=== PATIENT | female | born 1980 | race Caucasian/White ===

== ENCOUNTER 2016-09-07 10:40 | Emergency (ER) | payer MEDICARE, MEDICAID ==
[2016-09-07 11:52] VITALS: BP 138/84
[2016-09-07 12:57] LABS: Hematocrit 48 % (35-47); Hemoglobin 15.9 g/dl (12.0-16.0); Mean Corpuscular HGB Conc 33 g/dl (31-36); Mean Corpuscular Hemoglobin 31 pg (27-31); Mean Corpuscular Volume 94 fL (80-97); Mean Platelet Volume 8 um3 (7.4-10.4); Red Cell Distribution Width 13 % (10.5-15); White Blood Count 7.7 10^3/ul (3.5-10.8)
[2016-09-07 12:58] LABS: Urine Bilirubin Negative (Negative); Urine Glucose Negative (Negative); Urine Nitrite Negative (Negative)
[2016-09-07 13:08] LABS: ALT 12 U/L (7-52); AST 16 U/L (13-39); Albumin 4.7 g/dL (3.2-5.2); Alkaline Phosphatase 57 U/L (34-104); Anion Gap -1 mmol/L (2-11); Blood Urea Nitrogen 8 mg/dL (6-24); CO2 Carbon Dioxide 26 mmol/L (22-32); Calcium 10.3 mg/dL (8.6-10.3); Chloride 107 mmol/L (101-111); EGFR African American 80.2 (>60); EGFR Non-African American 62.4 (>60); Globulin 2.4 g/dL (2-4); Glucose 96 mg/dL (70-100); Potassium 3.7 mmol/L (3.5-5.0); Sodium 132 mmol/L (133-145); Total Protein 7.1 g/dL (6.4-8.9)
[2016-09-07 13:18] LABS: Benzodiazepine Urine Screen None Detected (None Detect)
[2016-09-07 13:21] LABS: Acetaminophen < 15 mcg/mL; Alcohol < 10 mg/dL (<10); Salicylate < 2.50 mg/dL (<30)
[2016-09-07 13:28] LABS: TSH (Thyroid Stimulating Horm) 3.74 mcIU/mL (0.34-5.60)
--- NOTE | 2016-09-07 13:40 | RAD ---
HISTORY: Foreign bodies. No other history is provided COMPARISONS: June 21, 2016 VIEWS: 2: Frontal dual-energy and lateral views of the chest. FINDINGS: CARDIOMEDIASTINAL SILHOUETTE: The cardiomediastinal silhouette is normal. MYRIAM: The myriam are normal. PLEURA: The costophrenic angles are sharp. No pleural abnormalities are noted. LUNG PARENCHYMA: The lungs are clear. ABDOMEN: The upper abdomen is clear. There is no subphrenic gas. BONES AND SOFT TISSUES: No bone or soft tissue abnormalities are noted. OTHER: There is no radiopaque foreign body. IMPRESSION: NO ACTIVE CARDIOPULMONARY DISEASE.
--- NOTE | 2016-09-07 13:42 | RAD ---
HISTORY: Foreign bodies. No other history is provided. COMPARISONS: June 21, 2016 VIEWS: Frontal supine and upright views of the abdomen. FINDINGS: BOWEL: There is a nonobstructive bowel gas pattern. CALCULI: There are no abnormal calculi. BONES AND SOFT TISSUES: There are no osseous abnormalities. OTHER FINDINGS: The lung bases are clear. There is no subphrenic gas. There is no radio-opaque foreign body. IMPRESSION: NONOBSTRUCTIVE BOWEL GAS PATTERN. NO RADIOPAQUE FOREIGN BODY.
[2016-09-07] MEDS ORDERED: Acetaminophen TAB* 325 MG PO ONE (17:14)
[2016-09-07] MEDS ORDERED: QUEtiapine TAB* 100 MG PO ONE (19:57)
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
[2016-09-08] MEDS ORDERED: Acetaminophen TAB* 325 MG PO ONE (05:02)
--- NOTE | 2016-10-04 04:02 | ED ---
Progress - Progress Note Progress Note: pt seen and cleared by crisis condition stable - Consult/PCP Time Called: 13:00 Course/Dx - Diagnoses Provider Diagnoses: Depression, Pica in adults
== END 2016-09-08 12:01 ==
LOC: ED 10:40
DX: F32.9 Major depressive disorder, single episode, unspecified (principal); F50.89 Other specified eating disorder
CPT/HCPCS: 36415; 71020; 74020; 80053; 80307; 80320; 80329; 81003; 84443; 85025; 99284; A9270-GY; G0480

== ENCOUNTER 2016-12-05 20:58 | Inpatient (IN) | payer MEDICARE, MEDICAID ==
[2016-12-05 21:39] LABS: Urine Bilirubin Negative (Negative); Urine Glucose Negative (Negative); Urine Nitrite Negative (Negative)
[2016-12-05 21:42] LABS: Benzodiazepine Urine Screen None Detected (None Detect)
[2016-12-05 21:55] LABS: Hematocrit 42 % (35-47); Hemoglobin 14.1 g/dl (12.0-16.0); Mean Corpuscular HGB Conc 34 g/dl (31-36); Mean Corpuscular Hemoglobin 31 pg (27-31); Mean Corpuscular Volume 92 fL (80-97); Mean Platelet Volume 8 um3 (7.4-10.4); Red Blood Count 4.51 10^6/ul (4.0-5.4); Red Cell Distribution Width 13 % (10.5-15); White Blood Count 7.4 10^3/ul (3.5-10.8)
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
[2016-12-05] MEDS ORDERED: diPHENhydraMINE IV* 50 MG/ML 1 ml VIAL (BENADRYL) IM ONE (22:05)
[2016-12-05] MEDS ORDERED: LORazepam INJ* 2 MG/ML 1 ML VIAL IM ONE (22:05)
[2016-12-05] MEDS ORDERED: Haloperidol INJ IV/IM* 5 MG/ML AMP IM ONE (22:05)
[2016-12-05 22:09] LABS: ALT 10 U/L (7-52); AST 15 U/L (13-39); Albumin 4.4 g/dL (3.2-5.2); Alkaline Phosphatase 51 U/L (34-104); Anion Gap 7 mmol/L (2-11); BUN/Creatinine Ratio 9.7 (8-20); Blood Urea Nitrogen 9 mg/dL (6-24); CO2 Carbon Dioxide 22 mmol/L (22-32); Calcium 9.5 mg/dL (8.6-10.3); Chloride 106 mmol/L (101-111); EGFR African American 87.2 (>60); EGFR Non-African American 67.8 (>60); Globulin 2.4 g/dL (2-4); Glucose 98 mg/dL (70-100); Potassium 3.7 mmol/L (3.5-5.0); Sodium 135 mmol/L (133-145); Total Protein 6.8 g/dL (6.4-8.9)
[2016-12-05 22:39] LABS: Acetaminophen < 15 mcg/mL; Alcohol < 10 mg/dL (<10); Salicylate < 2.50 mg/dL (<30)
[2016-12-05 22:48] LABS: TSH (Thyroid Stimulating Horm) 3.79 mcIU/mL (0.34-5.60)
[2016-12-06] MEDS ORDERED: Sertraline* 100 MG TAB PO ONE (09:17)
[2016-12-06] MEDS ORDERED: Gabapentin CAP(*) 400 MG PO ONE (09:22)
[2016-12-06] MEDS ORDERED: LORazepam INJ* 2 MG/ML 1 ML VIAL ONE (09:57)
[2016-12-06] MEDS ORDERED: diPHENhydraMINE IV* 50 MG/ML 1 ml VIAL (BENADRYL) ONE (09:57)
[2016-12-06] MEDS ORDERED: Haloperidol INJ IV/IM* 5 MG/ML AMP ONE (09:58)
[2016-12-06] MEDS ORDERED: diPHENhydraMINE IV* 50 MG/ML 1 ml VIAL (BENADRYL) IM ONE (10:03)
[2016-12-06] MEDS ORDERED: LORazepam INJ* 2 MG/ML 1 ML VIAL IM ONE (10:03)
[2016-12-06] MEDS ORDERED: Haloperidol INJ IV/IM* 5 MG/ML AMP IM ONE (10:03)
[2016-12-06] MEDS ORDERED: Al Hydrox/Mg Hydrox/Simet LIQ* 30 ML UDC PO PRN (15:07)
[2016-12-06] MEDS: Gabapentin CAP(*) 400 MG PO SCH ×2 (18:09→21:01)
[2016-12-06] MEDS ORDERED: Gabapentin CAP(*) 400 MG PO SCH (21:00)
[2016-12-06] MEDS: Lithium Carbonate TAB* 300 MG PO SCH (21:02)
[2016-12-07] MEDS ORDERED: LURASIDONE 120 MG PO SCH (09:00)
[2016-12-07] MEDS: Sertraline* 100 MG TAB PO SCH (09:05)
[2016-12-07] MEDS: Cholecalciferol TAB* 1000 UNITS PO SCH (09:05)
[2016-12-07] MEDS: Vitamin THERAPEUTIC TAB PO SCH (09:05)
[2016-12-07] MEDS: Gabapentin CAP(*) 400 MG PO SCH ×3 (09:06→20:36)
[2016-12-07] MEDS: Fluticasone NASAL SPRAY 50MCG* 16 gm SPRAY BTL BOTH NARES SCH (10:17)
--- NOTE | 2016-12-07 11:42 | PN ---
MHU: Group Therapy Note - Service Type Service Type: [id number] Group Psychotherapy - Cognitive Behavioral Group Therapy ( CBT):Patient was attentive and participatory in CBT programming this morning, and remained in good behavioral control. Patient expressed positive insights regarding relevant treatment interventions and goals.
--- NOTE | 2016-12-07 11:43 | HP ---
DATE OF ADMISSION: 12/06/2016. IDENTIFYING DATA: Fernando Leiva is a 36-year-old, mentally-disabled female with a history of severe borderline personality disorder, dissociative disorder, depressive disorder, chronic self-injury behaviors and multiple prior psychiatric hospitalizations. She is admitted to the Psychiatric Unit after coming to the hospital emergency room and demonstrating behavioral dysregulation and reporting some suicidal ideation and urges to eat inappropriate objects. HISTORY OF PRESENT ILLNESS: Fernando was last admitted to our psychiatric unit in June 2016 and reports doing very well since then. She reports no suicide attempts. No instances of self-injury and no major emotional distress in the last six months. She said she does recognize that she has a lot of stress in her life and most of it relates to her daily routine of having to get to day treatment and organize her life. She said things built up over the last week and she felt overwhelmed. She said that she immediately began to think about hurting herself by eating inappropriate objects, but refrained from doing so prior to coming to the hospital. In the emergency room, she had behavioral escalation and aggression, and required emergency medication. She told the ED Provider she had some suicidal thoughts. On arrival to the Psychiatric Unit, she went straight to the nurse' s station to try and eat thumb tacks. Today, she reports "doing okay." She denies current self-harm activities or urges. She notes her distress levels are much lower. She feels okay and denies emotional pain. She denies being at al close to a suicide attempt at any point recently. She recognized the appropriateness of brief psychiatric hospitalization and indicated she felt she needs a couple of days of stability prior to going home. She said she is already distancing herself somewhat from her stressors and agreed with feedback that she has interrupted a crisis already. She has denied perceptual disturbances, violent ideation, or current suicidal thoughts. She denied symptoms consistent with a major mood episode. She denies the use of alcohol or drugs or new health problems. PREVIOUS PSYCHIATRIC HISTORY: Numerous psychiatric hospitalizations, over 20 at our facility. She has also had longer term treatment at the state hospital level. Principal concern is borderline personality disorder with associative features too. She has a pattern of periodic decompensations which in most recent times has involved self-harm behaviors without suicidal intent. She often can decompensate further on the Psychiatric Unit and is vulnerable to negative therapeutic reactions in that setting. Ideally, admissions should be kept brief and focusing on interrupting an immediate crisis of behavior disturbance. In the past, she has done severe self-cutting requiring sutures for lacerations. She has had numerous medication trials, none of which have been able to eradicate her symptoms. She has had long-term outpatient care at [facility]. PRIOR MEDICAL HISTORY: Asthma, allergies, obesity. CURRENT OUTPATIENT MEDICINE REGIMEN: 1. Lurasidone 120 mg each bedtime. 2. Azelastine two sprays at bedtime. 3. Vitamin D 2000 units each a.m. 4. Gabapentin 800 mg t.i.d. 5. Xyzal 5 mg at bedtime. 6. Marlow Carbonate 1200 mg at bedtime (recently decreased). 7. Nasonex two sprays to nares daily. 8. Probiotic product one probiotic product daily. 9. Sertraline 200 mg each a.m. SUBSTANCE USE HISTORY: She has a prior history of alcohol use with negative consequences and over the years has accessed for support. She has no known problems with other substances. SOCIAL HISTORY: Fernando was born in [place]. She is quite distant from her biological family. She said her father was difficulty, angry and frightening. She is educated through high school and attended [employer]. She has a degree in Linguistics. 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 She receives disability based on her mental diagnosis. She lives in a home with her partner. She identifies as lesbian and has been living with her current female partner on a stable basis over the years. She accesses healthcare through Medicare and Medicaid. MENTAL STATUS EXAMINATION: Obese, middle-aged, female who is well- kempt in casual clothes. She has normal psychomotor activity. She impresses as a little anxious, but is viviana and cooperative. She maintains fair eye contact. Speech is spontaneous and unpressured. Mood is described as "just concerned." Affect is a little tense and anxious, it is considerably bright and euthymic. Thought process is coherent. Content negative for suicidal, homicidal, or paranoid ideation. Sensorium is clear. She is alert and oriented times three. Insight and judgment is somewhat poor and impulse control is poor. REVIEW OF SYSTEMS: Negative for visual changes, neurological symptoms, respiratory difficulties, chest pain, syncope, gastrointestinal distress, elimination symptoms apart from her report of periodic diarrhea. Negative for musculoskeletal problems or skin problems. PHYSICAL EXAMINATION Physical examination is deferred. Fernando preferred not to have a physical examination. This is a reasonable refusal in a vulnerable person who has been medically cleared for psychiatric hospitalization and who is capable of a refusal. It does not require follow-up. She is medically stable for psychiatric hospitalization. VITAL SIGNS: Temperature 98.0, blood pressure 110/73, pulse 75, respiratory rate 16. ADMISSION LABORATORY STUDIES: CBC was normal. Comprehensive panel was normal. TSH was normal. Urinalysis had specific gravity of 1.005. Toxicology screen was negative for Tylenol, alcohol or salicylates. Urine drug screen was negative. CLINICAL SUMMARY: [id number]-old female with borderline personality disorder, dissociative disorder, a chronic pattern of eating inappropriate objects when in distress and periodic breakdowns requiring psychiatric hospitalization. She presents typically with behavioral dysregulation, some apparent transient suicidal thougths, and eating inappropriate objects; under routine life stressors that broke down her coping. She merits psychiatric hospitalization. As indicated previously, hospitalization should be kept brief as the patient is at high risk for negative therapeutic reactions in this setting. Her stabilization is already underway and I do anticipate a hospitalization of a few days will be appropriate. Fernando has eaten some inappropriate objects, reported eating plastic tines. There is no acute intervention needed. These are plastic and not radiopaque. If it turns out she is eating metallic objects that are assessed at higher risk for medical consequences, we can consider imaging. ADMISSION DIAGNOSES: Borderline personality disorder, dissociative disorder, anxiety disorder, mood disorder. TREATMENT PLAN: Admit the psychiatric unit, code status is full, safety checks are at 15 minute intervals, initiate comprehensive group milieu and individual psychotherapeutic supports and individualized behavior modification plan oriented against self-harm behaviors. Estimated length of stay is three days. Target symptoms are eating inappropriate objects, agitation, upset, impaired coping, distress (stabilization is already underway). Medication management continues the outpatient medication regimen. Discharge planning will involve coordination with appropriate aftercare. [id number]/[facility] #: [id number] CHRISTOPHER
[2016-12-07] MEDS: Acetaminophen TAB* 325 MG PO PRN (20:07)
[2016-12-07] MEDS: Lithium Carbonate TAB* 300 MG PO SCH (20:36)
[2016-12-07] MEDS: LURASIDONE 120 MG PO SCH (20:40)
[2016-12-08] MEDS: Gabapentin CAP(*) 400 MG PO SCH ×3 (08:46→20:20)
[2016-12-08] MEDS: Cholecalciferol TAB* 1000 UNITS PO SCH (08:46)
[2016-12-08] MEDS: Vitamin THERAPEUTIC TAB PO SCH (08:46)
[2016-12-08] MEDS: Fluticasone NASAL SPRAY 50MCG* 16 gm SPRAY BTL BOTH NARES SCH (08:46)
[2016-12-08] MEDS: Sertraline* 100 MG TAB PO SCH (08:47)
--- NOTE | 2016-12-08 12:51 | PN ---
Subjective - Subjective Service Type: 04415 Hosp care 15 min low complexity Subjective: Fernando reports feeling "hyper" - high energy but not dysphoric or overly anxious. She notes ongoing ideas of doing minor self harm, and frames them as intrusive on one hand, but also notes feeling "frustrated" she is not acting on them. We reviewed her coping strategies and distress tolerance practices; and she expressed current access to and familiarity with distraction, self soothing. I also introduced exposure practice for the obsessive aspect. 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 She reported getting along well with staff, peers, benefitting from program. Objective - Appearance Appearance: Obese Hygiene: Normal Grooming: Well Kept - Behavior Psychomotor Activities: Normal - Attitude and Relatedness Attitude and Relatedness: Needy Eye Contact: Good - Speech Quality: Unpressured Latencies: Normal Quantity: Appropriate - Mood Patient's Decription of Mood: "Anxious" - Affect Observed Affect: Tense Affect Consistent with: Euthymia - Thought Process Patient's Thought Process: Coherent Thought Content: No Passive Wish, No Suicidal Planning, No Homicidal Ideation, No Paranoid Ideation - Sensorium Experiencing Hallucinations: No, Sensorium is Clear - Level of Consciousness Level of Consciousness: Alert - Impulse Control Impulse Control: Poor - Insight and Judgement Insight and Judgement: Poor Assessment - Assessment Merits Inpatient Hospitalization: To Initiate Treatment, For Ongoing Evaluation , Consolidate Improvements, For Discharge Planning Inpatient DSM-IV Dx: Borderline personality disorder, dissociative disorder, anxiety disorder, mood disorder. Clinical Impression: Asalez-saejt-nhea-old female with borderline personality disorder, dissociative disorder, a chronic pattern of eating inappropriate objects when in distress and periodic breakdowns requiring psychiatric hospitalization. She presented typically, with behavioral dysregulation, some apparent transient suicidal thoughts, and eating inappropriate objects; under routine life stressors that broke down her coping. Stabilized here. Behavior is under control. Reports ongoing self-harm ideas (some obsessional aspects) without dangerous behavior. As indicated previously, hospitalization should be kept brief as the patient is at high risk for negative therapeutic reactions in this setting. Given her progress and preference, expect discharge tomorrow. Medication management continues the outpatient medication regimen - Zoloft, Latuda, gabapentin, [place] (level 0.53 12/08 - appropriate - off label application). Plan - Plan Treatment Plan: Name: FERNANDO HOFFMAN Birthdate: 1980 [id number] Continued Medication Management: Continue Outpt Medication Medications: Current Medications Acetaminophen (Tylenol Tab*) 650 mg PO Q4H PRN PRN Reason: for pain; or Temp >101 F Last Admin: 12/07/16 20:07 Dose: 650 mg Al Hydrox/Mg Hydrox/Simethicone (Maalox Plus*) 30 ml PO Q4H PRN PRN Reason: INDIGESTION Cholecalciferol (Vitamin D Tab*) 2,000 units PO DAILY [facility] Last Admin: 12/08/16 08:46 Dose: 2,000 units Fluticasone Propionate (Flonase Nasal [place] 50mcg*) 2 spray BOTH NARES DAILY [facility] Last Admin: 12/08/16 08:46 Dose: 2 spray Gabapentin (Neurontin Cap(*)) 800 mg PO TID [facility] Last Admin: 12/08/16 08:46 Dose: 800 mg [place] Carbonate ([place] Carbonate Tab*) 1,200 mg PO BEDTIME [facility] Last Admin: 12/07/16 20:36 Dose: 1,200 mg Lurasidone HCl (Latuda (Nf)) 120 mg PO BEDTIME [facility] Last Admin: 12/07/16 20:40 Dose: 120 mg Multivitamins (Theragran Tab*) 1 tab PO DAILY [facility] Last Admin: 12/08/16 08:46 Dose: 1 tab Sertraline HCl (Zoloft*) 200 mg PO DAILY [facility] Last Admin: 12/08/16 08:47 Dose: 200 mg - Discharge Plan Discharge Plan: Outpatient Follow Up Outpatient Program: [facility]
--- NOTE | 2016-12-08 14:07 | PN ---
[facility]: Group Therapy Note - Service Type Service Type: 61044 Group Psychotherapy - Cognitive Behavioral Group Therapy ( CBT):Patient was attentive and participatory in CBT programming this morning, and remained in good behavioral control. Patient expressed positive insights regarding relevant treatment interventions and goals.
[2016-12-08] MEDS: Lithium Carbonate TAB* 300 MG PO SCH (20:19)
[2016-12-08] MEDS: Acetaminophen TAB* 325 MG PO PRN (20:20)
[2016-12-08] MEDS: LURASIDONE 120 MG PO SCH (20:23)
[2016-12-09 08:01] VITALS: BP 116/72
[2016-12-09] MEDS: Fluticasone NASAL SPRAY 50MCG* 16 gm SPRAY BTL BOTH NARES SCH (08:56)
[2016-12-09] MEDS: Vitamin THERAPEUTIC TAB PO SCH (08:57)
[2016-12-09] MEDS: Cholecalciferol TAB* 1000 UNITS PO SCH (08:57)
[2016-12-09] MEDS: Gabapentin CAP(*) 400 MG PO SCH ×2 (08:58→13:12)
[2016-12-09] MEDS: Sertraline* 100 MG TAB PO SCH (08:58)
[2016-12-09] MEDS: Acetaminophen TAB* 325 MG PO PRN (09:41)
--- NOTE | 2016-12-09 11:49 | DS ---
Subjective - Subjective Service Types: 81485 Hosp PR Day Mgmt simple under 30 min Discharge Date: 12/09/16 Subjective: Fernando reported readiness for discharge and said it's her preference. She said she recognized is is equally possible her condition / behavior would deteriorate vs. improve if she stays longer. She denied any plans to harm herself in any way, but reports ongoing thoughts and urges around eating inappropriate objects. The feelings driving it seem to be anxiety ahead of the behavior, and anger when the behavior is resisted. She did not ancitipate programming helping, and today, found group too stimulating after a peer sneezed loudly. We reviewed her medication, and aftercare plan, and handling setbacks or emergencies. She said she sees no barriers to routine care or emergency help if needed again. Objective - Appearance Appearance: Obese Hygiene: Normal Grooming: Fairly Well Kept - Behavior Psychomotor Activities: Normal - Attitude and Relatedness Attitude and Relatedness: Cooperative Eye Contact: Good - Speech Quality: Unpressured Latencies: Normal Quantity: Terse - Mood Patient's Decription of Mood: "Okay" - Affect Observed Affect: Non-labile Affect Consistent with: Euthymia - Thought Process Patient's Thought Process: Coherent, Goal Directed, Impoverished Thought Content: No Passive Wish, No Suicidal Planning, No Homicidal Ideation, No Paranoid Ideation - Sensorium Experiencing Hallucinations: No, Sensorium is Clear - Level of Consciousness Level of Consciousness: Alert - Impulse Control Impulse Control: Poor - Insight and Judgement Insight and Judgement: Poor Treatment Course & Assessment Clinical Course & Impression: Zycqwv-[id number]-umae-old female with borderline personality disorder, dissociative disorder, a chronic pattern of eating inappropriate objects when in distress and periodic breakdowns requiring psychiatric hospitalization. She presented typically, with behavioral dysregulation, some apparent transient suicidal thoughts, and eating inappropriate objects; under routine life stressors that broke down her coping. 12/09/16: Clear for release. Fernando stabilized here. Her behavior, which was severely dysregulated in the ED , has been is under control. She has reported ongoing self-harm ideas (with some obsessional aspects) without dangerous behavior. She at a small plastic part of a pen cap 12/08, harmlessly. As indicated previously, hospitalization should be kept brief as the patient is at high risk for negative therapeutic reactions in this setting. She agreed. Medication management continues the outpatient medication regimen - Zoloft, Latuda, gabapentin, [place] (level 0.53 12/08 - appropriate - off label application). Fernando is appropriate for discharge now. She is at chronic risk for similar episodes. She has chronic elevated risk of intentional and inadvertent self harm based on her profile and history. Suicide risk is assessed as low acutely based on absence of viviana suicidal behavior, reduced current symptom burden, and correction of acute impairment. Clear for Discharge: Adequate Clinical Respons, Acceptable Safety Profile, Low Utility of Inpt Care Inpatient DSM-IV Dx: Borderline personality disorder, dissociative disorder, anxiety disorder, mood disorder. Discharge Planning - Discharge Planning Discharge Plan: Outpatient Follow Up Outpatient Program: [facility] Recommendations for Continuing Care: Medication Management, Substance Abuse Counseling, Routine Metabolic Monitoring, Therapeutic Drug Levels Medications: Current Medications Cholecalciferol (Vitamin D Tab*) 2,000 units PO DAILY [facility] Last Admin: 12/09/16 08:57 Dose: 2,000 units Fluticasone Propionate (Flonase Nasal [place] 50mcg*) 2 spray BOTH NARES DAILY [facility] Last Admin: 12/09/16 08:56 Dose: 2 spray Gabapentin (Neurontin Cap(*)) 800 mg PO TID [facility] Last Admin: 12/09/16 08:58 Dose: 800 mg [place] Carbonate (Cylinder Carbonate Tab*) 1,200 mg PO BEDTIME [facility] Last Admin: 12/08/16 20:19 Dose: 1,200 mg Lurasidone HCl (Latuda (Nf)) 120 mg PO BEDTIME [facility] Last Admin: 12/08/16 20:23 Dose: 120 mg Sertraline HCl (Zoloft*) 200 mg PO DAILY [facility] Last Admin: 12/09/16 08:58 Dose: 200 mg Discharge Planning: Prescriptions provided for discharge [] Yes [x] No Follow up care details as per social work arrangements. Patient response to discharge plan: [x] eager for discharge [] agreeable with discharge plan [] ambivalent about discharge [] disagrees with discharge today
== END 2016-12-09 13:25 | disposition home or self-care (01) | DRG 883 ==
LOC: ED 20:58 → BSU 12-06 14:47
PROVIDERS: ADMIT Psychiatry & Neurology Psychiatry; ATTEND Psychiatry & Neurology Psychiatry
PROC: GZHZZZZ Group Psychotherapy (ICD-10-PCS; principal; 2016-12-06)
DX: F60.3 Borderline personality disorder (principal); Z78.1 Physical restraint status; F32.9 Major depressive disorder, single episode, unspecified; E66.9 Obesity, unspecified; F44.9 Dissociative and conversion disorder, unspecified; F41.9 Anxiety disorder, unspecified; F39 Unspecified mood [affective] disorder; J45.909 Unspecified asthma, uncomplicated; Z91.011 Allergy to milk products; K21.9 Gastro-esophageal reflux disease without esophagitis; Z82.49 Family history of ischemic heart disease and other diseases of the circulatory system; Z81.8 Family history of other mental and behavioral disorders; Z68.34 Body mass index [BMI] 34.0-34.9, adult
CPT/HCPCS: 36415; 80053; 80178; 80307; 80320; 80329; 81003; 83036; 84443; 85025; 90853; 99222; 99231; 99238; A9270-GY; G0480; J1200; J1630; J2060

== ENCOUNTER 2016-12-12 20:16 | Inpatient (IN) | payer MEDICARE, MEDICAID ==
[2016-12-12 20:45] LABS: Urine Bilirubin Negative (Negative); Urine Glucose Negative (Negative); Urine Nitrite Negative (Negative)
[2016-12-12 20:58] LABS: Benzodiazepine Urine Screen None Detected (None Detect)
--- NOTE | 2016-12-12 20:58 | RAD ---
INDICATION: Swallowed foreign bodies, thumb tack and kidneys. COMPARISON: Comparison is made with a prior abdominal series from September 07, 2016. TECHNIQUE: Frontal supine films of the abdomen were obtained. FINDINGS: The small bowel and colon appear nondistended. There are multiple foreign bodies which project in the left upper quadrant and appear to be most likely within the antrum of the stomach. These include at least 5 thumb nails, 3 keys and a pin which measures 1.9 cm in length. IMPRESSION: MULTIPLE FOREIGN BODIES WITHIN THE STOMACH.
[2016-12-12 21:50] LABS: Hematocrit 44 % (35-47); Hemoglobin 14.7 g/dl (12.0-16.0); Mean Corpuscular HGB Conc 34 g/dl (31-36); Mean Corpuscular Hemoglobin 31 pg (27-31); Mean Corpuscular Volume 93 fL (80-97); Mean Platelet Volume 8 um3 (7.4-10.4); Red Blood Count 4.71 10^6/ul (4.0-5.4); Red Cell Distribution Width 13 % (10.5-15); White Blood Count 8.2 10^3/ul (3.5-10.8)
[2016-12-12] MEDS ORDERED: LORazepam TAB(*) 1 MG PO ONE (22:00)
--- NOTE | 2016-12-12 22:03 | ED ---
Elena, DoctorEleanor, scribed for Belen Bass MD on 12/12/16 at 2037 . Psychiatric Complaint - HPI Summary HPI Summary: 36 year old female arrived to [facility] after swallowing 7 tacks and 3 keys around 19:15 today. She denies any nausea at this time. Additionally, she denies any suicidal ideation or intentional desire to hurt herself. She was recently released from a psych osorio last week, however, she has still felt overwhelming urge to swallow since her release. She reports that watching TV and eating good food at home helps. She has a PMHx and FHx of depression. - History Of Current Complaint Chief Complaint: EDMentalHealth Time Seen by Provider: 12/12/16 20:25 Hx Obtained From: Patient Onset/Duration: Gradual Onset Timing: Constant Severity Initially: Moderate Severity Currently: Moderate Related History: Positive For: Prior Psychiatric Issues Has Suicidal: Denies: Thoughts - Allergies/Home Medications Allergies/Adverse Reactions: Allergies Allergy/AdvReac Type Severity Reaction Status Date / Time Casein Allergy See Comment Verified 12/04/15 09:26 DAIRY Allergy Nausea And Uncoded 09/08/16 00:11 Vomiting PMH/Surg Hx/FS Hx/Imm Hx Respiratory History: Reports: Hx Asthma - states only SOB when running Denies: Hx Chronic Bronchitis GI History: Reports: Hx Gastroesophageal Reflux Disease, Hx Irritable Bowel History: Denies: Other Problems/Disorders Musculoskeletal History: Reports: Other Musculoskeletal History - STATES FREQ JOINT PAIN DUE TO SPORTS INJURIES IN PAST Denies: Hx Arthritis Sensory History: Reports: Hx Contacts or Glasses Denies: Hx Cataracts, Hx Eye Injury, Hx Hearing Aid, Hx Hearing Problem, Other Sensory Impairments Opthamlomology History: Reports: Hx Contacts or Glasses Denies: Hx Cataracts, Hx Eye Injury, Other Sensory Impairments Psychiatric History: Reports: Hx Anxiety, Hx Depression, Hx Inpatient Treatment , Hx Community Mental Health Tx, Hx Bipolar Disorder, Hx Suicide Attempt, Hx of Violent Episodes Against Others, Hx Substance Abuse - hx of alcoholism/ no etoh intake for the past 10 years, Other Psychiatric Issues/Disorders - Borderline personality disorder Denies: Hx Eating Disorder Infectious Disease History: No Infectious Disease History: Denies: Traveled Outside the [place] in Last 30 Days - Family History Known Family History: Positive: Hypertension, Other - mood disorder, anxiety, depression, alcohol abuse - Social History Occupation: Employed Full-time Lives: With Family - with partner Alcohol Use: None Hx Substance Use: No Substance Use Type: Reports: None Hx Tobacco Use: No Smoking Status (MU): Never Smoked Tobacco Have You Smoked in the Last Year: No Review of Systems Negative: Fever Negative: Nausea All Other Systems Reviewed And Are Negative: Yes Physical Exam Triage Information Reviewed: Yes Vital Signs On Initial Exam: Initial Vitals Temp Pulse Resp BP Pulse Ox 97.9 F 77 16 122/77 100 12/12/16 20:17 12/12/16 20:17 12/12/16 20:17 12/12/16 20:17 12/12/16 20:17 Vital Signs Reviewed: Yes Appearance: Positive: Well-Appearing, No Pain Distress Skin: Positive: Warm, Skin Color Reflects Adequate Perfusion, Dry Eyes: Positive: EOMI, SHELLY ENT: Positive: Pharynx normal, TMs normal Neck: Positive: Supple, Nontender Respiratory/Lung Sounds: Positive: Clear to Auscultation, Breath Sounds Present. Negative: Rales, Rhonchi, Wheezes Cardiovascular: Positive: RRR. Negative: Murmur, Rub Abdomen Description: Positive: Nontender, Soft. Negative: Distended, Guarding Bowel Sounds: Positive: Present Musculoskeletal: Positive: Strength/ROM Intact. Negative: Edema Left, Edema Right Neurological: Positive: Sensory/Motor Intact, Alert, Oriented to Person Place, Time, CN Intact II-III Psychiatric: Positive: Affect/Mood Appropriate Diagnostics - Vital Signs Vital Signs Temp Pulse Resp BP Pulse Ox 12/12/16 20:19 97.9 F 72 18 122/77 100 12/12/16 20:17 97.9 F 77 16 122/77 100 - Laboratory Lab Results: Lab Results 12/12/16 12/12/16 Range/Units 20:30 20:30 Urine Color Colorless Urine Appearance Clear Urine pH 6.0 (5-9) Ur Specific [place] 1.001 L (1.010-1.030) Urine Protein Negative (Negative) Urine Ketones Negative (Negative) Urine Blood Negative (Negative) Urine Nitrate Negative (Negative) Urine Bilirubin Negative (Negative) Urine Urobilinogen Negative (Negative) Ur Leukocyte Esterase Negative (Negative) Urine Glucose Negative (Negative) Urine Opiates Screen None detected (None Detect) Ur Barbiturates Screen None detected (None Detect) Ur Phencyclidine Scrn None detected (None Detect) Ur Amphetamines Screen None detected (None Detect) U Benzodiazepines Scrn None detected (None Detect) Urine Cocaine Screen None detected (None Detect) U Cannabinoids Screen None detected (None Detect) Lab Statement: Any lab studies that have been ordered have been reviewed, and results considered in the medical decision making process. - Radiology Abdomen X-Ray Radiology Interpretation Completed By: Radiologist - IMPRESSION: MULTIPLE FOREIGN BODIES WITHIN THE STOMACH. Re-Evaluation - Re-Evaluation First Eval Re-Evaluation Time: 21:58 Change: Worse Comment: Pt status escalated, began banging her head on the wall. Dr. Bass spoke with pt and discussed her care. Course/Dx - Differential Dx/Clinical Impression Provider Diagnosis: Foreign body ingestion, Depressive disorder - Physician Notifications Discussed Care Of Patient With: 21:20 - Discussed pt care with Dr. Zhong ( Gastroenterology) about appropriate course of treatment Discharge - Discharge Plan Condition: Stable Disposition: OTHER Discharge Disposition Comment: to be determined by Dr. Seo The documentation as recorded by the Doctor patel Tahera accurately reflects the service I personally performed and the decisions made by me, Belen Bass MD.
[2016-12-12 22:04] LABS: ALT 13 U/L (7-52); AST 19 U/L (13-39); Albumin 4.5 g/dL (3.2-5.2); Alkaline Phosphatase 54 U/L (34-104); Anion Gap 5 mmol/L (2-11); BUN/Creatinine Ratio 11.5 (8-20); Blood Urea Nitrogen 12 mg/dL (6-24); CO2 Carbon Dioxide 25 mmol/L (22-32); Calcium 9.6 mg/dL (8.6-10.3); Chloride 105 mmol/L (101-111); EGFR African American 76.7 (>60); EGFR Non-African American 59.6 (>60); Globulin 2.5 g/dL (2-4); Glucose 97 mg/dL (70-100); Potassium 4.5 mmol/L (3.5-5.0); Sodium 135 mmol/L (133-145)
[2016-12-12] MEDS ORDERED: LORazepam INJ* 2 MG/ML 1 ML VIAL ONE (22:20)
[2016-12-12] MEDS ORDERED: LORazepam INJ* 2 MG/ML 1 ML VIAL IM ONE (22:20)
[2016-12-12 22:27] LABS: Acetaminophen < 15 mcg/mL; Alcohol < 10 mg/dL (<10); Salicylate < 2.50 mg/dL (<30)
[2016-12-12 22:37] LABS: TSH (Thyroid Stimulating Horm) 3.61 mcIU/mL (0.34-5.60)
[2016-12-12] MEDS ORDERED: Nicotine Inhaler* 10 MG AMP INH PRN (23:39)
[2016-12-13] MEDS: LURASIDONE 120 MG PO SCH ×2 (01:30→08:14)
[2016-12-13] MEDS: Lithium Carbonate ER (NF) 300 MG TAB.ER PO SCH ×2 (01:30→22:35)
[2016-12-13] MEDS: Cholecalciferol TAB* 1000 UNITS PO SCH (08:13)
[2016-12-13] MEDS: Gabapentin CAP(*) 400 MG PO SCH ×3 (08:14→22:34)
[2016-12-13] MEDS: Sertraline* 100 MG TAB PO SCH (08:15)
[2016-12-13] MEDS ORDERED: LURASIDONE 40 MG PO SCH (09:00)
--- NOTE | 2016-12-13 15:22 | HP ---
DATE OF ADMISSION: 12/13/2016. IDENTIFYING DATA: Fernando Leiva is a 36-year-old, mentally-disabled female with a history of severe borderline personality disorder, dissociative disorder, depressive disorder, chronic self-injury behavior, and multiple prior psychiatric hospitalizations. She is re-admitted to the Psychiatric Unit about three days after her last psychiatric discharge, having come to the emergency room by car reporting eating "a handful of tacks, three keys, and a pin." HISTORY OF PRESENT ILLNESS: This is an update of the history and physical associated with Fernando's December 06 admission to the unit. Please see the full history and physical I prepared for the admission for details of her prior history. Fernando reports "doing okay" over the weekend and said that she had some thoughts of self-harm, but did not act on them. She said she was "too busy" Monday and was in a lot of meetings, mostly therapeutic ones, and suddenly started, fairly impulsively, eating thumb tacks. She said she felt "great" while she was doing it and "stupid" afterwards. She came to the emergency room. She expressed some suicidal thoughts in the course of her evaluation and both she and her partner felt it was important that she be hospitalized. She denied use of alcohol or drugs over the weekend. She reported inconsistent use of her psychiatric medication regimen. She denied other new health problems. She reported fair sleep quality and up and down levels of emotional pain and anxiety. She could not really explain why she is engaged in the behavior of eating inappropriate objects and laughed about it. She was hopeful to get help in the psychiatric hospital. It made her anxious to think about planning for a brief hospitalization. MENTAL STATUS EXAMINATION: Heavy-set, early middle-aged, female who is fairly well-kempt in casual clothing. She has normal psychomotor activity, makes good eye contact, is superficially cooperative. Speech is spontaneous and unpressured. Mood is described as "anxious." Affect is slightly tense and mildly dysphoric. Thought process is coherent. Thought content negative for current suicidal, homicidal or paranoid ideation. Sensorium is clear. She is alert and oriented times three. Insight and judgment is poor and impulse control is poor. REVIEW OF SYSTEMS UPDATE: Negative for neurological symptoms, chest pain, respiratory difficulties, gastrointestinal distress, elimination symptoms, musculoskeletal problems, or skin problems. PHYSICAL EXAMINATION UPDATED VITAL SIGNS: Temperature 97.6, blood pressure 113/79, pulse 78, respiratory rate is 18. ADMISSION LABORATORY STUDIES: CBC was normal except for monocytes of 9.4 percent. Comprehensive panel had creatinine of 1.04. test was negative. TSH was normal. Urinalysis had specific gravity of 1.001. Toxicology screen was negative for Tylenol, alcohol or salicylates. Urine drug screen was negative. IMAGING STUDIES: Abdominal x-ray showed multiple foreign bodies within the stomach. IMPRESSION: Fernando was medically cleared for psychiatric hospitalization in the emergency room with input from Gastroenterology. CLINICAL SUMMARY: Kgqjnl-mkzkw-lthz-old female with borderline personality disorder, dissociative disorder, pattern of eating inappropriate objects when in distress, periodic breakdowns requiring psychiatric hospitalization and a prior history of re-admissions. She presents typically having ingested inappropriate objects with some self-harm intent reported and some transient suicidal thoughts. She merits psychiatric hospitalization for immediate safety, stabilization, and treatment planning. As indicated previously, hospitalization should be kept brief as the patient has demonstrated a high risk for negative therapeutic reactions. ADMISSION DIAGNOSES: Borderline personality disorder, dissociative disorder, anxiety disorder, mood disorder. TREATMENT PLAN: Admit to the Psychiatric Unit, code status is full, safety checks are at 15 minute intervals, initiate comprehensive group milieu and individual psychotherapeutic supports, initiate behavior modification plan oriented against self-harm behaviors. Estimated length of stay is two to three days. Target symptoms are eating inappropriate objects, suicidal ideation, impaired coping, elevated distress. Medication management continues the outpatient medication regimen. Discharge planning involves coordinations with appropriate aftercare. [id number]/[facility] #: [id number] CHRISTOPHER
[2016-12-13] MEDS: LURASIDONE 40 MG PO SCH (22:35)
[2016-12-14] MEDS: Gabapentin CAP(*) 400 MG PO SCH ×3 (08:54→20:42)
[2016-12-14] MEDS: Sertraline* 100 MG TAB PO SCH (08:54)
[2016-12-14] MEDS: LURASIDONE 120 MG PO SCH (08:55)
[2016-12-14] MEDS: Cholecalciferol TAB* 1000 UNITS PO SCH (08:55)
--- NOTE | 2016-12-14 11:58 | PN ---
Subjective - Subjective Service Type: 21883 Hosp care 15 min low complexity Subjective: Fernando reports "doing okay" and was ready to plan her discharge. She was between today and tomorrow. Notes urges to eat inappropriate objects continue, she is able to resist. Reports much lower stress and symptom levels, and no suicidal ideation. We did a behavior chain analysis, identifying opportunities. Objective - Appearance Appearance: Obese Hygiene: Normal Grooming: Fairly Well Kept - Behavior Psychomotor Activities: Normal - Attitude and Relatedness Attitude and Relatedness: Cooperative Eye Contact: Good - Speech Quality: Unpressured Latencies: Normal Quantity: Appropriate - Mood Patient's Decription of Mood: "Anxious" - Affect Observed Affect: Non-labile Affect Consistent with: Euthymia - Thought Process Patient's Thought Process: Coherent Thought Content: No Passive Wish, No Suicidal Planning, No Homicidal Ideation, No Paranoid Ideation - Sensorium Experiencing Hallucinations: No, Sensorium is Clear - Level of Consciousness Level of Consciousness: Alert - Impulse Control Impulse Control: Tenuous - Insight and Judgement Insight and Judgement: Fair Assessment - Assessment Merits Inpatient Hospitalization: To Initiate Treatment, For Ongoing Evaluation , Consolidate Improvements, For Discharge Planning Inpatient DSM-IV Dx: Dissociative d.o., Anxiety disorder. Borderline PD Clinical Impression: Wxxnpt-iffpk-fmks-old female with borderline personality disorder, dissociative disorder, pattern of eating inappropriate objects when in distress, periodic breakdowns requiring psychiatric hospitalization and a prior history of re- admissions. She presented typically having ingested inappropriate objects with some self-harm intent and reported and some transient suicidal thoughts. Stabilized now. At low distress levels, in behavioral control. Clinically is appropriate to schedule discharge. Making it tomorrow allows an opportunity for consolidation, or self sabotage - we addressed this and will allow for some setbacks and plan to keep tomorrow as planned discharge. Hospitalization should be kept brief as the patient has demonstrated a high risk for negative therapeutic reactions. Medication management continues the outpatient medication regimen. Plan - Plan Treatment Plan: Name: FERNANDO HOFFMAN Birthdate: 1980 [id number] Continued Medication Management: Continue Outpt Medication Medications: Current Medications Cholecalciferol (Vitamin D Tab*) 2,000 units PO QAM [facility] Last Admin: 12/14/16 08:55 Dose: 2,000 units Gabapentin (Neurontin Cap(*)) 800 mg PO TID [facility] Last Admin: 12/14/16 08:54 Dose: 800 mg [place] Carbonate ([place] Carbonate Er (Nf)) 1,200 mg PO BEDTIME [facility] PRN Reason: Protocol Last Admin: 12/13/16 22:35 Dose: 1,200 mg Lurasidone HCl (Latuda (Nf)) 120 mg PO DAILY [facility] Last Admin: 12/14/16 08:55 Dose: 120 mg Lurasidone HCl (Latuda (Nf)) 40 mg PO BEDTIME [facility] Last Admin: 12/13/16 22:35 Dose: 40 mg Nicotine (Nicotine Inhaler*) 10 mg INH Q2H PRN PRN Reason: CRAVING Sertraline HCl (Zoloft*) 200 mg PO QAM [facility] Last Admin: 12/14/16 08:54 Dose: 200 mg - Discharge Plan Discharge Plan: Outpatient Follow Up Outpatient Program: [facility]
[2016-12-14] MEDS: Lithium Carbonate ER (NF) 300 MG TAB.ER PO SCH (20:42)
[2016-12-14] MEDS: LURASIDONE 40 MG PO SCH (20:43)
[2016-12-14] MEDS ORDERED: Acetaminophen TAB* 325 MG PO PRN (21:22)
[2016-12-15] MEDS: Gabapentin CAP(*) 400 MG PO SCH (08:44)
[2016-12-15] MEDS: Sertraline* 100 MG TAB PO SCH (08:45)
[2016-12-15] MEDS: LURASIDONE 120 MG PO SCH (08:45)
[2016-12-15] MEDS: Cholecalciferol TAB* 1000 UNITS PO SCH (08:45)
[2016-12-15 08:55] VITALS: BP 106/76
--- NOTE | 2016-12-15 10:33 | DS ---
Subjective - Subjective Service Types: 59223 Hosp PA Day Mgmt simple under 30 min Discharge Date: 12/15/16 Subjective: Fernando reported "feeling great today" - ready for discharge and in agreement with it, but (appropriately) anxious. She expressed understanding of symptoms to watch for that would suggest complication from eating foreign objects and require emergency evaluation (pain , fever, symptoms of hypotension, BRBPR, black stools). She denied any current urges or plans to harm herself in any way. We reviewed her medication and aftercare plan. She affirmed she feels supported and that she has adequate care plan and emergency procedures in place. Objective - Appearance Appearance: Obese Hygiene: Normal Grooming: Well Kept - Behavior Psychomotor Activities: Normal - Attitude and Relatedness Attitude and Relatedness: Cooperative Eye Contact: Good - Speech Quality: Unpressured Latencies: Normal Quantity: Appropriate - Mood Patient's Decription of Mood: "Anxious" - Affect Observed Affect: Non-labile Affect Consistent with: Euthymia - Thought Process Patient's Thought Process: Coherent Thought Content: No Passive Wish, No Suicidal Planning, No Homicidal Ideation, No Paranoid Ideation - Sensorium Experiencing Hallucinations: No, Sensorium is Clear - Level of Consciousness Level of Consciousness: Alert - Impulse Control Impulse Control: Poor - Insight and Judgement Insight and Judgement: Fair Treatment Course & Assessment Clinical Course & Impression: Ofpndw-mwtlm-wvfi-old female with borderline personality disorder, dissociative disorder, pattern of eating inappropriate objects when in distress, periodic breakdowns requiring psychiatric hospitalization and a prior history of re- admissions. She presented typically having ingested inappropriate objects with some self-harm intent and reported and some transient suicidal thoughts. 12/15/16 Clear for release. Fernando again stabilized here. She attained low distress levels, and was in basic behavioral control. She had minor setback overnight of eating a plastic bracelet, this was not surprising and should be viewed as self defeating behavior or reactive behavior around release planning. She also had an upbeat meeting with her . As indicated previously, hospitalization should be kept brief as the patient is at high risk for negative therapeutic reactions in this setting. Medication management continues the outpatient medication regimen - Zoloft, Latuda, gabapentin, Hi-Nella. Medical evaluation included abdomen XRay 12/15: continues to show retained foreign object (mayes, pin). This does not require intervention but needs to be followed in the outpatient setting. Fernando is appropriate for discharge now. She is at chronic risk for similar episodes. She has chronic elevated risk of intentional and inadvertent self harm based on her profile and history. Suicide risk is assessed as low acutely based on absence of viviana suicidal behavior, reduced current symptom burden, absence of acute impairment. Clear for Discharge: Adequate Clinical Respons, Acceptable Safety Profile, Low Utility of Inpt Care Inpatient DSM-IV Dx: Dissociative d.o., Anxiety disorder. Borderline PD Discharge Planning - Discharge Planning Discharge Plan: Outpatient Follow Up Outpatient Program: [facility] Recommendations for Continuing Care: Medication Management, Psychotherapy, Routine Metabolic Monitoring, Therapeutic Drug Levels, Primary Care Followup - within one week - followup of foreign body ingestion Medications: Current Medications Cholecalciferol (Vitamin D Tab*) 2,000 units PO QAM [facility] Last Admin: 12/15/16 08:45 Dose: 2,000 units Gabapentin (Neurontin Cap(*)) 800 mg PO TID [facility] Last Admin: 12/15/16 08:44 Dose: 800 mg Hi-Nella Carbonate (Hi-Nella Carbonate Er (Nf)) 1,200 mg PO BEDTIME RENÉE PRN Reason: Protocol Last Admin: 12/14/16 20:42 Dose: 1,200 mg Lurasidone HCl (Latuda (Nf)) 120 mg PO DAILY [facility] Last Admin: 12/15/16 08:45 Dose: 120 mg Lurasidone HCl (Latuda (Nf)) 40 mg PO BEDTIME [facility] Last Admin: 12/14/16 20:43 Dose: 40 mg Nicotine (Nicotine Inhaler*) 10 mg INH Q2H PRN PRN Reason: CRAVING Sertraline HCl (Zoloft*) 200 mg PO QAM [facility] Last Admin: 12/15/16 08:45 Dose: 200 mg Discharge Planning: Prescriptions provided for discharge [] Yes [x] No Follow up care details as per social work arrangements. Patient response to discharge plan: [] eager for discharge [x] agreeable with discharge plan [] ambivalent about discharge [] disagrees with discharge today
--- NOTE | 2016-12-15 12:18 | RAD ---
HISTORY: Foreign body ingestion COMPARISONS: None VIEWS: Frontal and lateral views of the abdomen FINDINGS: BOWEL: There is a nonobstructive bowel gas pattern. There is large amount of stool within the colon. Again noted are multiple radiopaque foreign objects. There is a linear foreign object suggestive of a nail or pin located overlying the expected location of the rectum. The remaining radiopaque foreign objects are noted overlying the expected location of the cecum. CALCULI: There are no abnormal calculi. BONES AND SOFT TISSUES: There are no osseous abnormalities. OTHER FINDINGS: The lung bases are clear. There is no subphrenic gas. IMPRESSION: 1. MULTIPLE RADIOGRAPHIC FOREIGN BODIES DESCRIBED ABOVE. 2. NO OBSTRUCTION. NO FREE INTRAPERITONEAL GAS.
== END 2016-12-15 12:35 | disposition home or self-care (01) | DRG 880 ==
LOC: ED 20:16 → BSU 12-13 00:57
PROVIDERS: ADMIT Psychiatry & Neurology Psychiatry; ATTEND Psychiatry & Neurology Psychiatry
DX: F44.9 Dissociative and conversion disorder, unspecified (principal); T18.9XXA Foreign body of alimentary tract, part unspecified, initial encounter; F41.9 Anxiety disorder, unspecified; F60.3 Borderline personality disorder; X58.XXXA Exposure to other specified factors, initial encounter; Y92.9 Unspecified place or not applicable
CPT/HCPCS: 36415; 74000; 74020; 80053; 80307; 80320; 80329; 81003; 84443; 84702; 85025; 99222; 99231; 99238; A9270-GY; G0480; J2060

== ENCOUNTER 2017-03-17 20:02 | Inpatient (IN) | payer MEDICARE, MEDICAID ==
[2017-03-17] MEDS ORDERED: diPHENhydraMINE IV* 50 MG/ML 1 ml VIAL (BENADRYL) ONE (20:25)
[2017-03-17] MEDS ORDERED: LORazepam INJ* 2 MG/ML 1 ML VIAL ONE (20:25)
[2017-03-17] MEDS ORDERED: Haloperidol INJ IV/IM* 5 MG/ML AMP ONE (20:25)
[2017-03-17] MEDS ORDERED: diPHENhydraMINE IV* 50 MG/ML 1 ml VIAL (BENADRYL) IM ONE (20:27)
[2017-03-17] MEDS ORDERED: LORazepam INJ* 2 MG/ML 1 ML VIAL IM ONE (20:27)
[2017-03-17] MEDS ORDERED: Haloperidol INJ IV/IM* 5 MG/ML AMP IM ONE (20:27)
[2017-03-17 21:36] LABS: Hematocrit 43 % (35-47); Hemoglobin 14.4 g/dl (12.0-16.0); Mean Corpuscular HGB Conc 34 g/dl (31-36); Mean Corpuscular Hemoglobin 32 pg (27-31); Mean Corpuscular Volume 94 fL (80-97); Mean Platelet Volume 8 um3 (7.4-10.4); Red Blood Count 4.57 10^6/ul (4.0-5.4); Red Cell Distribution Width 13 % (10.5-15); White Blood Count 6.7 10^3/ul (3.5-10.8)
[2017-03-17 21:54] LABS: ALT 10 U/L (7-52); AST 13 U/L (13-39); Albumin 4.2 g/dL (3.2-5.2); Alkaline Phosphatase 49 U/L (34-104); Anion Gap 5 mmol/L (2-11); BUN/Creatinine Ratio 13.6 (8-20); Blood Urea Nitrogen 12 mg/dL (6-24); CO2 Carbon Dioxide 23 mmol/L (22-32); Calcium 9.5 mg/dL (8.6-10.3); Chloride 107 mmol/L (101-111); EGFR African American 92.5 (>60); EGFR Non-African American 71.9 (>60); Globulin 2.5 g/dL (2-4); Glucose 109 mg/dL (70-100); Potassium 3.8 mmol/L (3.5-5.0); Sodium 135 mmol/L (133-145); Total Protein 6.7 g/dL (6.4-8.9)
[2017-03-17 22:09] LABS: Acetaminophen < 15 mcg/mL; Alcohol < 10 mg/dL (<10); Lithium 0.39 mmol/L (0.6-1.2); Salicylate < 2.50 mg/dL (<30)
[2017-03-17 22:19] LABS: TSH (Thyroid Stimulating Horm) 3.79 mcIU/mL (0.34-5.60)
[2017-03-17 22:31] LABS: Urine Bilirubin Negative (Negative); Urine Glucose Negative (Negative); Urine Nitrite Negative (Negative)
[2017-03-17 22:44] LABS: Benzodiazepine Urine Screen None Detected (None Detect)
--- NOTE | 2017-03-17 23:08 | ED ---
Beverley Parker [place], scribed for Jl Feliz MD on 03/17/17 at 2057 . Psychiatric Complaint - HPI Summary HPI Summary: Patient is a 37 y/o F who presents to the ED with a psychiatric complaint. She presented voluntarily this evening, but attempted to run upon arrival. Pt has been grabbing at needles and states she wants to cut herself. Reported SI. She has a history of self-induced lacerations. - History Of Current Complaint Chief Complaint: EDMentalHealth Time Seen by Provider: 03/17/17 20:04 Hx Obtained From: Patient, EMS Onset/Duration: Gradual Onset, Lasting Weeks, Still Present Timing: Constant Severity Initially: Moderate Severity Currently: Moderate Character: Depressed Aggravating Factor(s): Nothing Alleviating Factor(s): Nothing Associated Signs And Symptoms: Positive: Negative Related History: Positive For: Prior Psychiatric Issues Has Suicidal: Reports: Thoughts - Allergies/Home Medications Allergies/Adverse Reactions: Allergies Allergy/AdvReac Type Severity Reaction Status Date / Time Casein Allergy See Comment Verified 03/17/17 20:20 DAIRY Allergy Nausea And Uncoded 03/17/17 20:20 Vomiting PMH/Surg Hx/FS Hx/Imm Hx Respiratory History: Reports: Hx Asthma - states only SOB when running Denies: Hx Chronic Bronchitis GI History: Reports: Hx Gastroesophageal Reflux Disease, Hx Irritable Bowel History: Denies: Other Problems/Disorders Musculoskeletal History: Reports: Other Musculoskeletal History - STATES FREQ JOINT PAIN DUE TO SPORTS INJURIES IN PAST Denies: Hx Arthritis Sensory History: Reports: Hx Contacts or Glasses Denies: Hx Cataracts, Hx Eye Injury, Hx Hearing Aid, Hx Hearing Problem, Other Sensory Impairments Opthamlomology History: Reports: Hx Contacts or Glasses Denies: Hx Cataracts, Hx Eye Injury, Other Sensory Impairments Psychiatric History: Reports: Hx Anxiety, Hx Depression, Hx Inpatient Treatment , Hx Community Mental Health Tx, Hx Bipolar Disorder, Hx Suicide Attempt, Hx of Violent Episodes Against Others, Hx Substance Abuse - hx of alcoholism/ no etoh intake for the past 10 years, Other Psychiatric Issues/Disorders - Borderline personality disorder Denies: Hx Eating Disorder Infectious Disease History: Denies: Traveled Outside the [place] in Last 30 Days - Family History Known Family History: Positive: Hypertension, Other - mood disorder, anxiety, depression, alcohol abuse - Social History Alcohol Use: None Hx Substance Use: No Substance Use Type: Reports: None Hx Tobacco Use: No Smoking Status (MU): Never Smoked Tobacco Have You Smoked in the Last Year: No Review of Systems Negative: Fever Positive: Depressed, Other - See HPI. All Other Systems Reviewed And Are Negative: Yes Physical Exam Triage Information Reviewed: Yes Vital Signs On Initial Exam: Initial Vitals Temp Pulse Resp BP Pulse Ox 98.2 F 79 16 108/75 96 03/17/17 20:15 03/17/17 20:15 03/17/17 20:15 03/17/17 20:15 03/17/17 20:15 Vital Signs Reviewed: Yes Appearance: Positive: No Pain Distress Skin: Positive: Warm Head/Face: Positive: Normal Head/Face Inspection Eyes: Positive: SHELLY ENT: Positive: Hearing grossly normal Neck: Positive: Supple Respiratory/Lung Sounds: Positive: Breath Sounds Present Cardiovascular: Positive: RRR Abdomen Description: Positive: Nontender, Soft Musculoskeletal: Positive: Strength/ROM Intact Neurological: Positive: Normal Gait Diagnostics - Vital Signs Vital Signs Temp Pulse Resp BP Pulse Ox 03/17/17 20:15 98.2 F 79 16 108/75 96 - Laboratory Lab Results: Lab Results 03/17/17 03/17/17 03/17/17 Range/Units 21:29 21:29 22:22 WBC 6.7 (3.5-10.8) 10^3/ul RBC 4.57 (4.0-5.4) 10^6/ul Hgb 14.4 (12.0-16.0) g/dl Hct 43 (35-47) % MCV 94 (80-97) fL MCH 32 H (27-31) pg MCHC 34 (31-36) g/dl RDW 13 (10.5-15) % Plt Count 246 (150-450) 10^3/ul MPV 8 (7.4-10.4) um3 Neut % (Auto) 54.8 (38-83) % Lymph % (Auto) 32.7 (25-47) % [place] % (Auto) 8.4 (1-9) % Eos % (Auto) 3.0 (0-6) % Baso % (Auto) 1.1 (0-2) % Absolute Neuts (auto) 3.7 (1.5-7.7) 10^3/ul Absolute Lymphs (auto) 2.2 (1.0-4.8) 10^3/ul Absolute Monos (auto) 0.6 (0-0.8) 10^3/ul Absolute Eos (auto) 0.2 (0-0.6) 10^3/ul Absolute Basos (auto) 0.1 (0-0.2) 10^3/ul Absolute Nucleated RBC 0 10^3/ul Nucleated RBC % 0 Sodium 135 (133-145) mmol/L Potassium 3.8 (3.5-5.0) mmol/L Chloride 107 (101-111) mmol/L Carbon Dioxide 23 (22-32) mmol/L Anion Gap 5 (2-11) mmol/L BUN 12 (6-24) mg/dL Creatinine 0.88 (0.51-0.95) mg/dL Est GFR ( Amer) 92.5 (>60) Est GFR (Non-Af Amer) 71.9 (>60) BUN/Creatinine Ratio 13.6 (8-20) Glucose 109 H (70-100) mg/dL Calcium 9.5 (8.6-10.3) mg/dL Total Bilirubin 0.40 (0.2-1.0) mg/dL AST 13 (13-39) U/L ALT 10 (7-52) U/L Alkaline Phosphatase 49 (34-104) U/L Total Protein 6.7 (6.4-8.9) g/dL Albumin 4.2 (3.2-5.2) g/dL Globulin 2.5 (2-4) g/dL Albumin/Globulin Ratio 1.7 (1-3) TSH 3.79 (0.34-5.60) mcIU/mL Beta HCG, Quant < 0.60 mIU/mL Urine Color Yellow Urine Appearance Cloudy Urine pH 5.0 (5-9) Ur Specific [place] 1.003 L (1.010-1.030) Urine Protein Negative (Negative) Urine Ketones Negative (Negative) Urine Blood Negative (Negative) Urine Nitrate Negative (Negative) Urine Bilirubin Negative (Negative) Urine Urobilinogen Negative (Negative) Ur Leukocyte Esterase Negative (Negative) Urine Glucose Negative (Negative) Salicylates < 2.50 (<30) mg/dL Urine Opiates Screen (None Detect) Acetaminophen < 15 mcg/mL Ur Barbiturates Screen (None Detect) Ur Phencyclidine Scrn (None Detect) Ur Amphetamines Screen (None Detect) U Benzodiazepines Scrn (None Detect) Trout 0.39 L (0.6-1.2) mmol/L Urine Cocaine Screen (None Detect) U Cannabinoids Screen (None Detect) Serum Alcohol < 10 (<10) mg/dL 03/17/17 Range/Units 22:22 WBC (3.5-10.8) 10^3/ul RBC (4.0-5.4) 10^6/ul Hgb (12.0-16.0) g/dl Hct (35-47) % MCV (80-97) fL MCH (27-31) pg MCHC (31-36) g/dl RDW (10.5-15) % Plt Count (150-450) 10^3/ul MPV (7.4-10.4) um3 Neut % (Auto) (38-83) % Lymph % (Auto) (25-47) % [place] % (Auto) (1-9) % Eos % (Auto) (0-6) % Baso % (Auto) (0-2) % Absolute Neuts (auto) (1.5-7.7) 10^3/ul Absolute Lymphs (auto) (1.0-4.8) 10^3/ul Absolute Monos (auto) (0-0.8) 10^3/ul Absolute Eos (auto) (0-0.6) 10^3/ul Absolute Basos (auto) (0-0.2) 10^3/ul Absolute Nucleated RBC 10^3/ul Nucleated RBC % Sodium (133-145) mmol/L Potassium (3.5-5.0) mmol/L Chloride (101-111) mmol/L Carbon Dioxide (22-32) mmol/L Anion Gap (2-11) mmol/L BUN (6-24) mg/dL Creatinine (0.51-0.95) mg/dL Est GFR ( Amer) (>60) Est GFR (Non-Af Amer) (>60) BUN/Creatinine Ratio (8-20) Glucose (70-100) mg/dL Calcium (8.6-10.3) mg/dL Total Bilirubin (0.2-1.0) mg/dL AST (13-39) U/L ALT (7-52) U/L Alkaline Phosphatase (34-104) U/L Total Protein (6.4-8.9) g/dL Albumin (3.2-5.2) g/dL Globulin (2-4) g/dL Albumin/Globulin Ratio (1-3) TSH (0.34-5.60) mcIU/mL Beta HCG, Quant mIU/mL Urine Color Urine Appearance Urine pH (5-9) Ur Specific [place] (1.010-1.030) Urine Protein (Negative) Urine Ketones (Negative) Urine Blood (Negative) Urine Nitrate (Negative) Urine Bilirubin (Negative) Urine Urobilinogen (Negative) Ur Leukocyte Esterase (Negative) Urine Glucose (Negative) Salicylates (<30) mg/dL Urine Opiates Screen None detected (None Detect) Acetaminophen mcg/mL Ur Barbiturates Screen None detected (None Detect) Ur Phencyclidine Scrn None detected (None Detect) Ur Amphetamines Screen None detected (None Detect) U Benzodiazepines Scrn None detected (None Detect) Trout (0.6-1.2) mmol/L Urine Cocaine Screen None detected (None Detect) U Cannabinoids Screen None detected (None Detect) Serum Alcohol (<10) mg/dL Result Diagrams: 03/17/17 21:29 03/17/17 21:29 Lab Statement: Any lab studies that have been ordered have been reviewed, and results considered in the medical decision making process. Course/Dx - Course Course Of Treatment: 37 y/o F presents with a psychiatric complaint. She presented voluntarily this evening, but attempted to run upon arrival. Pt has been grabbing at needles and states she wants to cut herself. Reported SI and history of self-induced lacerations. She received Haldol, Ativan, and Benadryl in ED course. - Differential Dx/Clinical Impression Provider Diagnosis: Suicidal ideation - Physician Notifications Instructed by Provider To: Admit As Inpatient Discharge - Discharge Plan Condition: Fair [place] [place] documentation as recorded by the Beverley patel [place] accurately reflects the service I personally performed and the decisions made by me, Jl Feliz MD.
[2017-03-17] MEDS ORDERED: Al Hydrox/Mg Hydrox/Simet LIQ* 30 ML UDC PO PRN (23:59)
[2017-03-18] MEDS: Cholecalciferol TAB* 1000 UNITS PO SCH (09:28)
[2017-03-18] MEDS: Gabapentin CAP(*) 400 MG PO SCH ×3 (09:28→21:17)
[2017-03-18] MEDS: Lactobacillus Acidophilu (GG)* 1 CAP CAP PO SCH ×2 (09:28→21:19)
[2017-03-18] MEDS: LURASIDONE 120 MG PO SCH (09:29)
[2017-03-18] MEDS: LURASIDONE 40 MG PO SCH (09:29)
[2017-03-18] MEDS: Fluticasone NASAL SPRAY 50MCG* 16 gm SPRAY BTL BOTH NARES SCH (09:29)
[2017-03-18] MEDS: Sertraline* 100 MG TAB PO SCH (09:29)
--- NOTE | 2017-03-18 19:56 | HP ---
ADMISSION PSYCHIATRIC ASSESSMENT: DATE OF ADMISSION: 03/18/17 JUSTIFICATION FOR ADMISSION: The patient is in need of 24-hour supervision and treatment secondary to strong inclinations to harm herself. CHIEF COMPLAINT: "I have had a lot of things going on recently to distract myself, but lately I hav e just been bored and that is when I started thinking about hurting myself." HISTORY OF PRESENT ILLNESS: The patient is a 37-year-old, , homosexual white female with a h istory of extreme self-injurious behaviors and multiple admissions to this hospital for self-harm, yared hopper arrived on a voluntary basis indicating that she was having strong urges to cut herself and to sw allow foreign bodies. She endorses an increase in stress and anxiety and requested admission maria fernanda calzada she did not feel safe at home. During the evaluation process in the emergency room, she attempted to grab several needles off the phlebotomy tray in an effort to scratch her arm and swallow foreign objects; however, she was restrained from doing so and received stat intramuscular medications incl uding Benadryl, Haldol, and Ativan. At this time, she is calm and cooperative. 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 Because of this break in her schedule, her thoughts have turned to their old tendenc ies towards self-harm. She has providers at [facility], but indicates chio t rather than seeing them, she came to the hospital feeling that she was acutely at risk for self-pina rm. The patient does have a long history of dissociative spells in which she will swallow foreign o bjects such as tacks and nhung. She also has a history of cutting herself. I did ask her about s ymptoms such as depressive symptoms, which she denies; however, she is endorsing extreme anxiety. PAST PSYCHIATRIC HISTORY: Past psychiatric history is quite extensive. There have been several old discharge summaries from the behavioral science unit at least 20 that can be counted with the most recent being 2 rapid admissions in December of this year under the service of Dr. Sharif Vera. She pina s also been hospitalized at [facility] in [place]. Her past diagnoses include depression, anxiety, borderline personality disorder, and dissociative disorder. Her outpatient providers at [facility] are Susie Root LCSW, and psychiatric nurse practitioner, Bridgett Isaac. S he does have multiple previous suicide attempts in the past, having swallowed radio antennas, keys, thumbtacks, as well as placing plastic bags over her head. She tells me that she first started cutt ing herself at the age of 11. PAST MEDICAL HISTORY: Significant for bronchial asthma, seasonal allergies, osteoarthritis, irritab le bowel syndrome, and mild obesity. CURRENT MEDICATIONS: 1. Lurasidone 160 mg p.o. daily. 2. Flonase 2 sprays to both nares daily. 3. Neurontin 800 mg p.o. t.i.d. 4. [place] carbonate extended release 1200 mg p.o. q.h.s. 5. Sertraline 200 mg p.o. daily. 6. Zyrtec 10 mg p.o. daily. 7. Lactobacillus 1 cap p.o. b.i.d. 8. Vitamin D 2000 units p.o. daily. ALLERGIES: She is allergic to CASEIN. FAMILY HISTORY: Unremarkable, although she tells me that her father may have had an undiagnosed per sonality disorder. SUBSTANCE USE HISTORY: She notes that in the past she abused alcohol, but she has been sober for 10 years. She denies any use of tobacco, illicit drugs, or misuse of medications. SOCIAL HISTORY: The patient was born and raised in [place] and is the only child of parents who are still living and still . She describes a close relationship with her mother and somewhat dis tant one from her father. She is educated with a bachelor's degree in arts. She dropped out of [employer] school at [employer] where she had studied architecture and likewise dropped out of [employer] where she had been majoring in music theory. She is currently in a 9-year relationship with her female partner and they have been for the past year and a half. They live [facility] in an apartment in [place]. She describes her partner as very supportive. 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 REVIEW OF SYSTEMS: The patient denies headache or double vision. She denies chest pain, sore throa t, cough, abdominal pain, nausea or vomiting, diarrhea or constipation. She denies any rashes, enla rged lymph nodes, changes in weight or fevers. PHYSICAL EXAMINATION VITAL SIGNS: Blood pressure 110/83, heart rate 90, respiratory rate 16, temperature 98.8 degrees Fa hrenheit, oxygen saturations are 100% on room air. HEENT: Head is normocephalic, atraumatic. NECK: Supple. CHEST: Clear to auscultation bilaterally. CARDIAC: Exam reveals normal heart sounds. ABDOMEN: Soft and nontender. MUSCULOSKELETAL: Exam reveals full range of motion with no sign of edema in any of her 4 extremitie s. NEUROLOGIC: She is grossly intact. SKIN: Reveals some evidence of old well-healed superficial cutting scars. MENTAL STATUS EXAM: The patient is a middle-aged white female with short hair, she is wearing spec tacles, she is casually dressed, well-groomed. She is friendly and easy to establish a rapport with . Speech has a normal rate, tone, and volume. Mood is somewhat anxious with a corresponding anxious affect. Thought process is linear and goal directed. Thought content is significant for her karen e to come into the hospital for her own safety. She is having urges to cut herself or swallow forei gn bodies. She denies homicidality. The patient denies auditory or visual hallucinations. Insight and judgment appeared to be fair given the fact that she is agreeable to voluntarily seeking treatm ent. Cognitively, she is awake and alert with what would appear to be a high average intellect by v irtue of her educational attainment and vocabulary. LABORATORY DATA: Complete blood count is within normal limits. Complete metabolic panel similarly within normal limits. Urinalysis is within normal limits. Urine drug screen is negative for all cheung bstances tested. Her lithium level is subtherapeutic at 0.39. DIAGNOSES: Anabel I: Dissociative disorder, not otherwise specified; unspecified mood disorder. Anabel II: Borderline personality disorder. Anabel III: Irritable bowel syndrome, bronchial asthma, season al allergies, obesity. Anabel IV: Moderate primary support stressors. Anabel V: At this time is 39. ASSESSMENT: This is a 37-year-old homosexual female with a history of very significant bord jennifer personality disorder and dissociative symptoms, who arrives on a voluntary basis claiming chio t she is having strong urges to cut herself or to swallow foreign bodies. Given the fact that she h as had an extensive history of acting on these impulses, I do not feel it would be safe to discharge her to the community. We will admit her to the behavioral health unit and try to reach her an d outpatient care providers for further collateral information. PLAN: The patient is admitted to the behavioral health unit and placed on q.15- minute checks for h er own safety. We will continue all of her outpatient medications as currently prescribed. I will discuss her low lithium level with her and see if she would be willing to increase the dose back to 1500 mg, which she used to be. While she is here, she is certainly encouraged to avail herself of a ll milieu activities including individual and group psychotherapies. When she is safe and no longer risk of harming herself, we will likely discharge her back to the outpatient environment where she can get care in a less restrictive setting. [id number]/[facility] #: [id number]
[2017-03-18] MEDS: Azelastine 0.15% NASAL(NF) 30 ML BTL BOTH NARES SCH (21:18)
[2017-03-18] MEDS: CMCS:Lithium Carbonate ER (NF) 300 MG TAB.ER PO SCH (21:19)
[2017-03-18] MEDS: Cetirizine* 10 MG TAB PO SCH (21:19)
[2017-03-19] MEDS: Gabapentin CAP(*) 400 MG PO SCH ×3 (08:13→21:03)
[2017-03-19] MEDS: Fluticasone NASAL SPRAY 50MCG* 16 gm SPRAY BTL BOTH NARES SCH (08:13)
[2017-03-19] MEDS: Cholecalciferol TAB* 1000 UNITS PO SCH (08:13)
[2017-03-19] MEDS: LURASIDONE 120 MG PO SCH (08:13)
[2017-03-19] MEDS: Sertraline* 100 MG TAB PO SCH (08:13)
[2017-03-19] MEDS: LURASIDONE 40 MG PO SCH (08:13)
[2017-03-19] MEDS: Lactobacillus Acidophilu (GG)* 1 CAP CAP PO SCH ×2 (08:13→21:04)
[2017-03-19] MEDS: Acetaminophen TAB* 325 MG PO PRN ×2 (15:41→21:02)
[2017-03-19] MEDS: Azelastine 0.15% NASAL(NF) 30 ML BTL BOTH NARES SCH (21:03)
[2017-03-19] MEDS: CMCS:Lithium Carbonate ER (NF) 300 MG TAB.ER PO SCH (21:04)
[2017-03-19] MEDS: Cetirizine* 10 MG TAB PO SCH (21:04)
[2017-03-20 07:49] VITALS: BP 104/66
[2017-03-20] MEDS: Gabapentin CAP(*) 400 MG PO SCH ×2 (09:14→13:08)
[2017-03-20] MEDS: Fluticasone NASAL SPRAY 50MCG* 16 gm SPRAY BTL BOTH NARES SCH (09:15)
[2017-03-20] MEDS: Cholecalciferol TAB* 1000 UNITS PO SCH (09:15)
[2017-03-20] MEDS: LURASIDONE 40 MG PO SCH (09:16)
[2017-03-20] MEDS: Lactobacillus Acidophilu (GG)* 1 CAP CAP PO SCH (09:16)
[2017-03-20] MEDS: LURASIDONE 120 MG PO SCH (09:16)
[2017-03-20] MEDS: Sertraline* 100 MG TAB PO SCH (09:17)
[2017-03-20] MEDS: Acetaminophen TAB* 325 MG PO PRN (13:08)
--- NOTE | 2017-03-20 23:16 | DS ---
DISCHARGE SUMMARY: DATE OF ADMISSION: 03/17/17 DATE OF DISCHARGE: 03/20/17 DISCHARGE DIAGNOSES: Are as follows: Leonore I: Dissociative disorder, not otherwise specified; unspecified mood disorder. Leonore II: Border line personality disorder. Leonore III: Irritable bowel syndrome, bronchial asthma, seasonal allergies , obesity. Leonore IV: Moderate primary support stressors. Leonore V: At the time of admission was 39 an d at the time of discharge is 59. CONDITION AT THE TIME OF DISCHARGE: Stable. The patient is calm, cooperative. She is denying thoug hts of self-harm. 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 The patient denies any thoughts of hurting herself or hurting other people and she is requesting to be treated in a less restricted setting, which we feel is justified given her safe ty profile. I would say that she is at a chronic risk for self-harm given her extensive history of borderline personality and self-injurious behaviors; however, she is denying these inclinations at t his time and has an intact support system including her and outpatient psychotherapist. The pa melissa is agreeable to following up with her psychiatric nurse practitioner, Bridgett Isaac, as well as her therapist, Susie Root LCSW, and we see no barriers to having her followup in the outpati ent setting. MENTAL STATUS EXAMINATION: The patient is a middle-aged white female with short hair, wearing a [facility] T-shirt. She is wearing spectacles. She is casually dressed, well groomed, fr iendly, and easy to establish a rapport with. Speech has a normal rate, tone, and volume. Mood is s omewhat anxious with a full affect. Thought process is linear and goal directed. Thought content i s significant for her desire to be discharged from the hospital. She denies suicidal or homicidal i deations. She denies auditory or visual hallucinations. Insight and judgment appears to be fair gi ki the fact that she is agreeable with outpatient followup in the community. Cognitively, she is a wake and alert with what would appear to be a high average intellect by virtue of her educational at [employer]. DISCHARGE INSTRUCTIONS: To the patient are as follows: A. Medications: She takes lurasidone 160 mg p.o. daily, Flonase 2 sprays to both nares daily, Neur ontin 800 mg p.o. t.i.d., lithium carbonate extended release 1200 mg p.o. q.h.s., sertraline 200 mg p.o. daily, Zyrtec 10 mg p.o. daily, she takes lactobacillus 1 capsule p.o. b.i.d., vitamin D 2000 u nits p.o. daily. B. Diet: Regular. C. Activities: As tolerated. The patient is a nonsmoker. There are no laboratory or diagnostic s tudies pending at the time of discharge. D. Followup care: The patient will follow up on March 27, with her therapist, Janki tapia, and she has a followup within 2 weeks with psychiatric nurse practitioner, Bridgett Isaac. HOSPITAL COURSE: As follows: A. Reason for Admission: The patient is a 37-year-old, , homosexual, white female with a hi story of extreme self-injurious behaviors and multiple admissions to this hospital for self-harm, treasure todd arrived on a voluntary status indicating that she was having strong urges to cut herself and to sw allow foreign bodies. She endorsed an increase in stress and anxiety and requested admission becaus e she did not feel safe at home. During the evaluation process in the emergency room, she attempted to grab several needles off the phlebotomy tray in an effort to scratch herself or swallow foreign objects; however, she was restrained from doing so and received stat intramuscular medications inclu ding Benadryl, Haldol, and Ativan. 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 Because of this break in her schedule, her thoughts have turn ed to their old tendencies towards self- harm. She has providers at [facility] Wes sandoval, but indicates that rather than seeing them, she came to the hospital feeling that she was acu tely at risk for self-harm. The patient does have a long history of dissociative spells in which sh e will swallow foreign objects such as tacks and nhung. She also has a history of cutting herself . I did ask her about symptoms such as depressive symptoms, which she denied at the time of admissi on; however, she did endorse extreme anxiety. B. Psychiatric Treatment Rendered: The patient was admitted to the adult behavioral health unit ere she was placed on q.15-minute checks for her own safety. We continued her medications as ordere d on the outpatient basis and allowed her to participate in milieu activities, which she did volunta venkatesh. She was quite active in the milieu setting, being social, and active with both peers and staf f members and receiving visits from her . It is notable that she does have a performance with [employer] at a local [employer] festival later this week and she has 2 rehearsals scheduled fo r Monday and Monday that she does not want to miss. She has been safe on all checks and is now denying any thoughts of self-harm and she is requesting discharge to the outpatient setting. Given this patient's ability in the past to seek voluntary inpatient treatment when she becomes a threat t o herself, I feel comfortable discharging her despite her ongoing risks. She is absolutely agreeabl e to returning to the emergency room should she have any further thoughts of self-harm and she knows that she has followup appointments in place at [facility]. For these herb sons, I feel good discharging her to a less restrictive setting and wish her the best with her [employer] music performances and also wish her the best in terms of a safe and healthy future. [id number]/[facility] #: [id number]
== END 2017-03-20 15:45 | disposition home or self-care (01) | DRG 880 ==
LOC: ED 20:02 → BSU 23:46
PROVIDERS: ADMIT Psychiatry & Neurology Psychiatry; ATTEND Psychiatry & Neurology Psychiatry
DX: F44.9 Dissociative and conversion disorder, unspecified (principal); R45.851 Suicidal ideations; F39 Unspecified mood [affective] disorder; F60.3 Borderline personality disorder; K58.9 Irritable bowel syndrome, unspecified; J45.909 Unspecified asthma, uncomplicated; J30.2 Other seasonal allergic rhinitis; E66.9 Obesity, unspecified; Z68.25 Body mass index [BMI] 25.0-25.9, adult; Z79.899 Other long term (current) drug therapy; Z88.8 Allergy status to other drugs, medicaments and biological substances; Z81.8 Family history of other mental and behavioral disorders
CPT/HCPCS: 36415; 80053; 80178; 80307; 80320; 80329; 81003; 84443; 84702; 85025; 99222; 99238; A9270-GY; G0480; J1200; J1630; J2060

== ENCOUNTER 2017-03-27 10:53 | Inpatient (IN) | payer MEDICARE, MEDICAID ==
[2017-03-27] MEDS ORDERED: Haloperidol INJ IV/IM* 5 MG/ML AMP IM ONE (10:59)
[2017-03-27] MEDS ORDERED: diPHENhydraMINE IV* 50 MG/ML 1 ml VIAL (BENADRYL) IM ONE (10:59)
[2017-03-27] MEDS ORDERED: LORazepam INJ* 2 MG/ML 1 ML VIAL IV ONE (10:59)
[2017-03-27 11:26] LABS: Urine Bilirubin Negative (Negative); Urine Glucose Negative (Negative); Urine Nitrite Negative (Negative)
[2017-03-27 12:08] LABS: Hematocrit 44 % (35-47); Hemoglobin 14.7 g/dl (12.0-16.0); Mean Corpuscular HGB Conc 33 g/dl (31-36); Mean Corpuscular Hemoglobin 31 pg (27-31); Mean Corpuscular Volume 93 fL (80-97); Mean Platelet Volume 9 um3 (7.4-10.4); Red Blood Count 4.74 10^6/ul (4.0-5.4); Red Cell Distribution Width 13 % (10.5-15); White Blood Count 5.9 10^3/ul (3.5-10.8)
[2017-03-27 12:11] LABS: Benzodiazepine Urine Screen None Detected (None Detect)
[2017-03-27 12:18] LABS: ALT 12 U/L (7-52); AST 15 U/L (13-39); Albumin 4.1 g/dL (3.2-5.2); Alkaline Phosphatase 56 U/L (34-104); Anion Gap 5 mmol/L (2-11); BUN/Creatinine Ratio 7.1 (8-20); Blood Urea Nitrogen 6 mg/dL (6-24); CO2 Carbon Dioxide 22 mmol/L (22-32); Calcium 9.4 mg/dL (8.6-10.3); Chloride 108 mmol/L (101-111); EGFR African American 96.3 (>60); EGFR Non-African American 74.9 (>60); Globulin 2.3 g/dL (2-4); Glucose 87 mg/dL (70-100); Sodium 135 mmol/L (133-145); Total Protein 6.4 g/dL (6.4-8.9)
[2017-03-27 12:50] LABS: Acetaminophen < 15 mcg/mL; Alcohol < 10 mg/dL (<10); Lithium 0.81 mmol/L (0.6-1.2); Salicylate < 2.50 mg/dL (<30)
[2017-03-27 12:59] LABS: TSH (Thyroid Stimulating Horm) 2.69 mcIU/mL (0.34-5.60)
[2017-03-27] MEDS ORDERED: Al Hydrox/Mg Hydrox/Simet LIQ* 30 ML UDC PO PRN (15:14)
[2017-03-27] MEDS: CMCS:Lithium Carbonate ER (NF) 300 MG TAB.ER PO SCH (20:49)
[2017-03-27] MEDS: Gabapentin CAP(*) 400 MG PO SCH (20:49)
[2017-03-27] MEDS: LURASIDONE 120 MG PO SCH (21:17)
[2017-03-27] MEDS: LURASIDONE 40 MG PO SCH (21:17)
[2017-03-28] MEDS: Fluticasone NASAL SPRAY 50MCG* 16 gm SPRAY BTL BOTH NARES SCH (08:49)
[2017-03-28] MEDS: Gabapentin CAP(*) 400 MG PO SCH ×3 (08:50→20:40)
[2017-03-28] MEDS: Cetirizine* 10 MG TAB PO SCH (08:50)
[2017-03-28] MEDS: Lactobacillus Acidophilu (GG)* 1 CAP CAP PO SCH (08:51)
[2017-03-28] MEDS: Cholecalciferol TAB* 1000 UNITS PO SCH (08:51)
[2017-03-28] MEDS ORDERED: CMCS:Lurasidone (NF) 40 MG TAB PO SCH (09:00)
--- NOTE | 2017-03-28 10:26 | ED ---
Dae Parker Auryana, scribed for Baltazar Seo MD on 03/27/17 at 1408 . Psychiatric Complaint - HPI Summary HPI Summary: 37 year old female presents with self injury to left wrist 1 week ago. Patient BIBA with police as 9.45 after she reported to have told mental health clinic that she was trying to hurt herself. She does report a missed dose of Zoloft. She denies any illness or any fevers. PMHx is significant for bipolar disorder, borderline personality disorder, anxiety, depression, and (+) inpatient admission for . She denies any drug or alcohol use. - History Of Current Complaint Chief Complaint: EDMentalHealth Time Seen by Provider: 03/27/17 10:59 Accompanied By: POLICE Hx Obtained From: Patient Onset/Duration: Still Present Timing: Constant Severity Initially: Moderate Severity Currently: Moderate Character: Angry Aggravating Factor(s): Medication Non-compliance - missed dose of zoloft Associated Signs And Symptoms: Positive: Hostile - self harm Related History: Positive For: Prior Psychiatric Issues Has Suicidal: Reports: Thoughts, With A Plan, Demonstrates Gesture - Allergies/Home Medications Allergies/Adverse Reactions: Allergies Allergy/AdvReac Type Severity Reaction Status Date / Time Casein Allergy See Comment Verified 03/18/17 12:04 DAIRY Allergy Nausea And Uncoded 03/18/17 12:04 Vomiting Home Medications: Home Medications Cetirizine* [ZyrTEC 10 MG TAB*] 10 mg PO DAILY 03/27/17 [History Confirmed 03/27] Cholecalciferol TAB* [Vitamin D TAB*] 2,000 units PO DAILY 03/27/17 [History Confirmed 03/27/17] Gabapentin CAP(*) [Neurontin 400 mg CAP(*)] 800 mg PO TID 03/27/17 [History Confirmed 03/27/17] Lactobacillus [Lactobacillus Extra Stren] 1 cap PO DAILY 03/27/17 [History Confirmed 03/27/17] PMH/Surg Hx/FS Hx/Imm Hx Respiratory History: Reports: Hx Asthma - states only SOB when running Denies: Hx Chronic Bronchitis GI History: Reports: Hx Gastroesophageal Reflux Disease, Hx Irritable Bowel History: Denies: Other Problems/Disorders Musculoskeletal History: Reports: Other Musculoskeletal History - STATES FREQ JOINT PAIN DUE TO SPORTS INJURIES IN PAST Denies: Hx Arthritis Sensory History: Reports: Hx Contacts or Glasses Denies: Hx Cataracts, Hx Eye Injury, Hx Hearing Aid, Hx Hearing Problem, Other Sensory Impairments Opthamlomology History: Reports: Hx Contacts or Glasses Denies: Hx Cataracts, Hx Eye Injury, Other Sensory Impairments Psychiatric History: Reports: Hx Anxiety, Hx Depression, Hx Inpatient Treatment , Hx Community Mental Health Tx, Hx Bipolar Disorder, Hx Suicide Attempt, Hx of Violent Episodes Against Others, Hx Substance Abuse - hx of alcoholism/ no etoh intake for the past 10 years, Other Psychiatric Issues/Disorders - Borderline personality disorder Denies: Hx Eating Disorder Infectious Disease History: Denies: Traveled Outside the [place] in Last 30 Days - Family History Known Family History: Positive: Hypertension, Other - mood disorder, anxiety, depression, alcohol abuse - Social History Alcohol Use: None Hx Substance Use: No Substance Use Type: Reports: None Hx Tobacco Use: No Smoking Status (MU): Never Smoked Tobacco Have You Smoked in the Last Year: No Review of Systems Constitutional: Negative Negative: Fever, Chills Eyes: Negative Negative: Erythema ENT: Negative Negative: Sore Throat Cardiovascular: Negative Negative: Chest Pain Respiratory: Negative Negative: Shortness Of Breath, Cough Gastrointestinal: Negative Negative: Abdominal Pain, Vomiting, Nausea Genitourinary: Negative Negative: dysuria, hematuria Musculoskeletal: Negative Negative: Myalgia, Edema Positive: Other - self injury to left wrist. Negative: Rash Neurological: Negative, Other - no dizziness Psychological: Normal All Other Systems Reviewed And Are Negative: Yes Physical Exam - Summary Physical Exam Summary: Constitutional: Well-developed, Well-nourished, Alert. (-) Distressed Skin: Warm, Dry. multiple healing abrasion over the left wrist HENT: Normocephalic; Atraumatic Eyes: Conjunctiva normal Neck: Musculoskeletal ROM normal neck. (-) JVD, (-) Stridor, (-) Tracheal deviation Cardio: Rhythm regular, rate normal, Heart sounds normal; Intact distal pulses; The pedal pulses are 2+ and symmetric. Radial pulses are 2+ and symmetric. (-) Murmur Pulmonary/Chest wall: Effort normal. (-) Respiratory distress, (-) Wheezes, (-) Rales Abd: Soft, (-) Tenderness, (-) Distension, (-) Guarding, (-) Rebound Musculoskeletal: (-) Edema Lymph: (-) Cervical adenopathy Neuro: Alert, Oriented x3 Psych: Mood and affect Normal Triage Information Reviewed: Yes Vital Signs Reviewed: Yes Diagnostics - Laboratory Lab Results: Lab Results 03/27/17 Range/Units 11:13 Urine Color Straw Urine Appearance Clear Urine pH 7.0 (5-9) Ur Specific [place] 1.002 L (1.010-1.030) Urine Protein Negative (Negative) Urine Ketones Negative (Negative) Urine Blood Negative (Negative) Urine Nitrate Negative (Negative) Urine Bilirubin Negative (Negative) Urine Urobilinogen Negative (Negative) Ur Leukocyte Esterase Negative (Negative) Urine Glucose Negative (Negative) Result Diagrams: 03/27/17 11:34 03/27/17 11:34 Lab Statement: Any lab studies that have been ordered have been reviewed, and results considered in the medical decision making process. Course/Dx - Course Assessment/Plan: 37 year old female presents with self injury to left wrist 1 week ago. Patient BIBA with police as 9.45 after she reported to have told mental health clinic that she was trying to hurt herself. She does report a missed dose of Zoloft. She denies any illness or any fevers. PMHx is significant for bipolar disorder, borderline personality disorder, anxiety, depression, and (+) inpatient admission for . She denies any drug or alcohol use.Test results WNL except BUN/creatinine of 7.1. LFTs WNL. TSH 2.69. UA negative for U.T.I. UA toxicology screen negative. Negative drug screen. Channing level 0.81. After mental health evaluation, Dr. Armstrong recommended the patient be admitted with diagnosis of SI. - Differential Dx/Clinical Impression Differential Diagnosis/HQI/PQRI: Positive: Bipolar Disorder, Depression, Suicide Attempt, Suicidal Ideation Provider Diagnosis: Suicidal ideation - Physician Notifications Patient Is Medically Stable For: Psych Evaluation - 11:32 Discharge - Discharge Plan Condition: Stable Disposition: ADMITTED TO [facility] documentation as recorded by the Dae patel Auryana accurately reflects the service I personally performed and the decisions made by me, Baltazar Seo MD.
[2017-03-28] MEDS: Sertraline* 100 MG TAB PO SCH (11:53)
--- NOTE | 2017-03-28 13:56 | PN ---
MHU: Group Therapy Note - Service Type Service Type: [id number] Group Psychotherapy - Cognitive Behavioral Group Therapy ( CBT):Patient was attentive and participatory in CBT programming this morning, and remained in good behavioral control. Patient expressed positive insights regarding relevant treatment interventions and goals. 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 She presented with good affect and was spontaneous in speech.
--- NOTE | 2017-03-28 15:36 | HP ---
PSYCHIATRIC ASSESSMENT/HISTORY AND PHYSICAL: DATE OF ADMISSION: 03/27/17 JUSTIFICATION FOR ADMISSION: The patient is in need of 24-hour supervision and care secondary to cheung icidal ideations. CHIEF COMPLAINT: "I haven't been sleeping at all. My therapist told me that I needed to come here right away." HISTORY OF PRESENT ILLNESS: The patient is a 37-year-old homosexual white female with a his tory of extreme self-injurious behaviors and multiple admissions to this hospital for self-harm who was just discharged from the behavioral science unit on 03/20/17, who now returns to our emergency d epartment having been brought in on a 9.41 legal status as referred from the [facility] after expressing thoughts of hurting herself and buying a razor to inflict self- injur y. The patient states that she is afraid that she will go too far and inadvertently kill herself. 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 She indicates that that performance went well; however, in preparation for it she had be en depriving herself of sleep in order to rehearse and practice late into the night and at this time she feels exhausted. Apparently, upon seeing her therapist, a woman named Susie Root, she endor sed thoughts to harm herself and admitted that she had recently bought a razor and was sent to our e mergency room. While in the ED, it is documented that she attempted to take needles off of the IV t ray in an effort to harm herself. She struggled with multiple staff before receiving intramuscular stat injections and was thereafter placed in seclusion. At this time, she is no longer forcibly att empting to harm herself but states that she is exhausted and needs time to recharge herself in a saf e place. She states that she does have a razor at home and cannot stop thinking about cutting herse lf and is afraid of accidently bleeding to after doing this. She endorsed symptoms such as de pression and extreme anxiety. PAST PSYCHIATRIC HISTORY: Quite extensive, there had been several old discharge summaries from the behavioral science unit, at least 20 that I can count with the most recent being from 1 week ago. S he also has been hospitalized at [facility] in [place]. Her past diagnoses include depression, an xiety, borderline personality disorder and dissociative disorder. Her outpatient providers at [facility] are Susie Root LCSW and psychiatric practitioner, Bridgett Isaac. She does have multiple previous suicide attempts in the past, having swallowed radio antennas, keys, th umbtacks as well as placing plastic bags over her head. She tells me that she first started cutting herself at the age of 11. PAST MEDICAL HISTORY: Significant for bronchial asthma, seasonal allergies, osteoarthritis, irritab le bowel syndrome and mild obesity. CURRENT MEDICATIONS: 1. Lurasidone 160 mg daily. 2. Flonase 2 sprays to both nares daily. 3. Neurontin 800 mg p.o. t.i.d. 4. [place] carbonate extended release 1200 mg p.o. q.h.s. 5. Sertraline 200 mg p.o. daily. 6. Zyrtec 10 mg p.o. daily. 7. Lactobacillus 1 cap p.o. b.i.d. 8. Vitamin D 2000 units p.o. daily. ALLERGIES: She is allergic to CASEIN and other dairy products. FAMILY HISTORY: Unremarkable, although she tells me that her father may have had an undiagnosed per sonality disorder. SUBSTANCE ABUSE HISTORY: She notes that in the past, she abused alcohol but she has been sober for over 10 years. She denies any use of tobacco, illicit drugs or misuse of medications. SOCIAL HISTORY: The patient was born and raised in [place] and is the only child of parents who are still living and still . She describes a close relationship with her mother and a somewhat d istant one from her father. She is educated with a bachelor's degree in Juristat arts. 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 She is currently in an 9-year rela tionship with her female partner and they have been for at least the past year and half. Th ey live together in an apartment in [place]. She describes her partner as very supportive. 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 REVIEW OF SYSTEMS: The patient denies headache or double vision. She denies chest pain, sore throa t, cough, abdominal pain, nausea or vomiting, diarrhea or constipation. She denies rashes, enlarged lymph nodes, changes in weight, fevers or difficulty ambulating. PHYSICAL EXAMINATION VITAL SIGNS: Blood pressure 87/52, heart rate 73, respiratory rate 16, temperature 98.9 degrees Fah renheit, oxygen saturations are 98% on room air. HEENT: Head is normocephalic, atraumatic. NECK: Supple. CHEST: Clear to auscultation bilaterally. CARDIAC: Reveals normal heart sounds. ABDOMEN: Soft and nontender. MUSCULOSKELETAL: Reveals full range of motion with no sign of edema in any of her 4 extremities. NEUROLOGICAL: She is grossly intact. SKIN: Reveals evidence of old well healed superficial cutting scars as well as more fresh wounds th at are healing well on her left shoulder. MENTAL STATUS EXAM: The patient is a middle-aged white female with short hair. She is wearing spec tacles. She is casually dressed and well-groomed. She is friendly and easy to establish a rapport with. Speech has a normal, rate, tone and volume. Mood is somewhat anxious with corresponding anx ious affect. Thought process is linear, goal directed. Thought content is significant for her johnny re to come into the hospital for her own safety. She is having urges to cut herself or swallow fore ign bodies. She denies homicidality. The patient denies auditory or visual hallucinations. Insigh t and judgement appeared to be fair given the fact that she is agreeable with voluntary inpatient tr eatment. Cognitively, she is awake and alert with what would appear to be high-average intellect by virtue of her educational attainment and vocabulary. LABORATORY DATA: CBC is within normal limits as is her complete metabolic panel. TSH normal at 2.69 . Urinalysis is within normal limits. Urine drug screen is negative for all substances tested. He r lithium level is therapeutic at 0.81. DIAGNOSES: Beach I: Dissociative disorder, not otherwise sp ecified. Unspecified mood disorder. [place] II: Borderline personality disorder. [place] III: Irritable bowel syndrome, bronchial asthma, seasonal allergies and obesity. [place] IV: Moderate primary suppor t stressors. Beach V: At this time is 39. ASSESSMENT: This is a 37-year-old homosexual female with a history of very significant bord jennifer personality features as well as dissociative symptoms who arrives on a 9.41 legal status, jaylan ellis sent from the outpatient mental health clinic after reporting suicidal ideations to her outpatien t therapist. She continues to express a strong desire to either cut herself or swallow foreign bodi es and had to be physically prevented from doing so in our emergency room. Given the fact that she has had an extensive history of acting on her impulses, I do not feel that she would be safe to be d ischarged to the community at this time. We are hoping that we can reach her and other outpati ent care providers for further collateral information. PLAN: As follows: The patient is admitted to the adult behavioral health unit, placed on q.15 paul te checks for her own safety. We will continue all her outpatient medications as currently prescrib ed. While she is here, she is certainly encouraged to avail herself of all milieu activities includ ing individual and group psychotherapies. As previously mentioned, we will try to reach her an d her outpatient providers for further collateral information. When she is safe and no longer at ri sk of harming herself, we will likely discharge her back to the outpatient environment where she can get care in a less restrictive setting. [id number]/[facility] #: [id number]
[2017-03-28] MEDS: Acetaminophen TAB* 325 MG PO PRN (17:49)
[2017-03-28] MEDS: CMCS:Lithium Carbonate ER (NF) 300 MG TAB.ER PO SCH (20:40)
[2017-03-28] MEDS: LURASIDONE 40 MG PO SCH (20:40)
[2017-03-28] MEDS: LURASIDONE 120 MG PO SCH (20:40)
[2017-03-29] MEDS: Cholecalciferol TAB* 1000 UNITS PO SCH (09:14)
[2017-03-29] MEDS: Lactobacillus Acidophilu (GG)* 1 CAP CAP PO SCH (09:14)
[2017-03-29] MEDS: Cetirizine* 10 MG TAB PO SCH (09:14)
[2017-03-29] MEDS: Gabapentin CAP(*) 400 MG PO SCH ×3 (09:14→20:31)
[2017-03-29] MEDS: Sertraline* 100 MG TAB PO SCH (09:15)
[2017-03-29] MEDS: Fluticasone NASAL SPRAY 50MCG* 16 gm SPRAY BTL BOTH NARES SCH (09:46)
--- NOTE | 2017-03-29 13:36 | PN ---
MHU: Group Therapy Note - Service Type Service Type: [id number] Group Psychotherapy - Cognitive Behavioral Group Therapy ( CBT):Patient was attentive and participatory in CBT programming this morning, and remained in good behavioral control. Patient expressed positive insights regarding relevant treatment interventions and goals.
--- NOTE | 2017-03-29 14:51 | PN ---
Subjective - Subjective Service Type: 72424 Hosp care 15 min low complexity Subjective: Patient admits to ongoing thoughts/urges to cut herself. Feels like once the impulse is on her mind, she cannot get it out of her head unless she acts on the urge or distracts herself. "It's hard to distract myself because I'm so tired." She denies depressed mood or suicidal ideation. Objective - Appearance Appearance: Obese Dysmorphic Features: No Hygiene: Normal Grooming: Well Kept - Behavior Psychomotor Activities: Normal Exhibits Abnormal Movement: No - Attitude and Relatedness Attitude and Relatedness: Cooperative Eye Contact: Good - Speech Quality: Unpressured Latencies: Normal Quantity: Appropriate - Mood Patient's Decription of Mood: "Okay" - Affect Observed Affect: Fair Affect Consistent with: Euthymia - Thought Process Patient's Thought Process: Coherent Thought Content: No Passive Wish, No Suicidal Planning, No Homicidal Ideation, No Paranoid Ideation - Sensorium Experiencing Hallucinations: No, Sensorium is Clear Type of Hallucinations: Visual: No, Auditory: No, Command: No - Level of Consciousness Level of Consciousness: Alert Orientation: Yes Intact, Yes Orientated to Time, Yes Orientated to Place, Yes Orientated to Person - Impulse Control Impulse Control: Tenuous - Insight and Judgement Insight and Judgement: Fair - Group Participation Particating in Group Activities: Yes - Medication Management Medication Management Adherence: Yes Assessment - Assessment Merits Inpatient Hospitalization: For Immediate Safety, For Stabilization Inpatient DSM-IV Dx: Dissociative DO, NOS Clinical Impression: 37 y.o. , homosexual female with a history of multiple past admissions for self mutilation and swallowing foreign objects in the setting of dissociative disorder and borderline PD who returns to the hospital on a 9.45 from [facility] one week after her most recent d/c from the [facility] due to continued thoughts/urges to cut herself. She fears going to far in fulfilling the urge and therefore killing herself or doing permanent damage. Plan - Plan Treatment Plan: Name: FLAVIO HOFFMAN Birthdate: 1980 [id number] We have resumed the patient's outpatient medication management regimen, including sertraline, lithium, lurasidone, and gabapentin. She continues to have strong urges to self-harm and requires continued inpatient stabilization. Continued Medication Management: Continue Outpt Medication Medications: Current Medications Acetaminophen (Tylenol Tab*) 650 mg PO Q4H PRN PRN Reason: for pain; or Temp >101 F Last Admin: 03/28/17 17:49 Dose: 650 mg Al Hydrox/Mg Hydrox/Simethicone (Maalox Plus*) 30 ml PO Q4H PRN PRN Reason: INDIGESTION Cetirizine HCl (Zyrtec*) 10 mg PO DAILY RENÉE PRN Reason: Protocol Last Admin: 03/29/17 09:14 Dose: 10 mg Cholecalciferol (Vitamin D Tab*) 2,000 units PO DAILY [facility] Last Admin: 03/29/17 09:14 Dose: 2,000 units Fluticasone Propionate (Flonase Nasal Seff[place] 50mcg*) 2 spray BOTH NARES DAILY [facility] Last Admin: 03/29/17 09:46 Dose: 2 spray Gabapentin (Neurontin Cap(*)) 800 mg PO TID [facility] Last Admin: 03/29/17 13:58 Dose: 800 mg Lactobacillus Rhamnosus (Culturelle*) 1 cap PO DAILY [facility] Last Admin: 03/29/17 09:14 Dose: 1 cap [place] Carbonate ([place] Carbonate Er (Nf)) 1,200 mg PO BEDTIME [facility] Last Admin: 03/28/17 20:40 Dose: 1,200 mg Lurasidone HCl (Latuda (Nf)) 120 mg PO 2200 [facility] Last Admin: 03/28/17 20:40 Dose: 120 mg Lurasidone HCl (Latuda (Nf)) 40 mg PO 2200 [facility] Last Admin: 03/28/17 20:40 Dose: 40 mg Sertraline HCl (Zoloft*) 200 mg PO DAILY [facility] Last Admin: 03/29/17 09:15 Dose: 200 mg - Discharge Plan Discharge Plan: Inpatient Hospitalization
[2017-03-29] MEDS: CMCS:Lithium Carbonate ER (NF) 300 MG TAB.ER PO SCH (20:31)
[2017-03-29] MEDS: LURASIDONE 120 MG PO SCH (20:32)
[2017-03-29] MEDS: LURASIDONE 40 MG PO SCH (20:32)
[2017-03-29] MEDS: Acetaminophen TAB* 325 MG PO PRN (20:34)
[2017-03-29] MEDS ORDERED: diPHENhydraMINE PO* 50 MG PO PRN (21:32)
[2017-03-30] MEDS: Cholecalciferol TAB* 1000 UNITS PO SCH (08:17)
[2017-03-30] MEDS: Lactobacillus Acidophilu (GG)* 1 CAP CAP PO SCH (08:17)
[2017-03-30] MEDS: Fluticasone NASAL SPRAY 50MCG* 16 gm SPRAY BTL BOTH NARES SCH (08:17)
[2017-03-30] MEDS: Acetaminophen TAB* 325 MG PO PRN ×3 (08:17→20:52)
[2017-03-30] MEDS: Cetirizine* 10 MG TAB PO SCH (08:18)
[2017-03-30] MEDS: Gabapentin CAP(*) 400 MG PO SCH ×3 (08:20→20:52)
[2017-03-30] MEDS: Sertraline* 100 MG TAB PO SCH (08:21)
[2017-03-30 08:59] LABS: HDL Cholesterol 49.2 mg/dL
--- NOTE | 2017-03-30 11:27 | PN ---
[facility]: Group Therapy Note - Service Type Service Type: 84601 Group Psychotherapy - Cognitive Behavioral Group Therapy ( CBT):Patient was attentive and participatory in CBT programming this morning, and remained in good behavioral control. Patient expressed positive insights regarding relevant treatment interventions and goals. Aara presents with good affect in group context, and engages in discussion productively.
[2017-03-30] MEDS ORDERED: Sertraline* 50 MG TAB PO ONE (13:10)
[2017-03-30] MEDS ORDERED: Ibuprofen TAB* 600 MG PO PRN (13:10)
--- NOTE | 2017-03-30 14:04 | PN ---
Subjective - Subjective Service Type: 61006 Hosp care 15 min low complexity Subjective: Fernando continues to endorse obsessional thoughts of cutting herself and intrusive fantasies of grabbing a pen or needle from the milieu and stabbing herself in an exhibitionistic manner in front of others. She describes this as almost a mental tic or a compulsion. She denies depressed mood or genuine wish to end her life. Objective - Appearance Appearance: Well Developed/Nourished, Obese Dysmorphic Features: No Hygiene: Normal Grooming: Well Kept - Behavior Psychomotor Activities: Normal Exhibits Abnormal Movement: No - Attitude and Relatedness Attitude and Relatedness: Cooperative Eye Contact: Fair - Speech Quality: Unpressured Latencies: Normal Quantity: Appropriate - Mood Patient's Decription of Mood: "Fine" - Affect Observed Affect: Fair Affect Consistent with: Euthymia - Thought Process Patient's Thought Process: Coherent Thought Content: No Passive Wish, No Suicidal Planning, No Homicidal Ideation, No Paranoid Ideation - Sensorium Experiencing Hallucinations: No, Sensorium is Clear Type of Hallucinations: Visual: No, Auditory: No, Command: No - Level of Consciousness Level of Consciousness: Alert Orientation: Yes Intact, Yes Orientated to Time, Yes Orientated to Place, Yes Orientated to Person - Impulse Control Impulse Control: Tenuous - Insight and Judgement Insight and Judgement: Fair - Group Participation Particating in Group Activities: Yes - Medication Management Medication Management Adherence: Yes Assessment - Assessment Merits Inpatient Hospitalization: For Immediate Safety, For Stabilization Inpatient DSM-IV Dx: Dissociative DO, NOS Clinical Impression: 37 y.o. , homosexual female with a history of multiple past admissions for self mutilation and swallowing foreign objects in the setting of dissociative disorder and borderline PD who returns to the hospital on a 9.45 from [facility] one week after her most recent d/c from the [facility] due to continued thoughts/urges to cut herself. She fears going to far in fulfilling the urge and therefore killing herself or doing permanent damage. Plan - Plan Treatment Plan: Name: FERNANDO HOFFMAN Birthdate: 1980 [id number] The patient's presentation has an OCD element to it, meaning that it may be amenable to higher doses of SRI medication. So far we have resumed the patient' s outpatient medication management regimen, including sertraline, lithium, lurasidone, and gabapentin. We will increase sertraline to 250mg, more in line with an OCD dose, and see if she tolerates this. She continues to have strong urges to self-harm and requires continued inpatient stabilization. Continued Medication Management: Continue Outpt Medication Medications: Current Medications Acetaminophen (Tylenol Tab*) 650 mg PO Q4H PRN PRN Reason: for pain; or Temp >101 F Last Admin: 03/30/17 08:17 Dose: 650 mg Al Hydrox/Mg Hydrox/Simethicone (Maalox Plus*) 30 ml PO Q4H PRN PRN Reason: INDIGESTION Cetirizine HCl (Zyrtec*) 10 mg PO DAILY RENÉE PRN Reason: Protocol Last Admin: 03/30/17 08:18 Dose: 10 mg Cholecalciferol (Vitamin D Tab*) 2,000 units PO DAILY RENÉE Last Admin: 03/30/17 08:17 Dose: 2,000 units Diphenhydramine HCl (Benadryl Po*) 50 mg PO BEDTIME PRN PRN Reason: INSOMNIA Last Admin: 03/29/17 21:40 Dose: 50 mg Fluticasone Propionate (Flonase Nasal [place] 50mcg*) 2 spray BOTH NARES DAILY RENÉE Last Admin: 03/30/17 08:17 Dose: 2 spray Gabapentin (Neurontin Cap(*)) 800 mg PO TID RENÉE Last Admin: 03/30/17 08:20 Dose: 800 mg Ibuprofen (Motrin Tab*) 600 mg PO Q6H PRN PRN Reason: PAIN Lactobacillus Rhamnosus (Culturelle*) 1 cap PO DAILY RENÉE Last Admin: 03/30/17 08:17 Dose: 1 cap [place] Carbonate ([place] Carbonate Er (Nf)) 1,200 mg PO BEDTIME RENÉE Last Admin: 03/29/17 20:31 Dose: 1,200 mg Lurasidone HCl (Latuda (Nf)) 120 mg PO 2200 RENÉE Last Admin: 03/29/17 20:32 Dose: 120 mg Lurasidone HCl (Latuda (Nf)) 40 mg PO 2200 RENÉE Last Admin: 03/29/17 20:32 Dose: 40 mg Sertraline HCl (Zoloft*) 250 mg PO DAILY [facility] - Discharge Plan Discharge Plan: Inpatient Hospitalization Lab Results - Lab Results Lab Results: 03/30/17 03/30/17 08:29 08:29 Hemoglobin A1c 4.3 Triglycerides 162 Cholesterol 156 LDL Cholesterol 74 HDL Cholesterol 49.2
[2017-03-30] MEDS: CMCS:Lithium Carbonate ER (NF) 300 MG TAB.ER PO SCH (20:53)
[2017-03-30] MEDS: LURASIDONE 40 MG PO SCH (20:55)
[2017-03-30] MEDS: LURASIDONE 120 MG PO SCH (20:55)
[2017-03-31 07:52] VITALS: BP 95/54
[2017-03-31] MEDS: Gabapentin CAP(*) 400 MG PO SCH ×2 (08:26→14:42)
[2017-03-31] MEDS: Cetirizine* 10 MG TAB PO SCH (08:26)
[2017-03-31] MEDS: Cholecalciferol TAB* 1000 UNITS PO SCH (08:26)
[2017-03-31] MEDS: Lactobacillus Acidophilu (GG)* 1 CAP CAP PO SCH (08:29)
[2017-03-31] MEDS: Fluticasone NASAL SPRAY 50MCG* 16 gm SPRAY BTL BOTH NARES SCH (08:29)
[2017-03-31] MEDS ORDERED: Sertraline* 100 MG TAB PO SCH (09:00)
--- NOTE | 2017-04-01 12:25 | DS ---
DISCHARGE SUMMARY: DATE OF ADMISSION: 03/27/17 DATE OF DISCHARGE: 03/31/17 DISCHARGE DIAGNOSES: As follows: Quincy I: Unspecified dissociative disorder, unspecified mood disorder. Quincy II: Borderline personality disorder. Quincy III: Irritable bowel syndrome, bronchial asthma, seasonal allergies and obesity. Quincy IV: Moderate primary support stressors. Quincy V: At the time of admission was 39 and at the time of discharge is 59. CONDITION AT THE TIME OF DISCHARGE: Stable. The patient is calm and cooperative. She is denying thoughts of self harm. 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 The patient denies any thoughts of hurting herself or hurting other people. She is requesting to be treated in a less restricted setting, which we feel is justified given her safety profile. I would say that she is at chronic risk for self harm given her extensive history of borderline personality disorder and self injurious behaviors. However, she is currently denying these inclinations and has been safe on all checks. She does have an intact support system including her and outpatient psychotherapist. The patient is agreeable to following up with her psychiatric nurse practitioner, Bridgett Isaac as well as her therapist, Janki Root [facility] and we see no barriers to having her followup in the outpatient setting. MENTAL STATUS EXAMINATION: The patient is a middle-aged white female, with short hair wearing a blue [facility] T shirt. She is wearing spectacles. She is casually dressed, well groomed, friendly and easy to establish a report with. Speech has a normal rate, tone and volume. Mood is anxious with a full affect. Thought process is linear and goal directed. Thought content is significant for her desire to be discharged from the hospital. She denies suicidal or homicidal ideation. She denies auditory or visual hallucinations. Insight and judgment appears to be fair given the fact that she is agreeable with outpatient followup in the community. Cognitively, she is awake and alert with what would appear to be a high average intellect, but virtue of her educational attainment and vocabulary. DISCHARGE INSTRUCTIONS: To the patient are as follows: A. Medications: She takes 1. [id number] mg p.o. q. daily. 2. Flonase 2 sprays to both nares daily. 3. Neurontin 800 mg p.o. t.i.d. 4. [place] carbonate extended release 1200 mg p.o. q.h.s. 5. Sertraline 250 mg p.o. q. daily. 6. Zyrtec 10 mg p.o. q. daily. 7. Lactobacillus one capsule p.o. b.i.d. 8. Vitamin D 2000 units p.o. q. daily. B. Diet: Regular. C. Activity: As tolerated. The patient is a nonsmoker. There are no laboratory or diagnostic studies pending at the time of discharge. D. Followup care: The patient will followup on Monday04/03/17 with her therapist, Janki Root and she has a followup within two weeks with psychiatric nurse practitioner, Bridgett Isaac. HOSPITAL COURSE: As follows: Part A: Reason for admission: The patient is a 37-year-old homosexual white female with a history of extreme self injurious behaviors and multiple admissions to this hospital for self harm, who was just discharged from the behavioral science unit on 03/20/17 who now returns to our emergency department having been brought in on a 9.41 legal status as referred from the [facility] after expressing thoughts of hurting herself and buying a razor to inflict self injury. The patient states that she is afraid that she will go too far and inadvertently kill herself. 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 She indicates that that performance went well; however, in preparation for it she had been depriving herself of sleep in order to rehearse and practice late into the night and at this time, she feels exhausted. Apparently, upon seeing her therapist a woman named Janki Root she endorsed thoughts of harm to herself and admitted that she recently bought a razor and was sent to our emergency room. While in the emergency department it is documented that she attempted to take needles off the IV tray in an effort to self harm. She struggled with multiple staff before receiving intramuscular stat injection and was thereafter placed in seclusion. At this time, she is no longer forcibly attempting to harm herself, but states that she is exhausted and needs time to recharge herself in a safe place. She states that she does have a razor at home and cannot stop thinking about cutting herself and is afraid of accidentally bleeding to after doing this. She endorsed symptoms such as depression and extreme anxiety. Part B: Psychiatric treatment rendered: The patient was admitted to the adult behavioral health unit and placed on q.15-minute checks for her own safety. We continued her medications as ordered on the outpatient basis and allowed her to participate in milieu activities, which she did voluntarily. In fact, she was quite active in the milieu setting being social and active with both peers and staff members and receiving visits from her . It is notable that she did have few episodes where she became upset and threatened to hit herself in the head and attempted to cut herself with either a pen or one of the needles used by visiting rn chronic who were doing blood work on the unit. She was able to restrain herself at most of these times. We were able to discuss her self- harm tendencies and it appeared that they were obsessional and compulsive in nature and there does appear to be a strong OCD aspect to what the patient experiences. It is notable that she was not depressed nor having neurovegetative symptoms, but rather the thoughts of self harm were more like a nervous tic at times that she felt anxious. For these reasons, we discussed possible changes in her medication and we mutually agreed to increase her sertraline from 200 to 250 mg p.o. q. daily with the thinking that she should be treated with an SRI dose that is more in line with OCD pathology. The patient tolerated the increase in her sertraline well and she has no complaints of side effects at this time. She did become progressively less eager to self harm and at this time she feels safe to return to home with her and her spouse is in support of this discharge plan. She understands that she has followup appointments in place at [facility] and for these reasons we feel assured that discharging her to a less restrictive setting is in line with her needs at this time. [id number]/[facility] #: [id number] CHRISTOPHER
== END 2017-03-31 14:05 | disposition home or self-care (01) | DRG 880 ==
LOC: ED 10:53 → BSU 16:24
PROVIDERS: ADMIT Psychiatry & Neurology Psychiatry; ATTEND Psychiatry & Neurology Psychiatry
PROC: GZHZZZZ Group Psychotherapy (ICD-10-PCS; principal; 2017-03-29)
DX: F44.9 Dissociative and conversion disorder, unspecified (principal); E66.9 Obesity, unspecified; F39 Unspecified mood [affective] disorder; F60.3 Borderline personality disorder; K58.9 Irritable bowel syndrome, unspecified; J45.998 Other asthma; J30.2 Other seasonal allergic rhinitis; F41.9 Anxiety disorder, unspecified; M19.90 Unspecified osteoarthritis, unspecified site; F31.9 Bipolar disorder, unspecified; K21.9 Gastro-esophageal reflux disease without esophagitis; F10.21 Alcohol dependence, in remission; Z82.49 Family history of ischemic heart disease and other diseases of the circulatory system; Z68.33 Body mass index [BMI] 33.0-33.9, adult; Z91.5 Personal history of self-harm; Z91.011 Allergy to milk products; Z88.8 Allergy status to other drugs, medicaments and biological substances; Z81.8 Family history of other mental and behavioral disorders
CPT/HCPCS: 36415; 80053; 80061; 80178; 80307; 80320; 80329; 81003; 83036; 84443; 85025; 90853; 99222; 99231; 99238; A9270-GY; G0480; J1200; J1630; J2060

== ENCOUNTER 2017-04-03 11:22 | Inpatient (IN) | payer MEDICARE, MEDICAID ==
[2017-04-03] MEDS ORDERED: LORazepam INJ* 2 MG/ML 1 ML VIAL ONE (11:45)
[2017-04-03] MEDS ORDERED: diPHENhydraMINE IV* 50 MG/ML 1 ml VIAL (BENADRYL) ONE (11:45)
[2017-04-03] MEDS ORDERED: Haloperidol INJ IV/IM* 5 MG/ML AMP ONE (11:45)
[2017-04-03 12:05] LABS: Hematocrit 46 % (35-47); Hemoglobin 15.4 g/dl (12.0-16.0); Mean Corpuscular HGB Conc 34 g/dl (31-36); Mean Corpuscular Hemoglobin 32 pg (27-31); Mean Corpuscular Volume 94 fL (80-97); Mean Platelet Volume 8 um3 (7.4-10.4); Red Blood Count 4.88 10^6/ul (4.0-5.4); Red Cell Distribution Width 13 % (10.5-15); White Blood Count 6.2 10^3/ul (3.5-10.8)
[2017-04-03 12:06] LABS: Urine Bilirubin Negative (Negative); Urine Glucose Negative (Negative); Urine Nitrite Negative (Negative)
[2017-04-03 12:33] LABS: ALT 10 U/L (7-52); AST 14 U/L (13-39); Albumin 4.3 g/dL (3.2-5.2); Alkaline Phosphatase 57 U/L (34-104); Anion Gap 5 mmol/L (2-11); BUN/Creatinine Ratio 12.5 (8-20); Blood Urea Nitrogen 11 mg/dL (6-24); CO2 Carbon Dioxide 22 mmol/L (22-32); Calcium 9.9 mg/dL (8.6-10.3); Chloride 107 mmol/L (101-111); EGFR African American 92.5 (>60); EGFR Non-African American 71.9 (>60); Globulin 2.6 g/dL (2-4); Glucose 87 mg/dL (70-100); Potassium 4.2 mmol/L (3.5-5.0); Sodium 134 mmol/L (133-145); Total Protein 6.9 g/dL (6.4-8.9)
[2017-04-03 12:35] LABS: Benzodiazepine Urine Screen None Detected (None Detect)
--- NOTE | 2017-04-03 12:40 | ED ---
Psychiatric Complaint - HPI Summary HPI Summary: 37 female presents to ED by police as a 945, compulsive and with thoughts of suicide. Patient states she "wants to hurt herself but did not get a chance before being brought in". States her plan is to do anything she can to hurt herself. Patient wants medication to calm her down. Denies homicidal thoughts and hallucinations. Took her medications today. Denies alcohol and substance abuse. Has psych history. Did not engage in self harm however attempted to take needle away from tech while in ED to hurt herself. - History Of Current Complaint Chief Complaint: [facility]entalHealth Time Seen by Provider: 04/03/17 11:29 Hx Obtained From: Patient Onset/Duration: Sudden Onset Timing: Constant Severity Initially: Moderate Severity Currently: Severe Character: Angry - compulsive Aggravating Factor(s): Recent Stress Alleviating Factor(s): Nothing Associated Signs And Symptoms: Positive: Hostile Related History: Positive For: Prior Psychiatric Issues Has Suicidal: Reports: Thoughts, With A Plan, Demonstrates Gesture Has Homicidal: Denies: Thoughts, With A Plan - Allergies/Home Medications Allergies/Adverse Reactions: Allergies Allergy/AdvReac Type Severity Reaction Status Date / Time Casein Allergy See Comment Verified 03/28/17 16:54 Lactose Allergy Nausea And Verified 03/28/17 16:54 Vomiting DAIRY Allergy Nausea And Uncoded 03/28/17 16:54 Vomiting PMH/Surg Hx/FS Hx/Imm Hx Endocrine/Hematology History: Denies: Hx Blood Disorders, Hx Diabetes, Hx Anemia, Hx Unexplained Bleeding Cardiovascular History: Denies: Hx Auto Implanted Cardiovert Defib, Hx Cardiac Arrest, Hx Embolism, Hx Hypotension, Hx Hypertension Respiratory History: Reports: Hx Asthma - states only SOB when running Denies: Hx Chronic Bronchitis, Hx Pneumonia, Hx Pulmonary Embolism GI History: Reports: Hx Gastroesophageal Reflux Disease, Hx Irritable Bowel, Other GI Disorders - Reports often has episodes of diarrhea Denies: Hx Crohn's Disease, Hx Diverticulosis History: Denies: Hx Acute Renal Failure, Hx Kidney Stones, Other Problems/Disorders Musculoskeletal History: Reports: Other Musculoskeletal History - STATES FREQ JOINT PAIN DUE TO SPORTS INJURIES IN PAST Denies: Hx Arthritis, Hx Osteoporosis, Hx Scoliosis Sensory History: Reports: Hx Contacts or Glasses Denies: Hx Cataracts, Hx Eye Injury, Hx Hearing Aid, Hx Hearing Problem, Other Sensory Impairments Opthamlomology History: Reports: Hx Contacts or Glasses Denies: Hx Cataracts, Hx Eye Injury, Other Sensory Impairments Neurological History: Reports: Hx Headaches - Relieved with use of OTCs Denies: Hx Migraine, Hx Nerve Disease Psychiatric History: Reports: Hx Anxiety, Hx Depression, Hx Inpatient Treatment , Hx Community Mental Health Tx, Hx Bipolar Disorder, Hx Suicide Attempt, Hx of Violent Episodes Against Others, Hx Substance Abuse - hx of alcoholism/ no etoh intake for the past 10 years, Other Psychiatric Issues/Disorders - Borderline personality disorder Denies: Hx Eating Disorder - Surgical History Surgery Procedure, Year, and Place: n/a - Immunization History Immunizations Up to Date: Yes Infectious Disease History: Denies: Traveled Outside the [place] in Last 30 Days - Family History Known Family History: Positive: None, Hypertension, Other - mood disorder, anxiety, depression, alcohol abuse - Social History Alcohol Use: None Hx Substance Use: No Substance Use Type: Reports: None Hx Tobacco Use: No Smoking Status (MU): Never Smoked Tobacco Have You Smoked in the Last Year: No Review of Systems Constitutional: Negative Cardiovascular: Negative Respiratory: Negative Gastrointestinal: Negative Musculoskeletal: Negative Positive: Anxious - suicidal All Other Systems Reviewed And Are Negative: Yes Physical Exam Triage Information Reviewed: Yes Vital Signs On Initial Exam: temp: 97.7 HR:72 BP:109/73 Resp:20 O2:98 Appearance: Positive: Well-Appearing - compulsive and angry, No Pain Distress, Well-Nourished Skin: Positive: Warm, Skin Color Reflects Adequate Perfusion, Dry. Negative: Numb Eyes: Positive: Conjunctiva Clear ENT: Positive: Normal ENT inspection, Hearing grossly normal Neck: Positive: Supple, Nontender Respiratory/Lung Sounds: Positive: Clear to Auscultation, Breath Sounds Present. Negative: Rales, Rhonchi, Wheezes Cardiovascular: Positive: Normal, RRR, Pulses are Symmetrical in both Upper and Lower Extremities. Negative: Murmur, Rub Abdomen Description: Positive: Nontender, Soft Bowel Sounds: Positive: Present Musculoskeletal: Positive: Normal, Strength/ROM Intact Neurological: Positive: Normal, Sensory/Motor Intact, Alert, Oriented to Person Place, Time Psychiatric: Positive: Other - uncooperative attempting to hurt herself with needle during blood drwa, had to be restrained during lab work. patient was apologetic however frustrated and angry, compulsive about hurting herself - [employer] Coma Scale Coma Scale Total: 15 Diagnostics - Laboratory Lab Results: Lab Results 04/03/17 04/03/17 04/03/17 Range/Units 11:50 11:50 11:50 WBC 6.2 (3.5-10.8) 10^3/ul RBC 4.88 (4.0-5.4) 10^6/ul Hgb 15.4 (12.0-16.0) g/dl Hct 46 (35-47) % MCV 94 (80-97) fL MCH 32 H (27-31) pg MCHC 34 (31-36) g/dl RDW 13 (10.5-15) % Plt Count 284 (150-450) 10^3/ul MPV 8 (7.4-10.4) um3 Neut % (Auto) 62.1 (38-83) % Lymph % (Auto) 25.9 (25-47) % [place] % (Auto) 8.5 (1-9) % Eos % (Auto) 2.7 (0-6) % Baso % (Auto) 0.8 (0-2) % Absolute Neuts (auto) 3.8 (1.5-7.7) 10^3/ul Absolute Lymphs (auto) 1.6 (1.0-4.8) 10^3/ul Absolute Monos (auto) 0.5 (0-0.8) 10^3/ul Absolute Eos (auto) 0.2 (0-0.6) 10^3/ul Absolute Basos (auto) 0 (0-0.2) 10^3/ul Absolute Nucleated RBC 0 10^3/ul Nucleated RBC % 0.1 Sodium 134 (133-145) mmol/L Potassium 4.2 (3.5-5.0) mmol/L Chloride 107 (101-111) mmol/L Carbon Dioxide 22 (22-32) mmol/L Anion Gap 5 (2-11) mmol/L BUN 11 (6-24) mg/dL Creatinine 0.88 (0.51-0.95) mg/dL Est GFR ( Amer) 92.5 (>60) Est GFR (Non-Af Amer) 71.9 (>60) BUN/Creatinine Ratio 12.5 (8-20) Glucose 87 (70-100) mg/dL Calcium 9.9 (8.6-10.3) mg/dL Total Bilirubin 0.50 (0.2-1.0) mg/dL AST 14 (13-39) U/L ALT 10 (7-52) U/L Alkaline Phosphatase 57 (34-104) U/L Total Protein 6.9 (6.4-8.9) g/dL Albumin 4.3 (3.2-5.2) g/dL Globulin 2.6 (2-4) g/dL Albumin/Globulin Ratio 1.7 (1-3) TSH Pending Urine Color Straw Urine Appearance Clear Urine pH 7.0 (5-9) Ur Specific [place] 1.004 L (1.010-1.030) Urine Protein Negative (Negative) Urine Ketones Negative (Negative) Urine Blood Negative (Negative) Urine Nitrate Negative (Negative) Urine Bilirubin Negative (Negative) Urine Urobilinogen Negative (Negative) Ur Leukocyte Esterase Negative (Negative) Urine Glucose Negative (Negative) Salicylates Pending Urine Opiates Screen (None Detect) Acetaminophen Pending Ur Barbiturates Screen (None Detect) Ur Phencyclidine Scrn (None Detect) Ur Amphetamines Screen (None Detect) U Benzodiazepines Scrn (None Detect) Urine Cocaine Screen (None Detect) U Cannabinoids Screen (None Detect) Serum Alcohol Pending 04/03/17 Range/Units 11:50 WBC (3.5-10.8) 10^3/ul RBC (4.0-5.4) 10^6/ul Hgb (12.0-16.0) g/dl Hct (35-47) % MCV (80-97) fL MCH (27-31) pg MCHC (31-36) g/dl RDW (10.5-15) % Plt Count (150-450) 10^3/ul MPV (7.4-10.4) um3 Neut % (Auto) (38-83) % Lymph % (Auto) (25-47) % [place] % (Auto) (1-9) % Eos % (Auto) (0-6) % Baso % (Auto) (0-2) % Absolute Neuts (auto) (1.5-7.7) 10^3/ul Absolute Lymphs (auto) (1.0-4.8) 10^3/ul Absolute Monos (auto) (0-0.8) 10^3/ul Absolute Eos (auto) (0-0.6) 10^3/ul Absolute Basos (auto) (0-0.2) 10^3/ul Absolute Nucleated RBC 10^3/ul Nucleated RBC % Sodium (133-145) mmol/L Potassium (3.5-5.0) mmol/L Chloride (101-111) mmol/L Carbon Dioxide (22-32) mmol/L Anion Gap (2-11) mmol/L BUN (6-24) mg/dL Creatinine (0.51-0.95) mg/dL Est GFR ( Amer) (>60) Est GFR (Non-Af Amer) (>60) BUN/Creatinine Ratio (8-20) Glucose (70-100) mg/dL Calcium (8.6-10.3) mg/dL Total Bilirubin (0.2-1.0) mg/dL AST (13-39) U/L ALT (7-52) U/L Alkaline Phosphatase (34-104) U/L Total Protein (6.4-8.9) g/dL Albumin (3.2-5.2) g/dL Globulin (2-4) g/dL Albumin/Globulin Ratio (1-3) TSH Urine Color Urine Appearance Urine pH (5-9) Ur Specific [place] (1.010-1.030) Urine Protein (Negative) Urine Ketones (Negative) Urine Blood (Negative) Urine Nitrate (Negative) Urine Bilirubin (Negative) Urine Urobilinogen (Negative) Ur Leukocyte Esterase (Negative) Urine Glucose (Negative) Salicylates Urine Opiates Screen None detected (None Detect) Acetaminophen Ur Barbiturates Screen None detected (None Detect) Ur Phencyclidine Scrn None detected (None Detect) Ur Amphetamines Screen None detected (None Detect) U Benzodiazepines Scrn None detected (None Detect) Urine Cocaine Screen None detected (None Detect) U Cannabinoids Screen None detected (None Detect) Serum Alcohol Result Diagrams: 04/03/17 11:50 04/03/17 11:50 Lab Statement: Any lab studies that have been ordered have been reviewed, and results considered in the medical decision making process. Course/Dx - Course Course Of Treatment: patient was given B52 to help calm her down as she was uncooperative and compulsive. Patient calmed and had relief. was medically cleared for a psych evaluaton. no medical concerns at this time. decided by Dr Mitchell that she would be admitted with dissosicative disorder nos. - Differential Dx/Clinical Impression Differential Diagnosis/HQI/PQRI: Positive: Acute Psychosis, Anxiety, Bipolar Disorder, Depression, Suicidal Ideation, Suicidal Gesture Provider Diagnosis: Suicidal thoughts, Dissociative disorder - Physician Notifications Discussed Care Of Patient With: Dr Paula JARQUIN Instructed by Provider To: Admit As Inpatient Patient Is Medically Stable For: Psych Evaluation Discharge - Discharge Plan Condition: Stable Disposition: ADMITTED TO [facility]
[2017-04-03 12:47] LABS: TSH (Thyroid Stimulating Horm) 2.51 mcIU/mL (0.34-5.60)
[2017-04-03 12:58] LABS: Acetaminophen < 15 mcg/mL; Alcohol < 10 mg/dL (<10); Salicylate < 2.50 mg/dL (<30)
[2017-04-03] MEDS ORDERED: Al Hydrox/Mg Hydrox/Simet LIQ* 30 ML UDC PO PRN (14:05)
[2017-04-03] MEDS: Lactobacillus Acidophilu (GG)* 1 CAP CAP PO SCH (20:31)
[2017-04-03] MEDS: Gabapentin CAP(*) 400 MG PO SCH (20:31)
[2017-04-03] MEDS: Lithium Carbonate ER (NF) 300 MG TAB.ER PO SCH (20:32)
[2017-04-03] MEDS: Acetaminophen TAB* 325 MG PO PRN (20:32)
[2017-04-04] MEDS: Gabapentin CAP(*) 400 MG PO SCH ×3 (10:07→21:10)
[2017-04-04] MEDS: Sertraline* 100 MG TAB PO SCH (10:07)
[2017-04-04] MEDS: Acetaminophen TAB* 325 MG PO PRN ×2 (10:07→16:32)
[2017-04-04] MEDS: Cetirizine* 10 MG TAB PO SCH (10:08)
[2017-04-04] MEDS: Cholecalciferol TAB* 1000 UNITS PO SCH (10:08)
[2017-04-04] MEDS: LURASIDONE 40 MG PO SCH (10:09)
[2017-04-04] MEDS: Fluticasone NASAL SPRAY 50MCG* 16 gm SPRAY BTL BOTH NARES SCH (10:09)
[2017-04-04] MEDS: Lactobacillus Acidophilu (GG)* 1 CAP CAP PO SCH ×2 (10:10→21:11)
[2017-04-04] MEDS: LURASIDONE 120 MG PO SCH (15:01)
--- NOTE | 2017-04-04 15:01 | RAD ---
INDICATION: Wrist pain after injury the previous day COMPARISON: None. TECHNIQUE: 3 views left wrist. REPORT: The visualized bones are properly aligned and well corticated. The joint spaces are normal.There is no fracture, dislocation or other focal osseous abnormality. IMPRESSION: Normal radiograph of the left wrist. If the patient's symptoms persist, follow-up imaging is recommended.
[2017-04-04] MEDS: Lithium Carbonate ER (NF) 300 MG TAB.ER PO SCH (21:11)
--- NOTE | 2017-04-04 22:17 | HP ---
PSYCHIATRIC HISTORY AND PHYSICAL: DATE OF ADMISSION: 04/03/17 JUSTIFICATION FOR ADMISSION: The patient is in need of 24-hour supervision and care secondary to serious urges to harm herself. CHIEF COMPLAINT: "I am so embarrassed to be back here. I just couldn't get over these urges to hurt myself." HISTORY OF PRESENT ILLNESS: The patient is a 37-year-old homosexual white female with a history of extreme self-injurious behavior and multiple admissions to this hospital for self-harm, who was just discharged from the behavioral science unit on 03/31/17, who now returns to our emergency department having been brought in on a voluntary status from [facility] after expressing thoughts of hurting herself and buying a razor to inflict self-injury. The patient had been just discharged following a 5-day admission on my service and had been seeing her therapist, Susie Root, when she made these statements and was encouraged to come to the ED for an evaluation. While in the emergency room, it was documented that she attempted to harm herself with a tray of needles and was restrained from doing so. During the manual restraint, she apparently injured her left wrist. 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 She did endorse nonstop thoughts of cutting herself and is afraid of going too far with this and accidentally bleeding to . It is notable that she denies suicidal or homicidal ideations and she denies any desire to hurt anyone else. She does, however, endorse strong urges to harm herself that seems obsessive and compulsive in nature. PAST PSYCHIATRIC HISTORY: Quite extensive. There have been several discharge summaries from the behavioral science unit, at least 20 that I count with the most recent being 1 week ago. She also has been hospitalized at [facility] in [place]. Her past diagnoses include depression, anxiety, borderline personality disorder, and dissociative disorder. Her outpatient providers at [facility] are Susie Root LCSW and psychiatric nurse practitioner, Bridgett Isaac. She does have multiple previous suicide attempts in the past having swallowed radio antennas, keys, thumbtacks as well as placing plastic bags over her head. She tells me that she first started cutting herself at the age of 11. PAST MEDICAL HISTORY: Significant for bronchial asthma, seasonal allergies, osteoarthritis, irritable bowel syndrome, and mild obesity. CURRENT MEDICATIONS: Include: 1. Lurasidone 160 mg daily. 2. Flonase 2 sprays to both nares daily. 3. Neurontin 800 mg p.o. t.i.d. 4. [place] carbonate extended release 1200 mg p.o. q.h.s. 5. Sertraline 250 mg p.o. daily. 6. Zyrtec 10 mg p.o. daily. 7. Lactobacillus 1 cap p.o. b.i.d. 8. Vitamin D 2000 units p.o. daily. ALLERGIES: She is allergic to CASEIN and other DAIRY PRODUCTS. FAMILY HISTORY: Unremarkable, although she tells me that her father may have had an undiagnosed personality disorder. SUBSTANCE ABUSE HISTORY: She notes that in the past she abused alcohol, but she has been sober for over 10 years. She denies any use of tobacco, illicit drugs, or misuse of medications. SOCIAL HISTORY: The patient was born and raised in [place] and is the only child of parents who are still living and still . She describes a close relationship with her mother and somewhat distant one from her father. She is educated with a bachelor's degree in [employer] arts. 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 She is currently in a 9-year relationship with her female partner and they have been for at least the past year and a half. They live together in an apartment in [place]. She describes her partner is very supportive. 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 REVIEW OF SYSTEMS: The patient denies headache or double vision. She denies chest pain, sore throat, cough, abdominal pain, nausea, vomiting, diarrhea, or constipation. She denies rashes, enlarged lymph nodes, changes in weight, fevers, or difficulty ambulating. She does, however, complain of severe left wrist pain. PHYSICAL EXAMINATION As follows: Vital Signs: Blood pressure 114/75, heart rate 78, respiratory rate is 16, temperature is 97.7 degrees Fahrenheit, oxygen saturations are 98% on room air. HEENT: Head is normocephalic, atraumatic. NECK: Supple. CHEST: Clear to auscultation bilaterally. CARDIAC: Reveals normal heart sounds. ABDOMEN: Soft and nontender. MUSCULOSKELETAL: Reveals full range of motion with no sign of edema in any of her 4 extremities. NEUROLOGICAL: She is grossly intact. SKIN: Reveals evidence of old well-healed superficial cutting scars as well as more fresh wounds that are healing well on her left shoulder. She had several bandages on her left wrist. MENTAL STATUS EXAM: The patient is a middle-aged white female with short hair. She is wearing spectacles. She is casually dressed and well groomed. She is friendly and easy to establish a rapport with. Speech has a normal rate , tone, and volume. Mood is somewhat anxious with a corresponding anxious affect. Thought process is linear and goal directed. Thought content is significant for her desire to come in to the hospital for her own safety. She is having urges to cut herself or swallow foreign body. She denies homicidality. The patient denies auditory or visual hallucinations. Insight and judgement appear to be fair given the fact that she is agreeable with voluntary inpatient treatment. Cognitively, she is awake and alert with what would appear to be high average intellect by virtue of her educational attainment and vocabulary. LABORATORY DATA: Laboratory investigation is as follows: CBC is within normal limits as is her complete metabolic panel. TSH normal at 2.51. Urinalysis is within normal limits. Urine drug screen is negative for all substances tested. \\ DIAGNOSES: [place] I: Unspecified dissociative disorder, unspecified mood disorder. [place] II: Borderline personality disorder. [place] III: Irritable bowel syndrome, bronchial asthma, seasonal allergies, and obesity. [place] IV: Moderate primary support stressors. [place] V: At the time of admission is 44. ASSESSMENT: This is a 37-year-old homosexual female with a history of very significant borderline personality features as well as dissociative symptoms who arrives at our hospital having been sent from her therapist's office at [facility] secondary to severe urges to cut herself or swallow foreign objects. She continues to express a strong desire to harm herself in this way, although she denies depression, anxiety, or suicidal ideations. Given the fact that she has had a history of acting on her impulses, I do not feel that she would be safe to be discharged from the community at this time. We are hoping that we can reach her and other outpatient providers to provide further collateral information. PLAN: As follows: The patient is admitted to the adult behavioral health unit and placed on q.15-minute checks for her own safety. We will continue all of her outpatient medications as currently prescribed. While she is here, she is certainly encouraged to avail herself of all milieu activities including individual and group psychotherapies. As previously mentioned, we will try to reach out to her and outpatient providers for further collateral information. I have consulted Orthopedics, specifically Dr. Blancas, who is recommending that I get 3- view left wrist x-ray and he will follow up with the patient thereafter. When she is safe and no longer at risk for harming herself , we will likely discharge her back to the outpatient environment where she can get care in a less restricted setting. [id number]/[facility] #: [id number] CHRISTOPHER
--- NOTE | 2017-04-05 01:13 | CONS ---
CONSULTATION NOTE: DATE OF CONSULTATION: 04/04/17 HISTORY OF PRESENT ILLNESS: I was called to see Fernando who is an inpatient on the psych unit. She was admitted yesterday through the emergency room, apparently was mildly combative and had a restraint on her left wrist. Today, she has been complaining of some left wrist pain. I see Fernando in her room with the nurse in attendance. She is calm, well collected. She is complaining of mild tenderness in the wrist, mostly along the ulnar aspect. She denies any previous wrist trauma. 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 She is right hand dominant. PHYSICAL EXAMINATION: On examination, she is a well-developed, healthy- appearing woman and she is in no acute distress. Her mood is appropriate today. Her exam shows her to have no swelling or erythema at the wrist. She has intact sensation and a warm hand with a good radial pulse. She has some mild pain at the ulnar aspect with residential support worker and slight tenderness in the same area at the ulnar aspect of the wrist. There is no snuffbox tenderness. RADIOGRAPHS: Three views of the left wrist do not show scapholunate association , no tilt at the lunate or the scaphoid, and I do not see a scaphoid injury. She has normal radial tilt, no fracture noted at the distal radius. IMPRESSION: The patient with soft tissue injury, ulnar aspect of the left wrist , minimally tender today. I splinted this with a plaster splint. She can follow up with our hand surgery team in 7 to 10 days if released, if not a re- consultation. [id number]/[facility] #: [id number] CHRISTOPHER
[2017-04-05] MEDS: Lactobacillus Acidophilu (GG)* 1 CAP CAP PO SCH ×2 (08:38→20:36)
[2017-04-05] MEDS: Fluticasone NASAL SPRAY 50MCG* 16 gm SPRAY BTL BOTH NARES SCH (08:38)
[2017-04-05] MEDS: Cetirizine* 10 MG TAB PO SCH (08:39)
[2017-04-05] MEDS: Sertraline* 100 MG TAB PO SCH (08:39)
[2017-04-05] MEDS: Cholecalciferol TAB* 1000 UNITS PO SCH (08:40)
[2017-04-05] MEDS: LURASIDONE 40 MG PO SCH (08:40)
[2017-04-05] MEDS: Gabapentin CAP(*) 400 MG PO SCH ×3 (08:40→20:36)
[2017-04-05] MEDS: LURASIDONE 120 MG PO SCH (08:40)
--- NOTE | 2017-04-05 11:02 | PN ---
Subjective - Subjective Service Type: [id number] Hosp care 15 min low complexity Subjective: Flavio is seen along with ERWIN RamirezValencia Dharmesh and presents as calm and under behavioral control today. She reports feeling in good spirits and denies thoughts of self harm. "This is the best I've been in a while." She is sporting a plastic splint on her left wrist, a result of the tussle she exchanged with ED staff upon her initial presentation to the hospital. She is tolerating her medications and voices understanding of the behavioral modification plan put together by Ms. Barroso. She denies SI and reports that she would be agreeable with discharge home tomorrow. Objective - Appearance Appearance: Well Developed/Nourished Dysmorphic Features: No Hygiene: Normal Grooming: Fairly Well Kept - Behavior Psychomotor Activities: Normal Exhibits Abnormal Movement: No - Attitude and Relatedness Attitude and Relatedness: Cooperative Eye Contact: Fair - Speech Quality: Unpressured Latencies: Normal Quantity: Appropriate - Mood Patient's Decription of Mood: "Good" - Affect Observed Affect: Good Affect Consistent with: Euthymia - Thought Process Patient's Thought Process: Coherent Thought Content: No Passive Wish, No Suicidal Planning, No Homicidal Ideation, No Paranoid Ideation - Sensorium Experiencing Hallucinations: No, Sensorium is Clear Type of Hallucinations: Visual: No, Auditory: No, Command: No - Level of Consciousness Orientation: No Intact, No Orientated to Time, No Orientated to Place, No Orientated to Person - Impulse Control Impulse Control: Tenuous - Insight and Judgement Insight and Judgement: Fair - Group Participation Particating in Group Activities: Yes - Medication Management Medication Management Adherence: Yes - Additional Observations Comments: Metabolic screening: (03/30/17): [id number]: 4.3% Cholesterol: 156 Triglycerides: 162 LDL: 74 HDL: 49.2 Assessment - Assessment Merits Inpatient Hospitalization: Consolidate Improvements, Pending Safe DC Plan Inpatient DSM-IV Dx: Unspecified Dissociative DO Clinical Impression: 37 y.o. , white, homosexual female with a history of multiple past psychiatric hospitalizations in the setting of overt self-harm who returns seeking voluntary rehospitalization due to strong urges to either cut herself or swallow foreign objects such as nails or thumb tacks. Plan - Plan Treatment Plan: Name: FLAVIO HOFFMAN Birthdate: 1980 [id number] Continue med management and milieu activities. Appreciate prompt consultation from orthopedic service. Patient's left wrist is splinted. Likely d/c to home tomorrow. Continued Medication Management: Continue Outpt Medication Medications: Current Medications Acetaminophen (Tylenol Tab*) 650 mg PO Q4H PRN PRN Reason: for pain; or Temp >101 F Last Admin: 04/04/17 16:32 Dose: 650 mg Al Hydrox/Mg Hydrox/Simethicone (Maalox Plus*) 30 ml PO Q4H PRN PRN Reason: INDIGESTION Cetirizine HCl (Zyrtec*) 10 mg PO DAILY [facility] Last Admin: 04/05/17 08:39 Dose: 10 mg Cholecalciferol (Vitamin D Tab*) 2,000 units PO DAILY [facility] Last Admin: 04/05/17 08:40 Dose: 2,000 units Fluticasone Propionate (Flonase Nasal Armstrong 50mcg*) 2 spray BOTH NARES DAILY [facility] Last Admin: 04/05/17 08:38 Dose: 2 spray Gabapentin (Neurontin Cap(*)) 800 mg PO TID [facility] Last Admin: 04/05/17 08:40 Dose: 800 mg Lactobacillus Rhamnosus (Culturelle*) 1 cap PO BID [facility] Last Admin: 04/05/17 08:38 Dose: 1 cap [place] Carbonate ([place] Carbonate Er (Nf)) 1,200 mg PO BEDTIME [facility] Last Admin: 04/04/17 21:11 Dose: 1,200 mg Lurasidone HCl (Latuda (Nf)) 120 mg PO DAILY [facility] Last Admin: 04/05/17 08:40 Dose: 120 mg Lurasidone HCl (Latuda (Nf)) 40 mg PO DAILY [facility] Last Admin: 04/05/17 08:40 Dose: 40 mg Sertraline HCl (Zoloft*) 250 mg PO DAILY [facility] Last Admin: 04/05/17 08:39 Dose: 250 mg - Discharge Plan Discharge Plan: Outpatient Follow Up Outpatient Program: [facility]
--- NOTE | 2017-04-05 13:09 | PN ---
MHU: Group Therapy Note - Service Type Service Type: [id number] Group Psychotherapy - Cognitive Behavioral Group Therapy ( CBT):Patient was attentive and participatory in CBT programming this morning, and remained in good behavioral control. Patient expressed positive insights regarding relevant treatment interventions and goals.
[2017-04-05] MEDS: Acetaminophen TAB* 325 MG PO PRN (13:58)
[2017-04-05] MEDS: Lithium Carbonate ER (NF) 300 MG TAB.ER PO SCH (20:36)
[2017-04-06 08:24] VITALS: BP 117/76
[2017-04-06] MEDS: Sertraline* 100 MG TAB PO SCH (08:45)
[2017-04-06] MEDS: Cholecalciferol TAB* 1000 UNITS PO SCH (08:45)
[2017-04-06] MEDS: Gabapentin CAP(*) 400 MG PO SCH (08:46)
[2017-04-06] MEDS: Lactobacillus Acidophilu (GG)* 1 CAP CAP PO SCH (08:46)
[2017-04-06] MEDS: Cetirizine* 10 MG TAB PO SCH (08:46)
[2017-04-06] MEDS: Fluticasone NASAL SPRAY 50MCG* 16 gm SPRAY BTL BOTH NARES SCH (08:46)
[2017-04-06] MEDS: LURASIDONE 120 MG PO SCH (08:47)
[2017-04-06] MEDS: LURASIDONE 40 MG PO SCH (08:47)
--- NOTE | 2017-04-06 11:52 | PN ---
MHU: Group Therapy Note - Service Type Service Type: 65260 Group Psychotherapy - Cognitive Behavioral Group Therapy ( CBT):Patient was attentive and participatory in CBT programming this morning, and remained in good behavioral control. Patient expressed positive insights regarding relevant treatment interventions and goals.
--- NOTE | 2017-04-07 06:11 | DS ---
DISCHARGE SUMMARY: DATE OF ADMISSION: 04/03/17 DATE OF DISCHARGE: 04/06/17 DISCHARGE DIAGNOSES: Derby I: Unspecified dissociative disorder; unspecified mood disorder. Derby II: Borderline personality disorder. Derby III: Irritable bowel syndrome, bronchial asthma, seasonal allergies, obesity, left wrist tendon strain. Derby IV: Moderate primary support stressors. Derby V: At the time of admission was 40 and at the time of discharge is 60. CONDITION AT THE TIME OF DISCHARGE: Stable. The patient is calm and cooperative. She is denying thoughts of self harm. 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 The patient denies any thoughts or hurting herself or hurting other people. She is requesting to be treated in a less restrictive setting, which we feel is justified given her current safety profile. I would say that she is at some chronic elevated risk for self-harm given her extensive history of borderline personality pathology and self-injurious behaviors. However, she is currently denying these inclinations and has been safe on all checks throughout this hospitalization on the Behavioral Science Unit. She does have an intact support system including her and outpatient psychotherapist. The patient is agreeable to following up with her psychiatric nurse practitioner, Bridgett Isaac as well as her therapist, Janki Root [facility], and we see no barriers to her making these appointments in the outpatient setting. MENTAL STATUS EXAMINATION: The patient is a middle-aged white female with short hair wearing a blue [facility] T-shirt. She is wearing spectacles. She is casually dressed, well groomed, friendly, and easy to establish a rapport with. Speech has a normal rate, tone, and volume. Mood is anxious with a full affect. Thought process is linear and goal directed. Thought content is significant for her desire to be discharged from the hospital. She denies suicidal or homicidal ideation. She denies auditory of visual hallucinations. Insight and judgement appears to be fair given the fact that she is agreeable with outpatient followup in the community. Cognitively, she is awake and alert with what would appear to be a high-average intellect by virtue of her educational attainment and vocabulary. DISCHARGE INSTRUCTIONS: A. Medications. She is takin. Lurasidone 160 mg p.o. daily. 2. Flonase 2 sprays to both nares daily. 3. Neurontin 800 mg p.o. t.i.d. 4. [place] carbonate extended release 1200 mg p.o. at bedtime. 5. Sertraline 250 mg p.o. daily. 6. Zyrtec 10 mg p.o. daily. 7. Lactobacillus 1 capsule p.o. b.i.d. 8. Vitamin D 2000 units p.o. daily. B. Diet: Regular. C: Activity: As tolerated. The patient is a nonsmoker. There are no laboratory or diagnostic studies pending at the time of discharge. D. Followup care: The patient will follow up on April 10 with her therapist, Janki Root and also has a followup within 2 weeks with psychiatric nurse practitioner, Bridgett Isaac. HOSPITAL COURSE: As follows: Part A: Reason for Admission: The patient is a 37-year-old homosexual white female with a history of extreme self-injurious behavior and multiple admission to the hospital for self-harm who was just discharged from the Behavioral Science Unit on 03/31/17 who now returns to our emergency department having been brought in on a voluntary status from [facility] after expressing thoughts of hurting herself and buying a razor to inflict self-injury. The patient had just been discharged following a 5-day admission on my service and had been seeing her therapist Janki Root when she made these statements and was encouraged to come to the ED for an evaluation. While in the emergency room, it was documented that she attempted to harm herself with a tray of needles and was restrained from doing so. During the manual restraint process, she apparently injured her left wrist. 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 She did endorse nonstop thoughts of cutting herself and was afraid of going to fall with this and accidently bleeding to . It is notable that she denied suicidal or homicidal ideations. She denied the desire to hurt anyone else. She did, however, endorse strong urges to harm herself that seemed obsessive and compulsive in nature. Part B: Psychiatric Treatment Rendered: The patient was admitted to the Adult Behavioral Health Unit and placed on q.15 minutes checks for her own safety and continued her medications as ordered on an outpatient basis and allowed her to participate in milieu activities, which she did voluntarily. Because of her complaints of left wrist pain, we did get a 3-view x-ray of that joint, which were all negative. She was seen the following day, which was April 04 by orthopedic doctor, Bryson Blancas who placed a plastic splint with an Paras bandage. Because of these items on her wrist, we placed her on constant observations which she did well with. Gradually, we were able to reduce her level of observations as she was safe on all checks. She was adherent with all treatment modalities including creating a behavioral plan to take home with her in order to utilize other coping strategies other than cutting herself. She continued to tolerate the recent increase in her sertraline from 200 to 250 mg well and voiced no signs of untoward effects. At this time, she is feeling like she will be safe to be discharged and would prefer to receive treatment in a less restrictive setting. She understands that she has followup appointments in place at [facility], and she feels safe returning to her who was contacted and was in support of the discharge plan. At this time, she is going home via a medicaid cab, and we wish her the best for a safe and healthy future. [id number]/[facility] #: [id number] CHRISTOPHER
== END 2017-04-06 11:25 | disposition home or self-care (01) | DRG 880 ==
LOC: ED 11:22 → BSU 14:07
PROVIDERS: ADMIT Psychiatry & Neurology Psychiatry; ATTEND Psychiatry & Neurology Psychiatry
DX: F44.9 Dissociative and conversion disorder, unspecified (principal); E66.9 Obesity, unspecified; F39 Unspecified mood [affective] disorder; F60.3 Borderline personality disorder; K58.9 Irritable bowel syndrome, unspecified; J45.909 Unspecified asthma, uncomplicated; J30.2 Other seasonal allergic rhinitis; S66.912A Strain of unspecified muscle, fascia and tendon at wrist and hand level, left hand, initial encounter; M19.90 Unspecified osteoarthritis, unspecified site; K21.9 Gastro-esophageal reflux disease without esophagitis; F41.9 Anxiety disorder, unspecified; F31.9 Bipolar disorder, unspecified; F10.21 Alcohol dependence, in remission; R40.2412 Glasgow coma scale score 13-15, at arrival to emergency department; Z68.34 Body mass index [BMI] 34.0-34.9, adult; Z91.5 Personal history of self-harm; Z91.011 Allergy to milk products; Z81.8 Family history of other mental and behavioral disorders; Z82.49 Family history of ischemic heart disease and other diseases of the circulatory system
CPT/HCPCS: 36415; 80053; 80307; 80320; 80329; 81003; 84443; 85025; 90853; 99222; 99231; 99238; A9270-GY; G0480; J1200; J1630; J2060

== ENCOUNTER 2017-08-07 14:16 | Inpatient (IN) | payer MEDICARE, MEDICAID ==
[2017-08-07] MEDS ORDERED: Haloperidol INJ IV/IM* 5 MG/ML AMP IM ONE (15:19)
[2017-08-07] MEDS ORDERED: LORazepam INJ* 2 MG/ML 1 ML VIAL IM ONE (15:20)
[2017-08-07] MEDS ORDERED: diPHENhydraMINE IV* 50 MG/ML 1 ml VIAL (BENADRYL) IM ONE (15:20)
[2017-08-07 15:27] LABS: Urine Bilirubin Negative (Negative); Urine Glucose Negative (Negative); Urine Nitrite Negative (Negative)
[2017-08-07 16:24] LABS: Benzodiazepine Urine Screen None Detected (None Detect)
[2017-08-07 16:39] LABS: Hematocrit 43 % (35-47); Hemoglobin 14.8 g/dl (12.0-16.0); Mean Corpuscular HGB Conc 34 g/dl (31-36); Mean Corpuscular Hemoglobin 32 pg (27-31); Mean Corpuscular Volume 92 fL (80-97); Mean Platelet Volume 7 um3 (7.4-10.4); Red Blood Count 4.68 10^6/ul (4.0-5.4); Red Cell Distribution Width 13 % (10.5-15); White Blood Count 7.2 10^3/ul (3.5-10.8)
[2017-08-07 16:57] LABS: ALT 11 U/L (7-52); AST 17 U/L (13-39); Albumin 4.2 g/dL (3.2-5.2); Alkaline Phosphatase 49 U/L (34-104); Anion Gap 3 mmol/L (2-11); BUN/Creatinine Ratio 8.6 (8-20); Blood Urea Nitrogen 8 mg/dL (6-24); CO2 Carbon Dioxide 25 mmol/L (22-32); Calcium 9.6 mg/dL (8.6-10.3); Chloride 107 mmol/L (101-111); EGFR African American 86.8 (>60); EGFR Non-African American 67.5 (>60); Globulin 2.3 g/dL (2-4); Glucose 113 mg/dL (70-100); Potassium 4.1 mmol/L (3.5-5.0); Sodium 135 mmol/L (133-145); Total Protein 6.5 g/dL (6.4-8.9)
[2017-08-07 17:48] LABS: Acetaminophen < 15 mcg/mL; Alcohol < 10 mg/dL (<10); Lithium 0.77 mmol/L (0.6-1.2); Salicylate < 2.50 mg/dL (<30)
[2017-08-07 17:52] LABS: TSH (Thyroid Stimulating Horm) 2.49 mcIU/mL (0.34-5.60)
--- NOTE | 2017-08-07 21:38 | ED ---
Mo Parker Thomas, scribed for Chester Whitman MD on 08/07/17 at 1524 . Psychiatric Complaint - HPI Summary HPI Summary: The patient is a 37 y/o female brought in by ambulance with suicidal ideation for the last week and a half. She wants to cut herself with a razor. She has been taking her medication as directed. She lives with her . - History Of Current Complaint Chief Complaint: EDMentalHealth Time Seen by Provider: 08/07/17 14:24 Hx Obtained From: Patient Onset/Duration: Lasting Weeks - 1.5, Still Present Timing: Intermittent Episode Lasting Severity Currently: Severe Character: Depressed Aggravating Factor(s): Other - Unknown Alleviating Factor(s): Other - Unknown Related History: Positive For: Prior Psychiatric Issues Has Suicidal: Reports: Thoughts, Demonstrates Gesture - Allergies/Home Medications Allergies/Adverse Reactions: Allergies Allergy/AdvReac Type Severity Reaction Status Date / Time Casein Allergy See Comment Verified 03/28/17 16:54 Lactose Allergy Nausea And Verified 03/28/17 16:54 Vomiting DAIRY Allergy Nausea And Uncoded 03/28/17 16:54 Vomiting Home Medications: Home Medications Albuterol HFA INHALER* [Ventolin HFA Inhaler*] 2 puff INH Q4H PRN 08/07/17 [ History Confirmed 08/07/17] Gabapentin CAP(*) [Neurontin 300 CAP(*)] 600 mg PO BID 08/07/17 [History Confirmed 08/07/17] PMH/Surg Hx/FS Hx/Imm Hx Previously Healthy: No Endocrine/Hematology History: Denies: Hx Blood Disorders, Hx Diabetes, Hx Anemia, Hx Unexplained Bleeding Cardiovascular History: Denies: Hx Auto Implanted Cardiovert Defib, Hx Cardiac Arrest, Hx Embolism, Hx Hypotension, Hx Hypertension Respiratory History: Reports: Hx Asthma - states only SOB when running- states exercise induced Denies: Hx Chronic Bronchitis, Hx Pneumonia, Hx Pulmonary Embolism GI History: Reports: Hx Gastroesophageal Reflux Disease, Hx Irritable Bowel, Other GI Disorders - Reports often has episodes of diarrhea- takes probiotic to alleviate Denies: Hx Crohn's Disease, Hx Diverticulosis History: Denies: Hx Acute Renal Failure, Hx Kidney Stones, Other Problems/Disorders Musculoskeletal History: Reports: Other Musculoskeletal History - STATES FREQ JOINT PAIN DUE TO SPORTS INJURIES IN PAST Denies: Hx Arthritis, Hx Osteoporosis, Hx Scoliosis Sensory History: Reports: Hx Contacts or Glasses Denies: Hx Cataracts, Hx Eye Injury, Hx Hearing Aid, Hx Hearing Problem, Other Sensory Impairments Opthamlomology History: Reports: Hx Contacts or Glasses Denies: Hx Cataracts, Hx Eye Injury, Other Sensory Impairments Neurological History: Reports: Hx Headaches - Relieved with use of OTCs Denies: Hx Migraine, Hx Nerve Disease Psychiatric History: Reports: Hx Anxiety, Hx Depression, Hx Inpatient Treatment , Hx Community Mental Health Tx, Hx Bipolar Disorder, Hx Suicide Attempt, Hx of Violent Episodes Against Others, Hx Substance Abuse - hx of alcoholism/ no etoh intake for the past 10 years, Other Psychiatric Issues/Disorders - Borderline personality disorder Denies: Hx Eating Disorder - Surgical History Surgery Procedure, Year, and Place: n/a Infectious Disease History: No Infectious Disease History: Denies: Traveled Outside the [place] in Last 30 Days - Family History Known Family History: Positive: Hypertension, Other - mood disorder, anxiety, depression, alcohol abuse - Social History Lives: With Family Alcohol Use: None Hx Substance Use: No Substance Use Type: Reports: None Hx Tobacco Use: No Smoking Status (MU): Never Smoked Tobacco Amount Used/How Often: n/a Length of Time of Smoking/Using Tobacco: n/a Have You Smoked in the Last Year: No Review of Systems Negative: Fever Positive: Other - SI, self-harm gestures All Other Systems Reviewed And Are Negative: Yes Physical Exam - Summary Physical Exam Summary: VITAL SIGNS: Reviewed. GENERAL: Patient is a well-developed and nourished female who is lying comfortable in the stretcher. Patient is not in any acute respiratory distress. HEAD AND FACE: No signs of trauma. No ecchymosis, hematomas or skull depressions. No sinus tenderness. EYES: PERRLA, EOMI x 2, No injected conjunctiva, no nystagmus. EARS: Hearing grossly intact. Ear canals and tympanic membranes are within normal limits. MOUTH: Oropharynx within normal limits. NECK: Supple, trachea is midline, no adenopathy, no JVD, no carotid bruit, no c- spine tenderness, neck with full ROM. CHEST: Symmetric, no tenderness at palpation LUNGS: Clear to auscultation bilaterally. No wheezing or crackles. CVS: Regular rate and rhythm, S1 and S2 present, no murmurs or gallops appreciated. ABDOMEN: Soft, non-tender. No signs of distention. No rebound no guarding, and no masses palpated. Bowel sounds are normal. EXTREMITIES: FROM in all major joints, no edema, no cyanosis or clubbing. NEURO: Alert and oriented x 3. No acute neurological deficits. Speech is normal and follows commands. SKIN: Dry and warm PSYCHIATRIC: She has suicidal ideation. She wants to hurt herself by cutting herself. Triage Information Reviewed: Yes Vital Signs On Initial Exam: Initial Vitals Temp Pulse Resp BP Pulse Ox 98.1 F 73 18 116/76 100 08/07/17 14:46 08/07/17 14:46 08/07/17 14:46 08/07/17 14:46 08/07/17 14:46 Vital Signs Reviewed: Yes - [place] Coma Scale Coma Scale Total: 15 Diagnostics - Vital Signs Vital Signs Temp Pulse Resp BP Pulse Ox 08/07/17 14:46 98.1 F 73 18 116/76 100 - Laboratory Result Diagrams: 08/07/17 16:30 08/07/17 16:30 Lab Statement: Any lab studies that have been ordered have been reviewed, and results considered in the medical decision making process. Course/Dx - Course Assessment/Plan: The patient is a 37 y/o female brought in by ambulance with suicidal ideation for the last week and a half. She wants to cut herself with a razor. She has been taking her medication as directed. She lives with her . The patient was medically cleared for mental health evaluation. She will be signed out to the next ED attending pending MHE, awaiting disposition. - Differential Dx/Clinical Impression Provider Diagnosis: Suicidal ideation, Depression Discharge - Discharge Plan Condition: Stable Disposition: OTHER Discharge Disposition Comment: Signed out to the next ED attending, pending MHE , awaiting disposition. Referrals: Vania Lopez MD [Primary Care Provider] - The documentation as recorded by the Mo patel Thomas accurately reflects the service I personally performed and the decisions made by me, Chester Whitman MD.
[2017-08-07] MEDS ORDERED: diPHENhydraMINE IV* 50 MG/ML 1 ml VIAL (BENADRYL) ONE (23:50)
[2017-08-07] MEDS ORDERED: Haloperidol INJ IV/IM* 5 MG/ML AMP ONE (23:50)
[2017-08-07] MEDS ORDERED: LORazepam INJ* 2 MG/ML 1 ML VIAL ONE (23:50)
[2017-08-08] MEDS ORDERED: Gabapentin CAP(*) 300 MG PO ONE ×2 (00:21→00:22)
[2017-08-08] MEDS ORDERED: Lithium Carbonate ER* 450 MG TAB.ER PO ONE (00:22)
[2017-08-08] MEDS ORDERED: Haloperidol INJ IV/IM* 5 MG/ML AMP IM ONE (02:55)
[2017-08-08] MEDS ORDERED: LORazepam INJ* 2 MG/ML 1 ML VIAL IM ONE (02:55)
[2017-08-08] MEDS ORDERED: Acetaminophen TAB* 325 MG PO ONE (05:23)
[2017-08-08] MEDS ORDERED: Acetaminophen TAB* 325 MG ONE (05:27)
[2017-08-08] MEDS: Cholecalciferol TAB* 1000 UNITS PO SCH (11:22)
[2017-08-08] MEDS: Cetirizine* 10 MG TAB PO SCH (11:22)
[2017-08-08] MEDS: Sertraline* 50 MG TAB PO SCH (11:24)
[2017-08-08] MEDS: Sertraline* 100 MG TAB PO SCH (11:24)
[2017-08-08] MEDS: Fluticasone NASAL SPRAY 50MCG* 16 gm SPRAY BTL BOTH NARES SCH (12:57)
[2017-08-08] MEDS: Gabapentin CAP(*) 300 MG PO SCH ×2 (13:07→20:20)
[2017-08-08] MEDS: Lactobacillus Acidophilu (GG)* 1 CAP CAP PO SCH ×2 (13:07→20:21)
[2017-08-08] MEDS: Acetaminophen TAB* 325 MG PO PRN ×2 (16:34→22:57)
[2017-08-08] MEDS: Lurasidone(*) 80 MG TAB PO SCH (17:41)
[2017-08-08] MEDS: Lithium Carbonate ER (NF) 300 MG TAB.ER PO SCH (20:21)
--- NOTE | 2017-08-08 20:44 | HP ---
PSYCHIATRIC HISTORY AND PHYSICAL: DATE OF ADMISSION: 08/08/17 JUSTIFICATION FOR ADMISSION: The patient is in need of 24-hour supervision and treatment secondary to strong inclinations to harm herself. CHIEF COMPLAINT: "I have just had a lot of stressors building upon me, you know the holidays and my partner wants to buy the toy store." HISTORY OF PRESENT ILLNESS: The patient is a 37-year-old homosexual white female with a history of extreme self-injurious behaviors and multiple admissions to this hospital for self-harm who arrives on a voluntary basis from the [facility] where she had expressed suicidal ideations and thoughts of self-harm to her therapist. She indicates that 1 day prior to admission, she had burnt herself severely on her left upper extremity and was having urges to do this again. She stated that she did not feel safe in the community due to her wanting to self-harm and stated that if discharged, she would only continue to hurt herself and would be back in the emergency room 1 day later. It is notable that in our ED, she managed to get hold of a phlebotomy needle, which she was attempting to scratch herself with, attempts to manually restrain her were unsuccessful which led to mechanical restraint with the use of hand cuffs. Here on our unit, she is telling me that she has had numerous stressors recently. One is that the holidays tend to be a dreary and depressing time for her. 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 The is considering purchasing the store and this has been an additional stressor. 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 She notes that her psychiatric nurse practitioner, Bridgett Isaac, will be leaving the clinic and her case will be transferred to Dr. Robert Ellis. Although she likes Dr. Ellis, she does not feel that she works particularly well with him and this has been an additional stressor. The patient does have a long history of dissociative spells in which she will swallow foreign objects such as tacks and nhung. She also has a history of cutting herself. She is currently denying depressive symptoms; however, she is endorsing extreme anxiety. I asked about recent med changes and she does indicate that several months ago, her gabapentin was reduced from t.i.d. to b.i.d. dosing as she was doing well and she would be willing to increase this back to her old dose. PAST PSYCHIATRIC HISTORY: Her history is quite extensive. There have been several old discharge summaries from the behavioral science unit, at least 20 that can be counted, with the most recent being 3 rapid admissions in March of this year, under the service of Dr. Farhan Hay. She has also been hospitalized at the [facility] in [place] as well as [facility] in 2008 for 5 months. Her past diagnoses include depression, anxiety, borderline personality disorder, and dissociative disorder. Her outpatient providers at [facility] are licensed clinical delinquency prevention social worker, Susie Root, and psychiatric nurse practitioner, Bridgett Isaac. She does have multiple previous suicides and attempts having swallowed radio antennas, keys, thumbtacks, as well as placing plastic bags over her head. She tells me that she first started cutting herself at the age of 11. PAST MEDICAL HISTORY: Significant for bronchial asthma, seasonal allergies, osteoarthritis, and irritable bowel syndrome as well as mild obesity. CURRENT MEDICATIONS: Include: 1. Lurasidone 160 mg p.o. daily. 2. Flonase 2 sprays to both nares daily. 3. Neurontin 600 mg p.o. b.i.d. 4. [place] carbonate extended release 1200 mg p.o. q.h.s. 5. Sertraline 250 mg p.o. daily. 6. Zyrtec 10 mg p.o. daily. 7. Lactobacillus 1 cap p.o. b.i.d. 8. Vitamin D 2000 units p.o. daily. ALLERGIES: She is allergic to CASEIN. FAMILY HISTORY: Unremarkable, although she tells me that her father may have had an undiagnosed personality disorder. SUBSTANCE ABUSE HISTORY: She notes that in the past, she abused alcohol but has been sober for over 10 years. She denies use of tobacco, illicit drugs, or misuse of medications. SOCIAL HISTORY: The patient was born and raised in [place] and is the only child. The parents were still living and still . She describes a close relationship with her mother and is a somewhat distant one from her father. She is educated with a bachelor's degree in arts at [employer]. She later dropped out of graduate school of [employer] where she had studied architecture. 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 She is currently in a 10-year relationship with her female partner and they have been for the past 2 years. They live together in an apartment in [place]. She describes her partner as very supportive. 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 REVIEW OF SYSTEMS: The patient denies headache or double vision. She denies chest pain, sore throat, cough, abdominal pain, nausea, vomiting, diarrhea, or constipation. She denies rashes, enlarged lymph nodes, changes in weight or fevers. PHYSICAL EXAMINATION VITAL SIGNS: Blood pressure 124/74, heart rate 92, respiratory rate 16, temperature 97.5 degrees Fahrenheit, oxygen saturations are 99% on room air. HEENT: Head is normocephalic, atraumatic. NECK: Supple. CHEST: Clear to auscultation bilaterally. CARDIAC : Exam reveals normal heart sounds. ABDOMEN: Soft and nontender. MUSCULOSKELETAL: Exam reveals full range of motion with no sign of edema in any of her 4 extremities. NEUROLOGICAL: She is grossly intact. SKIN: Reveals some evidence of old well-healed superficial cutting scars to her bilateral upper extremities with some fresh marvin to her left upper extremity. MENTAL STATUS EXAMINATION: The patient is a middle-aged white female, with short hair. She is wearing spectacles. She is casually dressed with a [place] T -shirt, well groomed. She is friendly, easy to establish a rapport with. Speech has a normal rate, tone, and volume. Mood is somewhat anxious with a corresponding anxious affect. Thought process is linear and goal directed. Thought content is significant for her desire to come into the hospital for her own safety. She is having urges to cut herself or swallow foreign bodies or burn herself. She denies homicidality. The patient denies auditory or visual hallucinations. Insight and judgment appear to be fair given her willingness to come in on a voluntarily basis to seek treatment. Cognitively, she is awake and alert with what would appear to be a high average intellect by virtue of her educational attainment and vocabulary. LABORATORY DATA: CBC is within normal limits as is her complete metabolic panel. Urinalysis is within normal limits. Urine drug screen is negative for all substances tested. Her lithium level is therapeutic at 0.77. DIAGNOSES: [place] I: Unspecified mood disorder. [place] II: Borderline personality disorder. [place] III: Irritable bowel syndrome, bronchial asthma, seasonal allergies, obesity. [place] IV: Moderate primary support stressors. [place] V: At this time is 40. ASSESSMENT: This is a 37-year-old homosexual white female with a history of very significant borderline personality disorder and associated symptoms, who arrives on a voluntary basis claiming that she is having strong urges to cut herself, burn herself, and/or to swallow foreign bodies. Given the fact that she has had an extensive history of acting on these impulses, we did not feel safe discharging her back to the community. She is admitted currently to the behavioral health unit where we will try to reach outpatient providers for further collateral information. PLAN: The patient is admitted to the behavioral health unit and placed on q.15 - minute checks for her own safety. We will continue her on all of her outpatient medications as currently prescribed with one exception; I will be increasing gabapentin to 600 mg p.o. t.i.d. from the b.i.d. dosing which she is currently at. She will be placed on a behavioral modification plan wherein there will be consequences behaviorally for any self-harming behaviors. While she is here, she is certainly encouraged to avail herself of all milieu activities including individual and group psychotherapies. When she is safe and no longer risk of harming herself, we will likely be discharging her back to the outpatient environment where she can receive care in a less restrictive setting. [id number]/[facility] #: [id number] CHRISTOPHER
[2017-08-08] MEDS ORDERED: Lithium Carbonate ER* 450 MG TAB.ER PO SCH (21:00)
[2017-08-08] MEDS ORDERED: Gabapentin CAP(*) 300 MG PO SCH (21:00)
[2017-08-09] MEDS ORDERED: Pneumococcal *Vac Polyvalent 0.5 ML VIAL IM ONE (09:00)
[2017-08-09] MEDS: Sertraline* 100 MG TAB PO SCH (09:07)
[2017-08-09] MEDS: Cetirizine* 10 MG TAB PO SCH (09:07)
[2017-08-09] MEDS: Gabapentin CAP(*) 300 MG PO SCH ×3 (09:07→20:02)
[2017-08-09] MEDS: Cholecalciferol TAB* 1000 UNITS PO SCH (09:08)
[2017-08-09] MEDS: Lactobacillus Acidophilu (GG)* 1 CAP CAP PO SCH ×2 (09:08→20:03)
[2017-08-09] MEDS: Fluticasone NASAL SPRAY 50MCG* 16 gm SPRAY BTL BOTH NARES SCH (09:08)
[2017-08-09] MEDS: Sertraline* 50 MG TAB PO SCH (09:08)
--- NOTE | 2017-08-09 14:42 | PN ---
Subjective - Subjective Date of Service: 08/09/17 Service Type: 82686 Hosp care 15 min low complexity Subjective: Fernando has been under behavioral control today without any episodes of self-harm. She denies further urges to hurt herself since admission and denies SI. She is attending groups as indicated and is tolerating her medications well, including the increase in gabapentin. Objective - Appearance Appearance: Well Developed/Nourished Dysmorphic Features: No Hygiene: Normal Grooming: Well Kept - Behavior Psychomotor Activities: Normal Exhibits Abnormal Movement: No - Attitude and Relatedness Attitude and Relatedness: Cooperative Eye Contact: Fair - Speech Quality: Unpressured Latencies: Normal Quantity: Appropriate - Mood Patient's Decription of Mood: "Good" - Affect Observed Affect: Fair Affect Consistent with: Euthymia - Thought Process Patient's Thought Process: Coherent Thought Content: No Passive Wish, No Suicidal Planning, No Homicidal Ideation, No Paranoid Ideation - Sensorium Experiencing Hallucinations: No, Sensorium is Clear Type of Hallucinations: Visual: No, Auditory: No, Command: No - Level of Consciousness Level of Consciousness: Alert Orientation: Yes Intact, Yes Orientated to Time, Yes Orientated to Place, Yes Orientated to Person - Impulse Control Impulse Control: Tenuous - Insight and Judgement Insight and Judgement: Fair - Group Participation Particating in Group Activities: Yes - Medication Management Medication Management Adherence: Yes Assessment - Assessment Merits Inpatient Hospitalization: Consolidate Improvements, Pending Safe DC Plan Inpatient DSM-IV Dx: Unspecified Mood DO Clinical Impression: 37 y.o. , homosexual white female with a history of borderline personality disorder and behavioral instability punctuated by episodic self harm and urges to cut, burn and suffocate herself, admitted on a voluntary basis for SI and urges to self-immolate. Plan - Plan Treatment Plan: Name: FERNANDO HOFFMAN Birthdate: 1980 [id number] We have continued the patient's outpatient regimen of lurasidone, sertraline and lithium. Her gabapentin 600mg has been increased from BID to TID dosing. Will continue to treat on an inpatient basis. Continued Medication Management: Continue Outpt Medication Medications: Current Medications Acetaminophen (Tylenol Tab*) 650 mg PO Q4H PRN PRN Reason: for pain; or Temp >101 F Last Admin: 08/08/17 22:57 Dose: 650 mg Cetirizine HCl (Zyrtec*) 10 mg PO DAILY [facility] Last Admin: 08/09/17 09:07 Dose: 10 mg Cholecalciferol (Vitamin D Tab*) 2,000 units PO DAILY [facility] Last Admin: 08/09/17 09:08 Dose: 2,000 units Fluticasone Propionate (Flonase Nasal [place] 50mcg*) 2 spray BOTH NARES DAILY [facility] Last Admin: 08/09/17 09:08 Dose: 2 spray Gabapentin (Neurontin Cap(*)) 600 mg PO TID [facility] Last Admin: 08/09/17 14:07 Dose: 600 mg Lactobacillus Rhamnosus (Culturelle*) 1 cap PO BID [facility] Last Admin: 08/09/17 09:08 Dose: 1 cap [place] Carbonate ([place] Carbonate Er (Nf)) 1,200 mg PO BEDTIME [facility] Last Admin: 08/08/17 20:21 Dose: 1,200 mg Lurasidone HCl (Latuda) 160 mg PO 1700 [facility] Last Admin: 08/08/17 17:41 Dose: 160 mg Sertraline HCl (Zoloft*) 200 mg PO DAILY [facility] Last Admin: 08/09/17 09:07 Dose: 200 mg Sertraline HCl (Zoloft*) 50 mg PO DAILY [facility] Last Admin: 08/09/17 09:08 Dose: 50 mg - Discharge Plan Discharge Plan: Inpatient Hospitalization
[2017-08-09] MEDS: Lurasidone(*) 80 MG TAB PO SCH (17:16)
[2017-08-09] MEDS: Lithium Carbonate ER (NF) 300 MG TAB.ER PO SCH (20:02)
[2017-08-09] MEDS: Acetaminophen TAB* 325 MG PO PRN (22:08)
[2017-08-10] MEDS: Gabapentin CAP(*) 300 MG PO SCH ×3 (08:33→21:14)
[2017-08-10] MEDS: Sertraline* 100 MG TAB PO SCH (08:33)
[2017-08-10] MEDS: Sertraline* 50 MG TAB PO SCH (08:34)
[2017-08-10] MEDS: Fluticasone NASAL SPRAY 50MCG* 16 gm SPRAY BTL BOTH NARES SCH (08:34)
[2017-08-10] MEDS: Lactobacillus Acidophilu (GG)* 1 CAP CAP PO SCH ×2 (08:34→21:15)
[2017-08-10] MEDS: Cholecalciferol TAB* 1000 UNITS PO SCH (08:34)
[2017-08-10] MEDS: Cetirizine* 10 MG TAB PO SCH (08:34)
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
[2017-08-10] MEDS: Lurasidone(*) 80 MG TAB PO SCH (16:15)
[2017-08-10] MEDS: Lithium Carbonate ER (NF) 300 MG TAB.ER PO SCH (21:14)
[2017-08-11] MEDS: Cetirizine* 10 MG TAB PO SCH (09:09)
[2017-08-11] MEDS: Sertraline* 100 MG TAB PO SCH (09:09)
[2017-08-11] MEDS: Sertraline* 50 MG TAB PO SCH (09:09)
[2017-08-11] MEDS: Cholecalciferol TAB* 1000 UNITS PO SCH (09:09)
[2017-08-11] MEDS: Fluticasone NASAL SPRAY 50MCG* 16 gm SPRAY BTL BOTH NARES SCH (09:09)
[2017-08-11] MEDS: Lactobacillus Acidophilu (GG)* 1 CAP CAP PO SCH ×2 (09:09→21:29)
[2017-08-11] MEDS: Gabapentin CAP(*) 300 MG PO SCH ×3 (09:09→21:29)
--- NOTE | 2017-08-11 16:07 | PN ---
Subjective - Subjective Date of Service: 08/11/17 Service Type: [id number] Hosp care 15 min low complexity Subjective: The patient's behavior has been improved on the unit today. She denies current urges to cut or burn herself or swallow dangerous foreign substances. She denies SI. I left a message with her partner, Mouna. Patient is requesting ointment for skin rash under her breasts. Objective - Appearance Appearance: Well Developed/Nourished Dysmorphic Features: No Hygiene: Normal Grooming: Well Kept - Behavior Psychomotor Activities: Normal Exhibits Abnormal Movement: No - Attitude and Relatedness Attitude and Relatedness: Cooperative Eye Contact: Fair - Speech Quality: Unpressured Latencies: Normal Quantity: Appropriate - Mood Patient's Decription of Mood: "Okay" - Affect Observed Affect: Good Affect Consistent with: Euthymia - Thought Process Patient's Thought Process: Coherent Thought Content: Yes Passive Wish, Yes Suicidal Planning, Yes Homicidal Ideation, Yes Paranoid Ideation - Sensorium Experiencing Hallucinations: No, Sensorium is Clear Type of Hallucinations: Visual: No, Auditory: No, Command: No - Level of Consciousness Level of Consciousness: Alert Orientation: Yes Intact, Yes Orientated to Time, Yes Orientated to Place, Yes Orientated to Person - Impulse Control Impulse Control: Tenuous - Insight and Judgement Insight and Judgement: Fair - Group Participation Particating in Group Activities: Yes - Medication Management Medication Management Adherence: Yes Assessment - Assessment Merits Inpatient Hospitalization: Consolidate Improvements, Pending Safe DC Plan Inpatient DSM-IV Dx: Unspecified Mood DO Clinical Impression: 37 y.o. , homosexual white female with a history of borderline personality disorder and behavioral instability punctuated by episodic self harm and urges to cut, burn and suffocate herself, admitted on a voluntary basis for SI and urges to self-immolate. Plan - Plan Treatment Plan: Name: FLAVIO HOFFMAN Birthdate: 1980 [id number] We have continued the patient's outpatient regimen of lurasidone, sertraline and lithium. Her gabapentin 600mg has been increased from BID to TID dosing. She is on a signed behavioral contract to prevent self-harm on the unit. Will continue to treat on an inpatient basis. Continued Medication Management: Continue Outpt Medication Medications: Current Medications Acetaminophen (Tylenol Tab*) 650 mg PO Q4H PRN PRN Reason: for pain; or Temp >101 F Last Admin: 08/09/17 22:08 Dose: 650 mg Cetirizine HCl (Zyrtec*) 10 mg PO DAILY [facility] Last Admin: 08/11/17 09:09 Dose: 10 mg Cholecalciferol (Vitamin D Tab*) 2,000 units PO DAILY [facility] Last Admin: 08/11/17 09:09 Dose: 2,000 units Fluticasone Propionate (Flonase Nasal [place] 50mcg*) 2 spray BOTH NARES DAILY [facility] Last Admin: 08/11/17 09:09 Dose: 2 spray Gabapentin (Neurontin Cap(*)) 600 mg PO TID [facility] Last Admin: 08/11/17 13:56 Dose: 600 mg Lactobacillus Rhamnosus (Culturelle*) 1 cap PO BID [facility] Last Admin: 08/11/17 09:09 Dose: 1 cap [place] Carbonate ([place] Carbonate Er (Nf)) 1,200 mg PO BEDTIME [facility] Last Admin: 08/10/17 21:14 Dose: 1,200 mg Lurasidone HCl (Latuda) 160 mg PO 1700 [facility] Last Admin: 08/10/17 16:15 Dose: 160 mg Sertraline HCl (Zoloft*) 200 mg PO DAILY [facility] Last Admin: 08/11/17 09:09 Dose: 200 mg Sertraline HCl (Zoloft*) 50 mg PO DAILY [facility] Last Admin: 08/11/17 09:09 Dose: 50 mg - Discharge Plan Discharge Plan: Inpatient Hospitalization Lab Results - Lab Results Lab Results: 08/10/17 08/10/17 07:18 07:18 Hemoglobin A1c 4.1 Triglycerides 118 Cholesterol 136 LDL Cholesterol 66 HDL Cholesterol 46.0
[2017-08-11] MEDS: Lurasidone(*) 80 MG TAB PO SCH (18:30)
[2017-08-11] MEDS: Mupirocin 2% OINT* TUBE TOPICAL SCH (21:29)
[2017-08-11] MEDS: Lithium Carbonate ER (NF) 300 MG TAB.ER PO SCH (21:29)
[2017-08-11] MEDS: Acetaminophen TAB* 325 MG PO PRN (21:30)
[2017-08-12] MEDS: Sertraline* 50 MG TAB PO SCH (08:36)
[2017-08-12] MEDS: Cholecalciferol TAB* 1000 UNITS PO SCH (08:36)
[2017-08-12] MEDS: Sertraline* 100 MG TAB PO SCH (08:36)
[2017-08-12] MEDS: Gabapentin CAP(*) 300 MG PO SCH ×3 (08:36→20:21)
[2017-08-12] MEDS: Acetaminophen TAB* 325 MG PO PRN (08:37)
[2017-08-12] MEDS: Cetirizine* 10 MG TAB PO SCH (08:37)
[2017-08-12] MEDS: Lactobacillus Acidophilu (GG)* 1 CAP CAP PO SCH ×2 (08:37→20:22)
[2017-08-12] MEDS: Fluticasone NASAL SPRAY 50MCG* 16 gm SPRAY BTL BOTH NARES SCH (08:38)
[2017-08-12] MEDS: Mupirocin 2% OINT* TUBE TOPICAL SCH ×2 (08:40→19:53)
[2017-08-12] MEDS: Lurasidone(*) 80 MG TAB PO SCH (17:36)
[2017-08-12] MEDS: Lithium Carbonate ER (NF) 300 MG TAB.ER PO SCH (20:22)
[2017-08-13] MEDS: Gabapentin CAP(*) 300 MG PO SCH ×3 (08:51→20:39)
[2017-08-13] MEDS: Cetirizine* 10 MG TAB PO SCH (08:51)
[2017-08-13] MEDS: Fluticasone NASAL SPRAY 50MCG* 16 gm SPRAY BTL BOTH NARES SCH (08:51)
[2017-08-13] MEDS: Cholecalciferol TAB* 1000 UNITS PO SCH (08:51)
[2017-08-13] MEDS: Lactobacillus Acidophilu (GG)* 1 CAP CAP PO SCH ×2 (08:52→20:40)
[2017-08-13] MEDS: Sertraline* 100 MG TAB PO SCH (08:52)
[2017-08-13] MEDS: Mupirocin 2% OINT* TUBE TOPICAL SCH ×2 (08:52→20:40)
[2017-08-13] MEDS: Sertraline* 50 MG TAB PO SCH (08:52)
[2017-08-13] MEDS: Acetaminophen TAB* 325 MG PO PRN (12:54)
[2017-08-13] MEDS: Lurasidone(*) 80 MG TAB PO SCH (16:51)
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
[2017-08-13] MEDS: Lithium Carbonate ER (NF) 300 MG TAB.ER PO SCH (20:38)
[2017-08-14] MEDS: Cetirizine* 10 MG TAB PO SCH (08:45)
[2017-08-14] MEDS: Sertraline* 50 MG TAB PO SCH (08:45)
[2017-08-14] MEDS: Gabapentin CAP(*) 300 MG PO SCH ×3 (08:45→20:53)
[2017-08-14] MEDS: Sertraline* 100 MG TAB PO SCH (08:45)
[2017-08-14] MEDS: Lactobacillus Acidophilu (GG)* 1 CAP CAP PO SCH ×2 (08:45→20:52)
[2017-08-14] MEDS: Cholecalciferol TAB* 1000 UNITS PO SCH (08:45)
[2017-08-14] MEDS: Fluticasone NASAL SPRAY 50MCG* 16 gm SPRAY BTL BOTH NARES SCH (08:46)
[2017-08-14] MEDS: Mupirocin 2% OINT* TUBE TOPICAL SCH ×2 (08:46→22:42)
--- NOTE | 2017-08-14 15:57 | PN ---
Subjective - Subjective Date of Service: 08/14/17 Service Type: 09536 Hosp care 15 min low complexity Subjective: Fernando had an episode over the weekend in which she got stressed by the number of peers attending the [employer] and scratched herself with a pen. She continues to have urges to harm herself. I spoke with her spouse, Mouna Berg ( [phone]), who did not feel the patient was safe enough to come home. Objective - Appearance Appearance: Well Developed/Nourished Dysmorphic Features: No Hygiene: Normal Grooming: Well Kept - Behavior Psychomotor Activities: Normal Exhibits Abnormal Movement: No - Attitude and Relatedness Attitude and Relatedness: Cooperative Eye Contact: Fair - Speech Quality: Unpressured Latencies: Normal Quantity: Appropriate - Mood Patient's Decription of Mood: "Okay" - Affect Observed Affect: Fair Affect Consistent with: Euthymia - Thought Process Patient's Thought Process: Coherent Thought Content: Yes Suicidal Planning, No Passive Wish, No Homicidal Ideation, No Paranoid Ideation - Sensorium Experiencing Hallucinations: No, Sensorium is Clear Type of Hallucinations: Visual: No, Auditory: No, Command: No - Level of Consciousness Level of Consciousness: Alert Orientation: Yes Intact, Yes Orientated to Time, Yes Orientated to Place, Yes Orientated to Person - Impulse Control Impulse Control: Poor - Insight and Judgement Insight and Judgement: Impaired - Group Participation Particating in Group Activities: Yes - Medication Management Medication Management Adherence: Yes Assessment - Assessment Merits Inpatient Hospitalization: For Immediate Safety, For Stabilization Inpatient DSM-IV Dx: Unspecified Mood DO Clinical Impression: 37 y.o. , homosexual white female with a history of borderline personality disorder and behavioral instability punctuated by episodic self harm and urges to cut, burn and suffocate herself, admitted on a voluntary basis for SI and urges to self-immolate. Plan - Plan Treatment Plan: Name: FERNANOD HOFFMAN Birthdate: 1980 [id number] We have continued the patient's outpatient regimen of lurasidone, sertraline and lithium. Her gabapentin 600mg has been increased from BID to TID dosing. She is on a signed behavioral contract to prevent self-harm on the unit. Will continue to treat on an inpatient basis. Continued Medication Management: Continue Outpt Medication Medications: Current Medications Acetaminophen (Tylenol Tab*) 650 mg PO Q4H PRN PRN Reason: for pain; or Temp >101 F Last Admin: 08/13/17 12:54 Dose: 650 mg Cetirizine HCl (Zyrtec*) 10 mg PO DAILY [facility] Last Admin: 08/14/17 08:45 Dose: 10 mg Cholecalciferol (Vitamin D Tab*) 2,000 units PO DAILY [facility] Last Admin: 08/14/17 08:45 Dose: 2,000 units Fluticasone Propionate (Flonase Nasal [place] 50mcg*) 2 spray BOTH NARES DAILY [facility] Last Admin: 08/14/17 08:46 Dose: 2 spray Gabapentin (Neurontin Cap(*)) 600 mg PO TID [facility] Last Admin: 08/14/17 13:51 Dose: 600 mg Lactobacillus Rhamnosus (Culturelle*) 1 cap PO BID [facility] Last Admin: 08/14/17 08:45 Dose: 1 cap [place] Carbonate ([place] Carbonate Er (Nf)) 1,200 mg PO BEDTIME [facility] Last Admin: 08/13/17 20:38 Dose: 1,200 mg Lurasidone HCl (Latuda) 160 mg PO 1700 [facility] Last Admin: 08/13/17 16:51 Dose: 160 mg Mupirocin (Bactroban 2 % Oint*) 1 applic TOPICAL BID [facility] Last Admin: 08/14/17 08:46 Dose: 1 applic Sertraline HCl (Zoloft*) 200 mg PO DAILY [facility] Last Admin: 08/14/17 08:45 Dose: 200 mg Sertraline HCl (Zoloft*) 50 mg PO DAILY [facility] Last Admin: 08/14/17 08:45 Dose: 50 mg - Discharge Plan Discharge Plan: Inpatient Hospitalization
[2017-08-14] MEDS: Lurasidone(*) 80 MG TAB PO SCH (17:51)
[2017-08-14] MEDS: Lithium Carbonate ER (NF) 300 MG TAB.ER PO SCH (20:52)
[2017-08-15] MEDS: Sertraline* 50 MG TAB PO SCH (09:05)
[2017-08-15] MEDS: Cholecalciferol TAB* 1000 UNITS PO SCH (09:05)
[2017-08-15] MEDS: Sertraline* 100 MG TAB PO SCH (09:05)
[2017-08-15] MEDS: Cetirizine* 10 MG TAB PO SCH (09:06)
[2017-08-15] MEDS: Gabapentin CAP(*) 300 MG PO SCH ×3 (09:06→21:14)
[2017-08-15] MEDS: Mupirocin 2% OINT* TUBE TOPICAL SCH ×2 (09:07→21:15)
[2017-08-15] MEDS: Fluticasone NASAL SPRAY 50MCG* 16 gm SPRAY BTL BOTH NARES SCH (09:07)
[2017-08-15] MEDS: Lactobacillus Acidophilu (GG)* 1 CAP CAP PO SCH ×2 (09:07→21:14)
--- NOTE | 2017-08-15 12:57 | PN ---
MHU: Group Therapy Note - Service Type Service Type: 01873 Group Psychotherapy - Cognitive Behavioral Group Therapy ( CBT):Patient was attentive and participatory in CBT programming this morning, and remained in good behavioral control. Patient expressed positive insights regarding relevant treatment interventions and goals.
--- NOTE | 2017-08-15 15:32 | PN ---
Subjective - Subjective Date of Service: 08/15/17 Service Type: [id number] Hosp care 15 min low complexity Subjective: Fernando presents today as calm, cooperative and under behavioral control. She is appropriately attending groups, taking medications and utilizing healthy coping mechanisms. She denies SI or thoughts/urges to harm herself. Objective - Appearance Appearance: Well Developed/Nourished Dysmorphic Features: No Hygiene: Normal Grooming: Well Kept - Behavior Psychomotor Activities: Normal Exhibits Abnormal Movement: No - Attitude and Relatedness Attitude and Relatedness: Cooperative Eye Contact: Fair - Speech Quality: Unpressured Latencies: Normal Quantity: Appropriate - Mood Patient's Decription of Mood: "Fine" - Affect Observed Affect: Fair Affect Consistent with: Euthymia - Thought Process Patient's Thought Process: Coherent Thought Content: No Passive Wish, No Suicidal Planning, No Homicidal Ideation, No Paranoid Ideation - Sensorium Experiencing Hallucinations: No, Sensorium is Clear Type of Hallucinations: Visual: No, Auditory: No, Command: No - Level of Consciousness Level of Consciousness: Alert Orientation: No Intact, No Orientated to Time, No Orientated to Place, No Orientated to Person - Impulse Control Impulse Control: Tenuous - Insight and Judgement Insight and Judgement: Fair - Group Participation Particating in Group Activities: Yes - Medication Management Medication Management Adherence: Yes Assessment - Assessment Merits Inpatient Hospitalization: Consolidate Improvements, Pending Safe DC Plan Inpatient DSM-IV Dx: Unspecified Mood DO Clinical Impression: 37 y.o. , homosexual white female with a history of borderline personality disorder and behavioral instability punctuated by episodic self harm and urges to cut, burn and suffocate herself, admitted on a voluntary basis for SI and urges to self-immolate. Plan - Plan Treatment Plan: Name: FERNANDO HOFFMAN Birthdate: 1980 [id number] We have continued the patient's outpatient regimen of lurasidone, sertraline and lithium. Her gabapentin 600mg has been increased from BID to TID dosing. She is on a signed behavioral contract to prevent self-harm on the unit. Will continue to treat on an inpatient basis. Continued Medication Management: Continue Outpt Medication Medications: Current Medications Acetaminophen (Tylenol Tab*) 650 mg PO Q4H PRN PRN Reason: for pain; or Temp >101 F Last Admin: 08/13/17 12:54 Dose: 650 mg Cetirizine HCl (Zyrtec*) 10 mg PO DAILY [facility] Last Admin: 08/15/17 09:06 Dose: 10 mg Cholecalciferol (Vitamin D Tab*) 2,000 units PO DAILY [facility] Last Admin: 08/15/17 09:05 Dose: 2,000 units Fluticasone Propionate (Flonase Nasal [place] 50mcg*) 2 spray BOTH NARES DAILY [facility] Last Admin: 08/15/17 09:07 Dose: 2 spray Gabapentin (Neurontin Cap(*)) 600 mg PO TID [facility] Last Admin: 08/15/17 13:41 Dose: 600 mg Lactobacillus Rhamnosus (Culturelle*) 1 cap PO BID [facility] Last Admin: 08/15/17 09:07 Dose: 1 cap [place] Carbonate ([place] Carbonate Er (Nf)) 1,200 mg PO BEDTIME [facility] Last Admin: 08/14/17 20:52 Dose: 1,200 mg Lurasidone HCl (Latuda) 160 mg PO 1700 [facility] Last Admin: 08/14/17 17:51 Dose: 160 mg Mupirocin (Bactroban 2 % Oint*) 1 applic TOPICAL BID [facility] Last Admin: 08/15/17 09:07 Dose: 1 applic Sertraline HCl (Zoloft*) 200 mg PO DAILY [facility] Last Admin: 08/15/17 09:05 Dose: 200 mg Sertraline HCl (Zoloft*) 50 mg PO DAILY [facility] Last Admin: 08/15/17 09:05 Dose: 50 mg - Discharge Plan Discharge Plan: Outpatient Follow Up Outpatient Program: [facility]
[2017-08-15] MEDS: Lurasidone(*) 80 MG TAB PO SCH (17:47)
[2017-08-15] MEDS: Acetaminophen TAB* 325 MG PO PRN (19:21)
[2017-08-15] MEDS: Lithium Carbonate ER (NF) 300 MG TAB.ER PO SCH (21:14)
[2017-08-16 08:09] VITALS: BP 104/80
[2017-08-16] MEDS: Gabapentin CAP(*) 300 MG PO SCH ×2 (08:57→13:53)
[2017-08-16] MEDS: Sertraline* 50 MG TAB PO SCH (08:58)
[2017-08-16] MEDS: Cholecalciferol TAB* 1000 UNITS PO SCH (08:58)
[2017-08-16] MEDS: Sertraline* 100 MG TAB PO SCH (08:58)
[2017-08-16] MEDS: Lactobacillus Acidophilu (GG)* 1 CAP CAP PO SCH (08:59)
[2017-08-16] MEDS: Cetirizine* 10 MG TAB PO SCH (08:59)
[2017-08-16] MEDS: Fluticasone NASAL SPRAY 50MCG* 16 gm SPRAY BTL BOTH NARES SCH (08:59)
[2017-08-16] MEDS: Mupirocin 2% OINT* TUBE TOPICAL SCH (09:00)
--- NOTE | 2017-08-16 11:36 | PN ---
MHU: Group Therapy Note - Service Type Service Type: [id number] Group Psychotherapy - Cognitive Behavioral Group Therapy ( CBT):Patient was attentive and participatory in CBT programming this morning, and remained in good behavioral control. Patient expressed positive insights regarding relevant treatment interventions and goals.
--- NOTE | 2017-08-17 05:28 | DS ---
DISCHARGE SUMMARY: DATE OF ADMISSION: 08/08/17 DATE OF DISCHARGE: 08/16/17 DISCHARGE DIAGNOSES: Brandt I: Unspecified mood disorder. Brandt II: Borderline personality disorder. Brandt III: Irritable bowel syndrome, bronchial asthma, seasonal allergies, obesity. Brandt IV: Moderate primary support stressors. Brandt V: At the time of admission was 39 and at the time of discharge is 59. CONDITION AT THE TIME OF DISCHARGE: Stable. The patient is no longer endorsing any thoughts of self-harm or suicide. She has been safe on all checks for the last several days, going to groups, cooperating with staff, and unit policies. She has been adhering with her behavioral modification contract , which she has been signing daily. In addition, the patient feels that she could be safely treated in the outpatient setting and is appropriately requesting discharge. We had communication with her spouse whose name is Mouna Berg, who indicates that she has had good visits with Fernando, she feels that Fernando is ready to come home. We will note at this time that the patient does remain at some elevated risk for self-harm given her extensive history of borderline personality disorder and tendencies towards choking herself stabbing herself, cutting herself, and burning herself. The patient does have some limitations in coping, tends not to handle stressful situations well and has some limitations in her ability to tolerate frustration. With that being said, she has good relationships with her outpatient psychotherapist and psychiatric prescriber and she is willing to follow up at that level of care. At this time , Fernando is appropriately requesting discharge and we do not feel that we have any legal justification to keep her on an involuntary basis. MENTAL STATUS EXAM AT THE TIME OF DISCHARGE: The patient is a middle-aged white female with short hair, eye glasses. She is casually dressed with a [employer] T- shirt, well groomed. She is friendly, easy to establish rapport with , makes good eye contact. Speech has normal rate, tone, and volume. Mood is euthymic with a full affect. Thought process is linear and goal directed. Thought content is significant for her desire to leave the hospital. She denies suicidal or homicidal ideations. She denies thoughts of self-harm. She denies auditory or visual hallucinations. Insight and judgment appear to be fair given her willingness to follow up with outpatient treatment. Cognitively , she is awake and alert with what would appear to be high average intellect by virtue of her educational attainment and vocabulary. DISCHARGE INSTRUCTIONS: To the patient are as follows: A. Medications: The patient takes: 1. Lurasidone 160 mg p.o. daily. 2. Flonase 2 sprays to both nares daily. 3. Neurontin 600 mg p.o. t.i.d. 4. [place] carbonate extended release 1200 mg p.o. q.h.s. 5. Sertraline 250 mg p.o. daily. 6. Zyrtec 10 mg p.o. daily. 7. Lactobacillus 1 cap p.o. b.i.d. 8. Vitamin D 2000 units p.o. daily. B. Diet: Regular. C. Activities: As tolerated. The patient is a nonsmoker. There are no laboratory or diagnostic studies pending at the time of discharge. D. Followup care: The patient has an appointment next , 08/24/17, with her outpatient nurse practitioner, Bridgett Isaac, at [facility]. In addition, she has an appointment on 08/21/17, with her outpatient psychotherapist, Susie Root. E. Substance abuse followup: Nonapplicable. HOSPITAL COURSE: Part A: Reason for admission: The patient is a 37-year-old , homosexual white female with a history of extreme self-injurious behaviors and multiple admissions to this hospital for self-harm who arrives on a voluntary basis from the [facility], where she had expressed suicidal ideations and thoughts of self-harm to her therapist. She indicated that 1 day prior to admission, she had burned herself severely on her left upper extremity and was having urges to do this again. She stated that she did not feel safe in the community due to uncontrolled urges to self-harm and she did state that if discharged, she would only continue to hurt herself and would be back in the emergency room 1 day later. It is notable that in our ED, she managed to get hold of a phlebotomy needle, which she attempted to scratch herself with. Attempts to manually restrain her were unsuccessful, which led to mechanical restraint with the use of hand cuffs. Here, on our unit , she is telling me that she has had numerous stressors recently. One is that the holidays tend to be a dreary and depressing time for her. She also indicates that her is working for a local toy store and is working extra hours for the holiday season. Apparently, Fernando and her are considering purchasing the store and this has been an additional stressor. 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 She notes that her psychiatric nurse practitioner, Bridgett Isaac, will be leaving the clinic and her case will be transferred to Dr. Robert Ellis possibly as early as this coming September. Although she likes Dr. Ellis, she does not feel that she works particularly well for him and this has been an additional stressor. The patient does have a long history of dissociative spells in which she will swallow foreign objects such as tacks and nhung. She also has a history of cutting herself. She is currently denying depressive symptoms; however, she is endorsing extreme anxiety. I asked about recent med changes and she did indicate that several months ago, her gabapentin was reduced from t.i.d. to b.i.d. dosing and she was feeling as though she may want to go back to her former dose. Part B: Psychiatric treatment rendered: The patient was admitted to the adult behavioral science unit where she was placed on q.15-minute checks for her own safety. We immediately continued her outpatient regimen with the following change: We increased gabapentin from 600 mg p.o. b.i.d. to t.i.d. dosing to better treat her anxiety. While she was here, she participated in an MMPI personality inventory, which is essentially a psychological testing. Interestingly, she was sub-diagnostic in all major areas of pathology including psychosis, anxiety, or depression. The patient did struggle at times on the unit for example, during a Bingo game as part of the recreation group, she was upset that there were too many players resulting in her grabbing a pen and scratching herself. She immediately apologized for this and was able to utilize the quiet room at times as a place to get away from peers when she needed solace or wanted to read a book. She adhered well to her behavioral modification contract, was able to sign this on a daily basis, and eventually her behavior was well enough to merit q.30 minute checks as well as outdoor fresh air privileges. She was visited several times by her spouse, Mouna Berg , with whom I had a conversation on the phone 2 days prior to discharge. On the date of discharge, her spouse is agreeable that Fernando is ready to come home and safe to receive treatment with the outpatient clinic. This is what Fernando is asking for. She is tolerating her medications quite well, denying any thoughts of self-harm. The patient has followups with Susie Root as well as Bridgett Isaac and she has no significant barriers to following up on an outpatient basis. I did check her metabolic studies given the fact that she is on lurasidone. On 08/10/17, we noted that her hemoglobin A1c was normal at 4.1, cholesterol was 136, triglycerides 118, LDL cholesterol 66, HDL cholesterol 46.0. The patient is safe for discharge and we wish her the best for safe and healthy holiday season with her family. [id number]/[facility] #: [id number] CHRISTOPHER
== END 2017-08-16 14:15 | disposition home or self-care (01) | DRG 885 ==
LOC: ED 14:16 → BSU 08-08 09:28
PROVIDERS: ADMIT Psychiatry & Neurology Psychiatry; ATTEND Psychiatry & Neurology Psychiatry
PROC: GZHZZZZ Group Psychotherapy (ICD-10-PCS; principal; 2017-08-15)
DX: F39 Unspecified mood [affective] disorder (principal); R45.851 Suicidal ideations; E66.9 Obesity, unspecified; F60.3 Borderline personality disorder; K58.9 Irritable bowel syndrome, unspecified; J45.909 Unspecified asthma, uncomplicated; J30.2 Other seasonal allergic rhinitis; F41.9 Anxiety disorder, unspecified; F32.9 Major depressive disorder, single episode, unspecified; F44.9 Dissociative and conversion disorder, unspecified; K21.9 Gastro-esophageal reflux disease without esophagitis; R40.2412 Glasgow coma scale score 13-15, at arrival to emergency department; M19.90 Unspecified osteoarthritis, unspecified site; Z81.8 Family history of other mental and behavioral disorders; Z78.1 Physical restraint status; Z68.35 Body mass index [BMI] 35.0-35.9, adult; Z91.5 Personal history of self-harm; Z91.011 Allergy to milk products; Z82.49 Family history of ischemic heart disease and other diseases of the circulatory system; Z81.1 Family history of alcohol abuse and dependence
CPT/HCPCS: 36415; 80053; 80061; 80178; 80307; 80320; 80329; 81003; 83036; 84443; 84702; 85025; 90853; 99222; 99231; 99238; A9270-GY; G0480; J1200; J1630; J2060

== ENCOUNTER 2017-11-14 15:45 | Inpatient (IN) | payer MEDICARE, MEDICAID ==
[2017-11-14 16:18] LABS: Urine Appearance Clear; Urine Blood Negative (Negative); Urine Color Straw; Urine Ketones Negative (Negative); Urine Protein Negative (Negative); Urine Specific Gravity 1.002 (1.010-1.030); Urine Urobilinogen Negative (Negative)
--- NOTE | 2017-11-14 16:40 | ED ---
Psychiatric Complaint - HPI Summary HPI Summary: 37 female presents to ED with complaints of having suicidal thoughts/ideation with a plan. States they began a few days ago however have become stronger over the past few days. States she can not get it out of her head. accompanying patient. States she feels well otherwise. Has a plan to go buy razors and cut herself with them. Has not attempted however has had previous injuries. Has been taking her prescribed medication, latuda, lithium, gabapetin and sertraline however missed her doses yesterday. Did take them today. States she has been under increased stress recently with her just having surgery and dog being sick. No hallucinations or hearing voices. No alcohol or drug use. No homicidal thoughts. - History Of Current Complaint Chief Complaint: EDMentalHealth Time Seen by Provider: 11/14/17 15:55 Hx Obtained From: Patient Onset/Duration: Sudden Onset, Lasting Days, Still Present, Worse Since Timing: Constant Severity Initially: Moderate Severity Currently: Severe Character: Depressed, Anxious Aggravating Factor(s): Recent Stress, Medication Non-compliance - missed yesterday's dose Alleviating Factor(s): Nothing Associated Signs And Symptoms: Positive: Paranoid Behavior, Appetite Change. Negative: Hallucinating Related History: Positive For: Prior Psychiatric Issues Has Suicidal: Reports: Thoughts, With A Plan, Demonstrates Gesture - grabbed needles while walking through ED hallway however was stopped as aides and security were with her Has Homicidal: Reports: Thoughts, With A Plan Recent Stressor(s): having surgery and dog being sick - Allergies/Home Medications Allergies/Adverse Reactions: Allergies Allergy/AdvReac Type Severity Reaction Status Date / Time MS Casein Allergy See Comment Verified 08/08/17 08:56 MS Lactose [Lactose] Allergy Nausea And Verified 08/08/17 08:56 Vomiting DAIRY Allergy Nausea And Uncoded 08/08/17 08:56 Vomiting Home Medications: Home Medications L.acidoph,Paracasei, B.lactis [Probiotic] 1 each PO DAILY 11/14/17 [History Confirmed 11/14/17] PMH/Surg Hx/FS Hx/Imm Hx Endocrine/Hematology History: Denies: Hx Blood Disorders, Hx Diabetes, Hx Anemia, Hx Unexplained Bleeding Cardiovascular History: Denies: Hx Auto Implanted Cardiovert Defib, Hx Cardiac Arrest, Hx Embolism, Hx Hypotension, Hx Hypertension Respiratory History: Reports: Hx Asthma - states only SOB when running- states exercise induced Denies: Hx Chronic Bronchitis, Hx Pneumonia, Hx Pulmonary Embolism GI History: Reports: Hx Gastroesophageal Reflux Disease, Hx Irritable Bowel, Other GI Disorders - reports she has had diarrhea/loose stool "off and on" for 5 yrs. Denies: Hx Crohn's Disease, Hx Diverticulosis History: Denies: Hx Acute Renal Failure, Hx Kidney Stones, Other Problems/Disorders Musculoskeletal History: Reports: Other Musculoskeletal History - STATES FREQ JOINT PAIN DUE TO SPORTS INJURIES IN PAST Denies: Hx Arthritis, Hx Osteoporosis, Hx Scoliosis Sensory History: Reports: Hx Contacts or Glasses Denies: Hx Cataracts, Hx Eye Injury, Hx Hearing Aid, Hx Hearing Problem, Other Sensory Impairments Opthamlomology History: Reports: Hx Contacts or Glasses Denies: Hx Cataracts, Hx Eye Injury, Other Sensory Impairments Neurological History: Reports: Hx Headaches - Relieved with use of OTCs Denies: Hx Migraine, Hx Nerve Disease Psychiatric History: Reports: Hx Anxiety, Hx Depression, Hx Inpatient Treatment , Hx Community Mental Health Tx, Hx Bipolar Disorder, Hx Suicide Attempt, Hx of Violent Episodes Against Others, Hx Substance Abuse - hx of alcoholism/ no etoh intake for the past 10 years, Other Psychiatric Issues/Disorders - Borderline personality disorder Denies: Hx Eating Disorder - Surgical History Surgery Procedure, Year, and Place: n/a - Immunization History Immunizations Up to Date: Yes Infectious Disease History: No Infectious Disease History: Denies: Traveled Outside the [place] in Last 30 Days - Family History Known Family History: Positive: None, Hypertension, Other - mood disorder, anxiety, depression, alcohol abuse - Social History Alcohol Use: None Hx Substance Use: No Substance Use Type: Reports: None Hx Tobacco Use: No Smoking Status (MU): Never Smoked Tobacco Amount Used/How Often: states that she tried a cigarette once, over a year ago Length of Time of Smoking/Using Tobacco: n/a Have You Smoked in the Last Year: No Review of Systems Constitutional: Negative Cardiovascular: Negative Respiratory: Negative Gastrointestinal: Negative Positive: Depressed All Other Systems Reviewed And Are Negative: Yes Physical Exam Triage Information Reviewed: Yes Vital Signs On Initial Exam: Initial Vitals Temp Pulse Resp BP Pulse Ox 96.4 F 77 18 119/91 100 11/14/17 15:47 11/14/17 15:47 11/14/17 15:47 11/14/17 15:47 11/14/17 15:47 Vital Signs Reviewed: Yes Appearance: Positive: Well-Appearing, No Pain Distress, Well-Nourished Skin: Positive: Warm, Skin Color Reflects Adequate Perfusion, Dry. Negative: Cold, Numb, Cyanosis @, Pale, Erythema @ Head/Face: Positive: Normal Head/Face Inspection ENT: Positive: Pharynx normal, TMs normal Neck: Positive: Supple, Nontender, No Lymphadenopathy Respiratory/Lung Sounds: Positive: Clear to Auscultation, Breath Sounds Present. Negative: Rales, Rhonchi, Tracheal Deviation, Wheezes Cardiovascular: Positive: Normal, RRR, Pulses are Symmetrical in both Upper and Lower Extremities. Negative: Murmur, Rub Abdomen Description: Positive: Nontender, Soft Bowel Sounds: Positive: Present Musculoskeletal: Positive: Normal, Strength/ROM Intact Neurological: Positive: Normal, Sensory/Motor Intact, Alert, Oriented to Person Place, Time, CN Intact II-III, Reflexes Intact, NV Bundle Intact Distally Psychiatric: Positive: Anxious, Depressed - Jeniffer Coma Scale Best Eye Response: 4 - Spontaneous Best Motor Response: 6 - Obeys Commands Best Verbal Response: 5 - Oriented Coma Scale Total: 15 Diagnostics - Vital Signs Vital Signs Temp Pulse Resp BP Pulse Ox 11/14/17 15:47 96.4 F 77 18 119/91 100 - Laboratory Lab Results: Lab Results 11/14/17 Range/Units 16:06 Urine Color Straw Urine Appearance Clear Urine pH 5.0 (5-9) Ur Specific [place] 1.002 L (1.010-1.030) Urine Protein Negative (Negative) Urine Ketones Negative (Negative) Urine Blood Negative (Negative) Urine Nitrate Negative (Negative) Urine Bilirubin Negative (Negative) Urine Urobilinogen Negative (Negative) Ur Leukocyte Esterase Negative (Negative) Urine Glucose Negative (Negative) Result Diagrams: 11/14/17 16:26 Lab Statement: Any lab studies that have been ordered have been reviewed, and results considered in the medical decision making process. Course/Dx - Course Course Of Treatment: labs and urinalysis obtained. unremarkable and does not appear to have any medical etiology causing symptoms at this time. patient was resting comfortably with . was medically cleared and awaiting mental health evaluation. patient was signed out to Jasmyn SANCHEZ at shift change pending mental health eval and dispo. no other concerns. - Differential Dx/Clinical Impression Differential Diagnosis/HQI/PQRI: Positive: Anxiety, Depression, Suicidal Ideation, Suicidal Gesture Provider Diagnosis: Mental health problem, Depression, Suicidal ideation - Physician Notifications Discussed Care Of Patient With: Jasmyn JARQUIN at shift change pending MHE and dispo Time Discussed With Above Provider: 17:30 Patient Is Medically Stable For: Psych Evaluation Discharge - Discharge Plan Condition: Stable Disposition: OTHER Discharge Disposition Comment: signed out to Jasmyn Yoder at shift change pending MHE and dispo Referrals: Vania Lopez MD [Primary Care Provider] -
[2017-11-14 16:43] LABS: ABS Basophils 0.1 10^3/ul (0-0.2); ABS Eosinophils 0.2 10^3/ul (0-0.6); ABS Lymphocytes 1.7 10^3/ul (1.0-4.8); ABS Monocytes 0.5 10^3/ul (0-0.8); ABS Neutrophils 4.3 10^3/ul (1.5-7.7); ABS Nucleated RBC 0 10^3/ul; Eosinophil % 3.2 % (0-6); Hematocrit 45 % (35-47); Hemoglobin 15.1 g/dl (12.0-16.0); Lymphocyte % 25.4 % (25-47); Mean Corpuscular HGB Conc 33 g/dl (31-36); Mean Corpuscular Hemoglobin 31 pg (27-31); Mean Corpuscular Volume 92 fL (80-97); Mean Platelet Volume 7 um3 (7.4-10.4); Nucleated Red Blood Cells % 0; Platelet Count 280 10^3/ul (150-450); Red Cell Distribution Width 13 % (10.5-15); White Blood Count 6.8 10^3/ul (3.5-10.8)
[2017-11-14 17:01] LABS: EGFR Non-African American 65.8 (>60)
[2017-11-14] MEDS ORDERED: LORazepam TAB(*) 1 MG PO ONE (17:58)
[2017-11-14] MEDS ORDERED: diPHENhydraMINE PO* 50 MG PO ONE (18:52)
[2017-11-14] MEDS ORDERED: Haloperidol TAB* 5 MG PO ONE (18:52)
--- NOTE | 2017-11-14 19:58 | ED ---
Progress - Progress Note Progress Note: Pt signed out from Leticia Foster PA-C. She has SI and has been attempting to elope and consume inappropriate materials while here. She was offered ativan PO and accepted. With additional attempts at eloping, ordered patient benadryl and haldol PO however she was able to calm down and stay in her room w/o incident prior to transfer to [facility]. She left in stable condition. - Consult/PCP Time Called: 16:40 Course/Dx - Course Course Of Treatment: labs and urinalysis obtained. unremarkable and does not appear to have any medical etiology causing symptoms at this time. patient was resting comfortably with . was medically cleared and awaiting mental health evaluation. patient was signed out to Jasmyn SANCHEZ at shift change pending mental health eval and dispo. no other concerns. - Diagnoses Provider Diagnoses: Mental health problem, Depression, Suicidal ideation - Provider Notifications Time Discussed With Above Provider: 17:30
[2017-11-14] MEDS ORDERED: Albuterol HFA INHALER* 8 gm MDI INH PRN (20:49)
[2017-11-14] MEDS: Gabapentin CAP(*) 300 MG PO SCH (21:49)
[2017-11-14] MEDS: Lithium Carbonate ER (NF) 300 MG TAB.ER PO SCH (21:49)
[2017-11-14] MEDS: Cetirizine* 10 MG TAB PO SCH (21:49)
[2017-11-15] MEDS: Gabapentin CAP(*) 300 MG PO SCH ×3 (08:36→20:12)
[2017-11-15] MEDS: Cholecalciferol TAB* 1000 UNITS PO SCH (08:36)
[2017-11-15] MEDS: Vitamin THERAPEUTIC TAB PO SCH (08:36)
[2017-11-15] MEDS ORDERED: Sertraline* 100 MG TAB PO SCH (09:00)
[2017-11-15] MEDS: Lithium Carbonate ER (NF) 300 MG TAB.ER PO SCH (20:12)
[2017-11-15] MEDS: Cetirizine* 10 MG TAB PO SCH (20:12)
[2017-11-16] MEDS: Acetaminophen TAB* 325 MG PO PRN ×2 (02:50→22:33)
--- NOTE | 2017-11-16 04:06 | HP ---
PSYCHIATRIC HISTORY AND PHYSICAL: DATE OF ADMISSION: 11/14/17 JUSTIFICATION FOR ADMISSION: The patient is in need of 24-hour supervision and treatment secondary to strong inclinations to harm herself. CHIEF COMPLAINT: "I just can't get it out of my mind to start cutting myself." HISTORY OF PRESENT ILLNESS: The patient is a 37-year-old homosexual white female with a history of extreme self-injurious behaviors and multiple admissions to this hospital for self-harm who arrives on a voluntary basis. Fernando apparently brought herself to the ED after seeing her therapist, Maria Isabel Sidhu at [facility] where she had reported ideas of self-mutilation and swallowing non-food items. Fernando reported in the ED that she continued to be unsafe wanting badly to cut or hurt herself. In terms of stressors, she indicates that her partner, Mouna, had surgery at beginning of the month and Fernando had been providing assistance to her. 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 She indicates that she has been decompensating slowly. She was requesting admission to stay safe and rest. Apparently shortly after admission, she took the tin wrappers off some containers of juice and wadded them up and swallowed them in an effort to self- harm. Currently while I am seeing her on the unit, she is giggling, seemingly embarrassed about this behavior, although she admits that she continues to think of ways of harming herself. PAST PSYCHIATRIC HISTORY: Her history is quite extensive. There has been several old discharge summaries from the behavioral unit, at least 20 that can be counted with the most recent being in August 2017 following a hospitalization under the service of Dr. Hay. She has also been hospitalized at the [facility] in [place] as well as [facility] 2008 for 5 months. Her past diagnoses include depression, anxiety, borderline personality disorder and dissociative disorder. Her outpatient providers at [facility] are licensed clinical psychologist social, Maria Isabel Sidhu and psychiatrist, Dr. Robert Ellis. She does have multiple previous suicide attempts having swallowed radio antennas, keys, as well as poison plastic bags over her head. She tells me that she first started cutting herself at the age of 11. PAST MEDICAL HISTORY: Significant for: 1. Bronchial asthma. 2. Seasonal allergies. 3. Osteoarthritis. 4. Irritable bowel syndrome. 5. Mild obesity. CURRENT MEDICATIONS: Include: 1. Lurasidone 160 mg p.o. daily. 2. Flonase 2 sprays to both nares daily. 3. Neurontin 600 mg p.o. b.i.d. 4. Wilmer carbonate extended release 1200 mg p.o. q.h.s. 5. Sertraline 250 mg p.o. daily. 6. Zyrtec 10 mg p.o. daily. 7. Lactobacillus 1 cap p.o. b.i.d. 8. Vitamin D 2000 units p.o. daily. ALLERGIES: She is allergic to CASEIN. FAMILY HISTORY: Unremarkable, but she tells us that her father may have had an undiagnosed personality disorder. SUBSTANCE ABUSE HISTORY: She notes that in the past she abused alcohol, but has been sober for over 10 years. She denies use of tobacco, illicit drugs, or misuse of medications. SOCIAL HISTORY: The patient was born and raised in [place] and is an only child. Her parents are still living and still . She describes a close relationship with her mother and is somewhat distant from her father. She is educated with a bachelor's degree in arts at [employer]. 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 Currently, she is in a 10-year relationship with her female partner and they have been for the past 2-1/2 years. They live together in an apartment in [place]. She describes her partner as very supportive. 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 She is also receiving disability benefits. REVIEW OF SYSTEMS: As per ER report, the patient denies headache or double vision. Denies chest pain, sore throat, cough, abdominal pain, nausea, vomiting , diarrhea, or constipation. She denies rashes, enlarged lymph nodes, changes in weight, or fevers. PHYSICAL EXAMINATION VITAL SIGNS: Blood pressure 111/81, heart rate 80, temperature 98.2 degrees Fahrenheit, oxygen saturations are 99% on room air, respiratory rate 14 breaths per minute. HEENT: Head is normocephalic, atraumatic. NECK: Supple. CHEST: Clear to auscultation bilaterally. CARDIAC: Exam reveals normal heart sounds. ABDOMEN: Soft and nontender. MUSCULOSKELETAL: Exam reveals full range of motion with no sign of edema in any of her 4 extremities. NEUROLOGIC: She is grossly intact. SKIN: Reveals an evidence of old well-healed superficial cutting scars to her bilateral upper extremities. MENTAL STATUS EXAM: The patient is a middle-aged white female with short hair and eye glasses. She is casually dressed in patient scrubs. She appears to be fairly well groomed. She is friendly, easy to establish a rapport with. Speech has a normal rate, tone, and volume. Mood is somewhat anxious with a corresponding anxious affect. Thought process is linear, goal directed. Thought content is significant for her desire to come into the hospital for her own safety. She is endorsing urges to either cut herself or swallow foreign bodies or perhaps burn herself. She denies homicidality. The patient denies auditory or visual hallucinations. Insight and judgment appear to be fair given her willingness to come in on a voluntary basis. Cognitively, she is awake and alert with what would appear to be a high average intellect by virtue of her educational attainment and vocabulary. LABORATORY DATA: CBC is within normal limits as is complete metabolic panel. TSH normal at 273. Urinalysis within normal limits. Urine drug screen is negative for all substances tested. DIAGNOSES: Fairbanks I: Unspecified mood disorder. [place] II: Borderline personality disorder. [place]banks III: Irritable bowel syndrome, bronchial asthma, seasonal allergies, obesity. Fairbanks IV: Moderate primary support stressors. Fairbanks V: At this time is 40. ASSESSMENT: This is a 37-year-old homosexual white female with a history of very significant borderline personality disorder and associated symptoms who arrives on a voluntary basis claiming to have strong urges to cut herself, burn herself and/or to swallow foreign bodies. Given the fact that she has had an extensive history of acting on these impulses, we do not feel safe discharging her back to the community. She is admitted currently to the behavioral health unit where we will try to reach her outpatient providers for further collateral information. PLAN: The patient is admitted to the behavioral health unit and placed on q.15 minute checks for her own safety. We will continue her on all of her outpatient medications as currently prescribed. She will be placed on a behavioral modification plan wherein there will be consequences behaviorally for any self- harming activities. While she is here, she is certainly encouraged to avail herself of all milieu activities including individual and group psychotherapies. When she is safe and no longer a risk of harming herself , we will likely be discharging her back to her outpatient environment where she can receive care in a less restrictive setting. [id number]/[facility] #: [id number] CHRISTOPHER
[2017-11-16] MEDS: Gabapentin CAP(*) 300 MG PO SCH ×3 (09:08→20:40)
[2017-11-16] MEDS: Sertraline* 100 MG TAB PO SCH (09:09)
[2017-11-16] MEDS: Cholecalciferol TAB* 1000 UNITS PO SCH (09:09)
[2017-11-16] MEDS: Vitamin THERAPEUTIC TAB PO SCH (09:10)
--- NOTE | 2017-11-16 09:48 | PN ---
Subjective - Subjective Date of Service: 11/16/17 Service Type: 98120 Hosp care 15 min low complexity Subjective: Flavio struggles to control her impulses to harm herself, even here on the unit. Yesterday, the patient apparently scratched herself with some nhung before eating them. She was placed in the quiet room where she continued to have thoughts of self-harm. She cannot contract for safety, although she denies SI. Patient complains that she has not received her lurasidone. Objective - Appearance Appearance: Well Developed/Nourished Dysmorphic Features: No Hygiene: Normal Grooming: Well Kept - Behavior Psychomotor Activities: Normal Exhibits Abnormal Movement: No - Attitude and Relatedness Attitude and Relatedness: Needy Eye Contact: Good - Speech Quality: Unpressured Latencies: Normal Quantity: Appropriate - Mood Patient's Decription of Mood: "Fine" - Affect Observed Affect: Fair Affect Consistent with: Euthymia - Thought Process Patient's Thought Process: Coherent Thought Content: No Passive Wish, No Suicidal Planning, No Homicidal Ideation, No Paranoid Ideation - Sensorium Experiencing Hallucinations: No, Sensorium is Clear Type of Hallucinations: Visual: No, Auditory: No, Command: No - Level of Consciousness Level of Consciousness: Alert Orientation: Yes Intact, Yes Orientated to Time, Yes Orientated to Place, Yes Orientated to Person - Impulse Control Impulse Control: Tenuous - Insight and Judgement Insight and Judgement: Fair - Group Participation Particating in Group Activities: Yes - Medication Management Medication Management Adherence: Yes Assessment - Assessment Merits Inpatient Hospitalization: For Immediate Safety, For Stabilization Inpatient DSM-V Dx: F91.9 Clinical Impression: 37 y.o. 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 Plan - Plan Treatment Plan: Name: FLAVIO HFOFMAN Birthdate: 1980 [id number] Continue outpatient med regimen, including lurasidone, sertraline and gabapentin. Discharge to home when urges are under control. Continued Medication Management: Continue Outpt Medication Medications: Current Medications Acetaminophen (Tylenol Tab*) 650 mg PO Q4H PRN PRN Reason: PAIN or TEMP > 101 F Last Admin: 11/16/17 02:50 Dose: 650 mg Al Hydrox/Mg Hydrox/Simethicone (Maalox Plus*) 30 ml PO Q4H PRN PRN Reason: INDIGESTION Albuterol (Ventolin Hfa Inhaler*) 2 puff INH Q4H PRN PRN Reason: SOB/WHEEZING Cetirizine HCl (Zyrtec*) 10 mg PO BEDTIME COUNT INCLUDES THE [facility] Last Admin: 11/15/17 20:12 Dose: 10 mg Cholecalciferol (Vitamin D Tab*) 2,000 units PO DAILY RENÉE Last Admin: 11/16/17 09:09 Dose: 2,000 units Gabapentin (Neurontin Cap(*)) 300 mg PO TID COUNT INCLUDES THE [facility] Last Admin: 11/16/17 09:08 Dose: 300 mg Stebbins Carbonate (Stebbins Carbonate Er (Nf)) 1,200 mg PO BEDTIME RENÉE Last Admin: 11/15/17 20:12 Dose: 1,200 mg Lurasidone HCl (Latuda) 160 mg PO DAILY COUNT INCLUDES THE [facility] Multivitamins (Theragran Tab*) 1 tab PO DAILY COUNT INCLUDES THE [facility] Last Admin: 11/16/17 09:10 Dose: 1 tab Sertraline HCl (Zoloft*) 250 mg PO DAILY COUNT INCLUDES THE [facility] Last Admin: 11/16/17 09:09 Dose: 250 mg - Discharge Plan Discharge Plan: Inpatient Hospitalization
[2017-11-16] MEDS: Lurasidone(*) 80 MG TAB PO SCH (11:06)
--- NOTE | 2017-11-16 11:51 | PN ---
MHU: Group Therapy Note - Service Type Service Type: 09972 Group Psychotherapy - Cognitive Behavioral Group Therapy ( CBT):Patient was attentive and participatory in CBT programming this morning, and remained in good behavioral control. Patient expressed positive insights regarding relevant treatment interventions and goals. Fernando related to discussion addressing impulsivity in this morning's group, as well as dissociative experience. She participates with good insight and is emphathic with peers and staff.
[2017-11-16] MEDS: Lithium Carbonate ER (NF) 300 MG TAB.ER PO SCH (20:38)
[2017-11-16] MEDS: Cetirizine* 10 MG TAB PO SCH (20:40)
[2017-11-17] MEDS: Lurasidone(*) 80 MG TAB PO SCH (08:57)
[2017-11-17] MEDS: Sertraline* 100 MG TAB PO SCH (08:58)
[2017-11-17] MEDS: Cholecalciferol TAB* 1000 UNITS PO SCH (08:58)
[2017-11-17] MEDS: Gabapentin CAP(*) 300 MG PO SCH ×3 (08:58→20:26)
[2017-11-17] MEDS: Vitamin THERAPEUTIC TAB PO SCH (09:01)
--- NOTE | 2017-11-17 11:51 | PN ---
MHU: Group Therapy Note - Service Type Service Type: 05726 Group Psychotherapy - Cognitive Behavioral Group Therapy ( CBT):Patient was attentive and participatory in CBT programming this morning, and remained in good behavioral control. Patient expressed positive insights regarding relevant treatment interventions and goals.
--- NOTE | 2017-11-17 12:56 | PN ---
Subjective - Subjective Date of Service: 11/17/17 Service Type: 77033 Hosp care 15 min low complexity Subjective: Fernando continues to be exhibitionistic, provocative and attention-seeking. She had a bad day yesterday and was asking staff and peers for nhung, threatening to scratch herself with and swallow them. She feels anxious but denies SI. Objective - Appearance Appearance: Well Developed/Nourished Dysmorphic Features: No Hygiene: Normal Grooming: Well Kept - Behavior Psychomotor Activities: Normal Exhibits Abnormal Movement: No - Attitude and Relatedness Attitude and Relatedness: Cooperative Eye Contact: Good - Speech Quality: Unpressured Latencies: Normal Quantity: Appropriate - Mood Patient's Decription of Mood: "Anxious" - Affect Observed Affect: Fair Affect Consistent with: Euthymia - Thought Process Patient's Thought Process: Coherent Thought Content: No Passive Wish, No Suicidal Planning, No Homicidal Ideation, No Paranoid Ideation - Sensorium Experiencing Hallucinations: No, Sensorium is Clear Type of Hallucinations: Visual: No, Auditory: No, Command: No - Level of Consciousness Level of Consciousness: Alert Orientation: Yes Intact, Yes Orientated to Time, Yes Orientated to Place, Yes Orientated to Person - Impulse Control Impulse Control: Tenuous - Insight and Judgement Insight and Judgement: Fair - Group Participation Particating in Group Activities: Yes - Medication Management Medication Management Adherence: Yes Assessment - Assessment Merits Inpatient Hospitalization: For Immediate Safety, For Stabilization Inpatient DSM-V Dx: F91.9 Clinical Impression: 37 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 Plan - Plan Treatment Plan: Name: FERNANDO HOFFMAN Birthdate: 1980 [id number] Continue outpatient med regimen, including lurasidone, sertraline and gabapentin. Discharge to home when urges are under control. Continued Medication Management: Continue Outpt Medication Medications: Current Medications Acetaminophen (Tylenol Tab*) 650 mg PO Q4H PRN PRN Reason: PAIN or TEMP > 101 F Last Admin: 11/16/17 22:33 Dose: 650 mg Al Hydrox/Mg Hydrox/Simethicone (Maalox Plus*) 30 ml PO Q4H PRN PRN Reason: INDIGESTION Albuterol (Ventolin Hfa Inhaler*) 2 puff INH Q4H PRN PRN Reason: SOB/WHEEZING Cetirizine HCl (Zyrtec*) 10 mg PO BEDTIME [facility] Last Admin: 11/16/17 20:40 Dose: 10 mg Cholecalciferol (Vitamin D Tab*) 2,000 units PO DAILY [facility] Last Admin: 11/17/17 08:58 Dose: 2,000 units Gabapentin (Neurontin Cap(*)) 300 mg PO TID [facility] Last Admin: 11/17/17 08:58 Dose: 300 mg [place] Carbonate ([place] Carbonate Er (Nf)) 1,200 mg PO BEDTIME [facility] Last Admin: 11/16/17 20:38 Dose: 1,200 mg Lurasidone HCl (Latuda) 160 mg PO DAILY [facility] Last Admin: 11/17/17 08:57 Dose: 160 mg Multivitamins (Theragran Tab*) 1 tab PO DAILY [facility] Last Admin: 11/17/17 09:01 Dose: 1 tab Sertraline HCl (Zoloft*) 250 mg PO DAILY [facility] Last Admin: 11/17/17 08:58 Dose: 250 mg - Discharge Plan Discharge Plan: Inpatient Hospitalization
[2017-11-17] MEDS: Acetaminophen TAB* 325 MG PO PRN ×2 (14:26→19:29)
[2017-11-17] MEDS: Cetirizine* 10 MG TAB PO SCH (20:26)
[2017-11-17] MEDS: Lithium Carbonate ER (NF) 300 MG TAB.ER PO SCH (20:26)
[2017-11-18] MEDS: Lurasidone(*) 80 MG TAB PO SCH (08:26)
[2017-11-18] MEDS: Cholecalciferol TAB* 1000 UNITS PO SCH (08:26)
[2017-11-18] MEDS: Gabapentin CAP(*) 300 MG PO SCH ×3 (08:26→20:47)
[2017-11-18] MEDS: Sertraline* 100 MG TAB PO SCH (08:26)
[2017-11-18] MEDS: Vitamin THERAPEUTIC TAB PO SCH (08:27)
[2017-11-18] MEDS: Al Hydrox/Mg Hydrox/Simet LIQ* 30 ML UDC PO PRN (09:44)
--- NOTE | 2017-11-18 15:31 | PN ---
Subjective - Subjective Date of Service: 11/18/17 Service Type: 73472 Hosp care 15 min low complexity Subjective: The patient denies self harm urges or actions thus far today. She is socializing appropriately on the unit. She complains of anxiety but denies SI or HI. Objective - Appearance Appearance: Well Developed/Nourished Dysmorphic Features: No Hygiene: Normal Grooming: Well Kept - Behavior Psychomotor Activities: Normal Exhibits Abnormal Movement: No - Attitude and Relatedness Attitude and Relatedness: Cooperative Eye Contact: Good - Speech Quality: Unpressured Latencies: Normal Quantity: Appropriate - Mood Patient's Decription of Mood: "Anxious" - Affect Observed Affect: Good Affect Consistent with: Euthymia - Thought Process Patient's Thought Process: Coherent Thought Content: No Passive Wish, No Suicidal Planning, No Homicidal Ideation, No Paranoid Ideation - Sensorium Experiencing Hallucinations: No, Sensorium is Clear Type of Hallucinations: Visual: No, Auditory: No, Command: No - Level of Consciousness Level of Consciousness: Alert Orientation: Yes Intact, Yes Orientated to Time, Yes Orientated to Place, Yes Orientated to Person - Impulse Control Impulse Control: Tenuous - Insight and Judgement Insight and Judgement: Fair - Group Participation Particating in Group Activities: Yes - Medication Management Medication Management Adherence: Yes Assessment - Assessment Merits Inpatient Hospitalization: For Immediate Safety, For Stabilization Inpatient DSM-V Dx: F91.9 Clinical Impression: 37 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 Plan - Plan Treatment Plan: Name: FLAVIO HOFFMAN Birthdate: 1980 [id number] Continue outpatient med regimen, including lurasidone, sertraline and gabapentin. Start flonase per patient's wishes for dry nasopharynx. Discharge to home when urges are under control. Continued Medication Management: Continue Outpt Medication Medications: Current Medications Acetaminophen (Tylenol Tab*) 650 mg PO Q4H PRN PRN Reason: PAIN or TEMP > 101 F Last Admin: 11/17/17 19:29 Dose: 650 mg Al Hydrox/Mg Hydrox/Simethicone (Maalox Plus*) 30 ml PO Q4H PRN PRN Reason: INDIGESTION Last Admin: 11/18/17 09:44 Dose: 30 ml Albuterol (Ventolin Hfa Inhaler*) 2 puff INH Q4H PRN PRN Reason: SOB/WHEEZING Cetirizine HCl (Zyrtec*) 10 mg PO BEDTIME [facility] Last Admin: 11/17/17 20:26 Dose: 10 mg Cholecalciferol (Vitamin D Tab*) 2,000 units PO DAILY [facility] Last Admin: 11/18/17 08:26 Dose: 2,000 units Gabapentin (Neurontin Cap(*)) 300 mg PO TID [facility] Last Admin: 11/18/17 13:14 Dose: 300 mg [place] Carbonate ([place] Carbonate Er (Nf)) 1,200 mg PO BEDTIME [facility] Last Admin: 11/17/17 20:26 Dose: 1,200 mg Lurasidone HCl (Latuda) 160 mg PO DAILY [facility] Last Admin: 11/18/17 08:26 Dose: 160 mg Multivitamins (Theragran Tab*) 1 tab PO DAILY [facility] Last Admin: 11/18/17 08:27 Dose: 1 tab Sertraline HCl (Zoloft*) 250 mg PO DAILY [facility] Last Admin: 11/18/17 08:26 Dose: 250 mg - Discharge Plan Discharge Plan: Inpatient Hospitalization
[2017-11-18] MEDS: Acetaminophen TAB* 325 MG PO PRN ×2 (16:05→22:58)
[2017-11-18] MEDS: Fluticasone NASAL SPRAY 50MCG* 16 gm SPRAY BTL BOTH NARES SCH (16:06)
[2017-11-18] MEDS: Lithium Carbonate ER (NF) 300 MG TAB.ER PO SCH (20:46)
[2017-11-18] MEDS: Cetirizine* 10 MG TAB PO SCH (20:47)
[2017-11-19] MEDS: Fluticasone NASAL SPRAY 50MCG* 16 gm SPRAY BTL BOTH NARES SCH (09:17)
[2017-11-19] MEDS: Vitamin THERAPEUTIC TAB PO SCH (09:17)
[2017-11-19] MEDS: Sertraline* 100 MG TAB PO SCH (09:17)
[2017-11-19] MEDS: Gabapentin CAP(*) 300 MG PO SCH ×3 (09:18→20:27)
[2017-11-19] MEDS: Lurasidone(*) 80 MG TAB PO SCH (09:18)
[2017-11-19] MEDS: Cholecalciferol TAB* 1000 UNITS PO SCH (09:19)
[2017-11-19] MEDS: Acetaminophen TAB* 325 MG PO PRN ×3 (09:20→20:27)
[2017-11-19] MEDS: Lithium Carbonate ER (NF) 300 MG TAB.ER PO SCH (20:27)
[2017-11-19] MEDS: Cetirizine* 10 MG TAB PO SCH (20:27)
[2017-11-20] MEDS: Sertraline* 100 MG TAB PO SCH (08:30)
[2017-11-20] MEDS: Gabapentin CAP(*) 300 MG PO SCH ×3 (08:31→21:40)
[2017-11-20] MEDS: Cholecalciferol TAB* 1000 UNITS PO SCH (08:31)
[2017-11-20] MEDS: Vitamin THERAPEUTIC TAB PO SCH (08:31)
[2017-11-20] MEDS: Lurasidone(*) 80 MG TAB PO SCH (08:32)
[2017-11-20] MEDS: Fluticasone NASAL SPRAY 50MCG* 16 gm SPRAY BTL BOTH NARES SCH (08:33)
--- NOTE | 2017-11-20 10:55 | PN ---
Subjective - Subjective Date of Service: 11/20/17 Service Type: [id number] Hosp care 15 min low complexity Subjective: The patient is under good behavioral control. Had a good visit with her spouse this weekend. Continues to complain of anxiety and strong urges to self mutilate. Denies SI. Objective - Appearance Appearance: Well Developed/Nourished Dysmorphic Features: No Hygiene: Normal Grooming: Well Kept - Behavior Psychomotor Activities: Normal Exhibits Abnormal Movement: No - Attitude and Relatedness Attitude and Relatedness: Cooperative Eye Contact: Good - Speech Quality: Unpressured Latencies: Normal Quantity: Appropriate - Mood Patient's Decription of Mood: "Okay" - Affect Observed Affect: Fair Affect Consistent with: Euthymia - Thought Process Patient's Thought Process: Coherent Thought Content: No Passive Wish, No Suicidal Planning, No Homicidal Ideation, No Paranoid Ideation - Sensorium Experiencing Hallucinations: No, Sensorium is Clear Type of Hallucinations: Visual: No, Auditory: No, Command: No - Level of Consciousness Level of Consciousness: Alert Orientation: Yes Intact, Yes Orientated to Time, Yes Orientated to Place, Yes Orientated to Person - Impulse Control Impulse Control: Tenuous - Insight and Judgement Insight and Judgement: Fair - Group Participation Particating in Group Activities: Yes - Medication Management Medication Management Adherence: Yes Assessment - Assessment Merits Inpatient Hospitalization: For Immediate Safety, For Stabilization Inpatient DSM-V Dx: F91.9 Clinical Impression: 37 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 Plan - Plan Treatment Plan: Name: FLAVIO HOFFMAN Birthdate: 1980 [id number] Continue outpatient med regimen, including lurasidone, sertraline and gabapentin. Discharge to home when urges are under control. Continued Medication Management: Continue Outpt Medication Medications: Current Medications Acetaminophen (Tylenol Tab*) 650 mg PO Q4H PRN PRN Reason: PAIN or TEMP > 101 F Last Admin: 11/19/17 20:27 Dose: 650 mg Al Hydrox/Mg Hydrox/Simethicone (Maalox Plus*) 30 ml PO Q4H PRN PRN Reason: INDIGESTION Last Admin: 11/18/17 09:44 Dose: 30 ml Albuterol (Ventolin Hfa Inhaler*) 2 puff INH Q4H PRN PRN Reason: SOB/WHEEZING Cetirizine HCl (Zyrtec*) 10 mg PO BEDTIME [facility] Last Admin: 11/19/17 20:27 Dose: 10 mg Cholecalciferol (Vitamin D Tab*) 2,000 units PO DAILY [facility] Last Admin: 11/20/17 08:31 Dose: 2,000 units Fluticasone Propionate (Flonase Nasal [place] 50mcg*) 2 spray BOTH NARES DAILY [facility] Last Admin: 11/20/17 08:33 Dose: 2 spray Gabapentin (Neurontin Cap(*)) 300 mg PO TID [facility] Last Admin: 11/20/17 08:31 Dose: 300 mg [place] Carbonate ([place] Carbonate Er (Nf)) 1,200 mg PO BEDTIME [facility] Last Admin: 11/19/17 20:27 Dose: 1,200 mg Lurasidone HCl (Latuda) 160 mg PO DAILY [facility] Last Admin: 11/20/17 08:32 Dose: 160 mg Multivitamins (Theragran Tab*) 1 tab PO DAILY [facility] Last Admin: 11/20/17 08:31 Dose: 1 tab Sertraline HCl (Zoloft*) 250 mg PO DAILY [facility] Last Admin: 11/20/17 08:30 Dose: 250 mg - Discharge Plan Discharge Plan: Inpatient Hospitalization
[2017-11-20] MEDS: Cetirizine* 10 MG TAB PO SCH (21:40)
[2017-11-20] MEDS: Lithium Carbonate ER (NF) 300 MG TAB.ER PO SCH (21:40)
[2017-11-21] MEDS: Sertraline* 100 MG TAB PO SCH (09:37)
[2017-11-21] MEDS: Gabapentin CAP(*) 300 MG PO SCH ×3 (09:37→21:41)
[2017-11-21] MEDS: Cholecalciferol TAB* 1000 UNITS PO SCH (09:38)
[2017-11-21] MEDS: Vitamin THERAPEUTIC TAB PO SCH (09:38)
[2017-11-21] MEDS: Lurasidone(*) 80 MG TAB PO SCH (09:40)
[2017-11-21] MEDS: Fluticasone NASAL SPRAY 50MCG* 16 gm SPRAY BTL BOTH NARES SCH (09:40)
--- NOTE | 2017-11-21 11:12 | PN ---
Subjective - Subjective Date of Service: 11/21/17 Service Type: 56021 Hosp care 15 min low complexity Subjective: Fernando has been attending groups and acting in accordance with her Behavioral Modification Plan. She has earned outside, comfort room and diet soda privileges. She continues to feel unsafe from self-harm urges but commits to letting staff know in the event she cannot control these thoughts. She denies SI. Objective - Appearance Appearance: Well Developed/Nourished Dysmorphic Features: No Hygiene: Normal Grooming: Well Kept - Behavior Psychomotor Activities: Normal Exhibits Abnormal Movement: No - Attitude and Relatedness Attitude and Relatedness: Cooperative Eye Contact: Fair - Speech Quality: Unpressured Latencies: Normal Quantity: Appropriate - Mood Patient's Decription of Mood: "Fine" - Affect Observed Affect: Fair Affect Consistent with: Euthymia - Thought Process Patient's Thought Process: Coherent Thought Content: No Passive Wish, No Suicidal Planning, No Homicidal Ideation, No Paranoid Ideation - Sensorium Experiencing Hallucinations: No, Sensorium is Clear Type of Hallucinations: Visual: No, Auditory: No, Command: No - Level of Consciousness Level of Consciousness: Alert Orientation: Yes Intact, Yes Orientated to Time, Yes Orientated to Place, Yes Orientated to Person - Impulse Control Impulse Control: Tenuous - Insight and Judgement Insight and Judgement: Fair - Group Participation Particating in Group Activities: Yes - Medication Management Medication Management Adherence: Yes Assessment - Assessment Merits Inpatient Hospitalization: Consolidate Improvements, Pending Safe DC Plan Inpatient DSM-V Dx: F91.9 Clinical Impression: 37 y.o. 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 Plan - Plan Treatment Plan: Name: FERNANDO HOFFMAN Birthdate: 1980 [id number] Continue outpatient med regimen, including lurasidone, lithium, sertraline and gabapentin. Discharge to home when urges are under control. Continued Medication Management: Continue Outpt Medication Medications: Current Medications Acetaminophen (Tylenol Tab*) 650 mg PO Q4H PRN PRN Reason: PAIN or TEMP > 101 F Last Admin: 11/19/17 20:27 Dose: 650 mg Al Hydrox/Mg Hydrox/Simethicone (Maalox Plus*) 30 ml PO Q4H PRN PRN Reason: INDIGESTION Last Admin: 11/18/17 09:44 Dose: 30 ml Albuterol (Ventolin Hfa Inhaler*) 2 puff INH Q4H PRN PRN Reason: SOB/WHEEZING Cetirizine HCl (Zyrtec*) 10 mg PO BEDTIME [facility] Last Admin: 11/20/17 21:40 Dose: 10 mg Cholecalciferol (Vitamin D Tab*) 2,000 units PO DAILY [facility] Last Admin: 11/21/17 09:38 Dose: 2,000 units Fluticasone Propionate (Flonase Nasal [place] 50mcg*) 2 spray BOTH NARES DAILY [facility] Last Admin: 11/21/17 09:40 Dose: 2 spray Gabapentin (Neurontin Cap(*)) 300 mg PO TID [facility] Last Admin: 11/21/17 09:37 Dose: 300 mg [place] Carbonate ([place] Carbonate Er (Nf)) 1,200 mg PO BEDTIME [facility] Last Admin: 11/20/17 21:40 Dose: 1,200 mg Lurasidone HCl (Latuda) 160 mg PO DAILY [facility] Last Admin: 11/21/17 09:40 Dose: 160 mg Multivitamins (Theragran Tab*) 1 tab PO DAILY [facility] Last Admin: 11/21/17 09:38 Dose: 1 tab Sertraline HCl (Zoloft*) 250 mg PO DAILY [facility] Last Admin: 11/21/17 09:37 Dose: 250 mg - Discharge Plan Discharge Plan: Inpatient Hospitalization
[2017-11-21] MEDS: Al Hydrox/Mg Hydrox/Simet LIQ* 30 ML UDC PO PRN (18:41)
[2017-11-21] MEDS: Lithium Carbonate ER (NF) 300 MG TAB.ER PO SCH (21:40)
[2017-11-21] MEDS: Cetirizine* 10 MG TAB PO SCH (21:41)
[2017-11-21] MEDS: Acetaminophen TAB* 325 MG PO PRN (21:41)
[2017-11-22 08:18] VITALS: BP 108/73
[2017-11-22] MEDS: Sertraline* 100 MG TAB PO SCH (09:24)
[2017-11-22] MEDS: Gabapentin CAP(*) 300 MG PO SCH (09:24)
[2017-11-22] MEDS: Lurasidone(*) 80 MG TAB PO SCH (09:25)
[2017-11-22] MEDS: Vitamin THERAPEUTIC TAB PO SCH (09:25)
[2017-11-22] MEDS: Cholecalciferol TAB* 1000 UNITS PO SCH (09:25)
[2017-11-22] MEDS: Fluticasone NASAL SPRAY 50MCG* 16 gm SPRAY BTL BOTH NARES SCH (09:25)
--- NOTE | 2017-11-22 12:54 | PN ---
MHU: Group Therapy Note - Service Type Service Type: [id number] Group Psychotherapy - Cognitive Behavioral Group Therapy ( CBT):Patient was attentive and participatory in CBT programming this morning, and remained in good behavioral control. Patient expressed positive insights regarding relevant treatment interventions and goals.
--- NOTE | 2017-11-22 15:35 | DS ---
DATE OF ADMISSION: 11/14/2017. DATE OF DISCHARGE: 11/22/2017. DISCHARGE DIAGNOSES: AXIS I: Unspecified mood disorder. AXIS II: Borderline personality disorder. AXIS III: Irritable bowel syndrome, bronchial asthma, seasonal allergies, obesity. AXIS IV: Moderate, primary support stressors. AXIS V: At the time of admission was 40 and at the time of discharge is 60. CONDITION AT THE TIME OF DISCHARGE: Stable. The patient is future oriented. She is stating that ashley calzada is looking forward to returning home with her spouse. 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 She is denying suicidal or h omicidal ideations. In fact, she denies any urges to self-harm. She is tolerating her medications q uite well and agreeable with continuing with these. She is further agreeable with following up at [facility] where she sees psychiatrist Dr. Robert Ellis, as well as therapist Susie Root. The patient is appropriately requesting discharge and we feel that she can be treated in a less restrictive setting. MENTAL STATUS EXAM AT THE TIME OF DISCHARGE: The patient is a middle-aged, white female with short h air and eye glasses. She is casually dressed wearing a [facility] T-shirt. She appears to b e fairly well groomed. She is friendly, easy to establish a rapport with. Speech has a normal rate, tone, and volume. Mood is euthymic with a full affect. Thought process is linear and goal-directed . Thought content is significant for her desire to be discharged from the hospital. She denies suic idal or homicidal ideations. Denies any thoughts of self-harm. She denies auditory or visual halluc inations. Insight and judgment appear to be fair given her willingness to follow-up in an outpatient setting. Cognitively, she is awake and alert with what would appear to be a high average intellect by virtue of her educational attainment and vocabulary. LABORATORY DATA: Metabolic testing was completed on the 14 of November at which time her hemoglobin A 1c was 4.4 percent, triglycerides 126, cholesterol 170, LDL cholesterol 95, and HDL cholesterol 49.9. DISCHARGE INSTRUCTIONS TO THE PATIENT: A. Medications: The patient is taking acidophilus one tablet p.o. daily, Latuda 160 mg p.o. daily, [place] Carbonate ER 1200 mg p.o. at bedtime, Xyzal 5 mg p.o. at bedtime, Zoloft 250 mg p.o. daily, N eurontin 600 mg p.o. t.i.d., vitamin D3 2,000 units p.o. daily, Albuterol two puffs inhaled every 4 h ours as a prn for wheezing. B. Diet: Regular. C. Activity: As tolerated. The patient is a nonsmoker. The patient has no laboratory or diagnosti c studies pending at the time of discharge. D. Follow-up care: The patient will be following up with her outpatient psychotherapist, Janki cochran on November 28 at 10:00 a.m. In addition, [facility]. E. Substance abuse follow-up: Nonapplicable. HOSPITAL COURSE - PART A: Reason for admission: The patient is a 37-year-old, , white, homose xual female with a history of extreme self-injurious behaviors and multiple admissions to this hospit al for self-harm who arrives on a voluntary basis. Fernando apparently brought herself to the ED after s eeing her therapist, Susie Root, at [facility] where she had reported id eas of self-mutilation and swallowing non-food items. Fernando reported in our emergency department that she continued to be unsafe, wanting badly to cut or hurt herself. In terms of stressors, she indica radha that her partner, Mouna, had surgery at beginning of the month and Fernando had been providing assist ance for her. 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 She in dicates that she has been decompensating slowly. She was requesting admission to stay safe and to re st. Apparently shortly after admission, she took the tin wrappers off some containers of juice and wa dded them up and swallowed them in an effort to harm herself. Currently while I am seeing her on the unit, she was giggling, seemingly embarrassed about this behavior, although she admits that she judie nues to think of ways of hurting herself. HOSPITAL COURSE - PART B: Psychiatric treatment rendered: The patient was admitted to the [facility] where she was placed on q.15 minute checks for her own safety. Because of her his tory of self-harm on the unit, we placed her on a behavioral modification contract which she was to s ign on a daily basis. Unfortunately, she did act out in a self-harming way, somehow finding some sta ples on the unit, scratching herself with these, and then swallowing them. She was placed in paper s crubs in accordance with her behavioral modification contract and her room was searched. During thes e times, she typically has to remain in her room for at least one hour which she complied with. Ther eafter, the patient went several days with continued urges to self-harm which she did not act upon. Ultimately, the thoughts of self-harm receded and at this time she states that she is safe for discha rge. We have had communication with her spouse, a woman named Mouna Priscilla, who was supportive of the discharge plan. We did not change her medications and she is agreeable with follow- up at [facility] following discharge. [id number]/[facility] #: [id number]
== END 2017-11-22 13:12 | disposition home or self-care (01) | DRG 886 ==
LOC: ED 15:45 → BSU 19:57
PROVIDERS: ADMIT Psychiatry & Neurology Psychiatry; ATTEND Psychiatry & Neurology Psychiatry
DX: F91.9 Conduct disorder, unspecified (principal); F39 Unspecified mood [affective] disorder; R45.851 Suicidal ideations; F60.3 Borderline personality disorder; K58.9 Irritable bowel syndrome, unspecified; J45.909 Unspecified asthma, uncomplicated; J30.2 Other seasonal allergic rhinitis; E66.9 Obesity, unspecified; Z68.35 Body mass index [BMI] 35.0-35.9, adult; Z79.899 Other long term (current) drug therapy; Z09 Encounter for follow-up examination after completed treatment for conditions other than malignant neoplasm; Z88.8 Allergy status to other drugs, medicaments and biological substances
CPT/HCPCS: 36415; 80053; 80061; 80307; 80320; 80329; 81003; 83036; 84443; 85025; 90853; 99222; 99231; 99283; A9270-GY; G0480

== ENCOUNTER 2018-04-05 17:22 | Inpatient (IN) | payer MEDICARE, MEDICAID ==
[2018-04-05] MEDS ORDERED: KETAMINE HCL* 50 MG/ML 10 ML VIAL IM ONE (17:28)
--- NOTE | 2018-04-05 17:54 | ED ---
Psychiatric Complaint - HPI Summary HPI Summary: This is jorge Gray documenting for attending Baltazar Seo MD. LEVEL 5 CAVEAT: HPI limited due to patient condition, sedatives. This patient is a 38 year old F BIBA in handcuffs to [facility] with a chief complaint of thoughts of self-harm. She reported getting violent in the ED sometimes and was afraid that she would grab sharp things. This led the physician to prescribe sedatives. She currently reports still being high. She has no injuries. - History Of Current Complaint Chief Complaint: EDMentalHealth Time Seen by Provider: 04/05/18 17:24 Hx From Patient Unobtainable Due To: Other - Sedatives - Allergies/Home Medications Allergies/Adverse Reactions: Allergies Allergy/AdvReac Type Severity Reaction Status Date / Time casein AdvReac Nausea And Verified 04/05/18 18:07 Vomiting lactose AdvReac Nausea And Verified 04/05/18 18:07 Vomiting Milk Containing Products AdvReac Nausea And Verified 04/05/18 18:07 Vomiting Home Medications: Home Medications Azelastine 0.15% NASAL(NF) [Astepro 0.15% NASAL (NF)] 1 spray BOTH NARES BID 10/22 [History Confirmed 04/05/18] Flunisolide NASAL (NF) [Nasalide NASAL (NF)] 1 spray BOTH NARES DAILY 04/05/18 [ History Confirmed 04/05/18] PMH/Surg Hx/FS Hx/Imm Hx Endocrine/Hematology History: Denies: Hx Blood Disorders, Hx Diabetes, Hx Anemia, Hx Unexplained Bleeding Cardiovascular History: Denies: Hx Auto Implanted Cardiovert Defib, Hx Cardiac Arrest, Hx Embolism, Hx Hypotension, Hx Hypertension Respiratory History: Reports: Hx Asthma - Bronchial asthma Denies: Hx Chronic Bronchitis, Hx Chronic Obstructive Pulmonary Disease (COPD ), Hx Pneumonia, Hx Pulmonary Embolism, Hx Sleep Apnea GI History: Reports: Hx Gastroesophageal Reflux Disease, Hx Irritable Bowel, Other GI Disorders - reports she has had diarrhea/loose stool "off and on" for 5 yrs. Denies: Hx Crohn's Disease, Hx Diverticulosis History: Denies: Hx Acute Renal Failure, Hx Kidney Stones, Other Problems/Disorders Musculoskeletal History: Reports: Other Musculoskeletal History - osteoarthritis Denies: Hx Arthritis, Hx Osteoporosis, Hx Scoliosis Sensory History: Reports: Hx Contacts or Glasses Denies: Hx Cataracts, Hx Eye Injury, Hx Hearing Aid, Hx Hearing Problem, Other Sensory Impairments Opthamlomology History: Reports: Hx Contacts or Glasses Denies: Hx Cataracts, Hx Eye Injury, Other Sensory Impairments Neurological History: Denies: Hx Migraine, Hx Nerve Disease, Hx Seizures Comment Only: Hx Headaches - Relieved with use of OTCs Psychiatric History: Reports: Hx Anxiety, Hx Depression, Hx Inpatient Treatment , Hx Community Mental Health Tx, Hx Bipolar Disorder, Hx Suicide Attempt, Hx of Violent Episodes Against Others, Hx Substance Abuse - hx of alcoholism/ no etoh intake for the past 10 years, Other Psychiatric Issues/Disorders - Hx SIB Denies: Hx Eating Disorder - Surgical History Surgery Procedure, Year, and Place: n/a Infectious Disease History: No Infectious Disease History: Denies: Traveled Outside the [place] in Last 30 Days - Family History Known Family History: Positive: Hypertension, Other - mood disorder, anxiety, depression, alcohol abuse - Social History 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 Lives: With Family Alcohol Use: None Hx Substance Use: No Substance Use Type: Reports: None Hx Tobacco Use: No Smoking Status (MU): Never Smoked Tobacco Amount Used/How Often: states that she tried a cigarette once, over a year ago Length of Time of Smoking/Using Tobacco: n/a Have You Smoked in the Last Year: No Review of Systems - ROS Summary Review of Systems Summary: LEVEL 5 CAVEAT: ROS limited due to patient condition, sedatives Positive: Other - thoughts of self-harm; denies SI and HI Physical Exam - Summary Physical Exam Summary: General: Well appearing, no distress Cardiovascular: Skin is well perfused Pulmonary: No respiratory distress, no tachypnea Abdomen: Non-distended Skin: Warm, pink, dry Psych: Normal affect. Having thoughts of self-harm. Neuro: A&Ox3 Triage Information Reviewed: Yes Vital Signs On Initial Exam: Initial Vitals Temp Pulse Resp BP Pulse Ox 97.9 F 76 17 123/90 96 04/05/18 17:42 04/05/18 17:42 04/05/18 17:42 04/05/18 17:42 04/05/18 17:42 Vital Signs Reviewed: Yes Diagnostics - Vital Signs Vital Signs Temp Pulse Resp BP Pulse Ox 04/05/18 17:42 97.9 F 76 17 123/90 96 - Laboratory Result Diagrams: 04/05/18 18:08 04/05/18 18:08 Lab Statement: Any lab studies that have been ordered have been reviewed, and results considered in the medical decision making process. Course/Dx - Course Assessment/Plan: 20:00 patient has been medically cleared for a MHE Discharge - Sign-Out/Discharge Documenting (check all that apply): Sign-Out Patient Signing out patient TO: Chester Whitman - Pending MHE - Discharge Plan Referrals: Vania Lopez MD [Primary Care Provider] -
--- OUTSIDE RECORDS SUMMARY | 2018-04-05 18:02 | XMS REPORT ---
:1980 External Reference #:[id number] Author Organization [employer] Address [address] [address] Phone [phone] Care Team Providers Name Role Phone Vania Lopez MD Care Team Information Compliance Field Technician Unavailable Vania Lopez MD Primary Care Physician Unavailable Payers Type Date Identification Numbers Payment Provider Subscriber Medicare Primary Policy Number: [id number] Medicare David Leiva PayID: [id number] [address] [place] [address] Medigap Part B Policy Number: [id number] Medicaid David Leiva Group Name: 1 1 [address] PayID: [id number] [place] [address] Problems Date Description Provider Status Onset: 11/17/2016 Disturbance in sleep behavior Jacqui Marquez MD Active Onset: 11/17/2016 Obesity Jacqui Marquez MD Active Onset: 12/28/2016 Obstructive sleep apnea Zahraa Chowdhury DNP, RN, Active syndrome [facility]-BC Onset: 05/19/2017 Unspecified sprain of left Bryson Pryor MD Active wrist, subsequent encounter Family History Date Family Member(s) Problem(s) Comments General Alcoholism Paternal side General Diabetes General Heart Disease Father Obesity Mother Alive And Well Siblings None Social History Type Date Description Comments Marital Status Lives With Occupation Currently Working Cigarette Use Never Smoked Cigarettes ETOH Use Denies alcohol use Smoking Patient has never smoked Recreational Drug Use Denies Drug Use Daily Caffeine Consumes on average 3 cups of regular coffee per day Exercise Type/Frequency Exercises regularly Allergies, Adverse Reactions, Alerts Date Description Reaction Status Severity Comments 11/17/2016 NKDA active Medications Medication Date Status Form Strength Qnty SIG Indications Ordering Provider Zoloft 11/16 Active Tablets 100mg 2 1/2 by mouth every day Latuda 11/16 Active Tablets 160mg take 1 tablet by mouth at bedtime Lithobid 11/16 Active Tablets ER 1200mg daily Gabapentin 11/16 Active Tablets 600mg 1 tab by mouth three times a day Levocetirizine 11/16 Active Tablets 5mg 1 by mouth Unknown Dihydrochlor every day Vitamin D 11/16 Active Capsules 2000Unit 1 by mouth every day Probiotic 11/16 Active Capsules 2 by mouth every day Astepro 11/16 Active Solution 0.15% 1 puff both sides two times a day Flunisolide Active Solution 25mcg/Act Two sprays Unknown (0.025%) each nostril one time per day Mandibular 12/28 Hx Device fabricate G47.33 Zahraa oral Chowdhury, Device - appliance DEDRA, RN, 10/26 /naman SENIORP- r advancemen t device for sleep apnea with needed adjustment s. Nasonex 11/16 Hx Suspension 50mcg/Act two sprays each - nostril 03/27 once daily Albuterol Hx Nebulizer (2.5mg/3M 1 vial via Unknown L) 0.083% nebulizer - 4 times 10/26 daily needed Medications Administered in Office Medication Date Status Form Strength Qnty SIG Indications Ordering Provider Celestone 3 mg Administered Injection Bryson and 3mg 017 MD Konstantin Vital Signs Date Vital Result Comment 03/28/2018 Height 66.75 inches 5'6.75" Weight 223.25 lb Heart Rate 86 /min BP Systolic Sitting 116 mmHg Lue large cuff BP Diastolic Sitting 78 mmHg Lue large cuff Respiratory Rate 16 /min O2 % BldC Oximetry 98 % On Ra BMI (Body Mass Index) 35.2 kg/m2 01/04/2018 Height 66.75 inches 5'6.75" Weight 218.00 lb Heart Rate 86 /min BP Systolic Sitting 104 mmHg Lue large cuff BP Diastolic Sitting 72 mmHg Lue large cuff Respiratory Rate 16 /min O2 % BldC Oximetry 98 % On Ra BMI (Body Mass Index) 34.4 kg/m2 10/27/2017 Height 66.75 inches 5'6.75" Weight 224.38 lb with shoes Heart Rate 78 /min BP Systolic Sitting 108 mmHg Lue large cuff BP Diastolic Sitting 78 mmHg Lue large cuff Respiratory Rate 16 /min O2 % BldC Oximetry 97 % On Ra BMI (Body Mass Index) 35.4 kg/m2 05/19/2017 Height 66.75 inches 5'6.75" Weight 212.00 lb Respiratory Rate 14 /min Body Temperature 97.9 F Pain Level 4 BMI (Body Mass Index) 33.4 kg/m2 04/14/2017 Height 66.75 inches 5'6.75" Weight 218.50 lb Heart Rate 76 /min BP Systolic Sitting 118 mmHg BP Diastolic Sitting 82 mmHg Body Temperature 96.9 F Pain Level 0 BMI (Body Mass Index) 34.5 kg/m2 12/28/2016 Height 65 inches 5'5" Weight 211.00 lb Heart Rate 85 /min BP Systolic Sitting 118 mmHg BP Diastolic Sitting 64 mmHg Respiratory Rate 16 /min O2 % BldC Oximetry 98 % BMI (Body Mass Index) 35.1 kg/m2 11/17/2016 Height 65 inches 5'5" Weight 217.00 lb Heart Rate 82 /min BP Systolic 122 mmHg BP Diastolic 76 mmHg Respiratory Rate 14 /min O2 % BldC Oximetry 98 % BMI (Body Mass Index) 36.1 kg/m2 Neck Circumference in inches 15 Results Description No Information Procedures Date CPT Code Description Status 12/26/2017 04076 Polysomnography Sleep Staging 4+ Parameters Completed 10/28/2017 38824 Sleep Study Unattended,HRT Rate,Oxygen Sat,Resp Completed Effort/Airflow 05/19/2017 Inject/Drain Joint/Bursa Intermediate W/O US Completed 11/19/2016 25211 Polysomnography Sleep Staging 4+ Parameters Completed Encounters Type Date Location Provider CPT E/M Dx Office Visit 01/04/2018 [facility] Zahraa Chowdhury 56795 G47.33 11:00a [facility] RN, CHANELLE Office Visit 10/27/2017 [facility] Zahraa Chowdhury 20583 G47.33 9:45a [facility] RN, CHANELLE G47.29 Office Visit 05/19/2017 9:15a [place] [address] S63.502D [facility] Office Visit 04/14/2017 9:00a [place] [address] S63.502A [facility] Office Visit 04/04/2017 1:42p [facility] Bryson Blancas, 91772 S63.502A Of [facility]. Office Visit 12/28/2016 3:00p [facility] Zahraa Chowdhury, 53640 G47.33 [facility] GEREMIAS COLMENARES, [facility]-BC E66.09 Z68.36 Office Visit 11/17/2016 1:15p Pul[facility] [place] [address] R40.0 [facility] R35.1 E66.09 Z68.36 Office Visit 01/31/2016 12:46p [facility] Sheri Bashir, 88337 T18.9xxA Assoc, Hospitalists D.OGladys J45.20 F60.3 Office Visit 01/29/2016 12:45p [facility] Guy Bradford, 82769 T18.9xxA [facility]oc, Hospitalists N.P. J45.20 F60.3 Plan of Care Future Appointment(s):09/28/2018 10:45 am - Zahraa Chowdhury DNP, RN, [facility]- at [facility]03/28/2018 - Zahraa Chowdhury DNP, RN, [facility]- BCG47.33 Obstructive sleep apnea (adult) (pediatric)Comments:Repeat NPSG sidelying sleep AHI 6.6/hour, erik oxygen 89%On CPAP AHI 2.1/hour (normal) Follow up:6 monthsRecommendations:Continue PAP device, Benefitting and compliant with treatment. Cleaning Wipe off mask daily (baby wipe-no scent, or warm water) Clean mask, tubing, filter, and water chamber weekly in mild no scent dish soap and water. Hang to dry. So-Clean is an option (not covered by insurance) If you have any sleepiness while driving you MUST avoid operating a vehicle or machinery. If you have difficulty with your equipment, or need to replace your mask or hoses, please contact your homecare agency. A weight change of 20 pounds or more may have an effect on your equipment; if you are experiencing problems please call for an appointment. If you have any further questions, please call the [facility] at [phone].R97.29 Other circadian rhythm sleep disorderRecommendations:Continue with sleep schedule 11 PM-9 AM May be medication related, gabapentin may make you sleepy/fatigued Discuss potential changes with Dr. Ellis.R53.04 Other fatigueRecommendations: see assessment #2
[2018-04-05 18:13] LABS: ABS Basophils 0.1 10^3/ul (0-0.2); ABS Eosinophils 0.2 10^3/ul (0-0.6); ABS Lymphocytes 2.2 10^3/ul (1.0-4.8); ABS Monocytes 0.7 10^3/ul (0-0.8); ABS Neutrophils 3.5 10^3/ul (1.5-7.7); ABS Nucleated RBC 0 10^3/ul; Eosinophil % 2.8 % (0-6); Hematocrit 45 % (35-47); Hemoglobin 15.5 g/dl (12.0-16.0); Mean Corpuscular HGB Conc 35 g/dl (31-36); Mean Corpuscular Hemoglobin 32 pg (27-31); Mean Corpuscular Volume 91 fL (80-97); Mean Platelet Volume 7.4 um3 (7.4-10.4); Nucleated Red Blood Cells % 0.1; Platelet Count 281 10^3/ul (150-450); Red Blood Count 4.93 10^6/ul (4.00-5.40); Red Cell Distribution Width 13 % (10.5-15); White Blood Count 6.7 10^3/ul (3.5-10.8)
[2018-04-05] MEDS ORDERED: Haloperidol INJ IV/IM* 5 MG/ML AMP IM ONE (18:13)
[2018-04-05] MEDS ORDERED: diPHENhydraMINE IV* 50 MG/ML 1 ml VIAL (BENADRYL) IM ONE (18:14)
[2018-04-05 18:34] LABS: EGFR Non-African American 65.5 (>60)
[2018-04-05 21:41] LABS: Urine Appearance Clear; Urine Blood 3+ (Negative); Urine Color Yellow; Urine Ketones Negative (Negative); Urine Protein Negative (Negative); Urine Red Blood Cell 3+(>10/hpf) (Absent); Urine Specific Gravity 1.008 (1.010-1.030); Urine Urobilinogen Negative (Negative); Urine White Blood Cell Trace(0-5/hpf) (Absent)
[2018-04-06] MEDS ORDERED: Al Hydrox/Mg Hydrox/Simet LIQ* 30 ML UDC PO PRN (04:59)
[2018-04-06] MEDS ORDERED: Albuterol HFA INHALER* 8 gm MDI INH PRN (05:01)
--- NOTE | 2018-04-06 05:01 | ED ---
Progress - Progress Note Progress Note: This patient was signed out from Dr. Seo to Dr. Whitman, awaiting MHE. MHE was done at [address] Hay. He will be admitted to [facility] with dx of mood disorder. Patient understands and agrees. - Consult/PCP Time Called: 23:00 Course/Dx - Diagnoses Provider Diagnoses: Mood disorder Discharge - Sign-Out/Discharge Documenting (check all that apply): Patient Departure - Discharge Plan Condition: Stable Disposition: ADMITTED TO [facility]
--- NOTE | 2018-04-06 07:42 | PN ---
ED Flex Patient Progress Note Date of Service: 04/05/18 Subjective: This is a 38 year-old F who is pending admission to [facility] / transfer to another psychiatric facility / discharge to home / or being observed secondary to SI. Pt. examined in bed 13 at 0725. She states she is anxious. Objective: Vitals: Most recent vital signs documented below. General NAD, Alert and oriented x3. Laboratory: Current laboratory results documented below. Assessment: Pt. has been accepted to the [facility]. Plan: Pending psychiatric admit. Vital Signs Temp Pulse Resp BP Pulse Ox 98.7 F 70 20 128/76 98 04/06/18 07:37 04/06/18 07:37 04/06/18 07:37 04/06/18 07:37 04/06/18 07:37 Lab Results - Entire Visit 04/05/18 04/05/18 04/05/18 21:28 21:28 18:08 WBC RBC Hgb Hct MCV MCH MCHC RDW Plt Count MPV Neut % (Auto) Lymph % (Auto) [place] % (Auto) Eos % (Auto) Baso % (Auto) Absolute Neuts (auto) Absolute Lymphs (auto) Absolute Monos (auto) Absolute Eos (auto) Absolute Basos (auto) Absolute Nucleated RBC Nucleated RBC % Sodium 137 Potassium 3.8 Chloride 107 Carbon Dioxide 19 L Anion Gap 11 BUN 11 Creatinine 0.95 Est GFR ( Amer) 79.2 Est GFR (Non-Af Amer) 65.5 BUN/Creatinine Ratio 11.6 Glucose 121 H Calcium 10.1 Total Bilirubin 0.60 AST 15 ALT 12 Alkaline Phosphatase 59 Total Protein 7.0 Albumin 4.6 Globulin 2.4 Albumin/Globulin Ratio 1.9 TSH 3.36 Urine Color Yellow Urine Appearance Clear Urine pH 6.0 Ur Specific [place] 1.008 L Urine Protein Negative Urine Ketones Negative Urine Blood 3+ A Urine Nitrate Negative Urine Bilirubin Negative Urine Urobilinogen Negative Ur Leukocyte Esterase Negative Urine WBC (Auto) Trace(0-5/hpf) Urine RBC (Auto) 3+(>10/hpf) A Ur Squamous Epith Cells Present A Urine Bacteria 1+ A Urine Glucose Negative Salicylates < 2.50 Urine Opiates Screen None detected Acetaminophen < 15 Ur Barbiturates Screen None detected Ur Phencyclidine Scrn None detected Ur Amphetamines Screen None detected U Benzodiazepines Scrn None detected Urine Cocaine Screen None detected U Cannabinoids Screen None detected Serum Alcohol < 10 04/05/18 18:08 WBC 6.7 RBC 4.93 Hgb 15.5 Hct 45 MCV 91 MCH 32 H MCHC 35 RDW 13 Plt Count 281 MPV 7.4 Neut % (Auto) 52.8 Lymph % (Auto) 33.0 Willacy % (Auto) 10.6 H Eos % (Auto) 2.8 Baso % (Auto) 0.8 Absolute Neuts (auto) 3.5 Absolute Lymphs (auto) 2.2 Absolute Monos (auto) 0.7 Absolute Eos (auto) 0.2 Absolute Basos (auto) 0.1 Absolute Nucleated RBC 0 Nucleated RBC % 0.1 Sodium Potassium Chloride Carbon Dioxide Anion Gap BUN Creatinine Est GFR ( Amer) Est GFR (Non-Af Amer) BUN/Creatinine Ratio Glucose Calcium Total Bilirubin AST ALT Alkaline Phosphatase Total Protein Albumin Globulin Albumin/Globulin Ratio TSH Urine Color Urine Appearance Urine pH Ur Specific [place] Urine Protein Urine Ketones Urine Blood Urine Nitrate Urine Bilirubin Urine Urobilinogen Ur Leukocyte Esterase Urine WBC (Auto) Urine RBC (Auto) Ur Squamous Epith Cells Urine Bacteria Urine Glucose Salicylates Urine Opiates Screen Acetaminophen Ur Barbiturates Screen Ur Phencyclidine Scrn Ur Amphetamines Screen U Benzodiazepines Scrn Urine Cocaine Screen U Cannabinoids Screen Serum Alcohol
[2018-04-06] MEDS ORDERED: Lurasidone(*) 40 MG TAB PO SCH (08:00)
[2018-04-06] MEDS: Vitamin THERAPEUTIC TAB PO SCH (09:14)
[2018-04-06] MEDS: Gabapentin CAP(*) 300 MG PO SCH ×3 (09:14→21:01)
[2018-04-06] MEDS: Sertraline* 100 MG TAB PO SCH (09:14)
[2018-04-06] MEDS: Cholecalciferol TAB* 1000 UNITS PO SCH (09:14)
[2018-04-06] MEDS: Lactobacillus Acidophilus* 1 TAB PO SCH (09:15)
--- NOTE | 2018-04-06 19:33 | HP ---
PSYCHIATRIC HISTORY AND PHYSICAL: DATE OF ADMISSION: 04/06/18 JUSTIFICATION FOR ADMISSION: The patient is in need of 24-hour supervision and treatment secondary to strong inclinations to harm herself. CHIEF COMPLAINT: "I kept telling my therapist that I was going to burn myself. " HISTORY OF PRESENT ILLNESS: The patient is a 38-year-old , homosexual, white female with history of extreme self-injurious behaviors and multiple admissions to this hospital for self-harm, who arrived via the police on legal status as initiated by her therapist at [facility] due to the patient's endorsement of irresistible urges to cut or or burn herself. 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 She states that every year this is the time of great preparation and excitement and after the concert, she experiences a tremendous emotional let-down. Additionally she indicates that her spouse, a woman named Mouna, is in the process of buying a local toy store and has been under great deal of stress. The patient denies any recent changes in her medications. She is continuing to see Dr. Robert Ellis at the [facility]. By the time I see her on the unit, she is giggling , appearing to be embarrassed by her behavior, although this is a typical presentation of her when she actually arrives on the behavioral science unit. She reports that when she arrived in the emergency room and was still in handcuffs in the presence of law enforcement, the emergency room gave her a dose of intramuscular ketamine, which caused symptoms of dissociation, confusion , and hallucinations. She is somewhat upset about having received ketamine, but is now reporting that her urges to cut and burn herself have resolved. PAST PSYCHIATRIC HISTORY: This is quite extensive. There are several old discharge summaries from the behavioral health unit, at least 20 that can be counted with most recent being in November 2017 under the service of Dr. Hay. She has also been hospitalized at [facility] in [place] as well as [facility] in 2008 for 5 months. Her past diagnoses include depression, anxiety, borderline personality disorder, and dissociative disorder. Her outpatient providers at [facility] are the JEFFY, Susie Root, and psychiatrist, Dr. Robert Ellis. She does have multiple previous suicide attempts, having swallowed radio antennas, keys, razor blades, as well as having placed plastic bags over her head to asphyxiate herself. She indicates that she first started cutting herself at the age of 11. PAST MEDICAL HISTORY: Significant for bronchial asthma, seasonal allergies, osteoarthritis, irritable bowel syndrome, and mild obesity. CURRENT MEDICATIONS: Include: 1. Lurasidone 160 mg p.o. daily. 2. Flonase 2 sprays to both nares daily. 3. Neurontin 600 mg p.o. b.i.d. 4. Derwood carbonate extended release 1200 mg p.o. q.h.s. 5. Sertraline 250 mg p.o. daily. 6. Zyrtec 10 mg p.o. daily. 7. Lactobacillus 1 cap p.o. b.i.d. 8. Vitamin D 2000 units p.o. daily. ALLERGIES: She is allergic to CASEIN. FAMILY HISTORY: Unremarkable, but she tells that her father may have an undiagnosed personality disorder. 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 She denies any reason use of tobacco, illicit drugs, or misuse of medications. SOCIAL HISTORY: The patient was born and raised in [place] and is an only child. Her parents are still living and still . She describes a close relationship with her mother and somewhat distance from her father. She is educated with bachelor's degree in arts at [employer]. 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 Currently, she is in a [id number] relationship with her female partner and they have been for the past 3 years. They live together in an apartment in [place]. She describes her partner as very supportive. 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 She is also receiving disability benefits. REVIEW OF SYSTEMS: As per the ER report, the patient denies headache or double vision. She denies chest pain, sore throat, cough, abdominal pain, nausea, vomiting, diarrhea, or constipation. She denies rashes, enlarged lymph nodes, changes in weight or fevers. PHYSICAL EXAMINATION VITAL SIGNS: Blood pressure is 115/79, heart rate 75, respiratory rate 18, temperature is 98.0 degrees Fahrenheit, oxygen saturations are 100% on room air. HEENT: Head is normocephalic, atraumatic. NECK: Supple. CHEST: Clear to auscultation bilaterally. CARDIAC: Reveals normal heart sounds. ABDOMEN: Soft, and nontender. MUSCULOSKELETAL: Reveals full range of motion with no sign of edema in any of her 4 extremities. NEUROLOGIC: She is grossly intact. SKIN: Reveals evidence of old well-healed cutting scars to her bilateral upper extremities. MENTAL STATUS EXAM: The patient is a middle-aged white female with short hair and eye glasses. She is casually dressed in black pants and a sweat shirt. She appears to be fairly well groomed. She is friendly, easy to establish a rapport with. Speech has a normal rate, tone, and volume. Mood is somewhat anxious with a corresponding anxious affect. Thought process is linear and goal -directed. Thought content is significant for her desire to be discharged after the weekend. She is denying urges to either cut herself or swallow foreign bodies or even burn herself. She denies homicidality. The patient denies auditory or visual hallucinations. Insight and judgment appear to be fair given her willingness to come in on a voluntary basis. Cognitively, she is awake and alert with what would appear to be a high average intellect by virtue of her educational attainment and vocabulary. LABORATORY DATA: CBC is within normal limits as is her complete metabolic panel. TSH normal at 3.38. Urinalysis is significant for 3+ red blood cells as well as blood. Urine drug screen is negative for all substances tested including alcohol. DIAGNOSES: Strong I: Unspecified mood disorder. Strong II: Borderline personality disorder. Strong III: Irritable bowel syndrome, bronchial asthma, seasonal allergies, obesity. Strong IV: Moderate primary support stressors. Strong V: At this time is 50. ASSESSMENT: This is a 38-year-old , homosexual, white female with history of very significant borderline personality disorder and associated symptoms, who arrives on an involuntary 9.45 legal status via the police with strong urges to cut herself or burn herself. Given the fact that she has had a history of acting on these impulses, we did not feel safe discharging her back to the community. Therefore, she is admitted currently to the behavioral health unit where we will try to reach her outpatient providers for further collateral information. PLAN: The patient is admitted to the adult behavioral health unit and placed on q.15-minute checks for her own safety. We will continue her on all of her outpatient medications as currently prescribed. She will be placed on a behavioral modification plan wherein there will be consequences behaviorally for any self- harming activities. While she is here, she is certainly encouraged to avail herself of all milieu activities including individual and group psychotherapies. When she is safe and no longer at risk of harming herself , we will likely be discharging her back to outpatient environment where she can receive care on a less restrictive setting. [id number]/CPS #: [id number] CHRISTOPHER
[2018-04-06] MEDS: Lithium Carbonate ER (NF) 300 MG TAB.ER PO SCH (21:03)
[2018-04-06] MEDS: Acetaminophen TAB* 325 MG PO PRN (21:03)
[2018-04-07] MEDS: Acetaminophen TAB* 325 MG PO PRN ×4 (01:49→22:05)
[2018-04-07] MEDS: Vitamin THERAPEUTIC TAB PO SCH (08:36)
[2018-04-07] MEDS: Sertraline* 100 MG TAB PO SCH (08:36)
[2018-04-07] MEDS: Lactobacillus Acidophilus* 1 TAB PO SCH (08:37)
[2018-04-07] MEDS: Gabapentin CAP(*) 300 MG PO SCH ×3 (08:38→22:01)
[2018-04-07] MEDS: Cholecalciferol TAB* 1000 UNITS PO SCH (08:38)
[2018-04-07] MEDS ORDERED: diPHENhydraMINE PO* 25 MG ONE (09:04)
--- NOTE | 2018-04-07 20:59 | PN ---
Subjective - Subjective Date of Service: 04/07/18 Service Type: 89202 Hosp care 15 min low complexity Subjective: Emotionally feeling better and safe. Have runny nose. Doesn't understand why she feel better immediately following admission. Wants her stay here to very brief. Denies self harming thoughts, delusions or hallucinations. Happy in the milieu. Objective - Appearance Appearance: Well Developed/Nourished, Obese Dysmorphic Features: No Hygiene: Normal Grooming: Fairly Well Kept - Behavior Psychomotor Activities: Normal Exhibits Abnormal Movement: No - Attitude and Relatedness Attitude and Relatedness: Appropriate Eye Contact: Good - Speech Quality: Unpressured Latencies: Normal Quantity: Appropriate - Mood Patient's Decription of Mood: "Fine" - Affect Observed Affect: Non-labile - Thought Process Patient's Thought Process: Coherent, Goal Directed Thought Content: No Passive Wish, No Suicidal Planning, No Homicidal Ideation, No Paranoid Ideation - Sensorium Experiencing Hallucinations: No, Sensorium is Clear Type of Hallucinations: Visual: No, Auditory: No, Command: No - Level of Consciousness Level of Consciousness: Alert Orientation: Yes Intact, Yes Orientated to Time, Yes Orientated to Place, Yes Orientated to Person - Impulse Control Impulse Control: Intact - Insight and Judgement Insight and Judgement: Fair - Group Participation Particating in Group Activities: Yes - Medication Management Medication Management Adherence: Yes Assessment - Assessment Merits Inpatient Hospitalization: For Immediate Safety, For Stabilization, Pending Safe DC Plan Clinical Impression: Improved significantly immediately following admission. Plan - Plan Treatment Plan: Name: FLAVIO HOFFMAN Birthdate: 1980 [id number] Continued Medication Management: Continue Outpt Medication Medications: Current Medications Acetaminophen (Tylenol Tab*) 650 mg PO Q4H PRN PRN Reason: PAIN or TEMP > 101 F Last Admin: 04/07/18 16:41 Dose: 650 mg Al Hydrox/Mg Hydrox/Simethicone (Maalox Plus*) 30 ml PO Q4H PRN PRN Reason: INDIGESTION Albuterol (Ventolin Hfa Inhaler*) 2 puff INH QID PRN PRN Reason: SHORTNESS OF BREATH Cholecalciferol (Vitamin D Tab*) 2,000 units PO DAILY [facility] Last Admin: 04/07/18 08:38 Dose: 2,000 units Gabapentin (Neurontin Cap(*)) 600 mg PO TID [facility] Last Admin: 04/07/18 14:29 Dose: 600 mg Lactobacillus Rhamnosus (Lactobacillus Acidophilus*) 1 tab PO DAILY [facility] Last Admin: 04/07/18 08:37 Dose: 1 tab [place] Carbonate (Askov Carbonate Er (Nf)) 1,200 mg PO BEDTIME [facility] Last Admin: 04/06/18 21:03 Dose: 1,200 mg Lurasidone HCl (Latuda) 160 mg PO BEDTIME [facility] Multivitamins (Theragran Tab*) 1 tab PO DAILY [facility] Last Admin: 04/07/18 08:36 Dose: 1 tab Sertraline HCl (Zoloft*) 250 mg PO DAILY [facility] Last Admin: 04/07/18 08:36 Dose: 250 mg - Discharge Plan Discharge Plan: Outpatient Follow Up Outpatient Program: [facility]
[2018-04-07] MEDS: Lithium Carbonate ER (NF) 300 MG TAB.ER PO SCH (22:02)
[2018-04-07] MEDS: Lurasidone(*) 80 MG TAB PO SCH (22:03)
[2018-04-08] MEDS: Sertraline* 100 MG TAB PO SCH (08:59)
[2018-04-08] MEDS: Lactobacillus Acidophilus* 1 TAB PO SCH (09:00)
[2018-04-08] MEDS: Gabapentin CAP(*) 300 MG PO SCH ×3 (09:00→20:51)
[2018-04-08] MEDS: Vitamin THERAPEUTIC TAB PO SCH (09:00)
[2018-04-08] MEDS: Cholecalciferol TAB* 1000 UNITS PO SCH (09:00)
[2018-04-08] MEDS ORDERED: Loperamide CAP* 2 MG PO PRN (11:06)
[2018-04-08] MEDS ORDERED: Loperamide CAP* 2 MG PO ONE (12:00)
[2018-04-08] MEDS: Lithium Carbonate ER (NF) 300 MG TAB.ER PO SCH (20:52)
[2018-04-08] MEDS: Lurasidone(*) 80 MG TAB PO SCH (20:53)
[2018-04-09 08:31] VITALS: BP 105/78
[2018-04-09] MEDS: Sertraline* 100 MG TAB PO SCH (09:44)
[2018-04-09] MEDS: Cholecalciferol TAB* 1000 UNITS PO SCH (09:45)
[2018-04-09] MEDS: Lactobacillus Acidophilus* 1 TAB PO SCH (09:46)
[2018-04-09] MEDS: Gabapentin CAP(*) 300 MG PO SCH ×2 (09:46→14:19)
[2018-04-09] MEDS: Vitamin THERAPEUTIC TAB PO SCH (09:47)
[2018-04-09] MEDS: Acetaminophen TAB* 325 MG PO PRN (12:06)
--- NOTE | 2018-04-09 13:09 | PN ---
MHU: Group Therapy Note - Service Type Service Type: 40175 Group Psychotherapy - Cognitive Behavioral Group Therapy ( CBT):Patient was attentive and participatory in CBT programming this morning, and remained in good behavioral control. Patient expressed positive insights regarding relevant treatment interventions and goals.
--- NOTE | 2018-04-09 15:42 | DS ---
DATE OF ADMISSION: 04/06/2018. DATE OF DISCHARGE: 04/09/2018. DISCHARGE DIAGNOSES: AXIS I: Unspecified mood disorder. AXIS II: Borderline personality disorder. CONDITION AT THE TIME OF DISCHARGE: Improved. The patient is denying any thoughts of self-harm, including cutting or burning herself. She is denying any thoughts of swallowing harmful objects. She feels that her mood is stable and that she would be safe receiving care in a less restrictive setting. The patient has done well here and is appropriately requesting discharge to her home. We have spoken with her spouse, Mouna, who agrees with the discharge plan. MENTAL STATUS EXAM AT THE TIME OF DISCHARGE: The patient is a middle-aged, white female with short hair with eyeglasses. She is casually dressed in black pants and a sweatshirt. She appears to be fairly well-groomed and friendly, easy to establish a rapport with. Speech has a normal rate, tone, and volume. Mood is euthymic with a full affect. Thought process is linear and goal- directed. Thought content is significant for her desire to be discharged from the hospital. She is denying urges to cut herself or swallow foreign bodies or burn herself. She denies homicidal ideations. The patient denies auditory or visual hallucinations. Insight and judgment appear to be fair given her willingness to receive treatment on an outpatient basis. Cognitively, she is awake and alert with what would appear to be high average intellect by virtue of her educational attainment and vocabulary. LABORATORY DATA: Metabolic studies were taken on the day of discharge which was 04/09/2018 demonstrating a hemoglobin A1c of 4.2, triglycerides 138, cholesterol 135, LDL 64, HDL 43.7. DISCHARGE INSTRUCTIONS TO THE PATIENT: A. Medications: The patient takes Sertraline 250 mg p.o. daily, one multivitamin daily, Latuda 160 mg p.o. at bedtime, Imodium 2 mg as needed for loose stools, [place] Carbonate 1200 mg p.o. at bedtime, Lactobacillus one tab p.o. daily, Neurontin 600 mg p.o. t.i.d., vitamin D 2,000 unit p.o. daily, Albuterol two puffs inhaled 4 times daily as needed for wheezing. She takes Flonase one spray to both nares daily, Xyzal 5 mg p.o. at bedtime. B. Diet: Regular. C. Activities: As tolerated. The patient is a nonsmoker. There are no laboratory or diagnostic studies pending at the time of discharge. D. Follow-up care: The patient will follow-up tomorrow, April 10 at [facility] where she is enrolled in the PR[facility] Program. In addition, she has a follow-up appointment with her primary therapist, social worker masters Susie Root. That appointment is established for April 16 at 11:00 a.m. E. Substance abuse follow-up: Nonapplicable. HOSPITAL COURSE - PART A: Reason for admission: The patient is a 38-year-old, , homosexual, white female with a history of extreme self-injurious behaviors and multiple admissions to this hospital for self-harm who arrived via the police on a 9.45 legal status as indicated by her therapist at [facility] due to the patient's endorsement of irresistible urges to cut or burn herself. 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 She states that every year this is a time of great preparation and excitement, and after the concert she experiences a tremendous emotional let down. Additionally, she indicates that her spouse, a woman named Mouna, is in the process of buying a local toy store and has been under a great deal of stress. The patient denies any recent changes in her medications. She is continuing to see Dr. Robert Ellis at the [facility]. By the time I saw her on the unit, she was giggling, appearing to be embarrassed by her behavior, although this is a typical presentation for her when she actually arrives on the Behavioral Science Unit. She reports that when she arrived in the emergency room and was still in the handcuffs in the presence of law enforcement, the emergency room gave her a dose of intramuscular Ketamine which caused symptoms of dissociation , confusion, and hallucinations. She is somewhat upset about having received Ketamine, but was then thereafter reporting that her urges to cut and burn herself had resolved. HOSPITAL COURSE - PART B: Psychiatric treatment rendered: The patient was admitted to the Adult Behavioral Health Unit where she was placed on q.15 minute checks for her own safety. We placed her on her typical behavioral modification contract given her history of acting out in a self-abusive way on our unit. The patient was calm, cooperative, and respectful throughout this hospitalization and she was safe on all checks. We left her outpatient psychiatric medication regimen unchanged and she had on problems tolerating these medications. Through the weekend, she was social with a bright affect and denied any further thoughts of hurting herself. At this time, she is appropriately requesting discharge to the outpatient setting where she can continue to receive definitive care. [id number]/[facility] #: [id number] CHRISTOPHER
== END 2018-04-09 15:19 | disposition home or self-care (01) | DRG 885 ==
LOC: ED 17:22 → BSU 04-06 04:40
PROVIDERS: ADMIT Psychiatry & Neurology Psychiatry; ATTEND Psychiatry & Neurology Psychiatry
DX: F39 Unspecified mood [affective] disorder (principal); F60.3 Borderline personality disorder; F44.9 Dissociative and conversion disorder, unspecified; J45.909 Unspecified asthma, uncomplicated; J30.2 Other seasonal allergic rhinitis; M19.90 Unspecified osteoarthritis, unspecified site; K58.9 Irritable bowel syndrome, unspecified; E66.9 Obesity, unspecified; Z68.35 Body mass index [BMI] 35.0-35.9, adult; Z79.899 Other long term (current) drug therapy; Z88.8 Allergy status to other drugs, medicaments and biological substances
CPT/HCPCS: 36415; 80053; 80061; 80307; 80320; 80329; 81003; 81015; 83036; 84443; 85025; 87086; 99283; A9270-GY; G0480; J1200; J1630

== ENCOUNTER 2018-05-13 15:18 | Inpatient (IN) | payer MEDICARE, MEDICAID ==
--- NOTE | 2018-05-13 15:47 | ED ---
Psychiatric Complaint - HPI Summary HPI Summary: This patient is a 38 year old F presenting to [facility] c/o SI, as soon as she arrived in the ED she ingested a thumbtack. She states she has been taking her medication but has had thoughts of SI for 2 weeks. She states she was in the ED a month ago for SI as well. Pt sees mental health counselor on a regular basis. Per triage note Patient states "I want to hurt myself". Patient states she has a specific plan to cut her self using razer blades from [employer] they are sharper, cutting first a t left wrist, then right leg. Patient state she has a history of SI, substance abuse. Deneies any recent attempt to harm self. - History Of Current Complaint Chief Complaint: EDMentalHealth Time Seen by Provider: 05/13/18 15:28 Hx Obtained From: Patient Onset/Duration: Lasting Weeks, Still Present Timing: Constant Severity Initially: Severe Severity Currently: Severe Character: Depressed Related History: Positive For: Prior Psychiatric Issues Has Suicidal: Reports: Thoughts, With A Plan, Demonstrates Gesture - Allergies/Home Medications Allergies/Adverse Reactions: Allergies Allergy/AdvReac Type Severity Reaction Status Date / Time ketamine Allergy Hallucinati Verified 04/12/18 13:44 ons casein AdvReac Nausea And Verified 04/05/18 18:07 Vomiting Milk Containing Products AdvReac Nausea And Verified 04/12/18 13:44 Vomiting PMH/Surg Hx/FS Hx/Imm Hx Endocrine/Hematology History: Denies: Hx Blood Disorders, Hx Diabetes, Hx Anemia, Hx Unexplained Bleeding Cardiovascular History: Denies: Hx Auto Implanted Cardiovert Defib, Hx Cardiac Arrest, Hx Embolism, Hx Hypotension, Hx Hypertension Respiratory History: Reports: Hx Asthma - Bronchial asthma Denies: Hx Chronic Bronchitis, Hx Chronic Obstructive Pulmonary Disease (COPD ), Hx Pneumonia, Hx Pulmonary Embolism, Hx Sleep Apnea GI History: Reports: Hx Gastroesophageal Reflux Disease, Hx Irritable Bowel, Other GI Disorders - reports she has had diarrhea/loose stool "off and on" for 5 yrs. Denies: Hx Crohn's Disease, Hx Diverticulosis History: Denies: Hx Acute Renal Failure, Hx Kidney Stones, Other Problems/Disorders Musculoskeletal History: Reports: Other Musculoskeletal History - osteoarthritis Denies: Hx Arthritis, Hx Osteoporosis, Hx Scoliosis Sensory History: Reports: Hx Contacts or Glasses Denies: Hx Cataracts, Hx Eye Injury, Hx Hearing Aid, Hx Hearing Problem, Other Sensory Impairments Opthamlomology History: Reports: Hx Contacts or Glasses Denies: Hx Cataracts, Hx Eye Injury, Other Sensory Impairments Neurological History: Denies: Hx Migraine, Hx Nerve Disease, Hx Seizures Comment Only: Hx Headaches - Relieved with use of OTCs Psychiatric History: Reports: Hx Anxiety, Hx Depression, Hx Inpatient Treatment , Hx Community Mental Health Tx, Hx Bipolar Disorder, Hx Suicide Attempt, Hx of Violent Episodes Against Others, Hx Substance Abuse - hx of alcoholism/ no etoh intake for the past 10 years, Other Psychiatric Issues/Disorders - Hx SIB Denies: Hx Eating Disorder - Surgical History Surgery Procedure, Year, and Place: n/a Infectious Disease History: No Infectious Disease History: Denies: Traveled Outside the [place] in Last 30 Days - Family History Known Family History: Positive: Hypertension, Other - mood disorder, anxiety, depression, alcohol abuse - Social History Alcohol Use: None Hx Substance Use: No Substance Use Type: Reports: None Hx Tobacco Use: No Smoking Status (MU): Never Smoked Tobacco Amount Used/How Often: states that she tried a cigarette once, over a year ago Length of Time of Smoking/Using Tobacco: n/a Have You Smoked in the Last Year: No Review of Systems Negative: Fever Positive: Depressed, Other - SI All Other Systems Reviewed And Are Negative: Yes Physical Exam - Summary Physical Exam Summary: Appearance: The patient is well-nourished in no acute distress and in no acute pain. Skin: The skin is warm and dry and skin color reflects adequate perfusion. HEENT: The head is normocephalic and atraumatic. The pupils are equal and reactive. The conjunctivae are clear and without drainage. Nares are patent and without drainage. Mouth reveals moist mucous membranes and the throat is without erythema and exudate. The external ears are intact. The ear canals are patent and without drainage. The tympanic membranes are intact. Neck: The neck is supple with full range of motion and non-tender. There are no carotid bruits. There is no neck vein distension. Respiratory: Chest is non-tender. Lungs are clear to auscultation and breath sounds are symmetrical and equal. Cardiovascular: Heart is regular rate and rhythm. There is no murmur or rub auscultated. There is no peripheral edema and pulses are symmetrical and equal. Abdomen: The abdomen is soft and non-tender. There are normal bowel sounds heard in all four quadrants and there is no organomegaly palpated. Musculoskeletal: There is no back tenderness noted. Extremities are non-tender with full range of motion. There is good capillary refill. There is no peripheral edema or calf tenderness elicited. Neurological: Patient is alert and oriented to person, place and time. The patient has symmetrical motor strength in all four extremities. Cranial nerves are grossly intact. Deep tendon reflexes are symmetrical and equal in all four extremities. Psychiatric: depressed affect Triage Information Reviewed: Yes Vital Signs On Initial Exam: Initial Vitals Temp Pulse Resp BP Pulse Ox 96.8 F 94 16 136/84 98 05/13/18 15:21 05/13/18 15:21 05/13/18 15:21 05/13/18 15:21 05/13/18 15:21 Vital Signs Reviewed: Yes Diagnostics - Vital Signs Vital Signs Temp Pulse Resp BP Pulse Ox 05/13/18 15:21 96.8 F 94 16 136/84 98 - Laboratory Result Diagrams: 05/13/18 16:16 05/13/18 16:16 Lab Statement: Any lab studies that have been ordered have been reviewed, and results considered in the medical decision making process. - Radiology ABD Xray Radiology Interpretation Completed By: Radiologist - Foreign body appears to overlie the antrum of the stomach. ED physician has reviewed this radiology report. CXR Radiology Interpretation Completed By: Radiologist - NO ACTIVE CARDIOPULMONARY DISEASE IS NOTED. ED physician has reviewed this radiology report. Re-Evaluation - Re-Evaluation First Eval Re-Evaluation Time: 18:43 Change: Unchanged Comment: Staff has arrived to scope the patient. Course/Dx - Course Course Of Treatment: Ms. Leiva presented to the emergency department for depression and suicidally ideation. While in the triage room she apparently grabbed a plastic tach and swallowed it. KUB showed the tach to be in her stomach and Dr. Mays was contacted for gastroenterology. He came to the emergency department and did an EGD under conscious sedation however by that time it had moved into the duodenum. Her laboratory workup was normal and when she awakens from conscious sedation she will be medically cleared for psychiatric evaluation. It seems likely that she should be admitted and if that is the case she should be followed with serial KUBs. If she complains of abdominal pain or develops fever a surgical consult will be necessary. - Differential Dx/Clinical Impression Provider Diagnosis: Swallowed foreign body, Depressive disorder - Physician Notifications Discussed Care Of Patient With: Hiro Null Time Discussed With Above Provider: 17:10 Instructed by Provider To: Other - He recommended serial KUBS and expectant treatment. He has agreed to come see the patient. - Critical Care Time Critical Care Time: 30-74 min Discharge - Sign-Out/Discharge Documenting (check all that apply): Sign-Out Patient Signing out patient TO: Chester Whitman [facility] - Discharge Plan Referrals: Vania Lopez MD [Primary Care Provider] - - Attestation Statements Document Initiated by Scribe: Yes Documenting Scribe: Pablo Casillas Provider For Whom Lee Ann is Documenting (Include Credential): Thony Ayala MD Scribe Attestation: Pablo Parker , scribed for Thony Ayala MD on 05/13/18 at 1923. Scribe Documentation Reviewed: Yes Provider Attestation: The documentation as recorded by the Pablo patel accurately reflects the service I personally performed and the decisions made by me, hTony Ayala MD
[2018-05-13] MEDS ORDERED: diPHENhydraMINE IV* 50 MG/ML 1 ml VIAL (BENADRYL) IM ONE (15:58)
[2018-05-13] MEDS ORDERED: Haloperidol INJ IV/IM* 5 MG/ML AMP IM ONE (15:58)
[2018-05-13] MEDS ORDERED: LORazepam INJ* 2 MG/ML 1 ML VIAL IM ONE (15:58)
[2018-05-13 16:31] LABS: ABS Basophils 0.1 10^3/ul (0-0.2); ABS Eosinophils 0.3 10^3/ul (0-0.6); ABS Lymphocytes 1.8 10^3/ul (1.0-4.8); ABS Monocytes 0.5 10^3/ul (0-0.8); ABS Neutrophils 4.1 10^3/ul (1.5-7.7); ABS Nucleated RBC 0 10^3/ul; Eosinophil % 3.9 % (0-6); Hematocrit 41 % (35-47); Hemoglobin 14.2 g/dl (12.0-16.0); Mean Corpuscular HGB Conc 34 g/dl (31-36); Mean Corpuscular Hemoglobin 32 pg (27-31); Mean Corpuscular Volume 92 fL (80-97); Mean Platelet Volume 7.5 um3 (7.4-10.4); Nucleated Red Blood Cells % 0.1; Platelet Count 296 10^3/ul (150-450); Red Blood Count 4.49 10^6/ul (4.00-5.40); Red Cell Distribution Width 13 % (10.5-15); White Blood Count 6.9 10^3/ul (3.5-10.8)
--- NOTE | 2018-05-13 16:32 | RAD ---
Indication: Foreign body ingestion Single view of the abdomen demonstrates foreign body noted overlying presumably the antrum of the stomach. Bowel gas pattern is unremarkable. IMPRESSION: Foreign body appears to overlie the antrum of the stomach.
--- NOTE | 2018-05-13 16:32 | RAD ---
Indication: Foreign body ingestion. Single frontal view of the chest performed at 1555 hours was reviewed. Comparison is made with previous exam dated September 07, 2016. No mediastinal shift is noted. Heart is of normal size and configuration. Lung braga appear clear. No foreign body is identified. IMPRESSION: NO ACTIVE CARDIOPULMONARY DISEASE IS NOTED.
[2018-05-13 16:40] LABS: Urine Appearance Clear; Urine Blood Negative (Negative); Urine Color Straw; Urine Ketones Negative (Negative); Urine Protein Negative (Negative); Urine Specific Gravity 1.003 (1.010-1.030); Urine Urobilinogen Negative (Negative)
[2018-05-13 16:47] LABS: EGFR Non-African American 72.5 (>60)
[2018-05-13] MEDS ORDERED: Midazolam* 1 MG/ML 10 ML VIAL (10 MG) ONE (18:33)
[2018-05-13] MEDS ORDERED: fentaNYL* 50 MCG/ML 2 ML VIAL (100 MCG VIAL) ONE (18:33)
[2018-05-13] MEDS ORDERED: diPHENhydraMINE IV* 50 MG/ML 1 ml VIAL (BENADRYL) ONE (18:45)
--- NOTE | 2018-05-13 19:47 | CONSULT ---
Consult Consult: Brief GI EGD Note See full dictation and consult EGD with push to distal duodenum: No foreign body visualized. Likely passed into small bowel. Would recommend daily xray while inpatient to assure passage. If any pain, abdominal discomfort , black or blood in stool would have stat surgical eval. D/W Dr. Ayala. Hiro Null DO 05/13/181944
--- NOTE | 2018-05-13 20:48 | CONS ---
CONSULTATION REPORT: DATE OF CONSULT: 05/13/18. REFERRING PHYSICIAN: Dr. Lee Ayala. REASON FOR CONSULT: Foreign body ingestion tack. HISTORY OF PRESENT ILLNESS: This is a 38-year-old female with a history of borderline personality and depression, who presented for a psychiatric evaluation at the hospital today in the waiting room, she had a tack and swallowed the tack at around 3 p.m. She states she last ate around 12 o'clock with Ramen noodles and has had nothing since. She has had a history of prior foreign body ingestions with removals. She states she had keys and tacks removed in the past. She denies any perforations in the past or surgical history. Denies any dysphagia, odynophagia, constipation, abdominal pain, diarrhea, black or blood in the stool. The remainder of the 12 system of review of systems is grossly negative. PAST MEDICAL HISTORY: Significant for asthma, seasonal allergies, osteoarthritis, IBS. PAST SURGICAL HISTORY: Negative. MEDICATIONS: Prior medications include: 1. Lurasidone. 2. Flonase. 3. Neurontin. 4. Magalia. 5. Sertraline. 6. Zyrtec. 7. Lactobacillus. 8. Vitamin D. ALLERGIES: She has an allergy to CASEIN. FAMILY HISTORY: No colorectal cancer, no inflammatory bowel disease. SOCIAL HISTORY: Prior EtOH abuse. Denies history of tobacco or illicit drugs. REVIEW OF SYSTEMS: The 12-point review of systems is grossly negative except for as described in the HPI. PHYSICAL EXAM: Vital Signs: Blood pressure 115/79, pulse is 74, 95% on room air. In general, alert and oriented, flat affect, reluctant speech. HEENT: Atraumatic, normocephalic. Pupils are equal, round, and reactive to light. Extraocular movements are intact. Conjunctivae are pink. Sclerae are anicteric. Neck is supple. No thyromegaly. Cardiovascular: Regular rate and rhythm. S1 and S2. Respiratory: Clear to auscultation bilaterally. Abdomen is soft, nontender, nondistended. Bowel sounds positive, obese. Extremities: No clubbing, no cyanosis, no edema. Psych: Flat affect, reluctant historian. DIAGNOSTIC STUDIES/LAB DATA: The patient had an abdominal film on 05/13/18 at 1546 that shows a foreign body in the antrum of the stomach presumably the tack. ASSESSMENT AND PLAN: This is a 38-year-old female with a foreign body ingestion. Given the fact that this is a sharper object, we noticed quite small less than a centimeter, we will plan for endoscopic removal emergently. The patient should continue to follow with inpatient psychiatric evaluation after completion of endoscopic procedure. The risks and benefits of the procedure were discussed in detail with the patient. She is agreeable to the procedure and also done under employee emergency consent. [id number]/[facility] #: [id number] CHRISTOPHER
--- NOTE | 2018-05-13 21:22 | PRO ---
CC: Primary care physician, Dr. Lopez * EGD REPORT: DATE OF SERVICE: 05/13/18 - ROOM #211 PROCEDURE PERFORMED: Esophagogastroduodenoscopy. INDICATION FOR PROCEDURE: Foreign body ingestion, intact, confirmed on x-ray. MEDICATIONS GIVEN: Include: 1. IV Benadryl 50 mg. 2. IV fentanyl 100 IV mcg. 3. IV Versed 6 mg. DESCRIPTION OF PROCEDURE: After the EGD procedure including the risks, benefits , not limited to perforation, surgery, and/or were explained to the patient, written consent was then obtained and consent was also witnessed with the nurses with implied emergency consent given. IV medication was given and a bite-block was placed between the teeth. The adult Olympus gastroscope was inserted into the patient's mouth, advanced down the esophagus at the lower esophageal junction. The mucosa was intact without any esophagitis. There was no bleeding, irritation, or trauma to the esophageal body. The scope was advanced through a widely patent lower esophageal junction, the stomach was clear of food and debris. Good visualization of the entire stomach was noted. On retroflexion, the views were normal. On direct visualization of the entire stomach, there was no evidence of the foreign body. The scope was then passed through the widely patent pylorus. The bulb was normal in appearance and the C- loop was also normal in appearance without any trauma. I attempted to push the EGD scope further and did get a little bit further in the small bowel probably to the distal duodenum without any evidence of the foreign body or trauma. The scope was then withdrawn from the patient. The GE junction was at 40 cm. She tolerated the procedure well and recovered in stable condition. IMPRESSION AND PLAN: Normal upper endoscopy without evidence of the foreign body that was identified on the x-ray. RECOMMENDATIONS: At this time, I would have the patient admitted per the psychiatric recommendations. She should have serial x-rays to confirm foreign body passage while she is here and also if there is any abdominal pain, bloating , nausea, black or blood in the stool, the surgical service should be consulted immediately. I discussed this with the emergency room physician, Dr. Ayala who is in agreement with the above assessment and plan. [id number]/[facility] #: [id number] [facility]
--- NOTE | 2018-05-13 22:07 | ED ---
Progress - Progress Note Progress Note: Patient was received as a sign out from Dr. Ayala to Dr. Whitman at 1900. 2100 -- patient was medically cleared for MHE. 2229 -- after MHE was completed, Dr. Alfonso was called for disposition. He did not pickle pumper initially and a message was left. Dr. Alfonso called back ED and wants patient to remain in ED until morning for evaluation by psychiatrist. 2252 -- Dr. Whitman consulted Dr. Alfonso on patient's case directly. After discussing case further, Dr. Alfonso agrees to accept patient for admission to [facility]. 2254 -- patient informed of decision to admit to [facility] for further workup. Re-Evaluation - Re-Evaluation First Eval Re-Evaluation Time: 21:00 Change: Unchanged Comment: Patient medically cleared for MHE. Second Eval Re-Evaluation Time: 22:55 Change: Unchanged Comment: Patient informed of decision to admit to [facility]. She will be continued to be monitored 2:1 for safety. Course/Dx - Course Course Of Treatment: Patient was received as a sign out from Dr. Ayala to Dr. Whitman at 1900. 2100 -- patient was medically cleared for MHE. 2229 -- after MHE was completed, Dr. Alfonso was called for disposition. He did not pickle pumper initially and a message was left. Dr. Alfonso called back ED and wants patient to remain in ED until morning for evaluation by psychiatrist. 2252 -- Dr. Whitman consulted Dr. Alfonso on patient's case directly. After discussing case further, Dr. Alfonso agrees to accept patient for admission to [facility] on 939 status. She was diagnosed with borderline personality disorder. 2254 -- patient informed of decision to admit to [facility] for further workup. Patient will continue to be monitored 2:1 for safety. - Diagnoses Provider Diagnoses: Borderline personality disorder - Provider Notifications Discussed Care Of Patient With: Dany Alfonso Time Discussed With Above Provider: 22:53 Instructed by Provider To: Other - Dr. Whitman discussed patient's case directly with Dr. Alfonso at 2252. He agrees to accept patient for admission to [facility] for further workup on 939 status. Discharge - Sign-Out/Discharge Documenting (check all that apply): Patient Departure - admit - Discharge Plan Condition: Fair Disposition: PSYCHIATRIC FACILITY[place] Referrals: Vania Lopez MD [Primary Care Provider] - - Attestation Statements Document Initiated by Scribe: Yes Documenting Scribe: Patrick Mckeon Provider For Whom Scribe is Documenting (Include Credential): Chester Whitman MD Scribe Attestation: Patrick Parker, scribed for Chester Whitman MD on 05/13/18 at 2313.
[2018-05-13] MEDS ORDERED: LORazepam INJ* 2 MG/ML 1 ML VIAL ONE (22:55)
[2018-05-13] MEDS ORDERED: LORazepam INJ* 2 MG/ML 1 ML VIAL IV PUSH ONE (22:57)
[2018-05-14] MEDS ORDERED: Al Hydrox/Mg Hydrox/Simet LIQ* 30 ML UDC PO PRN (01:17)
[2018-05-14] MEDS: Acetaminophen TAB* 325 MG PO PRN ×3 (07:56→18:11)
[2018-05-14] MEDS: Vitamin THERAPEUTIC TAB PO SCH (09:05)
[2018-05-14] MEDS ORDERED: chlorproMAZINE TAB* 100 MG ONE (10:08)
[2018-05-14] MEDS ORDERED: chlorproMAZINE TAB* 100 MG PO ONE (11:00)
[2018-05-14] MEDS ORDERED: Albuterol HFA INHALER* 8 gm MDI INH PRN (13:48)
[2018-05-14] MEDS ORDERED: Sertraline* 50 MG TAB PO SCH (14:00)
[2018-05-14] MEDS: Gabapentin CAP(*) 300 MG PO SCH ×2 (14:22→20:01)
--- NOTE | 2018-05-14 16:37 | HP ---
PSYCHIATRIC HISTORY AND PHYSICAL: DATE OF ADMISSION: 05/14/18 JUSTIFICATION FOR ADMISSION: The patient is in need of 24-hour supervision and treatment secondary t o strong inclinations to harm herself. CHIEF COMPLAINT: "I won't be safe if I am at home alone." HISTORY OF PRESENT ILLNESS: Fernando is a 38-year-old , homosexual, white female with a history o f extreme self-injurious behaviors and multiple admissions to this hospital for self-harm, who was br ought in by a friend who was concerned that the patient was stating that she was going to hurt hersel f. In our triage area, she described that she had plans to use a razor blade to cut herself and raisa cated that she intended to start on her left wrist first and then move to her right leg. She is well known to us from multiple prior admissions. Historically, her diagnosis includes borderline persona lity disorder along with self-injurious behaviors and a more remote history of substance abuse, altho ugh she has been clean of alcohol dependence for several years now. Fernando denied to us that she had m elisa any recent attempts to hurt herself. While in the emergency department, she was able to take pos session of a push-pin and swallowed it. Due to her inability to maintain behavioral control, she was placed on 2:1 observations and medicated for her safety. She required immediate evaluation by Gastr oenterology and an EGD was performed; however, no foreign object was present in her upper GI tract. When asked about stressors, Fernando indicates that her partner, Mouna, is extremely busy recently buying a toy store and has had less time home, less time to spend together with the patient. Fernando stated t hat she could not maintain her own safety in the outpatient environment. She was discovered this mor kailyn on our unit trying to put a plastic fork in her pocket and this was taken away from her. Sympto matically, she complains of strong urges to harm herself, although they are not necessarily of a suic idal nature. She denies depression or anxiety. PAST PSYCHIATRIC HISTORY: This is quite extensive. There are several old discharge summaries from [facility] unit, at least 20 can be counted, with the most recent being in April 2018 mary r the service of Dr. Hay. She has also been hospitalized at [facility] in [place] as wel l as [facility] in 2008 for 5 months. Her past diagnoses include depression, a nxiety, borderline personality disorder, and dissociative disorder. Her outpatient providers at [facility] are the VARIETY SAW OPERATOR, Susie Roto, and psychiatrist, Dr. Robert Ellis. S he does have multiple previous suicide attempts, having swallowed radio antennas, keys, razor blades, as well as having placed plastic bags over her head in an attempt to asphyxiate herself. She indica radha that she first started cutting herself at the age of 11. PAST MEDICAL HISTORY: Significant for bronchial asthma, seasonal allergies, osteoarthritis, irritabl e bowel syndrome, and mild obesity. CURRENT MEDICATIONS: Include: 1. Lurasidone 160 mg p.o. q.h.s. 2. Flonase 2 sprays to both nares daily. 3. Neurontin 600 mg p.o. b.i.d. 4. [place] carbonate extended release 1200 mg p.o. q.h.s. 5. Sertraline 250 mg p.o. daily. 6. Zyrtec 10 mg p.o. daily. 7. Lactobacillus 1 cap p.o. b.i.d. 8. Vitamin D 2000 units p.o. daily. ALLERGIES: She is allergic to CASEIN and KETAMINE. FAMILY HISTORY: Unremarkable, but she tells that her father may have an undiagnosed personality diso rder. SUBSTANCE ABUSE HISTORY: The patient abused alcohol in the past, but has been clean and sober for ov er 10 years. She denies any recent use of tobacco, illicit drugs, or misuse of medications. SOCIAL HISTORY: The patient was born and raised in [place] and is an only child. Her parents are stil l living and still . She describes a close relationship with her mother and somewhat distant from her father. She is educated with a bachelor's degree in arts at [employer]. 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 Currently, she is in a [id number] rela tionship with her female partner and they have been for the past 3 years. They live together in an apartment in [place]. She describes her partner as very supportive, but frequently busy. 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 She is also receiving disability benefits. REVIEW OF SYSTEMS: The patient denies headache or double vision. She denies chest pain, sore throat , cough, abdominal pain, nausea, vomiting, diarrhea, or constipation. She denies rashes, enlarged ly mph nodes, fevers, or changes in weight. PHYSICAL EXAMINATION VITAL SIGNS: Blood pressure 109/80, heart rate is 98, respiratory rate 14, temperature 99.1 degrees Fahrenheit, oxygen saturations are 98% on room air. HEENT: Head is normocephalic, atraumatic. NECK: Supple. CHEST: Clear to auscultation bilaterally. CARDIAC: Reveals normal heart sounds. ABDOMEN: Soft and nontender. MUSCULOSKELETAL: Reveals a full range of motion with no sign of edema in any of her 4 extremities. NEUROLOGIC: She is grossly intact. SKIN: Reveals evidence of old well-healed scars from cutting to her bilateral upper extremities. MENTAL STATUS EXAM: The patient is a middle-aged white female with short hair and eyeglasses, who i s dressed in a disposable patient scrub. She appears to be somewhat un-groomed having just woken up from bed. She is cooperative, fairly easy to establish a rapport with. Speech has a normal rate, to ne, and volume. Mood appeared to be anxious with an anxious affect. Thought process is linear and g oal directed. Thought content is significant for her desire to harm herself, she is having urges to either cut herself or swallow foreign bodies. She denies homicidal thinking. The patient denies aud itory or visual hallucinations. Insight and judgment appear to be fair given her willingness to come in on a voluntary basis. Cognitively, she is awake and alert with what would appear to be a high ave rage intellect by virtue of her educational attainment and vocabulary. LABORATORY DATA: CBC is within normal limits as is her complete metabolic panel. TSH normal at 4.32. Urinalysis is within normal limits. Urine drug screen is negative for all substances tested includ ing alcohol. DIAGNOSES: [place] I: Unspecified mood disorder. [place] II: Borderline personality disorder. ASSESSMENT: The patient is a 38-year-old, , homosexual white female with a history of very si gnificant borderline personality traits and the associated symptoms, who arrives brought in by a [facility] with strong urges to cut or burn herself. In fact, she did swallow a tack in the emergency room. Given the fact that she has had a long well-established history of acting on these impulses, we do n ot feel safe discharging her back to the community; therefore, she is admitted back to the behavioral health unit where we will try to reach her outpatient providers for further collateral information. PLAN: The patient is admitted to the adult behavioral health unit and her 2:1 observations will be d iscontinued in favor of q.15-minute checks for her own safety. We will continue her on her outpatien t medications as well as p.r.n. Thorazine to resist urges to harm herself. She will be placed on a b ehavioral modification plan wherein there will be consequences behaviorally for any self- harming act ivities. While she is here, she is certainly encouraged to avail herself of all milieu activities in cluding individual and group psychotherapies. When she is safe and no longer at risk of harming herse lf, we will likely be discharging her back to the outpatient environment where she can receive care i n a less restrictive setting. [id number]/[facility] #: [id number]
[2018-05-14] MEDS: Cetirizine* 10 MG TAB PO SCH (20:01)
[2018-05-14] MEDS: Azelastine 0.15% NASAL(NF) 30 ML BTL BOTH NARES SCH (20:02)
[2018-05-14] MEDS: CMC:Lithium Carbonate ER (NF) 300 MG TAB.ER PO SCH (20:02)
[2018-05-14] MEDS: Lurasidone(*) 120 MG TAB PO SCH (20:03)
[2018-05-14] MEDS: Lurasidone(*) 40 MG TAB PO SCH (20:03)
--- NOTE | 2018-05-15 07:34 | RAD ---
INDICATION: Swallowed a thumb tack yesterday. COMPARISON: Correlation is made with a prior KUB film from May 13, 2018. TECHNIQUE: Frontal supine films of the abdomen were obtained. FINDINGS: The small bowel and colon appear nondistended. There is a linear metallic foreign body measuring approximately 1.1 cm in length which projects over the pelvis in the shape of a pin. This is moved distally from the prior study and is likely located within the sigmoid colon less likely distal small bowel. IMPRESSION: THE METALLIC FOREIGN BODY HAS BEEN REMOVED DISTALLY WITHIN THE BOWEL DESCRIBED.
[2018-05-15] MEDS: Cholecalciferol TAB* 1000 UNITS PO SCH (09:45)
[2018-05-15] MEDS: Acetaminophen TAB* 325 MG PO PRN (09:46)
[2018-05-15] MEDS: Gabapentin CAP(*) 300 MG PO SCH ×3 (09:46→20:52)
[2018-05-15] MEDS: Sertraline* 100 MG TAB PO SCH (09:47)
[2018-05-15] MEDS: Vitamin THERAPEUTIC TAB PO SCH (09:49)
[2018-05-15] MEDS: Fluticasone NASAL SPRAY 50MCG* 16 gm SPRAY BTL BOTH NARES SCH (09:50)
[2018-05-15] MEDS: Azelastine 0.15% NASAL(NF) 30 ML BTL BOTH NARES SCH ×2 (09:50→21:35)
[2018-05-15] MEDS: ACIDOPH PARACASEI B LACTIS PO SCH (09:51)
--- NOTE | 2018-05-15 11:43 | PN ---
MHU: Group Therapy Note - Service Type Service Type: [id number] Group Psychotherapy - Cognitive Behavioral Group Therapy ( CBT):Patient was attentive and participatory in CBT programming this morning, and remained in good behavioral control. Patient expressed positive insights regarding relevant treatment interventions and goals.
--- NOTE | 2018-05-15 12:17 | PN ---
Subjective - Subjective Date of Service: 05/15/18 Service Type: [id number] Hosp care 15 min low complexity Subjective: Fernando feels better today. More calm. No urges to self-harm as of yet. 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 Tolerating meds well. Denies SI or HI. Objective - Appearance Appearance: Obese Dysmorphic Features: No Hygiene: Normal Grooming: Well Kept - Behavior Psychomotor Activities: Normal Exhibits Abnormal Movement: No - Attitude and Relatedness Attitude and Relatedness: Cooperative Eye Contact: Good - Speech Quality: Unpressured Latencies: Normal Quantity: Appropriate - Mood Patient's Decription of Mood: "Okay" - Affect Observed Affect: Fair Affect Consistent with: Euthymia - Thought Process Patient's Thought Process: Coherent Thought Content: No Passive Wish, No Suicidal Planning, No Homicidal Ideation, No Paranoid Ideation - Sensorium Experiencing Hallucinations: No, Sensorium is Clear Type of Hallucinations: Visual: No, Auditory: No, Command: No - Level of Consciousness Level of Consciousness: Alert Orientation: Yes Intact, Yes Orientated to Time, Yes Orientated to Place, Yes Orientated to Person - Impulse Control Impulse Control: Tenuous - Insight and Judgement Insight and Judgement: Fair - Group Participation Particating in Group Activities: Yes - Medication Management Medication Management Adherence: Yes Assessment - Assessment Merits Inpatient Hospitalization: For Immediate Safety, For Stabilization Inpatient DSM-V Dx: F32.9 Clinical Impression: 38 y.o. , white, homosexual female with a history of multiple prior psychiatric hospitalizations in the setting of self-mutilation, swallowing foreign objects and self-immolation, returns to the hospital with overwhelming urges to harm herself. Plan - Plan Treatment Plan: Name: FERNANDO HOFFMAN Birthdate: 1980 [id number] The patient's outpatient regimen of lurasidone, sertraline, lithium and gabapentin has been continued. She remains on q15min checks for safety. Continue to treat on the inpatient service. Continued Medication Management: Continue Outpt Medication Medications: Current Medications Acetaminophen (Tylenol Tab*) 650 mg PO Q4H PRN PRN Reason: PAIN or TEMP > 101 F Last Admin: 05/15/18 09:46 Dose: 650 mg Al Hydrox/Mg Hydrox/Simethicone (Maalox Plus*) 30 ml PO Q4H PRN PRN Reason: INDIGESTION Albuterol (Ventolin Hfa Inhaler*) 2 puff INH Q4H PRN PRN Reason: SHORTNESS OF BREATH Azelastine HCl (Astepro 0.15% Nasal (Nf)) 1 spray BOTH NARES BID RENÉE Last Admin: 05/15/18 09:50 Dose: 1 spray Cetirizine HCl (Zyrtec*) 10 mg PO BEDTIME RENÉE Last Admin: 05/14/18 20:01 Dose: 10 mg Cholecalciferol (Vitamin D Tab*) 2,000 units PO DAILY RENÉE Last Admin: 05/15/18 09:45 Dose: 2,000 units Fluticasone Propionate (Flonase Nasal [place] 50mcg*) 1 spray BOTH NARES DAILY RENÉE Last Admin: 05/15/18 09:50 Dose: 1 spray Gabapentin (Neurontin Cap(*)) 600 mg PO TID RENÉE Last Admin: 05/15/18 09:46 Dose: 600 mg [place] Carbonate ([place] Carbonate Er (Nf)) 1,200 mg PO BEDTIME RENÉE; Protocol Last Admin: 05/14/18 20:02 Dose: 1,200 mg Lurasidone HCl (Latuda) 40 mg PO BEDTIME RENÉE Last Admin: 05/14/18 20:03 Dose: 40 mg Lurasidone HCl (Latuda) 120 mg PO BEDTIME RENÉE Last Admin: 05/14/18 20:03 Dose: 120 mg Multivitamins (Theragran Tab*) 1 tab PO DAILY RENÉE Last Admin: 05/15/18 09:49 Dose: Not Given (L.Acidoph,Paracasei , B.Lactis [ Probiotic] 1 Each) 1 each PO DAILY RENÉE Last Admin: 05/15/18 09:51 Dose: Not Given Sertraline HCl (Zoloft*) 250 mg PO DAILY RENÉE Last Admin: 05/15/18 09:47 Dose: 250 mg - Discharge Plan Discharge Plan: Inpatient Hospitalization Lab Results - Lab Results Lab Results: 05/13/18 05/13/18 05/13/18 16:16 16:16 16:16 WBC 6.9 RBC 4.49 Hgb 14.2 Hct 41 MCV 92 MCH 32 H MCHC 34 RDW 13 Plt Count 296 MPV 7.5 Neut % (Auto) 59.9 Lymph % (Auto) 27.0 Howell % (Auto) 8.0 H Eos % (Auto) 3.9 Baso % (Auto) 1.2 Absolute Neuts (auto) 4.1 Absolute Lymphs (auto) 1.8 Absolute Monos (auto) 0.5 Absolute Eos (auto) 0.3 Absolute Basos (auto) 0.1 Absolute Nucleated RBC 0 Nucleated RBC % 0.1 Sodium 137 Potassium 3.8 Chloride 108 Carbon Dioxide 23 Anion Gap 6 BUN 9 Creatinine 0.87 Est GFR ( Amer) 87.7 Est GFR (Non-Af Amer) 72.5 BUN/Creatinine Ratio 10.3 Glucose 89 Calcium 9.2 Total Bilirubin 0.30 AST 17 ALT 17 Alkaline Phosphatase 59 Total Protein 6.2 L Albumin 4.2 Globulin 2.0 Albumin/Globulin Ratio 2.1 TSH 4.32 Beta HCG, Quant < 0.60 Urine Color Straw Urine Appearance Clear Urine pH 6.0 Ur Specific [place] 1.003 L Urine Protein Negative Urine Ketones Negative Urine Blood Negative Urine Nitrate Negative Urine Bilirubin Negative Urine Urobilinogen Negative Ur Leukocyte Esterase Negative Urine Glucose Negative Salicylates < 2.50 Urine Opiates Screen Acetaminophen < 15 Ur Barbiturates Screen Ur Phencyclidine Scrn Ur Amphetamines Screen U Benzodiazepines Scrn Urine Cocaine Screen U Cannabinoids Screen Serum Alcohol < 10 05/13/18 16:18 WBC RBC Hgb Hct MCV MCH MCHC RDW Plt Count MPV Neut % (Auto) Lymph % (Auto) [place] % (Auto) Eos % (Auto) Baso % (Auto) Absolute Neuts (auto) Absolute Lymphs (auto) Absolute Monos (auto) Absolute Eos (auto) Absolute Basos (auto) Absolute Nucleated RBC Nucleated RBC % Sodium Potassium Chloride Carbon Dioxide Anion Gap BUN Creatinine Est GFR ( Amer) Est GFR (Non-Af Amer) BUN/Creatinine Ratio Glucose Calcium Total Bilirubin AST ALT Alkaline Phosphatase Total Protein Albumin Globulin Albumin/Globulin Ratio TSH Beta HCG, Quant Urine Color Urine Appearance Urine pH Ur Specific [place] Urine Protein Urine Ketones Urine Blood Urine Nitrate Urine Bilirubin Urine Urobilinogen Ur Leukocyte Esterase Urine Glucose Salicylates Urine Opiates Screen None detected Acetaminophen Ur Barbiturates Screen None detected Ur Phencyclidine Scrn None detected Ur Amphetamines Screen None detected U Benzodiazepines Scrn None detected Urine Cocaine Screen None detected U Cannabinoids Screen None detected Serum Alcohol
[2018-05-15] MEDS: Cetirizine* 10 MG TAB PO SCH (20:51)
[2018-05-15] MEDS: CMC:Lithium Carbonate ER (NF) 300 MG TAB.ER PO SCH (20:53)
[2018-05-15] MEDS: Lurasidone(*) 40 MG TAB PO SCH (20:53)
[2018-05-15] MEDS: Lurasidone(*) 120 MG TAB PO SCH (20:53)
[2018-05-16] MEDS: Fluticasone NASAL SPRAY 50MCG* 16 gm SPRAY BTL BOTH NARES SCH (09:07)
[2018-05-16] MEDS: Sertraline* 100 MG TAB PO SCH (09:08)
[2018-05-16] MEDS: Gabapentin CAP(*) 300 MG PO SCH ×3 (09:08→19:50)
[2018-05-16] MEDS: Vitamin THERAPEUTIC TAB PO SCH (09:09)
[2018-05-16] MEDS: Cholecalciferol TAB* 1000 UNITS PO SCH (09:09)
[2018-05-16] MEDS: ACIDOPH PARACASEI B LACTIS PO SCH (09:10)
[2018-05-16] MEDS ORDERED: Sertraline* 50 MG TAB PO ONE (11:40)
--- NOTE | 2018-05-16 11:50 | PN ---
Subjective - Subjective Date of Service: 05/16/18 Service Type: 83375 Hosp care 15 min low complexity Subjective: Fernando continues to experience intense compulsions to harm herself, mostly manifesting in urges to swallow foreign objects. She appropriately turned in to staff several plastic utensils and binder rings that she was considering swallowing. She denies SI or depressed mood. She does not feel safe going home. Objective - Appearance Appearance: Obese Dysmorphic Features: No Hygiene: Normal Grooming: Fairly Well Kept - Behavior Psychomotor Activities: Normal Exhibits Abnormal Movement: No - Attitude and Relatedness Attitude and Relatedness: Cooperative Eye Contact: Good - Speech Quality: Unpressured Latencies: Normal Quantity: Appropriate - Mood Patient's Decription of Mood: "Anxious" - Affect Observed Affect: Fair Affect Consistent with: Euthymia - Thought Process Patient's Thought Process: Coherent Thought Content: No Passive Wish, No Suicidal Planning, No Homicidal Ideation, No Paranoid Ideation - Sensorium Experiencing Hallucinations: No, Sensorium is Clear Type of Hallucinations: Visual: No, Auditory: No, Command: No - Level of Consciousness Level of Consciousness: Alert Orientation: Yes Intact, Yes Orientated to Time, Yes Orientated to Place, Yes Orientated to Person - Impulse Control Impulse Control: Tenuous - Insight and Judgement Insight and Judgement: Fair - Group Participation Particating in Group Activities: Yes - Medication Management Medication Management Adherence: Yes Assessment - Assessment Merits Inpatient Hospitalization: For Immediate Safety, For Stabilization Inpatient DSM-V Dx: F32.9 Clinical Impression: 38 y.o. , white, homosexual female with a history of multiple prior psychiatric hospitalizations in the setting of self-mutilation, swallowing foreign objects and self-immolation, returns to the hospital with overwhelming urges to harm herself. Plan - Plan Treatment Plan: Name: FERNANDO HOFFMAN Birthdate: 1980 [id number] The patient's outpatient regimen of lurasidone, sertraline, lithium and gabapentin has been continued. There appears to be a strong OCD component to her urges to self-harm. We discussed going above current high dosage of sertraline and there is some support for this in the literature. We will increase sertraline from 250 to 300mg daily. She remains on q15min checks for safety. Continue to treat on the inpatient service. Continued Medication Management: Continue Outpt Medication Medications: Current Medications Acetaminophen (Tylenol Tab*) 650 mg PO Q4H PRN PRN Reason: PAIN or TEMP > 101 F Last Admin: 05/15/18 09:46 Dose: 650 mg Al Hydrox/Mg Hydrox/Simethicone (Maalox Plus*) 30 ml PO Q4H PRN PRN Reason: INDIGESTION Albuterol (Ventolin Hfa Inhaler*) 2 puff INH Q4H PRN PRN Reason: SHORTNESS OF BREATH Azelastine HCl (Astepro 0.15% Nasal (Nf)) 1 spray BOTH NARES BID [facility] Last Admin: 05/15/18 21:35 Dose: Not Given Cetirizine HCl (Zyrtec*) 10 mg PO BEDTIME RENÉE Last Admin: 05/15/18 20:51 Dose: 10 mg Cholecalciferol (Vitamin D Tab*) 2,000 units PO DAILY RENÉE Last Admin: 05/16/18 09:09 Dose: 2,000 units Fluticasone Propionate (Flonase Nasal [place] 50mcg*) 1 spray BOTH NARES DAILY RENÉE Last Admin: 05/16/18 09:07 Dose: 1 spray Gabapentin (Neurontin Cap(*)) 600 mg PO TID RENÉE Last Admin: 05/16/18 09:08 Dose: 600 mg [place] Carbonate ([place] Carbonate Er (Nf)) 1,200 mg PO BEDTIME RENÉE; Protocol Last Admin: 05/15/18 20:53 Dose: 1,200 mg Lurasidone HCl (Latuda) 40 mg PO BEDTIME RENÉE Last Admin: 05/15/18 20:53 Dose: 40 mg Lurasidone HCl (Latuda) 120 mg PO BEDTIME RENÉE Last Admin: 05/15/18 20:53 Dose: 120 mg Multivitamins (Theragran Tab*) 1 tab PO DAILY RENÉE Last Admin: 05/16/18 09:09 Dose: 1 tab (L.Acidoph,Paracasei , B.Lactis [ Probiotic] 1 Each) 1 each PO DAILY RENÉE Last Admin: 05/16/18 09:10 Dose: Not Given Sertraline HCl (Zoloft*) 300 mg PO DAILY RENÉE - Discharge Plan Discharge Plan: Inpatient Hospitalization
[2018-05-16] MEDS: Azelastine 0.15% NASAL(NF) 30 ML BTL BOTH NARES SCH ×2 (14:19→19:52)
--- NOTE | 2018-05-16 15:38 | RAD ---
Indication: Foreign body progression Flat plate of the abdomen demonstrates no evidence of radiopaque foreign body. Previously identified radiopaque foreign body in the pelvis is no longer present. IMPRESSION: Radiopaque foreign body is not identified.
--- NOTE | 2018-05-16 17:38 | PN ---
MHU: Group Therapy Note - Service Type Service Type: [id number] Group Psychotherapy - Group Participation Patient Participating in Group: Yes Level of Group Participation: Attentive, Spontaneously Participate Relatedness to Group: Well Related - Medication Education Group: Patient was attentive and participatory in group, and remained in good behavioral control. Patient expressed positive insights regarding relevant treatment interventions. Patient stated understanding of material discussed and had appropriate questions.
[2018-05-16] MEDS: Cetirizine* 10 MG TAB PO SCH (19:50)
[2018-05-16] MEDS: Lurasidone(*) 120 MG TAB PO SCH (19:50)
[2018-05-16] MEDS: CMC:Lithium Carbonate ER (NF) 300 MG TAB.ER PO SCH (19:50)
[2018-05-16] MEDS: Lurasidone(*) 40 MG TAB PO SCH (19:50)
[2018-05-16] MEDS: Acetaminophen TAB* 325 MG PO PRN (21:52)
[2018-05-17] MEDS: Cholecalciferol TAB* 1000 UNITS PO SCH (09:09)
[2018-05-17] MEDS: Fluticasone NASAL SPRAY 50MCG* 16 gm SPRAY BTL BOTH NARES SCH (09:09)
[2018-05-17] MEDS: Gabapentin CAP(*) 300 MG PO SCH ×3 (09:09→19:52)
[2018-05-17] MEDS: Sertraline* 100 MG TAB PO SCH (09:10)
[2018-05-17] MEDS: Acetaminophen TAB* 325 MG PO PRN ×3 (09:12→21:37)
[2018-05-17] MEDS: Vitamin THERAPEUTIC TAB PO SCH (09:12)
[2018-05-17] MEDS: Azelastine 0.15% NASAL(NF) 30 ML BTL BOTH NARES SCH ×2 (09:35→19:55)
[2018-05-17] MEDS: ACIDOPH PARACASEI B LACTIS PO SCH (09:35)
--- NOTE | 2018-05-17 12:43 | PN ---
Subjective - Subjective Date of Service: 05/17/18 Service Type: [id number] Hosp care 15 min low complexity Subjective: Fernando continues to experience urges to swallow items and cut herself. She is tolerating the increase in sertaline well and this is the second day she's received 300mg. She denies formal SI and states that she hasn't been depressed in years. She is cooperative with milieu expectations and alerting staff appropriately when she's having specific compulsions to self-harm on the unit. We have been withholding her CPAP machine, as it has small, detachable pieces that could be swallowed. Objective - Appearance Appearance: Well Developed/Nourished, Obese Dysmorphic Features: No Hygiene: Normal Grooming: Well Kept - Behavior Psychomotor Activities: Normal Exhibits Abnormal Movement: No - Attitude and Relatedness Attitude and Relatedness: Cooperative Eye Contact: Good - Speech Quality: Unpressured Latencies: Normal Quantity: Appropriate - Mood Patient's Decription of Mood: "Okay" - Affect Observed Affect: Good Affect Consistent with: Euthymia - Thought Process Patient's Thought Process: Coherent Thought Content: No Passive Wish, No Suicidal Planning, No Homicidal Ideation, No Paranoid Ideation - Sensorium Experiencing Hallucinations: No, Sensorium is Clear Type of Hallucinations: Visual: No, Auditory: No, Command: No - Level of Consciousness Level of Consciousness: Alert Orientation: Yes Intact, Yes Orientated to Time, Yes Orientated to Place, Yes Orientated to Person - Impulse Control Impulse Control: Tenuous - Insight and Judgement Insight and Judgement: Fair - Group Participation Particating in Group Activities: Yes - Medication Management Medication Management Adherence: Yes Assessment - Assessment Merits Inpatient Hospitalization: For Immediate Safety, For Stabilization Inpatient DSM-V Dx: F32.9 Clinical Impression: 38 y.o. , white, homosexual female with a history of multiple prior psychiatric hospitalizations in the setting of self-mutilation, swallowing foreign objects and self-immolation, returns to the hospital with overwhelming urges to harm herself. Plan - Plan Treatment Plan: Name: FERNANDO HOFFMAN Birthdate: 1980 [id number] The patient's outpatient regimen of lurasidone, sertraline, lithium and gabapentin has been continued. There appears to be a strong OCD component to her urges to self-harm and we have increased sertraline from 250 to 300mg daily. She remains on q15min checks for safety. Continue to treat on the inpatient service. Continued Medication Management: Continue Outpt Medication Medications: Current Medications Acetaminophen (Tylenol Tab*) 650 mg PO Q4H PRN PRN Reason: PAIN or TEMP > 101 F Last Admin: 05/17/18 09:12 Dose: 650 mg Al Hydrox/Mg Hydrox/Simethicone (Maalox Plus*) 30 ml PO Q4H PRN PRN Reason: INDIGESTION Albuterol (Ventolin Hfa Inhaler*) 2 puff INH Q4H PRN PRN Reason: SHORTNESS OF BREATH Azelastine HCl (Astepro 0.15% Nasal (Nf)) 1 spray BOTH NARES BID RENÉE Last Admin: 05/17/18 09:35 Dose: Not Given Cetirizine HCl (Zyrtec*) 10 mg PO BEDTIME RENÉE Last Admin: 05/16/18 19:50 Dose: 10 mg Cholecalciferol (Vitamin D Tab*) 2,000 units PO DAILY RENÉE Last Admin: 05/17/18 09:09 Dose: 2,000 units Fluticasone Propionate (Flonase Nasal [place] 50mcg*) 1 spray BOTH NARES DAILY RENÉE Last Admin: 05/17/18 09:09 Dose: 1 spray Gabapentin (Neurontin Cap(*)) 600 mg PO TID RENÉE Last Admin: 05/17/18 09:09 Dose: 600 mg [place] Carbonate ([place] Carbonate Er (Nf)) 1,200 mg PO BEDTIME RENÉE; Protocol Last Admin: 05/16/18 19:50 Dose: 1,200 mg Lurasidone HCl (Latuda) 40 mg PO BEDTIME RENÉE Last Admin: 05/16/18 19:50 Dose: 40 mg Lurasidone HCl (Latuda) 120 mg PO BEDTIME RENÉE Last Admin: 05/16/18 19:50 Dose: 120 mg Multivitamins (Theragran Tab*) 1 tab PO DAILY RENÉE Last Admin: 05/17/18 09:12 Dose: 1 tab (L.Acidoph,Paracasei , B.Lactis [ Probiotic] 1 Each) 1 each PO DAILY RENÉE Last Admin: 05/17/18 09:35 Dose: Not Given Sertraline HCl (Zoloft*) 300 mg PO DAILY RENÉE Last Admin: 05/17/18 09:10 Dose: 300 mg - Discharge Plan Discharge Plan: Inpatient Hospitalization
[2018-05-17] MEDS ORDERED: Loperamide CAP* 2 MG ONE (13:24)
[2018-05-17] MEDS ORDERED: Loperamide CAP* 2 MG PO PRN (13:32)
--- NOTE | 2018-05-17 13:55 | PN ---
MHU: Group Therapy Note - Service Type Service Type: 63625 Group Psychotherapy - Cognitive Behavioral Group Therapy ( CBT):Patient was attentive and participatory in CBT programming this morning, and remained in good behavioral control. Patient expressed positive insights regarding relevant treatment interventions and goals.
[2018-05-17] MEDS: Cetirizine* 10 MG TAB PO SCH (19:52)
[2018-05-17] MEDS: CMC:Lithium Carbonate ER (NF) 300 MG TAB.ER PO SCH (19:53)
[2018-05-17] MEDS: Lurasidone(*) 120 MG TAB PO SCH (19:53)
[2018-05-17] MEDS: Lurasidone(*) 40 MG TAB PO SCH (19:53)
[2018-05-18] MEDS: Azelastine 0.15% NASAL(NF) 30 ML BTL BOTH NARES SCH ×2 (09:28→21:49)
[2018-05-18] MEDS: Fluticasone NASAL SPRAY 50MCG* 16 gm SPRAY BTL BOTH NARES SCH (09:28)
[2018-05-18] MEDS: ACIDOPH PARACASEI B LACTIS PO SCH (09:29)
[2018-05-18] MEDS: Vitamin THERAPEUTIC TAB PO SCH (09:29)
[2018-05-18] MEDS: Sertraline* 100 MG TAB PO SCH (09:29)
[2018-05-18] MEDS: Gabapentin CAP(*) 300 MG PO SCH ×3 (09:30→21:47)
[2018-05-18] MEDS: Cholecalciferol TAB* 1000 UNITS PO SCH (09:30)
--- NOTE | 2018-05-18 14:34 | PN ---
Subjective - Subjective Date of Service: 05/18/18 Service Type: [id number] Hosp care 15 min low complexity Subjective: Fernando states that she is having a good day and currently denies thoughts of self harm. She becomes tearful and ashamed when confronted about her behavior on the unit last night, in which she is documented as having thrown her dinner tray down on the ground and breaking it in half when her diet soda did not arrive with her meal. She requests continued inpatient care through the weekend and would like to [facility] next Monday for discharge. She continues to deny SI. Objective - Appearance Appearance: Obese Dysmorphic Features: No Hygiene: Normal Grooming: Well Kept - Behavior Psychomotor Activities: Normal Exhibits Abnormal Movement: No - Attitude and Relatedness Attitude and Relatedness: Cooperative Eye Contact: Good - Speech Quality: Unpressured Latencies: Normal Quantity: Appropriate - Mood Patient's Decription of Mood: "Good" - Affect Observed Affect: Good Affect Consistent with: Euthymia - Thought Process Patient's Thought Process: Coherent Thought Content: No Passive Wish, No Suicidal Planning, No Homicidal Ideation, No Paranoid Ideation - Sensorium Experiencing Hallucinations: No, Sensorium is Clear Type of Hallucinations: Visual: No, Auditory: No, Command: No - Level of Consciousness Level of Consciousness: Alert Orientation: Yes Intact, Yes Orientated to Time, Yes Orientated to Place, Yes Orientated to Person - Impulse Control Impulse Control: Poor - Insight and Judgement Insight and Judgement: Impaired - Group Participation Particating in Group Activities: Yes - Medication Management Medication Management Adherence: Yes Assessment - Assessment Merits Inpatient Hospitalization: Consolidate Improvements, Pending Safe DC Plan Inpatient DSM-V Dx: F32.9 Clinical Impression: 38 y.o. , white, homosexual female with a history of multiple prior psychiatric hospitalizations in the setting of self-mutilation, swallowing foreign objects and self-immolation, returns to the hospital with overwhelming urges to harm herself. Plan - Plan Treatment Plan: Name: FERNANDO HOFFMAN Birthdate: 1980 [id number] The patient's outpatient regimen of lurasidone, sertraline, lithium and gabapentin has been continued. There appears to be a strong OCD component to her urges to self-harm and we have increased sertraline from 250 to 300mg daily. She remains on q15min checks for safety. Continue to treat on the inpatient service. [facility] Monday, May 21, for discharge. Continued Medication Management: Continue Outpt Medication Medications: Current Medications Acetaminophen (Tylenol Tab*) 650 mg PO Q4H PRN PRN Reason: PAIN or TEMP > 101 F Last Admin: 05/17/18 21:37 Dose: 650 mg Al Hydrox/Mg Hydrox/Simethicone (Maalox Plus*) 30 ml PO Q4H PRN PRN Reason: INDIGESTION Albuterol (Ventolin Hfa Inhaler*) 2 puff INH Q4H PRN PRN Reason: SHORTNESS OF BREATH Azelastine HCl (Astepro 0.15% Nasal (Nf)) 1 spray BOTH NARES BID [facility] Last Admin: 05/18/18 09:28 Dose: Not Given Cetirizine HCl (Zyrtec*) 10 mg PO BEDTIME RENÉE Last Admin: 05/17/18 19:52 Dose: 10 mg Cholecalciferol (Vitamin D Tab*) 2,000 units PO DAILY RENÉE Last Admin: 05/18/18 09:30 Dose: 2,000 units Fluticasone Propionate (Flonase Nasal [place] 50mcg*) 1 spray BOTH NARES DAILY RENÉE Last Admin: 05/18/18 09:28 Dose: 1 spray Gabapentin (Neurontin Cap(*)) 600 mg PO TID RENÉE Last Admin: 05/18/18 09:30 Dose: 600 mg [place] Carbonate ([place] Carbonate Er (Nf)) 1,200 mg PO BEDTIME RENÉE; Protocol Last Admin: 05/17/18 19:53 Dose: 1,200 mg Loperamide HCl (Imodium Cap*) 2 mg PO BID PRN PRN Reason: DIARRHEA Lurasidone HCl (Latuda) 40 mg PO BEDTIME RENÉE Last Admin: 05/17/18 19:53 Dose: 40 mg Lurasidone HCl (Latuda) 120 mg PO BEDTIME RENÉE Last Admin: 05/17/18 19:53 Dose: 120 mg Multivitamins (Theragran Tab*) 1 tab PO DAILY RENÉE Last Admin: 05/18/18 09:29 Dose: 1 tab (L.Acidoph,Paracasei , B.Lactis [ Probiotic] 1 Each) 1 each PO DAILY RENÉE Last Admin: 05/18/18 09:29 Dose: Not Given Sertraline HCl (Zoloft*) 300 mg PO DAILY RENÉE Last Admin: 05/18/18 09:29 Dose: 300 mg - Discharge Plan Discharge Plan: Inpatient Hospitalization
[2018-05-18] MEDS: Acetaminophen TAB* 325 MG PO PRN (15:40)
[2018-05-18] MEDS: Cetirizine* 10 MG TAB PO SCH (21:48)
[2018-05-18] MEDS: CMC:Lithium Carbonate ER (NF) 300 MG TAB.ER PO SCH (21:48)
[2018-05-18] MEDS: Lurasidone(*) 120 MG TAB PO SCH (21:48)
[2018-05-18] MEDS: Lurasidone(*) 40 MG TAB PO SCH (21:48)
[2018-05-19] MEDS: Cholecalciferol TAB* 1000 UNITS PO SCH (09:13)
[2018-05-19] MEDS: Gabapentin CAP(*) 300 MG PO SCH ×3 (09:13→21:36)
[2018-05-19] MEDS: Fluticasone NASAL SPRAY 50MCG* 16 gm SPRAY BTL BOTH NARES SCH (09:13)
[2018-05-19] MEDS: Sertraline* 100 MG TAB PO SCH (09:13)
[2018-05-19] MEDS: Vitamin THERAPEUTIC TAB PO SCH (09:13)
[2018-05-19] MEDS: ACIDOPH PARACASEI B LACTIS PO SCH (09:14)
[2018-05-19] MEDS: Azelastine 0.15% NASAL(NF) 30 ML BTL BOTH NARES SCH ×2 (09:14→21:39)
[2018-05-19] MEDS: Lurasidone(*) 120 MG TAB PO SCH (21:38)
[2018-05-19] MEDS: CMC:Lithium Carbonate ER (NF) 300 MG TAB.ER PO SCH (21:38)
[2018-05-19] MEDS: Cetirizine* 10 MG TAB PO SCH (21:38)
[2018-05-19] MEDS: Lurasidone(*) 40 MG TAB PO SCH (21:38)
[2018-05-20 08:24] VITALS: BP 124/76
[2018-05-20] MEDS: Sertraline* 100 MG TAB PO SCH (08:57)
[2018-05-20] MEDS: Vitamin THERAPEUTIC TAB PO SCH (08:57)
[2018-05-20] MEDS: Cholecalciferol TAB* 1000 UNITS PO SCH (08:57)
[2018-05-20] MEDS: Acetaminophen TAB* 325 MG PO PRN (08:58)
[2018-05-20] MEDS: Gabapentin CAP(*) 300 MG PO SCH ×3 (08:58→22:11)
[2018-05-20] MEDS: Fluticasone NASAL SPRAY 50MCG* 16 gm SPRAY BTL BOTH NARES SCH (08:59)
[2018-05-20] MEDS: ACIDOPH PARACASEI B LACTIS PO SCH (09:00)
[2018-05-20] MEDS: Azelastine 0.15% NASAL(NF) 30 ML BTL BOTH NARES SCH ×2 (09:00→22:18)
[2018-05-20] MEDS: Cetirizine* 10 MG TAB PO SCH (22:10)
[2018-05-20] MEDS: CMC:Lithium Carbonate ER (NF) 300 MG TAB.ER PO SCH (22:11)
[2018-05-20] MEDS: Lurasidone(*) 120 MG TAB PO SCH (22:12)
[2018-05-20] MEDS: Lurasidone(*) 40 MG TAB PO SCH (22:12)
[2018-05-21] MEDS ORDERED: Lactobacillus Acidophilus* 1 TAB PO SCH (09:00)
[2018-05-21] MEDS: Fluticasone NASAL SPRAY 50MCG* 16 gm SPRAY BTL BOTH NARES SCH (09:07)
[2018-05-21] MEDS: Gabapentin CAP(*) 300 MG PO SCH (09:07)
[2018-05-21] MEDS: Sertraline* 100 MG TAB PO SCH (09:08)
[2018-05-21] MEDS: Vitamin THERAPEUTIC TAB PO SCH (09:08)
[2018-05-21] MEDS: Cholecalciferol TAB* 1000 UNITS PO SCH (09:08)
[2018-05-21] MEDS: Azelastine 0.15% NASAL(NF) 30 ML BTL BOTH NARES SCH (09:46)
--- NOTE | 2018-05-22 05:49 | DS ---
DISCHARGE SUMMARY: DATE OF ADMISSION: 05/14/18 DATE OF DISCHARGE: 05/21/18 DISCHARGE DIAGNOSES: As follows: Fischer I: Unspecified impulse control disorder. Fischer II: Borderline personality disorder. CONDITION AT THE TIME OF DISCHARGE: Improved. The patient is no longer endorsing thoughts of cuttin g herself, choking herself, or swallowing foreign objects. She states that her stress level is reduc ed. She is getting along well with her spouse, and is appropriately requesting discharge in order to continue receiving treatment in less restrictive setting. The patient is tolerating her medications quite well including the increase in her sertraline, which we initiated here during this hospitalizat ion. She has been safe on all checks. Social, going to groups, going outside on fresh air breaks. The patient is agreeable with receiving care at the [facility] for followup treatment. MENTAL STATUS EXAM: At the time of discharge, the patient is a middle-aged white female with short h air and eye glasses who is dressed in blue sweatpants and a blue [employer] T-shirt. She appears to hav e good grooming. She is cooperative, easy to establish a rapport with, makes good eye contact. Odin montaño has a normal rate, tone, and volume. Mood is euthymic with a full affect. Thought process is ya ear and goal-directed. Thought content is significant for her desire to be [facility]. She denies suicidal or homicidal ideation. She denies thoughts or plans of harming herself. S he denies auditory or visual installations. Insight and judgment appear to be fair given her willing ness to follow up in the outpatient setting. Cognitively, she is awake and alert with what would dottie ear to be a high average intellect by virtue of her educational attainment and vocabulary. LABORATORY STUDIES: The patient's most recent metabolic testing results were from her [facility] on 04/09/18. At that time, hemoglobin A1c was 4.2%, triglycerides 138, cholesterol 135, LDL choles terol 64, HDL cholesterol 43.7. DISCHARGE INSTRUCTIONS: To the patient are as follows: A. Medications: The patient takes Latuda 160 mg p.o. q.h.s., [place] carbonate extended-release 120 0 mg p.o. q.h.s., Xyzal 5 mg p.o. q.h.s., lactobacillus 1 tablet p.o. daily, gabapentin 600 mg t.i.d. , Flonase 1 spray to both nares daily, Vitamin D 2000 units p.o. daily, Astepro 0.15% nasal spray 1 s pray to both nares b.i.d., Ventolin 2 puffs inhaled every 4 hours as needed for wheezing, Zoloft 300 mg p.o. daily. B. Diet is regular. C. Activities as tolerated. The patient is a nonsmoker. There are no laboratory or diagnostic stud ies pending at the time of discharge. D. Followup care. The patient will follow up tomorrow 05/22/18 at the [facility] where she attends the PR[facility] program. She will also follow up with Dr. Robert Ellis within 1 week of discharge. She will also follow up with her individual therapist Maria Isabel Root within 1 week of discharge. E. Substance abuse followup is nonapplicable. HOSPITAL COURSE - PART A: Reason for admission. The patient is a 38-year-old homosexual christina calzada female with a history of extreme self injurious behaviors and multiple admissions to this hospital for self harm who was brought in by a friend who was concerned that the patient was stating that she was going to hurt herself. In our triage area she described that she had plans to use a razor blade to cut herself and indicated that she intended to start on her left wrist and then moved to her right leg. She is well known to us from multiple prior admissions. Historically her diagnosis includes b orderline personality disorder, along with self injurious behaviors and a more remote history of subs tance abuse, although she has been clean of alcohol for several years now. Fernando denied to us that ashley calzada had made any recent attempts to hurt herself, however, while she was in the emergency department ahsley calzada was able to take possession of a pushpin and swallowed it due to her inability to maintain behavior al control she was placed on 2:1 observation status and medicated for her own safety. She did requir e immediate evaluation by gastroenterology and an EGD was performed; however, no foreign object was p resent in her upper GI tract. When asked about stressors Fernando indicates that her partner, Mouna, is extremely busy recently buying a toy store and has had less time home, less time to spend together wi th the patient. Fernando stated that she could not maintain her own safety in the outpatient environment . She was discovered this morning on our unit trying to put a plastic fork in her pocket and this wa s taken away from her. Symptomatically, she complains of strong urges to harm herself, although they are not necessarily of a suicidal nature. She denies depression or anxiety. HOSPITAL COURSE - PART B: Psychiatric treatment rendered: The patient was admitted to the [facility] unit where she was placed on q.15 minute checks for her own safety. There were times w here she would be caught hiding plastic utensils and these would need to be taken away from her. Pro gressively Fernando did a better job of alerting staff when she was having thoughts to self-harm and she would often bring us things such as pencils, plastic spoons, and the spiral binders from her notebook in order to prevent herself from self harming. The patient's medications were resumed as they are c urrently prescribed on the outpatient basis. We did make one slight adjustment in that we increased her sertraline from 250 to 300 mg daily. The thought for this was that her impulses to self-harm see med to be similar to the compulsions of someone with obsessive compulsive disorder, it is well known in that literature that higher doses of serotonergic medications such as sertraline tend to be more h elpful. The patient tolerated the increase in her sertraline quite well, although it is too early to see whether it was of much benefit to her clinically, although the patient acted out at times such a s throwing a tantrum when she did not get diet soda with her meal. These behaviors improved and at t his time, we feel that she can be safely treated on an outpatient basis. Her spouse is agreeable wit h the discharge plan and is quite supportive of the patient. [id number]/[facility] #: [id number]
== END 2018-05-21 14:18 | disposition home or self-care (01) | DRG 886 ==
LOC: ED 15:18 → BSU 05-14 00:31
PROVIDERS: ADMIT Psychiatry & Neurology Psychiatry; ATTEND Psychiatry & Neurology Psychiatry
PROC: 0DJ08ZZ Inspection of Upper Intestinal Tract, Via Natural or Artificial Opening Endoscopic (ICD-10-PCS; principal; 2018-05-13)
PROC: GZHZZZZ Group Psychotherapy (ICD-10-PCS; 2018-05-13)
DX: F63.9 Impulse disorder, unspecified (principal); R45.851 Suicidal ideations; J45.909 Unspecified asthma, uncomplicated; K21.9 Gastro-esophageal reflux disease without esophagitis; K58.0 Irritable bowel syndrome with diarrhea; M19.90 Unspecified osteoarthritis, unspecified site; F41.9 Anxiety disorder, unspecified; X58.XXXA Exposure to other specified factors, initial encounter; Z91.5 Personal history of self-harm; T18.9XXA Foreign body of alimentary tract, part unspecified, initial encounter; Y92.238 Other place in hospital as the place of occurrence of the external cause; F44.9 Dissociative and conversion disorder, unspecified; F31.9 Bipolar disorder, unspecified; F60.3 Borderline personality disorder; F42.9 Obsessive-compulsive disorder, unspecified; E66.9 Obesity, unspecified; Z88.8 Allergy status to other drugs, medicaments and biological substances; Z91.011 Allergy to milk products; Z82.49 Family history of ischemic heart disease and other diseases of the circulatory system; Z81.1 Family history of alcohol abuse and dependence; Z81.8 Family history of other mental and behavioral disorders; Z87.891 Personal history of nicotine dependence; Z68.35 Body mass index [BMI] 35.0-35.9, adult
CPT/HCPCS: 36415; 71045; 74018; 80053; 80307; 80320; 80329; 81003; 84443; 84702; 85025; 90853; 99156; 99222; 99231; 99283; A9270-GY; G0480; J1200; J1630; J2060; J2250; J3010

== ENCOUNTER 2018-06-07 18:42 | Emergency (ER) | payer MEDICARE, MEDICAID ==
[2018-06-07] MEDS ORDERED: LORazepam TAB(*) 1 MG PO ONE (19:08)
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
[2018-06-07] MEDS ORDERED: diPHENhydraMINE IV* 50 MG/ML 1 ml VIAL (BENADRYL) IM ONE (19:19)
[2018-06-07] MEDS ORDERED: Haloperidol INJ IV/IM* 5 MG/ML AMP IM ONE (19:20)
[2018-06-07] MEDS ORDERED: LORazepam INJ* 2 MG/ML 1 ML VIAL ONE (19:20)
[2018-06-07] MEDS ORDERED: LORazepam INJ* 2 MG/ML 1 ML VIAL IM ONE (19:20)
[2018-06-07] MEDS ORDERED: Haloperidol INJ IV/IM* 5 MG/ML AMP ONE (19:20)
[2018-06-07] MEDS ORDERED: diPHENhydraMINE IV* 50 MG/ML 1 ml VIAL (BENADRYL) ONE (19:20)
[2018-06-07 19:53] LABS: Urine Appearance Clear; Urine Blood Negative (Negative); Urine Color Yellow; Urine Ketones Negative (Negative); Urine Protein Negative (Negative); Urine Specific Gravity 1.008 (1.010-1.030); Urine Urobilinogen Negative (Negative)
[2018-06-07 20:13] LABS: ABS Basophils 0.1 10^3/ul (0-0.2); ABS Eosinophils 0.2 10^3/ul (0-0.6); ABS Lymphocytes 1.7 10^3/ul (1.0-4.8); ABS Monocytes 0.5 10^3/ul (0-0.8); ABS Neutrophils 3.3 10^3/ul (1.5-7.7); ABS Nucleated RBC 0 10^3/ul; Eosinophil % 2.9 % (0-6); Hematocrit 41 % (35-47); Hemoglobin 14.1 g/dl (12.0-16.0); Lymphocyte % 30.3 % (25-47); Mean Corpuscular HGB Conc 34 g/dl (31-36); Mean Corpuscular Hemoglobin 32 pg (27-31); Mean Corpuscular Volume 92 fL (80-97); Mean Platelet Volume 7.5 um3 (7.4-10.4); Nucleated Red Blood Cells % 0.1; Platelet Count 255 10^3/ul (150-450); Red Blood Count 4.48 10^6/ul (4.00-5.40); Red Cell Distribution Width 14 % (10.5-15); White Blood Count 5.8 10^3/ul (3.5-10.8)
[2018-06-07 20:35] LABS: EGFR Non-African American 65.5 (>60)
[2018-06-07 20:57] LABS: Lithium 0.64 mmol/L (0.6-1.2)
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
[2018-06-08] MEDS ORDERED: Lurasidone(*) 80 MG TAB PO ONE (00:12)
[2018-06-08] MEDS ORDERED: Lithium Carbonate TAB* 300 MG PO ONE (00:13)
[2018-06-08] MEDS ORDERED: Gabapentin CAP(*) 300 MG PO ONE ×2 (00:17→11:37)
[2018-06-08] MEDS ORDERED: Acetaminophen TAB* 325 MG PO ONE (08:33)
[2018-06-08] MEDS ORDERED: Sertraline* 100 MG TAB PO ONE (11:35)
--- NOTE | 2018-06-08 11:35 | ED ---
Progress - Progress Note Progress Note: This pt was not a sign out. This pt had already been admitted [place] [facility]. Per weave room supervisor there are no beds available at [facility] and will need to be transfer to another psychiatric facility. At 11:33 pt was given her morning medications. At 12:00 pt began to pick and dig into her arm in intent to harm herself. Pt also tried to run off but was stopped by the 1:1 observer. Benadryl was ordered and given to pt. At 14:[address] Valdez, psychiatrist from [facility]. Dr. Valdez accepted the pt for transfer to [facility] with diagnosis of mod disorder NOS. Re-Evaluation - Re-Evaluation First Eval Re-Evaluation Time: 11:34 Change: Unchanged Comment: Pt was given her morning medications. Second Eval Re-Evaluation Time: 12:00 Change: Worse Comment: Pt was given Benadryl. Course/Dx - Diagnoses Provider Diagnoses: Mood disorder Discharge - Sign-Out/Discharge Documenting (check all that apply): Patient Departure - Transfer to [facility], Post-Discharge Follow Up - post admission to psych facility follow up - Discharge Plan Condition: Stable Disposition: PSYCHIATRIC FACILITY-OTHER Referrals: Vania Lopez MD [Primary Care Provider] - 2 Days - Attestation Statements Document Initiated by Scribe: Yes Documenting Scribe: Lindsey Chao Provider For Whom Scribe is Documenting (Include Credential): Chandler Arechiga MD Scribe Attestation: Lindsey Parker, scribed for Chandler Arechiga MD on 06/08/18 at 1610.
[2018-06-08] MEDS ORDERED: LORazepam TAB(*) 1 MG ONE (11:45)
[2018-06-08] MEDS ORDERED: LORazepam TAB(*) 1 MG PO ONE (11:47)
[2018-06-08] MEDS ORDERED: diPHENhydraMINE PO* 50 MG ONE (12:10)
[2018-06-08] MEDS ORDERED: diPHENhydraMINE PO* 50 MG PO ONE (12:13)
--- NOTE | 2018-06-08 13:31 | PN ---
ED Flex Patient Progress Note Date of Service: 06/08/18 Subjective: 38 y.o. , homosexual white female with a history of affective problems and self-harm arrives via the police after threatening to cut herself with razors. The patient could not contract for safety and is endorsing irresistible urges to self mutilate. Objective: young white female, clean, well groomed in scrubs; endorsing urges to self- mutilate Assessment: Unspecified Impulse Control DO Plan: The patient meets criteria for inpatient hospitalization on the [facility], however, we have no beds and will initiate transfer to an outside facility. Vital Signs Temp Pulse Resp BP Pulse Ox 99.5 F 83 15 120/76 93 06/08/18 13:06 06/08/18 13:06 06/08/18 13:06 06/08/18 13:06 06/08/18 13:06 Lab Results - Entire Visit 06/07/18 06/07/18 06/07/18 20:07 20:07 19:17 WBC 5.8 RBC 4.48 Hgb 14.1 Hct 41 MCV 92 MCH 32 H MCHC 34 RDW 14 Plt Count 255 MPV 7.5 Neut % (Auto) 56.8 Lymph % (Auto) 30.3 Nicollet % (Auto) 8.8 H Eos % (Auto) 2.9 Baso % (Auto) 1.2 Absolute Neuts (auto) 3.3 Absolute Lymphs (auto) 1.7 Absolute Monos (auto) 0.5 Absolute Eos (auto) 0.2 Absolute Basos (auto) 0.1 Absolute Nucleated RBC 0 Nucleated RBC % 0.1 Sodium 136 Potassium 3.7 Chloride 107 Carbon Dioxide 24 Anion Gap 5 BUN 11 Creatinine 0.95 Est GFR ( Amer) 79.2 Est GFR (Non-Af Amer) 65.5 BUN/Creatinine Ratio 11.6 Glucose 117 H Calcium 9.6 Total Bilirubin 0.50 AST 16 ALT 14 Alkaline Phosphatase 56 Total Protein 6.4 Albumin 4.4 Globulin 2.0 Albumin/Globulin Ratio 2.2 TSH 3.45 Urine Color Urine Appearance Urine pH Ur Specific [place] Urine Protein Urine Ketones Urine Blood Urine Nitrate Urine Bilirubin Urine Urobilinogen Ur Leukocyte Esterase Urine Glucose Salicylates < 2.50 Urine Opiates Screen None detected Acetaminophen < 15 Ur Barbiturates Screen None detected Ur Phencyclidine Scrn None detected Ur Amphetamines Screen None detected U Benzodiazepines Scrn None detected [place] 0.64 Urine Cocaine Screen None detected U Cannabinoids Screen None detected Serum Alcohol < 10 06/07/18 19:17 WBC RBC Hgb Hct MCV MCH MCHC RDW Plt Count MPV Neut % (Auto) Lymph % (Auto) Nicollet % (Auto) Eos % (Auto) Baso % (Auto) Absolute Neuts (auto) Absolute Lymphs (auto) Absolute Monos (auto) Absolute Eos (auto) Absolute Basos (auto) Absolute Nucleated RBC Nucleated RBC % Sodium Potassium Chloride Carbon Dioxide Anion Gap BUN Creatinine Est GFR ( Amer) Est GFR (Non-Af Amer) BUN/Creatinine Ratio Glucose Calcium Total Bilirubin AST ALT Alkaline Phosphatase Total Protein Albumin Globulin Albumin/Globulin Ratio TSH Urine Color Yellow Urine Appearance Clear Urine pH 6.0 Ur Specific [place] 1.008 L Urine Protein Negative Urine Ketones Negative Urine Blood Negative Urine Nitrate Negative Urine Bilirubin Negative Urine Urobilinogen Negative Ur Leukocyte Esterase Negative Urine Glucose Negative Salicylates Urine Opiates Screen Acetaminophen Ur Barbiturates Screen Ur Phencyclidine Scrn Ur Amphetamines Screen U Benzodiazepines Scrn [place] Urine Cocaine Screen U Cannabinoids Screen Serum Alcohol
[2018-06-08 16:08] VITALS: BP 114/72
[2018-06-08] MEDS ORDERED: chlorproMAZINE INJ* 25 MG/ML 2 ML (50 MG) ONE (17:27)
[2018-06-08] MEDS ORDERED: chlorproMAZINE INJ* 25 MG/ML 2 ML (50 MG) IM ONE (17:33)
[2018-06-08] MEDS ORDERED: LORazepam INJ* 2 MG/ML 1 ML VIAL IM ONE (17:36)
== END 2018-06-08 16:05 ==
LOC: ED 18:42
DX: F39 Unspecified mood [affective] disorder (principal); F63.9 Impulse disorder, unspecified; S51.831A Puncture wound without foreign body of right forearm, initial encounter; X78.8XXA Intentional self-harm by other sharp object, initial encounter; Y92.230 Patient room in hospital as the place of occurrence of the external cause; F41.9 Anxiety disorder, unspecified; Z79.899 Other long term (current) drug therapy; Z88.8 Allergy status to other drugs, medicaments and biological substances
CPT/HCPCS: 36415; 80053; 80178; 80307; 80320; 80329; 81003; 84443; 85025; 93005; 96372; 99285; A9270-GY; G0480; J1200; J1630; J2060

== ENCOUNTER 2018-09-17 12:55 | Inpatient (IN) | payer MEDICARE, MEDICAID ==
[2018-09-17] MEDS ORDERED: LORazepam INJ* 2 MG/ML 1 ML VIAL IM ONE (13:12)
--- NOTE | 2018-09-17 13:15 | ED ---
Psychiatric Complaint - HPI Summary HPI Summary: This patient is a 38 year old female brought in by police and EMS for a MHE. The patient was in handcuffs on arrival and the police state she requested to be in them. When asked why she is here today she states I Just want to hurt myself and she has felt like this for the last week. She plans to get razors from the pharmacy, dismantle razors, and cut her arms and legs. She has done this multiple times in the past. She denies poor sleep and decreased appetite. She reports hx of anxiety with some depression. - History Of Current Complaint Chief Complaint: EDMentalHealth Time Seen by Provider: 09/17/18 13:02 Hx Obtained From: Patient Onset/Duration: Still Present, Worse Since Timing: Constant Severity Initially: Severe Severity Currently: Severe Character: Depressed Related History: Positive For: Prior Psychiatric Issues Has Suicidal: Reports: Thoughts, With A Plan, Demonstrates Gesture - Allergies/Home Medications Allergies/Adverse Reactions: Allergies Allergy/AdvReac Type Severity Reaction Status Date / Time ketamine Allergy Hallucinati Verified 05/14/18 01:01 ons casein AdvReac Nausea And Verified 05/14/18 01:01 Vomiting Milk Containing Products AdvReac Nausea And Verified 05/14/18 01:01 Vomiting PMH/Surg Hx/FS Hx/Imm Hx Endocrine/Hematology History: Denies: Hx Blood Disorders, Hx Diabetes, Hx Anemia, Hx Unexplained Bleeding Cardiovascular History: Denies: Hx Auto Implanted Cardiovert Defib, Hx Cardiac Arrest, Hx Embolism, Hx Hypotension, Hx Hypertension Respiratory History: Reports: Hx Asthma - Bronchial asthma Denies: Hx Chronic Bronchitis, Hx Chronic Obstructive Pulmonary Disease (COPD ), Hx Pneumonia, Hx Pulmonary Embolism, Hx Sleep Apnea GI History: Reports: Hx Gastroesophageal Reflux Disease, Hx Irritable Bowel, Other GI Disorders - reports she has had diarrhea/loose stool "off and on" for 5 yrs. Denies: Hx Crohn's Disease, Hx Diverticulosis History: Denies: Hx Acute Renal Failure, Hx Kidney Stones, Other Problems/Disorders Musculoskeletal History: Reports: Other Musculoskeletal History - osteoarthritis Denies: Hx Arthritis, Hx Osteoporosis, Hx Scoliosis Sensory History: Reports: Hx Contacts or Glasses Denies: Hx Cataracts, Hx Eye Injury, Hx Hearing Aid, Hx Hearing Problem, Other Sensory Impairments Opthamlomology History: Reports: Hx Contacts or Glasses Denies: Hx Cataracts, Hx Eye Injury, Other Sensory Impairments Neurological History: Denies: Hx Migraine, Hx Nerve Disease, Hx Seizures Comment Only: Hx Headaches - Relieved with use of OTCs Psychiatric History: Reports: Hx Anxiety, Hx Depression, Hx Inpatient Treatment , Hx Community Mental Health Tx, Hx Bipolar Disorder, Hx Suicide Attempt, Hx of Violent Episodes Against Others, Hx Substance Abuse - hx of alcoholism/ no etoh intake for the past 10 years, Other Psychiatric Issues/Disorders - Hx SIB Denies: Hx Eating Disorder - Surgical History Surgery Procedure, Year, and Place: n/a Infectious Disease History: No Infectious Disease History: Denies: Traveled Outside the [place] in Last 30 Days - Family History Known Family History: Positive: Hypertension, Other - mood disorder, anxiety, depression, alcohol abuse - Social History Alcohol Use: None Hx Substance Use: No Substance Use Type: Reports: None Hx Tobacco Use: No Smoking Status (MU): Never Smoked Tobacco Amount Used/How Often: states that she tried a cigarette once, over a year ago Length of Time of Smoking/Using Tobacco: n/a Have You Smoked in the Last Year: No Review of Systems Negative: Fever Positive: Depressed, Other - SI All Other Systems Reviewed And Are Negative: Yes Physical Exam - Summary Physical Exam Summary: VITAL SIGNS: Reviewed. GENERAL: Patient is a well-developed female who is lying comfortable in the stretcher. Patient is not in any acute respiratory distress. HEAD AND FACE: No signs of trauma. No ecchymosis, hematomas or skull depressions. No sinus tenderness. EYES: PERRLA, EOMI x 2, No injected conjunctiva, no nystagmus. EARS: Hearing grossly intact. Ear canals and tympanic membranes are within normal limits. MOUTH: Oropharynx within normal limits. NECK: Supple, trachea is midline, no adenopathy, no JVD, no carotid bruit, no c- spine tenderness, neck with full ROM. CHEST: Symmetric, no tenderness at palpation LUNGS: Clear to auscultation bilaterally. No wheezing or crackles. CVS: Regular rate and rhythm, S1 and S2 present, no murmurs or gallops appreciated. ABDOMEN: Soft, non-tender. No signs of distention. No rebound no guarding, and no masses palpated. Bowel sounds are normal. EXTREMITIES: FROM in all major joints, no edema, no cyanosis or clubbing. NEURO: Alert and oriented x 3. No acute neurological deficits. Speech is normal and follows commands. SKIN: Dry and warm PSYCH: Depressed, quiet, No homicidal thoughts or plan. No signs of psychosis or pressure speech. No tangential speech. Expresses SI Triage Information Reviewed: Yes Vital Signs On Initial Exam: Initial Vitals Temp Pulse Resp BP Pulse Ox 98.1 F 78 18 130/82 100 09/17/18 12:55 09/17/18 12:55 09/17/18 12:55 09/17/18 12:55 09/17/18 12:55 Vital Signs Reviewed: Yes Diagnostics - Vital Signs Vital Signs Temp Pulse Resp BP Pulse Ox 09/17/18 12:55 98.1 F 78 18 130/82 100 - Laboratory Result Diagrams: 09/17/18 15:01 09/17/18 15:01 Lab Statement: Any lab studies that have been ordered have been reviewed, and results considered in the medical decision making process. Re-Evaluation - Re-Evaluation First Eval Re-Evaluation Time: 13:10 Comment: Pt is cleared for MHE Second Eval Re-Evaluation Time: 15:15 Comment: Pt will be admitted by Dr. Hay Course/Dx - Course Assessment/Plan: This patient is a 38 year old female brought in by police and EMS for a MHE. The patient was in handcuffs on arrival and the police state she requested to be in them. When asked why she is here today she states I Just want to hurt myself and she has felt like this for the last week. She plans to get razors from the pharmacy, dismantle razors, and cut her arms and legs. She has done this multiple times in the past. She denies poor sleep and decreased appetite. She reports hx of anxiety with some depression. Blood work w/o a significant abnormality. She is medically cleared. She is awaiting for a MHE. Patient is hemodynamically stable and A+O x 3. In the ED course the patient became belligerent and agitated and she tried to escape. Therefore I discussed the case with and Dr. Hay and he recommends Geodon and Ativan. Dr. Hay assessed the patient and he recommends admission to his services for further workup and management. 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 Hay states the patient will be admitted and if she acts out again she should be given Ativan and Geodon. Discharge - Sign-Out/Discharge Documenting (check all that apply): Patient Departure - admitted - Discharge Plan Condition: Stable Disposition: PSYCHIATRIC FACILITY-[facility] - Billing Disposition and Condition Condition: STABLE Disposition: Psychiatric Facility [facility] - Attestation Statements Document Initiated by Zhengibe: Yes Documenting Scribe: Pablo Casillas Provider For Whom Lee Ann is Documenting (Include Credential): Chandler Arechiga MD Scribe Attestation: Pablo Parker , scribed for Chandler Arechiga MD on 09/17/18 at 1816. Scribe Documentation Reviewed: Yes Provider Attestation: The documentation as recorded by the Pablo patel accurately reflects the service I personally performed and the decisions made by Chandler wheat MD Status of Scribe Document: Viewed
[2018-09-17] MEDS ORDERED: Ziprasidone IM INJ* 20 MG/ML VIAL IM ONE (14:05)
[2018-09-17] MEDS ORDERED: LORazepam INJ* 2 MG/ML 1 ML VIAL IV PUSH ONE (14:05)
[2018-09-17 14:07] LABS: Urine Appearance Cloudy; Urine Bacteria 1+ (Absent); Urine Bilirubin Negative (Negative); Urine Blood 2+ (Negative); Urine Color Straw; Urine Glucose Negative (Negative); Urine Ketones Negative (Negative); Urine Nitrite Negative (Negative); Urine Protein Negative (Negative); Urine Red Blood Cell Trace(0-2/hpf) (Absent); Urine Specific Gravity 1.004 (1.010-1.030); Urine Urobilinogen Negative (Negative); Urine White Blood Cell Trace(0-5/hpf) (Absent)
[2018-09-17 14:21] LABS: Barbiturates Urine Screen None Detected (None Detect); Benzodiazepine Urine Screen None Detected (None Detect); Urine Cannabinoids Screen None Detected (None Detect)
[2018-09-17] MEDS ORDERED: Sterile Water for Inj* 10 ML ONE (14:30)
[2018-09-17 15:09] LABS: ABS Basophils 0.1 10^3/ul (0-0.2); ABS Eosinophils 0.2 10^3/ul (0-0.6); ABS Lymphocytes 1.2 10^3/ul (1.0-4.8); ABS Monocytes 0.4 10^3/ul (0-0.8); ABS Neutrophils 3.1 10^3/ul (1.5-7.7); ABS Nucleated RBC 0 10^3/ul; Hematocrit 45 % (35-47); Hemoglobin 15.2 g/dl (12.0-16.0); Lymphocyte % 24.4 %; Mean Corpuscular HGB Conc 34 g/dl (31-36); Mean Corpuscular Hemoglobin 31 pg (27-31); Mean Corpuscular Volume 92 fL (80-97); Mean Platelet Volume 7.7 fL (7.4-10.4); Nucleated Red Blood Cells % 0.1; Platelet Count 248 10^3/ul (150-450); Red Blood Count 4.88 10^6/ul (4.00-5.40); Red Cell Distribution Width 13 % (10.5-15)
[2018-09-17 15:28] LABS: ALT 14 U/L (7-52); AST 17 U/L (13-39); Albumin 4.4 g/dL (3.2-5.2); Albumin/Globulin Ratio 2.1 (1-3); Alkaline Phosphatase 51 U/L (34-104); Anion Gap 6 mmol/L (2-11); BUN/Creatinine Ratio 9.3 (8-20); Blood Urea Nitrogen 9 mg/dL (6-24); CO2 Carbon Dioxide 22 mmol/L (22-32); Calcium 9.6 mg/dL (8.6-10.3); Chloride 110 mmol/L (101-111); EGFR Non-African American 63.9 (>60); Globulin 2.1 g/dL (2-4); Glucose 162 mg/dL (70-100); Potassium 4.1 mmol/L (3.5-5.0); Sodium 138 mmol/L (135-145); Total Protein 6.5 g/dL (6.4-8.9)
[2018-09-17] MEDS ORDERED: Al Hydrox/Mg Hydrox/Simet LIQ* 30 ML UDC PO PRN (15:34)
[2018-09-17] MEDS ORDERED: Acetaminophen TAB* 325 MG PO PRN (15:34)
[2018-09-17 16:29] LABS: Acetaminophen < 15 mcg/mL; Alcohol < 10 mg/dL (<10); Salicylate < 2.50 mg/dL (<30)
[2018-09-17 16:52] LABS: TSH (Thyroid Stimulating Horm) 3.27 mcIU/mL (0.34-5.60)
[2018-09-17] MEDS: Cetirizine* 10 MG TAB PO SCH (18:10)
[2018-09-17] MEDS: Gabapentin CAP(*) 300 MG PO SCH (20:48)
[2018-09-17] MEDS: Lithium Carbonate ER (NF) 300 MG TAB.ER PO SCH (20:48)
[2018-09-18 08:11] LABS: HDL Cholesterol 45.5 mg/dL
[2018-09-18] MEDS ORDERED: Lurasidone(*) 40 MG TAB PO SCH ×2 (09:00→21:00)
[2018-09-18] MEDS ORDERED: PROBIOTIC PO SCH (09:00)
[2018-09-18] MEDS ORDERED: Lurasidone(*) 120 MG TAB PO SCH ×2 (09:00→21:00)
[2018-09-18] MEDS: Flunisolide NASAL (NF) 1 SPRAY NASAL.SPR BOTH NARES SCH (09:33)
[2018-09-18] MEDS: Vitamin THERAPEUTIC TAB PO SCH (09:35)
[2018-09-18] MEDS: Sertraline* 100 MG TAB PO SCH (09:35)
[2018-09-18] MEDS: Gabapentin CAP(*) 300 MG PO SCH ×3 (09:36→21:26)
--- NOTE | 2018-09-18 14:00 | HP ---
PSYCHIATRIC HISTORY AND PHYSICAL: DATE OF ADMISSION: 09/17/18 JUSTIFICATION FOR ADMISSION: The patient is in need of 24-hour supervision and treatment secondary t o suicidal ideations. CHIEF COMPLAINT: "I tried so hard not to come back here." HISTORY OF PRESENT ILLNESS: As follows: Fernando is a 38-year-old homosexual white female with a history of extreme self-injurious behaviors and multiple admissions to this hospital for self-harm, who was brought to the emergency room via ambulance and law enforcement in handcuffs after verbalizi ng "I just want to hurt myself." The patient indicates that she started feeling this way approximate ly 1 week ago. She did endorse suicidal ideation with a plan to purchase razor blades from the [facility] and cut both her legs and arms. We asked about aggravating symptoms and she could not th ink of any. She stated "I just need to reset, I am not safe to return home." When I met with her, nubia aram states that she has been working with a new therapist at [facility] name darren Walker. She does note that this new therapist tends to delve into Fernando's past and that th is at times makes her somewhat uncomfortable. She cannot think of any other stressors other than the fact that her spouse is home for a week, a vacation from work. Apparently in the emergency room, ashley calzada was acting out in an agitated fashion and received Ativan and ziprasidone emergently to calm her do wn. Symptomatically, she complains of strong urges to harm herself. She denies depression or anxiet y. PAST PSYCHIATRIC HISTORY: This is quite extensive. There are several old discharge summaries from [facility], at least 20 can be counted with most recent being in May 2018 under the service of Dr. Hay. One month later in June, she returned to our emergency room with furthe r thoughts of self- harm; however, we did not have any beds at that time and she was sent to [facility] for inpatient treatment. She has also been hospitalized at [facility] in [place] as well as [facility] in 2008 for 5 months. Her past diagnoses include depression, anxiety, borderline personality disorder, and dissociative disorder. Her outpati ent providers at [facility] are JEFFY Walker as well as Dr. Robert juan. The patient also attends group programming through the [facility]. She harkins s have multiple previous suicide attempts, having swallowed radio antennas, keys, razor blades, as we ll as having placed plastic bags over her head in an attempt to asphyxiate herself. She indicates th at she first started cutting herself at the age of 11. PAST MEDICAL HISTORY: Significant for bronchial asthma, seasonal allergies, osteoarthritis, irritabl e bowel syndrome, and mild obesity. CURRENT MEDICATIONS: Include: 1. Lurasidone 160 mg p.o. q.h.s. 2. Flonase 2 sprays to both nares daily. 3. Neurontin 600 mg p.o. t.i.d. 4. [place] carbonate extended release 1200 mg p.o. q.h.s. 5. Sertraline 300 mg p.o. daily. 6. Xyzal 5 mg p.o. q.h.s. 7. Lactobacillus 1 cap p.o. b.i.d. 8. Vitamin D 2000 units p.o. daily. ALLERGIES: She is allergic to CASEIN and KETAMINE. FAMILY HISTORY: Unremarkable, but she tells us that her father may have had an undiagnosed personali ty disorder. SUBSTANCE ABUSE HISTORY: The patient abused alcohol in the past, but has been clean and sober for ov er 10 years. She denies any recent use of tobacco, illicit drugs, or misuse of medications. SOCIAL HISTORY: The patient was born and raised in [place] and is an only child. Her parents are stil l living and still . She describes a close relationship with her mother and somewhat distant from her father. She is educated with a bachelor's degree in arts at [employer]. 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 Currently, she is in a 10-plus year rela tionship with her female partner and they have been for the past 3 years. They live together in an apartment in [place]. She describes her partner as very supportive, but frequently busy. 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 She is also receiving disability benefits. REVIEW OF SYSTEMS: The patient denies headache or double vision. She denies chest pain, sore throat , cough, difficulty breathing, abdominal pain, nausea, vomiting, diarrhea, constipation. She denies rashes, enlarged lymph nodes, fevers, or changes in weight. PHYSICAL EXAMINATION VITAL SIGNS: Blood pressure 111/78, heart rate is 95, respiratory rate is 16, temperature 98.0 degre es Fahrenheit, oxygen saturations are 98% on room air. HEENT: Head is normocephalic, atraumatic. NECK: Supple. CHEST: Clear to auscultation bilaterally. CARDIAC: Exam reveals normal heart sounds. ABDOMEN: Soft and nontender. MUSCULOSKELETAL: Reveals a full range of motion with no signs of edema in any of her 4 extremities. NEUROLOGICAL: She is grossly intact. SKIN: Reveals evidence of old well-healed scars from cutting to her bilateral upper extremities. MENTAL STATUS EXAM: The patient is a middle-aged white female with short hair and eyeglasses, who i s dressed in aqua green hoodie and yoga pants. She is somewhat overweight. Her appearance appears t o be somewhat ungroomed, having just gotten out of bed. She is cooperative, fairly easy to establish a rapport with. Speech has a normal rate, tone, and volume. Mood appears to be anxious, with an an xious affect. Thought process is linear, goal directed. Thought content is significant for her johnny re to harm herself. She denies suicidal or homicidal thinking at this time. She denies auditory or visual hallucinations. Insight and judgment appear to be fair given her willingness to come into the hospital on a voluntary basis. Cognitively, she is awake and alert with what would appear to be a hi gh average intellect by virtue of her educational attainment and vocabulary. LABORATORY DATA: CBC is within normal limits as is her complete metabolic panel. Urinalysis is withi n normal limits and her urine drug screen is negative for all substances tested. DIAGNOSES: Wasta I: Unspecified mood disorder. Wasta II: Borderline personality disorder. ASSESSMENT: The patient is a 38-year-old homosexual white female with a history of very sign ificant borderline personality traits and the associated symptoms, who arrives having been brought in by ambulance with police support voicing urges to cut herself and end her own life. She was acting out and belligerent in the emergency room and required stat medications. Currently, she cannot contr act for safety. PLAN/RECOMMENDATIONS: The patient is admitted to the adult behavioral health unit and placed on q.15 -minute checks for her own safety. We will resume her outpatient medications as currently prescribed at [facility]. In addition, she will be placed on her standard behavioral modifi cation plan wherein there will be consequences behaviorally for any self-harming activities. While s he is here, she is certainly encouraged to avail herself of all milieu activities including individua l and group psychotherapies. When she is safe and no longer at risk of harming herself, we will be hammad calderon discharging her back to the outpatient environment where she can receive care in a less restric tive setting. [id number]/[facility] #: [id number]
[2018-09-18] MEDS: Cetirizine* 10 MG TAB PO SCH (18:03)
[2018-09-18] MEDS: Lactobacillus Acidophilus* 1 TAB PO SCH (21:26)
[2018-09-18] MEDS: Lithium Carbonate ER (NF) 300 MG TAB.ER PO SCH (21:27)
[2018-09-19] MEDS: Sertraline* 100 MG TAB PO SCH (08:49)
[2018-09-19] MEDS: Gabapentin CAP(*) 300 MG PO SCH ×2 (08:49→15:29)
[2018-09-19] MEDS: Vitamin THERAPEUTIC TAB PO SCH (08:49)
[2018-09-19] MEDS: Lactobacillus Acidophilus* 1 TAB PO SCH (08:49)
[2018-09-19] MEDS: Flunisolide NASAL (NF) 1 SPRAY NASAL.SPR BOTH NARES SCH (08:49)
[2018-09-19 09:54] VITALS: BP 126/85
--- NOTE | 2018-09-19 10:56 | PN ---
[facility]: Group Therapy Note - Service Type Service Type: 59485 Group Psychotherapy - Cognitive Behavioral Group Therapy ( CBT):Patient was attentive and participatory in CBT programming this morning, and remained in good behavioral control. Patient expressed positive insights regarding relevant treatment interventions and goals.
[2018-09-19] MEDS ORDERED: LORazepam TAB(*) 1 MG PO ONE (16:03)
[2018-09-19] MEDS ORDERED: LORazepam TAB(*) 1 MG ONE (16:10)
--- NOTE | 2018-09-19 16:38 | DS ---
DATE OF ADMISSION: 09/17/2018. DATE OF DISCHARGE: 09/19/2018. DISCHARGE DIAGNOSES: AXIS I: Unspecified mood disorder. AXIS II: Borderline personality disorder. CONDITION AT THE TIME OF DISCHARGE: Improved. The patient is no longer endorsing suicidal ideations or thoughts of self-harm. She states that she would like to go home and sleep in her own bed. She states that her spouse is home for the week from work and that the two have planned to take a day tri p outside of the area this week which she is looking forward to. The patient's medications were resu med such as she on an outpatient basis and she continues to tolerate these well. She has a supply at home and is not in need of further prescriptions at this time. The patient is safe today and her sp ouse is coming to the hospital to pick her up and take her home. Her outpatient follow-up will be at [facility]. It should be noted that the patient has chronic self-harm beh aviors and her long-term prognosis is limited given her severe personality pathology; however, acute stressors have been modified through hospitalization and she is no longer endorsing the need to stay in a locked supervised unit. I see no barriers to her receiving successful treatment in the outpatie nt setting and it is well-know that those with borderline personality disorder have difficulties that are not amenable to inpatient treatment; therefore, we feel justified in our decision to discharge t he patient at this time. MENTAL STATUS EXAM AT THE TIME OF DISCHARGE: The patient is a middle-aged, white female with short b londe hair and eyeglasses who is somewhat overweight. She is dressed in an aqua green hoodie. Her a ppearance is well-groomed. She is calm, cooperative, and easy to establish a rapport with. She make s mood eye contact. Speech has a normal rate, tone, and volume. Mood appears to be euthymic with a f ull affect. She is smiling brightly. Thought process is linear and goal- directed. Thought content is significant for her desire to be discharged from the hospital. She denies suicidal or homicidal ideations at this time. She denies auditory or visual hallucinations. Insight and judgment appear t o be fair given her willingness to follow-up in the outpatient setting. Cognitively, she is awake an d alert with what would appear to be a high average intellect by virtue of her educational attainment and vocabulary. LABORATORY DATA: Comprehensive metabolic testing was performed on the 18 of September revealing hemo globin A1c of 4.1 percent, triglycerides 143, cholesterol 133, LDL cholesterol 59, HDL cholesterol 45 .5. DISCHARGE INSTRUCTIONS TO THE PATIENT: A. Medications: The patient is on lactobacillus one tablet p.o. b.i.d., Flonase one spray both nare s daily, Latuda 160 mg p.o. daily, Xyzal 5 mg p.o. at bedtime, Gabapentin 600 mg p.o. t.i.d., Zoloft 300 mg p.o. daily, Alma Carbonate extended release 1200 mg p.o. at bedtime. B. Diet: Regular. C. Activities: As tolerated. The patient is a nonsmoker. There are no laboratory or diagnostic st udies pending at the time of discharge. D. Follow-up care: The patient will follow-up with the PROS program at [facility] tomorrow which is 09/20/2018. She also sees her individual therapist at [facility] whose name is Senait Walker. In addition, she will follow-up with psychiatrist Dr. Robert rodriguez within two weeks of admission. E. Substance abuse follow-up: Nonapplicable. HOSPITAL COURSE - PART A: Reason for admission: The patient is a 38-year-old, , homosexual, w leonora female with a history of extreme self-injurious behaviors and [facility] who was brought to the emergency room via ambulance and law enforcement in handcuffs after verbalizing "I just want to hurt myself." The patient indicated that she had started feeling t his way approximately one week prior. She did endorse suicidal ideations with a plan to purchase solo or blades from the [facility] and cut both her legs and arms. We asked about aggravating symp toms and she could not think of any. She stated "I just need to reset, I am not safe to return home. " When I met with her, she stated that she had been working with a new therapist at [facility] named Senait Walker. She does note that this new therapist tends to delve int o Fernando's past and that this at times makes her somewhat uncomfortable. She could not think of any ot her stressors other than the fact that her spouse is home for a week from a vacation from work. Appa rently, in the emergency room she was acting out in an agitated fashion and received Ativan and Zipra sidone emergently to calm her down. Symptomatically, she complains of strong urges to harm herself. She denies depression or anxiety. HOSPITAL COURSE - PART B: Psychiatric treatment rendered: The patient was admitted to the [facility] Unit and placed on q.15 minute checks for her own safety. Initially, she was attention -seeking and threatening to harm herself, but these behaviors dissipated and she became calm again wi th a resolution of suicidal ideations. On the day of discharge, she was feeling much better and feel ing as though going home was appropriate. Given her borderline personality condition, it is known th at prolonged hospitalizations, such as her state hospitalization in 2008, can be counterproductive. We did not see any barriers to her receiving continued care in the outpatient setting and she was the refore discharged. Her spouse was in agreement with the discharge plan and came [facility] the [facility] the afternoon to pharmacy picking tech Aara and bring her home. Follow-up will be tomorrow at [facility]. [id number]/[facility] #: [id number]
== END 2018-09-19 16:45 | disposition home or self-care (01) | DRG 885 ==
LOC: ED 12:55 → BSU 15:09
PROVIDERS: ADMIT Psychiatry & Neurology Psychiatry; ATTEND Psychiatry & Neurology Psychiatry
DX: F39 Unspecified mood [affective] disorder (principal); R45.851 Suicidal ideations; F60.3 Borderline personality disorder; F44.9 Dissociative and conversion disorder, unspecified; J45.909 Unspecified asthma, uncomplicated; M19.90 Unspecified osteoarthritis, unspecified site; K58.9 Irritable bowel syndrome, unspecified; E66.9 Obesity, unspecified; Z68.36 Body mass index [BMI] 36.0-36.9, adult; Z79.899 Other long term (current) drug therapy; Z88.8 Allergy status to other drugs, medicaments and biological substances
CPT/HCPCS: 36415; 80053; 80061; 80307; 80320; 80329; 81003; 81015; 83036; 84443; 85025; 87086; 99222; 99238; 99284; A9270-GY; G0480; J2060; J3486

== ENCOUNTER 2019-02-02 10:10 | Emergency (ER) | payer MEDICARE, MEDICAID ==
[2019-02-02] MEDS ORDERED: diPHENhydraMINE PO* 25 MG PO ONE ×2 (10:22→21:39)
[2019-02-02] MEDS ORDERED: LORazepam TAB(*) 1 MG PO ONE (10:22)
--- OUTSIDE RECORDS SUMMARY | 2019-02-02 10:24 | XMS REPORT | Continuity of Care Document ---
:1980 External Reference #:[id number] Author Name Kimberly Bowens M.D. Address [address] [place] [address] Care Team Providers Name Role Phone Kimberly Bowens M.D. 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 Primary Care Physician Unavailable Payers Date Identification Numbers Payment Provider Subscriber Effective: 2007 Policy Number: [id number] Medicare-National [employer] David Leiva PayID: [id number] [address] [place] [address] Effective: 2007 Policy Number: [id number] Medicaid-Adult David Leiva Group Name: 2 1 [address] [facility] PayID: [id number] [place] [address] Expires: 2007 Policy Number: [id number] [facility] David Leiva PayID: [id number] [address] [address] [place] [address] Problems Active Problems Provider Date Allergic rhinitis due to pollen Kimberly Bowens M.D. Onset: 08/12/2015 Allergic rhinitis due to animals Kimberly Bowens M.D. Onset: 08/12/2015 Allergic rhinitis Kimberly Bowens M.D. 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 Environment Has a window air conditioner Home Environment Stairs are present Home Environment Unfinished Basement Home Environment The basement is damp Home Environment Cotton Comforter Home Environment Mattress is 6 years old Home Environment Mattress is not encased in an allergy proof case Home Environment Regular Mattress Home Environment Pillows contain feathers Home Environment Pillows are not encased in an allergy proof case Home Environment Does not use a dehumidifier Home Environment There are draperies in the home Home Environment The home is not tori Home Environment The floors are wood Home Environment Uses electric heating Home Environment Uses natural gas heating Home Environment [place] Home Environment Water Source: 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 ETOH Use Denies alcohol use Tobacco Use Start: Unknown Patient has never smoked Recreational Drug Use Denies Drug Use Allergies, Adverse Reactions, Alerts Description No Known Drug Allergies Medications Active Medications SIG Qnty Indications Ordering Date Provider Levocetirizine 1 by mouth every 30tabs J30.1 [facility] 01/11/2019 Dihydrochloride day Elisabeth Bowens 5mg Tablets Ventolin HFA 2 puffs 18gm J30.1 [facility] 01/11/2019 108(90Base) inhalation every Elisabeth Bowens mcg/Act Aerosol 4 hours as needed Azelastine HCL (Nasal) 2 sprays/nostril 30ml J30.1 [facility] 12/03/2018 0.1% inhalation Elisabeth Bowens Solution everyday as needed Flunisolide 2 sprays in each 25ml [facility] 01/11/2018 25mcg/Act nostril bid Elisabeth Bowens (0.025%) Solution Levocetirizine 1 by mouth every 30tabs [facility] 01/05/2018 Dihydrochloride day Elisabeth Bowens 5mg Tablets Ventolin HFA 2 puffs 8units J30.1 [facility] 02/12/2016 108(90Base) inhalation every 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 06/23/2010 Injection Injection Geraldo Miller M.D. 03/25/2009 Injection Injection Geraldo Miller M.D. 03/11/2009 Injection Injection Geraldo Miller M.D. 02/03/2006 Injection Injection Geraldo Miller M.D. 01/27/2006 Injection Injection Geraldo Miller M.D. 01/20/2006 Injection Injection Geraldo Miller M.D. 01/13/2006 Injection Immunizations CPT Code Status Date Vaccine Lot # 00006 Given 06/04/2013 Influenza Vaccine 49164 Given Unknown Influenza Vaccine 91084 Given Unknown Influenza Vaccine 90239 Given Unknown Influenza Vaccine 17077 Given Unknown Influenza Vaccine Vital Signs Date Vital Result Comment 01/11/2019 11:29am Height 66 inches 5'6" Weight 235.00 lb Weight 106.596 kg Respiratory Rate 16 /min Heart Rate 74 /min O2 % BldC Oximetry 97 % BP Systolic 111 mmHg BP Diastolic 69 mmHg Asthma Control Test 23 Fractional Exhaled Nitric Oxide 14 BMI (Body Mass Index) 37.9 kg/m2 01/05/2018 11:05am Height 66 inches 5'6" Weight 221.00 lb Weight 100.246 kg Respiratory Rate 22 /min Heart Rate 76 /min O2 % BldC Oximetry 98 % BP Systolic 104 mmHg BP Diastolic 72 mmHg Asthma Control Test 25 BMI (Body Mass Index) 35.7 kg/m2 01/04/2017 11:45am Height 66 inches 5'6" Weight 221.00 lb Weight 100.246 kg Respiratory Rate 20 /min Heart Rate 76 /min O2 % BldC Oximetry 98 % BP Systolic 97 mmHg BP Diastolic 65 mmHg Asthma Control Test 25 BMI (Body Mass Index) 35.7 kg/m2 02/12/2016 4:04pm Height 66 inches 5'6" Weight 210.00 lb Weight 95.256 kg Respiratory Rate 16 /min Heart Rate 71 /min O2 % BldC Oximetry 99 % BP Systolic 101 mmHg BP Diastolic 71 mmHg Asthma Control Test 21 BMI (Body Mass Index) 33.9 kg/m2 08/12/2015 11:17am Height 66 inches 5'6" Weight 215.00 lb Weight 97.524 kg Respiratory Rate 18 /min Heart Rate 74 /min O2 % BldC Oximetry 97 % BP Systolic 108 mmHg BP Diastolic 74 mmHg Asthma Control Test 25 BMI (Body Mass Index) 34.7 kg/m2 01/16/2015 2:28pm Height 66 inches 5'6" Weight 219.00 lb Weight 99.338 kg Respiratory Rate 16 /min Heart Rate 84 /min O2 % BldC Oximetry 98 % BP Systolic 110 mmHg BP Diastolic 76 mmHg Asthma Control Test 25 BMI (Body Mass Index) 35.3 kg/m2 12/17/2014 1:52pm Height 66 inches 5'6" Weight 221.00 lb Weight 100.246 kg Respiratory Rate 18 /min Heart Rate 83 /min O2 % BldC Oximetry 98 % BP Systolic 128 mmHg BP Diastolic 90 mmHg Asthma Control Test 25 BMI (Body Mass Index) 35.7 kg/m2 09/05/2014 2:05pm Height 66 inches 5'6" Weight 223.00 lb Weight 101.153 kg Respiratory Rate 16 /min Heart Rate 76 /min O2 % BldC Oximetry 98 % BP Systolic 110 mmHg BP Diastolic 78 mmHg Asthma Control Test 21 BMI (Body Mass Index) 36.0 kg/m2 04/04/2014 2:07pm Height 66 inches 5'6" Patient verbalized Weight 207.00 lb Patient verbalized Weight 93.895 kg Respiratory Rate 18 /min Heart Rate 94 /min O2 % BldC Oximetry 96 % BP Systolic 116 mmHg BP Diastolic 64 mmHg BMI (Body Mass Index) 33.4 kg/m2 03/03/2014 2:06pm Height 66 inches 5'6" Weight 207.00 lb Weight 93.895 kg Respiratory Rate 16 /min Heart Rate 76 /min O2 % BldC Oximetry 98 % BP Systolic 112 mmHg BP Diastolic 68 mmHg Asthma Control Test 24 BMI (Body Mass Index) 33.4 kg/m2 06/07/2013 1:50pm Height 66 inches 5'6" Weight 205.00 lb Weight 92.988 kg Respiratory Rate 16 /min Heart Rate 88 /min O2 % BldC Oximetry 99 % BP Systolic 112 mmHg BP Diastolic 70 mmHg Asthma Control Test 25 BMI (Body Mass Index) 33.1 kg/m2 05/24/2013 1:47pm Height 66 inches 5'6" Weight 206.00 lb Weight 93.442 kg Respiratory Rate 14 /min Heart Rate 81 /min O2 % BldC Oximetry 99 % BP Systolic 104 mmHg BP Diastolic 89 mmHg BMI (Body Mass Index) 33.2 kg/m2 Procedures Date Code Description Status 11/14/2018 98779 Extract 1-10 Completed 04/13/2018 07934 Extract 1-10 Completed 01/05/2018 75314 Pre PFT Completed 10/10/2017 48224 Extract 1-10 Completed 04/26/2017 82059 Extract 1-10 Completed 04/26/2017 57390 Extract 1-10 Completed 01/04/2017 77793 Pre PFT Completed 12/21/2016 81676 Extract 1-10 Completed 06/22/2016 00957 Extract 1-10 Completed 12/25/2015 96630 Extract 1-10 Completed 08/12/2015 39611 Pre PFT Completed 07/27/2015 70480 Extract 1-10 Completed 04/15/2015 83476 Extract 1-10 Completed 12/24/2014 07850 Extract 1-10 Completed 09/05/2014 22241 Pre PFT Completed 04/25/2014 70800 Extract 1-10 Completed 03/03/2014 69141 Pre PFT Completed 11/15/2013 33578 Extract 1-10 Completed 06/07/2013 31804 Oxygen Level - Pulse Oximiter Completed 05/24/2013 75209 Oxygen Level - Pulse Oximiter Completed 05/08/2013 44237 Extract 1-10 Completed 12/31/2012 64500 Extract 1-10 Completed 06/05/2012 08295 Extract 1-10 Completed 12/07/2011 74770 Extract 1-10 Completed 07/13/2011 01900 Extract 1-10 Completed 02/04/2011 93403 Extract 1-10 Completed 06/30/2010 04705 Skin Test Scratch # Of Units ____ Completed 06/23/2010 90290 Injection Completed 06/18/2010 21408 Extract 1-10 Completed 05/12/2010 47714 Pre PFT Completed 11/16/2009 88416 Pulmonary Function Test Completed 03/25/2009 99686 Injection Completed 03/11/2009 08994 Injection Completed 03/04/2009 39482 Extract 1-10 Completed 09/05/2008 48143 Extract 1-10 Completed 07/23/2008 87721 Extract 1-10 Completed 02/29/2008 35243 Extract 1-10 Completed 10/19/2007 41680 Extract 1-10 Completed 05/21/2007 71497 Extract 1-10 Completed 01/03/2007 59094 Extract 1-10 Completed 03/17/2006 85835 Extract 1-10 Completed 02/03/2006 76180 Injection Completed 01/27/2006 31141 Injection Completed 01/20/2006 06139 Injection Completed 01/13/2006 78808 Extract 1-10 Completed 01/13/2006 57737 Injection Completed 07/25/2005 99129 Skin Test Scratch # Of Units ____ Completed Encounters Type Date Location Provider Dx Diagnosis Office Visit 01/11/2019 Viri Chavis30.1 Allergic rhinitis due 11:20a M.D. to pollen J30.89 Other allergic rhinitis J30.81 Allergic rhinitis due to animal (cat) (dog) hair and dander J30.2 Other seasonal allergic rhinitis J45.20 Mild intermittent asthma, uncomplicated Office Visit 01/05/2018 11:00a Viri Chavis30.1 Allergic rhinitis M.D. due to pollen J30.2 Other seasonal allergic rhinitis J30.81 Allergic rhinitis due to animal (cat) (dog) hair and dander J30.89 Other allergic rhinitis J45.20 Mild intermittent asthma, uncomplicated Office Visit 01/04/2017 11:40a Viri Chavis30.1 Allergic rhinitis M.D. due to pollen J30.89 Other allergic rhinitis J30.2 Other seasonal allergic rhinitis J30.81 Allergic rhinitis due to animal (cat) (dog) hair and dander J45.20 Mild intermittent asthma, uncomplicated Z68.35 Body mass index (BMI) 35.0-35.9, adult Office Visit 02/12/2016 4:00p Viri Chavis30.1 Allergic rhinitis M.D. due to pollen J30.2 Other seasonal allergic rhinitis J30.81 Allergic rhinitis due to animal (cat) (dog) hair and dander J30.89 Other allergic rhinitis J45.20 Mild intermittent asthma, uncomplicated Z68.33 Body mass index (BMI) 33.0-33.9, adult Office Visit 08/12/2015 11:20a Viri Cahvis30.1 Allergic rhinitis M.D. due to pollen J30.81 Allergic rhinitis due to animal (cat) (dog) hair and dander J30.89 Other allergic rhinitis J30.2 Other seasonal allergic rhinitis Z68.34 Body mass index (BMI) 34.0-34.9, adult Office Visit 01/16/2015 2:40p Vladimir Shabazz 493.00 Asthma Extrinsic Sundayelegabriela, PH.D, Unspecified RPA-C 477.8 Rhinitis Allergic Due To Other Allergen 477.0 Rhinitis Allergic Due To Pollen V85.35 Body Mass Index 35.0-35.9 Adult Office Visit 12/17/2014 2:00p Vladimir Barnard, 477.0 Rhinitis Allergic PH.D, RPA-C Due To Pollen 477.8 Rhinitis Allergic Due To Other Allergen 493.00 Asthma Extrinsic Unspecified Office Visit 09/05/2014 2:20p Vladimir Be, 477.0 Rhinitis Allergic Due RPA-C To Pollen 477.8 Rhinitis Allergic Due To Other Allergen 493.00 Asthma Extrinsic Unspecified Office Visit 04/04/2014 2:20p Vladimir Be, 477.0 Rhinitis Allergic Due RPA-C To Pollen 477.8 Rhinitis Allergic Due To Other Allergen 493.00 Asthma Extrinsic Unspecified Office Visit 03/03/2014 1:40p Vladimir Be, 477.0 Rhinitis Allergic Due RPA-C To Pollen 477.8 Rhinitis Allergic Due To Other Allergen 493.00 Asthma Extrinsic Unspecified Office Visit 06/07/2013 1:40p Vladimir Be, 477.0 Rhinitis Allergic Due RPA-C To Pollen 477.8 Rhinitis Allergic Due To Other Allergen 473.9 Sinusitis Chronic Unspec 493.00 Asthma Extrinsic Unspecified Office Visit 05/24/2013 2:00p Vladimir Be, 477.0 Rhinitis Allergic Due RPA-C To Pollen 477.8 Rhinitis Allergic Due To Other Allergen 473.9 Sinusitis Chronic Unspec 493.00 Asthma Extrinsic Unspecified Office Visit 11/17/2010 4:00p Vladimir Bowens 477.0 Rhinitis Allergic M.D. Due To Pollen 477.8 Rhinitis Allergic Due To Other Allergen Office Visit 05/12/2010 11:40a Vladimir Bowens 477.0 Rhinitis Allergic M.D. Due To Pollen 477.8 Rhinitis Allergic Due To Other Allergen 493.90 Asthma Unspec W/O Status Asthmaticus Office Visit 08/08/2005 2:15p Clinton Sher Berg, 477.0 Rhinitis Allergic M.D. Due To Pollen 477.8 Rhinitis Allergic Due To Other Allergen Office Visit 07/25/2005 2:15p Clinton Sher Berg, 477.0 Rhinitis Allergic M.D. Due To Pollen 477.8 Rhinitis Allergic Due To Other Allergen Plan of Treatment Future Appointment(s):01/10/2020 11:00 am - Kimberly Bowens M.D. at [id number] - Kimberly Bowens M.D.J30.1 Allergic rhinitis due to rpsjxmK21.89 Other allergic taqrsndfK67.81 Allergic rhinitis due to animal (cat) (dog) hair and gbidlzX82.2 Other seasonal allergic gtpytbvfP24.20 Mild intermittent asthma , uncomplicatedNew Medication:Levocetirizine Dihydrochloride 5 mgVentolin HFA 108(90 Base) mcg/ActFollow up:12 months, CHECK-UP/FOLLOW UP VISIT: Continued management of patient's medical care, sooner if neededRecommendations:continue Levocetirizine 5 mg once daily continue Astepro 0.1 % 2 sprays to each nostril twice daily as needed continue Flunisolide 2 sprays to each nostril once daily continue IT continue Albuterol 2puffs every 4 hours as needed; call if using & gt;2x/week consistently aside from pre-exercise
--- NOTE | 2019-02-02 10:30 | ED ---
Psychiatric Complaint - HPI Summary HPI Summary: This patient is a 39 year old F brought in by ambulance to [facility] with a chief complaint of thoughts of self-harm for the past two weeks. She states she has thoughts of cutting herself, but denies any suicidal ideation. Additionally denies HI and hallucinations. Denies recent drug or etoh use. Patient typically takes Benadryl and Ativan, however she did not take her medications today. Patient attempted to reach for IV bucket during transport from EMS stretcher to bed. PMHx of depression, OCD, and impulse control disorder. - History Of Current Complaint Chief Complaint: EDMentalHealth Time Seen by Provider: 02/02/19 10:16 Hx Obtained From: Patient, EMS Onset/Duration: Lasting Weeks Timing: Constant Character: Depressed Aggravating Factor(s): Medication Non-compliance Related History: Positive For: Prior Psychiatric Issues Has Suicidal: Denies: Thoughts Has Homicidal: Denies: Thoughts - Allergies/Home Medications Allergies/Adverse Reactions: Allergies Allergy/AdvReac Type Severity Reaction Status Date / Time ketamine Allergy Hallucinati Verified 02/02/19 10:23 ons casein AdvReac Nausea And Verified 02/02/19 10:23 Vomiting Milk Containing Products AdvReac Nausea And Verified 02/02/19 10:23 Vomiting Home Medications: Home Medications Azelastine HCl 0.1 spray ALT NARE BID 02/02/19 [History Confirmed 02/02/19] PMH/Surg Hx/FS Hx/Imm Hx Endocrine/Hematology History: Denies: Hx Blood Disorders, Hx Diabetes, Hx Anemia, Hx Unexplained Bleeding Cardiovascular History: Denies: Hx Auto Implanted Cardiovert Defib, Hx Cardiac Arrest, Hx Embolism, Hx Hypotension, Hx Hypertension Respiratory History: Reports: Hx Asthma - Bronchial asthma Denies: Hx Chronic Bronchitis, Hx Chronic Obstructive Pulmonary Disease (COPD ), Hx Pneumonia, Hx Pulmonary Embolism, Hx Sleep Apnea GI History: Reports: Hx Gastroesophageal Reflux Disease, Hx Irritable Bowel, Other GI Disorders - reports she has had diarrhea/loose stool "off and on" for 5 yrs. Denies: Hx Crohn's Disease, Hx Diverticulosis History: Denies: Hx Acute Renal Failure, Hx Kidney Stones, Other Problems/Disorders Musculoskeletal History: Reports: Other Musculoskeletal History - osteoarthritis Denies: Hx Arthritis, Hx Osteoporosis, Hx Scoliosis Sensory History: Reports: Hx Contacts or Glasses Denies: Hx Cataracts, Hx Eye Injury, Hx Hearing Aid, Hx Hearing Problem, Other Sensory Impairments Opthamlomology History: Reports: Hx Contacts or Glasses Denies: Hx Cataracts, Hx Eye Injury, Other Sensory Impairments Neurological History: Denies: Hx Migraine, Hx Nerve Disease, Hx Seizures Comment Only: Hx Headaches - Relieved with use of OTCs Psychiatric History: Reports: Hx Anxiety, Hx Depression, Hx Inpatient Treatment , Hx Community Mental Health Tx, Hx Bipolar Disorder, Hx Suicide Attempt, Hx of Violent Episodes Against Others, Hx Substance Abuse - hx of alcoholism/ no etoh intake for the past 10 years, Other Psychiatric Issues/Disorders - Hx SIB Denies: Hx Eating Disorder - Surgical History Surgery Procedure, Year, and Place: n/a Infectious Disease History: No Infectious Disease History: Denies: Traveled Outside the [place] in Last 30 Days - Family History Known Family History: Positive: Hypertension, Other - mood disorder, anxiety, depression, alcohol abuse - Social History Alcohol Use: None Hx Substance Use: No Substance Use Type: Reports: None Hx Tobacco Use: No Smoking Status (MU): Never Smoked Tobacco Amount Used/How Often: states that she tried a cigarette once, over a year ago Length of Time of Smoking/Using Tobacco: n/a Have You Smoked in the Last Year: No Review of Systems Constitutional: Negative Positive: Depressed All Other Systems Reviewed And Are Negative: Yes Physical Exam - Summary Physical Exam Summary: GENERAL: Patient is a well-developed and nourished F who is lying comfortable in the stretcher. Patient is not in any acute respiratory distress. HEAD AND FACE: Normocephalic EYES: PERRLA, EOMI x 2. EARS: Hearing grossly intact. MOUTH: Oropharynx within normal limits. NECK: Supple, trachea is midline, no adenopathy, no JVD, no carotid bruit. CHEST: Symmetric, no tenderness at palpation LUNGS: Clear to auscultation bilaterally. No wheezing or crackles. CVS: Regular rate and rhythm, S1 and S2 present, no murmurs or gallops appreciated. ABDOMEN: Soft, non-tender. Bowel sounds are normal. No abnormal abdominal pulsations. EXTREMITIES: Full ROM in all major joints, no edema, no cyanosis or clubbing. NEURO: Alert and oriented x 3. No acute neurological deficits. Speech is normal and follows commands. SKIN: Dry and warm PYSCHIATRIC: flat affect, no SI or HI Triage Information Reviewed: Yes Vital Signs On Initial Exam: Initial Vitals Temp Pulse Resp BP Pulse Ox 98.7 F 82 16 120/82 95 02/02/19 10:16 02/02/19 10:16 02/02/19 10:16 02/02/19 10:16 02/02/19 10:16 Vital Signs Reviewed: Yes Diagnostics - Vital Signs Vital Signs Temp Pulse Resp BP Pulse Ox 02/02/19 10:16 98.7 F 82 16 120/82 95 - Laboratory Result Diagrams: 02/02/19 10:39 02/02/19 10:39 Lab Statement: Any lab studies that have been ordered have been reviewed, and results considered in the medical decision making process. Course/Dx - Course Course Of Treatment: 39 year old F brought in by ambulance to [facility] with a chief complaint of thoughts of self-harm for the past two weeks. She states she has thoughts of cutting herself, but denies any suicidal ideation. Additionally denies HI and hallucinations. Denies recent drug or etoh use. Patient typically takes Benadryl and Ativan, however she did not take her medications today. Patient requests and is given regularly prescribed 50mg Benadryl and 2mg Ativan. Patient is medically cleared at 10:30. At 11:56 staff informed me that patient is requesting additional medication. Patient is given 5mg IM Haldol. She is given 2mg of Ativan IM. At 1206 I was informed by staff that the patient is scratching herself until bleeding and staff is currently holding her down to stop her. Patient was subsequently chemically restrained. Patient is given zyrtec, 1200mg [place], 40mg a Latuda, adn 600mg Gabapentin as part of her regularly scheduled medications.At 21:30 patient escaped room and attempted to take procedural equiptment when she was stopped my nursing and security staff. Patient is given 25mg of Benadryl. Patient will be signed out to Dr. Shanks at 22:00 while on a mental health hold. - Differential Dx/Clinical Impression Provider Diagnosis: Unspecified mood [affective] disorder, Borderline personality disorder Discharge - Sign-Out/Discharge Documenting (check all that apply): Sign-Out Patient Signing out patient TO: Thony Shanks - Mental health hol Patient Received Moderate/Deep Sedation with Procedure: Yes - Discharge Plan Condition: Stable Disposition: HOME Patient Education Materials: Mood Disorders (ED), Borderline Personality Disorder (DC) Referrals: Vania Lopez MD [Primary Care Provider] - Additional Instructions: Per completion of a mental health evaluation, you are cleared for release and do not require inpatient psychiatric hospitalization at this time. Please go to nearest emergency room or call 911 if safety concerns arise or condition worsens. Important Phone Numbers: [facility] ph:[phone] Suicide Prevention and Crisis Services ph:[phone] [place] Suicide Prevention Lifeline ph:[phone] (4433) [facility] ph:[phone] Alcoholics Anonymous ph:[phone] [facility] ph:[phone] [place] [employer] ph:[phone] Recommendations: Follow up with regular [facility] therapy appointments. - Billing Disposition and Condition Condition: STABLE Disposition: Home - Attestation Statements Document Initiated by Scribe: Yes Documenting Scribe: Angela Braun Provider For Whom Lee Ann is Documenting (Include Credential): Bony Olguin MD Scribe Attestation: Angela Parker, scribed for Bony Olguin MD on 02/05/19 at 1250. Scribe Documentation Reviewed: Yes Provider Attestation: The documentation as recorded by the Angela patel accurately reflects the service I personally performed and the decisions made by Bony wheat MD Status of Scribe Document: Viewed
[2019-02-02 10:49] LABS: ABS Basophils 0.1 10^3/ul (0-0.2); ABS Eosinophils 0.2 10^3/ul (0-0.6); ABS Lymphocytes 1.5 10^3/ul (1.0-4.8); ABS Monocytes 0.4 10^3/ul (0-0.8); Eosinophil % 3.1 %; Hematocrit 46 % (35-47); Hemoglobin 15.5 g/dL (12.0-16.0); Lymphocyte % 23.8 %; Mean Corpuscular HGB Conc 34 g/dL (31-36); Mean Corpuscular Hemoglobin 31 pg (27-31); Mean Corpuscular Volume 93 fL (80-97); Mean Platelet Volume 7.6 fL (7.4-10.4); Platelet Count 234 10^3/uL (150-450); Red Blood Count 4.94 10^6 /uL (3.70-4.87); Red Cell Distribution Width 13 % (10.5-15); White Blood Count 6.2 10^3/uL (3.5-10.8)
[2019-02-02 11:07] LABS: ALT 15 U/L (7-52); AST 15 U/L (13-39); Albumin 4.5 g/dL (3.2-5.2); Alkaline Phosphatase 55 U/L (34-104); Anion Gap 4 mmol/L (2-11); BUN/Creatinine Ratio 11.5 (8-20); Blood Urea Nitrogen 11 mg/dL (6-24); CO2 Carbon Dioxide 25 mmol/L (22-32); Calcium 10.2 mg/dL (8.6-10.3); Chloride 108 mmol/L (101-111); EGFR African American 77.9 (>60); EGFR Non-African American 64.4 (>60); Globulin 2.3 g/dL (2-4); Glucose 99 mg/dL (70-100); Potassium 3.9 mmol/L (3.5-5.0); Sodium 137 mmol/L (135-145); Total Protein 6.8 g/dL (6.4-8.9)
[2019-02-02 11:13] LABS: HCG Pregnancy < 0.60 mIU/mL
[2019-02-02 11:24] LABS: Urine Appearance Cloudy; Urine Bilirubin Negative (Negative); Urine Blood Negative (Negative); Urine Color Yellow; Urine Glucose Negative (Negative); Urine Ketones Negative (Negative); Urine Nitrite Negative (Negative); Urine Protein Negative (Negative); Urine Specific Gravity 1.005 (1.010-1.030); Urine Urobilinogen Negative (Negative)
[2019-02-02 11:43] LABS: Urine Benzodiazepine Screen None Detected (None Detect); Urine Opiates Screen None Detected (None Detect)
[2019-02-02 11:53] LABS: Acetaminophen < 15 mcg/mL; Alcohol < 10 mg/dL (<10); Lithium 0.99 mmol/L (0.6-1.2); Salicylate < 2.50 mg/dL (<30)
[2019-02-02] MEDS ORDERED: Haloperidol INJ IV/IM* 5 MG/ML AMP IM ONE (11:56)
[2019-02-02 12:08] LABS: TSH (Thyroid Stimulating Horm) 2.19 mcIU/mL (0.34-5.60)
[2019-02-02] MEDS ORDERED: LORazepam INJ* 2 MG/ML 1 ML VIAL ONE (12:08)
[2019-02-02] MEDS ORDERED: diPHENhydraMINE IV* 50 MG/ML 1 ml VIAL (BENADRYL) ONE (12:15)
[2019-02-02] MEDS ORDERED: Acetaminophen TAB* 325 MG PO ONE (20:27)
[2019-02-02] MEDS ORDERED: Gabapentin CAP(*) 300 MG PO ONE (20:49)
[2019-02-02] MEDS ORDERED: Cetirizine* 10 MG TAB PO SCH (21:00)
[2019-02-02] MEDS ORDERED: Lithium Carbonate ER (NF) 300 MG TAB.ER PO SCH (21:00)
[2019-02-02] MEDS ORDERED: Lurasidone(*) 120 MG TAB PO SCH (21:00)
[2019-02-02] MEDS ORDERED: Lurasidone(*) 40 MG TAB PO SCH (21:00)
--- NOTE | 2019-02-02 23:29 | ED ---
Progress - Progress Note Progress Note: This patient is a sign-out from Dr. Olguin to Dr. Shanks at 1999 on 02/02/19 at shift change for MHU hold. Course/Dx - Course Course Of Treatment: This patient is a sign-out from Dr. Olguin to Dr. Shanks at 1999 on 02/02/19 at shift change for MHU hold. This patient will be signed out from Dr. Thony Shanks to Dr. Chandler Arechiga at shift change at 0700 on 02/03/19 for MHU hold. - Diagnoses Provider Diagnoses: Unspecified mood [affective] disorder, Borderline personality disorder Discharge - Sign-Out/Discharge Documenting (check all that apply): Sign-Out Patient Signing out patient TO: Chandler Arechiga Receiving patient FROM: Thony Shanks Patient Received Moderate/Deep Sedation with Procedure: No - Discharge Plan Condition: Stable Disposition: HOME Patient Education Materials: Mood Disorders (ED), Borderline Personality Disorder (DC) Referrals: Vania Lopez MD [Primary Care Provider] - Additional Instructions: Per completion of a mental health evaluation, you are cleared for release and do not require inpatient psychiatric hospitalization at this time. Please go to nearest emergency room or call 911 if safety concerns arise or condition worsens. Important Phone Numbers: [facility] ph:[phone] Suicide Prevention and Crisis Services ph:[phone] [place] Suicide Prevention Lifeline ph:[phone] (6170) [facility] ph:[phone] Alcoholics Anonymous ph:[phone] [facility] ph:[phone] [facility] Police ph:[phone] Recommendations: Follow up with regular [facility] therapy appointments. - Billing Disposition and Condition Condition: STABLE Disposition: Home - Attestation Statements Document Initiated by Scribe: Yes Documenting Scribe: Mulugeta Montaño Provider For Whom Lee Ann is Documenting (Include Credential): Thony Shanks MD Scribe Attestation: Mulugeta Parker, scribed for Thony Shanks MD on 02/04/19 at 0311. Scribe Documentation Reviewed: Yes Provider Attestation: The documentation as recorded by the Muulgeta patel accurately reflects the service I personally performed and the decisions made by Thony wheat MD Status of Scribe Document: Viewed
--- NOTE | 2019-02-03 07:20 | ED ---
Progress - Progress Note Progress Note: This patient is signed out from Dr. Shanks at 0700 while on a mental health hold. - Consult/PCP Time Called: 11:20 Course/Dx - Course Course Of Treatment: Patietnt is signed out from Dr. Shanks at 0700 awaiting mental health disposition. At 11:48, mental health car scrubber informed me that the patient will be discharged with a diagnosis of unspecifiend mood disorder and and borderline personality disorder, per Dr. Hay. There were no disturbances while patient was under my care. - Diagnoses Provider Diagnoses: Unspecified mood [affective] disorder, Borderline personality disorder Discharge - Sign-Out/Discharge Documenting (check all that apply): Patient Departure - discharge Patient Received Moderate/Deep Sedation with Procedure: No - Discharge Plan Condition: Stable Disposition: HOME Patient Education Materials: Mood Disorders (ED), Borderline Personality Disorder (DC) Referrals: Vania Lopez MD [Primary Care Provider] - Additional Instructions: Per completion of a mental health evaluation, you are cleared for release and do not require inpatient psychiatric hospitalization at this time. Please go to nearest emergency room or call 911 if safety concerns arise or condition worsens. Important Phone Numbers: [facility] ph:[phone] Suicide Prevention and Crisis Services ph:[phone] National Suicide Prevention Lifeline ph:[phone] ([phone]) [facility] ph:[phone] Alcoholics Anonymous ph:[phone] [facility] ph:[phone] [place] [employer] ph:[phone] Recommendations: Follow up with regular [facility] therapy appointments. - Billing Disposition and Condition Condition: STABLE Disposition: Home - Attestation Statements Document Initiated by Scribe: Yes Documenting Scribe: Angela Braun Provider For Whom Scribe is Documenting (Include Credential): Chandler Arechiga MD Scribe Attestation: IAngela, scribed for Chandler Arechiga MD on 02/03/19 at 1602. Scribe Documentation Reviewed: Yes Provider Attestation: The documentation as recorded by the scribeAngela accurately reflects the service I personally performed and the decisions made by me, Chandler Arechiga MD Status of Scribe Document: Viewed
[2019-02-03 12:26] VITALS: BP 110/84
[2019-02-03] MEDS ORDERED: Lurasidone(*) 120 MG TAB PO SCH (17:00)
== END 2019-02-03 12:24 | disposition home or self-care (01) ==
LOC: ED 10:10
DX: F39 Unspecified mood [affective] disorder (principal); F60.3 Borderline personality disorder; J45.909 Unspecified asthma, uncomplicated; K21.9 Gastro-esophageal reflux disease without esophagitis; K58.9 Irritable bowel syndrome, unspecified; F41.9 Anxiety disorder, unspecified; F31.9 Bipolar disorder, unspecified; Z88.8 Allergy status to other drugs, medicaments and biological substances; Z91.5 Personal history of self-harm
CPT/HCPCS: 36415; 80053; 80178; 80307; 80320; 80329; 81003; 84443; 84702; 85025; 96374; 96375; 99285; A9270-GY; G0480; J1200; J1630; J2060

== ENCOUNTER 2019-02-04 11:14 | Inpatient (IN) | payer MEDICARE, MEDICAID ==
--- NOTE | 2019-02-04 11:22 | ED ---
Psychiatric Complaint - HPI Summary HPI Summary: This pt is a 39 y/o female presenting to [facility] via EMS and police on a 9.45 for self inflicted cuts. Pt was seen in the ED 2 days ago (02/02/19) for thoughts of self harm for the past weeks ago. She was cleared for discharge yesterday after a mental health evaluation. Pt states she continued to think about self harm after discharge and today she cut herself. Pt reports she used a razor blade and cut her right lower leg today. She was seen at [facility] today and then was sent to the ED. - History Of Current Complaint Time Seen by Provider: 02/04/19 11:16 Hx Obtained From: Patient Onset/Duration: Lasting Weeks, Still Present Timing: Days Severity Currently: Moderate Character: Depressed Aggravating Factor(s): Nothing Alleviating Factor(s): Nothing Related History: Positive For: Prior Psychiatric Issues Has Suicidal: Reports: Thoughts, With A Plan, Demonstrates Gesture Has Homicidal: Denies: Thoughts, With A Plan - Allergies/Home Medications Allergies/Adverse Reactions: Allergies Allergy/AdvReac Type Severity Reaction Status Date / Time ketamine Allergy Hallucinati Verified 02/02/19 10:23 ons casein AdvReac Nausea And Verified 02/02/19 10:23 Vomiting Milk Containing Products AdvReac Nausea And Verified 02/02/19 10:23 Vomiting PMH/Surg Hx/FS Hx/Imm Hx Endocrine/Hematology History: Denies: Hx Blood Disorders, Hx Diabetes, Hx Anemia, Hx Unexplained Bleeding Cardiovascular History: Denies: Hx Auto Implanted Cardiovert Defib, Hx Cardiac Arrest, Hx Embolism, Hx Hypotension, Hx Hypertension Respiratory History: Reports: Hx Asthma - Bronchial asthma Denies: Hx Chronic Bronchitis, Hx Chronic Obstructive Pulmonary Disease (COPD ), Hx Pneumonia, Hx Pulmonary Embolism, Hx Sleep Apnea GI History: Reports: Hx Gastroesophageal Reflux Disease, Hx Irritable Bowel, Other GI Disorders - reports she has had diarrhea/loose stool "off and on" for 5 yrs. Denies: Hx Crohn's Disease, Hx Diverticulosis History: Denies: Hx Acute Renal Failure, Hx Kidney Stones, Other Problems/Disorders Musculoskeletal History: Reports: Other Musculoskeletal History - osteoarthritis Denies: Hx Arthritis, Hx Osteoporosis, Hx Scoliosis Sensory History: Reports: Hx Contacts or Glasses Denies: Hx Cataracts, Hx Eye Injury, Hx Hearing Aid, Hx Hearing Problem, Other Sensory Impairments Opthamlomology History: Reports: Hx Contacts or Glasses Denies: Hx Cataracts, Hx Eye Injury, Other Sensory Impairments Neurological History: Denies: Hx Migraine, Hx Nerve Disease, Hx Seizures Comment Only: Hx Headaches - Relieved with use of OTCs Psychiatric History: Reports: Hx Anxiety, Hx Depression, Hx Inpatient Treatment , Hx Community Mental Health Tx, Hx Bipolar Disorder, Hx Suicide Attempt, Hx of Violent Episodes Against Others, Hx Substance Abuse - hx of alcoholism/ no etoh intake for the past 10 years, Other Psychiatric Issues/Disorders - Hx SIB Denies: Hx Eating Disorder - Surgical History Surgery Procedure, Year, and Place: n/a - Family History Known Family History: Positive: Hypertension, Other - mood disorder, anxiety, depression, alcohol abuse - Social History Alcohol Use: None Hx Substance Use: No Substance Use Type: Reports: None Hx Tobacco Use: No Smoking Status (MU): Never Smoked Tobacco Amount Used/How Often: states that she tried a cigarette once, over a year ago Length of Time of Smoking/Using Tobacco: n/a Have You Smoked in the Last Year: No Review of Systems Negative: Fever Cardiovascular: Negative Respiratory: Negative Gastrointestinal: Negative Skin: Other - POS: laceration on right lower leg Psychological: Other - POS: SI gestures Positive: Depressed All Other Systems Reviewed And Are Negative: Yes Physical Exam - Summary Physical Exam Summary: VITAL SIGNS: Reviewed. GENERAL: Patient is a well-developed and nourished female. Patient is not in any acute respiratory distress. HEAD AND FACE: No signs of trauma. No ecchymosis, hematomas or skull depressions. No sinus tenderness. EYES: PERRLA, EOMI x 2, No injected conjunctiva, no nystagmus. EARS: Hearing grossly intact. Ear canals and tympanic membranes are within normal limits. MOUTH: Oropharynx within normal limits. NECK: Supple, trachea is midline, no adenopathy, no JVD, no carotid bruit, no c- spine tenderness, neck with full ROM. CHEST: Symmetric, no tenderness at palpation LUNGS: Clear to auscultation bilaterally. No wheezing or crackles. CVS: Regular rate and rhythm, S1 and S2 present, no murmurs or gallops appreciated. ABDOMEN: Soft, non-tender. No signs of distention. No rebound no guarding, and no masses palpated. Bowel sounds are normal. EXTREMITIES: FROM in all major joints, no edema, no cyanosis or clubbing. NEURO: Alert and oriented x 3. No acute neurological deficits. Speech is normal and follows commands. SKIN: Dry and warm. Laceration of about 10.5 cm on right lower leg. Triage Information Reviewed: Yes Vital Signs On Initial Exam: Initial Vitals Temp Pulse Resp BP Pulse Ox 98.8 F 101 20 120/89 96 02/04/19 11:16 02/04/19 11:16 02/04/19 11:16 02/04/19 11:16 02/04/19 11:16 Vital Signs Reviewed: Yes Procedures - Laceration/Wound Repair 1 Location: lower extremity - right lower leg Description: Linear Anesthesia: 1.0%, [place] Length, Depth and Shape: 10.5 cm in length. Continuous sutures placed. Laceration/Wound Explored: clean Re-Evaluation - Re-Evaluation First Eval Re-Evaluation Time: 11:23 Comment: Pt is medically cleared. Course/Dx - Course Assessment/Plan: Pt is a 39 y/o female presenting to [facility] via EMS and police on a 9.45 for self inflicted cuts. Pt was seen in the ED 2 days ago (02/02/19) for thoughts of self harm for the past weeks ago. She was cleared for discharge yesterday after a mental health evaluation. Pt states she continued to think about self harm after discharge and today she cut herself. Pt reports she used a razor blade and cut her right lower leg today. She was seen at [facility] today and then was sent to the ED. Lab work without any significant abnormalities. Laceration was repaired on right lower leg. Pt tolerated the procedure well. Pt is medically cleared. She had a mental health evaluation and her case was reviewed by Dr. Hay, psychiatrist. Dr. Hay will admit the pt to [facility] facility on a voluntary status with dx mood disorder. - Differential Dx/Clinical Impression Provider Diagnosis: Mood disorder Discharge - Sign-Out/Discharge Documenting (check all that apply): Patient Departure - Admit to [facility] All imaging exams completed and their final reports reviewed: No Studies Patient Received Moderate/Deep Sedation with Procedure: No - Discharge Plan Condition: Stable Disposition: PSYCHIATRIC FACILITY[place] - Attestation Statements Document Initiated by Scribe: Yes Documenting Scribe: Lindsey Chao Provider For Whom Scribe is Documenting (Include Credential): Chandler Arechiga MD Scribe Attestation: I, Lindsey Chao, scribed for Chandler Arechiga MD on 02/04/19 at 1305.
[2019-02-04 12:12] LABS: Urine Appearance Cloudy; Urine Bilirubin Negative (Negative); Urine Blood Negative (Negative); Urine Color Yellow; Urine Glucose Negative (Negative); Urine Ketones Negative (Negative); Urine Nitrite Negative (Negative); Urine Protein Negative (Negative); Urine Specific Gravity 1.008 (1.010-1.030); Urine Urobilinogen Negative (Negative)
[2019-02-04 12:20] LABS: Urine Benzodiazepine Screen None Detected (None Detect); Urine Opiates Screen None Detected (None Detect)
[2019-02-04] MEDS ORDERED: Al Hydrox/Mg Hydrox/Simet LIQ* 30 ML UDC PO PRN (12:29)
[2019-02-04] MEDS: Gabapentin CAP(*) 300 MG PO SCH (17:10)
[2019-02-04] MEDS: Acetaminophen TAB* 325 MG PO PRN (18:21)
[2019-02-04] MEDS: Cetirizine* 10 MG TAB PO SCH (21:28)
[2019-02-04] MEDS: CMCS: Lithium Carbonate ER (NF) 300 MG TAB.ER PO SCH (21:29)
[2019-02-05] MEDS: Acetaminophen TAB* 325 MG PO PRN ×4 (02:35→20:33)
[2019-02-05 08:55] LABS: HDL Cholesterol 43.7 mg/dL
[2019-02-05] MEDS ORDERED: Flunisolide NASAL (NF) 1 SPRAY NASAL.SPR BOTH NARES SCH (09:00)
[2019-02-05] MEDS: Gabapentin CAP(*) 300 MG PO SCH ×3 (09:11→20:30)
[2019-02-05] MEDS: Lurasidone(*) 120 MG TAB PO SCH (09:11)
[2019-02-05] MEDS: Lurasidone(*) 40 MG TAB PO SCH (09:11)
[2019-02-05] MEDS: Sertraline* 100 MG TAB PO SCH (09:12)
[2019-02-05] MEDS: Fluticasone NASAL SPRAY 50MCG* 16 gm SPRAY BTL BOTH NARES SCH (09:52)
[2019-02-05 10:48] LABS: ABS Basophils 0.1 10^3/ul (0-0.2); ABS Eosinophils 0.3 10^3/ul (0-0.6); ABS Lymphocytes 1.7 10^3/ul (1.0-4.8); ABS Monocytes 0.6 10^3/ul (0-0.8); ABS Neutrophils 3.8 10^3/ul (1.5-7.7); Eosinophil % 4.1 %; Hematocrit 44 % (35-47); Lymphocyte % 26.5 %; Mean Corpuscular HGB Conc 34 g/dL (31-36); Mean Corpuscular Hemoglobin 32 pg (27-31); Mean Corpuscular Volume 93 fL (80-97); Mean Platelet Volume 8.3 fL (7.4-10.4); Nucleated Red Blood Cells % 0.1; Platelet Count 220 10^3/uL (150-450); Red Blood Count 4.73 10^6 /uL (3.70-4.87); Red Cell Distribution Width 13 % (10.5-15); White Blood Count 6.5 10^3/uL (3.5-10.8)
[2019-02-05 11:12] LABS: Albumin 4.2 g/dL (3.2-5.2); BUN/Creatinine Ratio 16.1 (8-20); EGFR African American 87.3 (>60); EGFR Non-African American 72.1 (>60); Globulin 2.1 g/dL (2-4); Potassium 3.8 mmol/L (3.5-5.0); Total Bilirubin 0.7 mg/dL (0.2-1.0); Total Protein 6.3 g/dL (6.4-8.9)
[2019-02-05] MEDS: Cholecalciferol TAB* 1000 UNITS PO SCH (13:45)
[2019-02-05] MEDS: Lactobacillus Acidophilus* 1 TAB PO SCH ×2 (13:45→20:31)
--- NOTE | 2019-02-05 13:45 | HP ---
PSYCHIATRIC HISTORY AND PHYSICAL: DATE OF ADMISSION: 02/05/19 JUSTIFICATION FOR ADMISSION: The patient is in need of 24-hour supervision and care due to severe thoughts of self-harm and a history of acting on such thoughts. CHIEF COMPLAINT: "Cutting myself is exhilarating, I love the blood and the pain , it makes me feel strong and alive." HISTORY OF PRESENT ILLNESS: Fernando is a 39-year-old homosexual white female with a history of extreme self-injurious behaviors and multiple admissions to this hospital for self-harm, who was brought to the emergency room via ambulance on legal status from the [facility], where she had arrived for a scheduled appointment earlier in the day and promptly went into a bathroom with a razor and cut herself on the leg. The laceration required sutures and thereafter, she received psychiatric evaluation. Originally, she had come to our emergency department on 02/02/19 and was there held overnight for further observation. At that time, she felt that she was safe to go home and was discharged on Monday. Thereafter , she spent the entire day with her partner and was able to quell the urge to self-injure. On the day of admission, she got up and her partner went to work and she was alone. She immediately walked to a local pharmacy, bought razors and brought these to the mental health clinic and cut herself. The patient is well known to this observer, having just been most recently discharged from my care in December of 2018. She denies suicidal ideations, but has incredibly strong urges to cut herself. She could not contract for safety at this time and it was determined that she would benefit from inpatient hospitalization. Symptomatically, she is denying any thoughts of harming anyone other than herself and she denies depression or anxiety. PAST PSYCHIATRIC HISTORY: Quite extensive. There have been several trips to both the ED and to the [facility] going back to 2004. We know that she has been hospitalized once at [facility] and [facility] in [place] and also [facility] in 2008 for 5 months. Past diagnoses include depression, anxiety, borderline personality disorder, and dissociative disorder. Her outpatient providers at the [facility] are Senait Walker as well as psychiatrist, Dr. Robert Ellis. The patient attends the intensive group programming through the [facility] program. She does have history of multiple previous suicide attempts, having swallowed radio antennas, keys, razor blades, as well as having placed plastic bags over her head in an attempt to asphyxiate herself. She indicates that she first started cutting herself at the age of 11. 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 She denies any recent use of tobacco, illicit drugs, or misuse of medications. PAST MEDICAL HISTORY: Significant for bronchial asthma, seasonal allergies, osteoarthritis, irritable bowel syndrome, and mild obesity. CURRENT MEDICATIONS: Include: 1. Lurasidone 160 mg p.o. q.h.s. 2. Flonase 2 sprays to both nares daily. 3. Neurontin 600 mg p.o. t.i.d. 4. [place] carbonate extended release 1200 mg p.o. q.h.s. 5. Sertraline 300 mg p.o. daily. 6. Xyzal 5 mg nightly. 7. Lactobacillus 1 cap b.i.d. 8. Vitamin D 2000 units daily. ALLERGIES: She is allergic to CASEIN and KETAMINE. FAMILY HISTORY: Unremarkable, but she tells us that her father may have had an undiagnosed personality disorder. SOCIAL HISTORY: The patient was born and raised in [place] and is an only child. Her parents are still living and still . She describes a close relationship with her mother and somewhat distant from her father. She is educated with a bachelor's degree in arts at [employer]. 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 Currently, she is in a 10-plus year relationship with her female partner and they have been for the last 3 years. They live together in an apartment in [place]. She describes her partner as very supportive, but frequently busy. 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 She is also receiving disability benefits. REVIEW OF SYSTEMS: The patient denies headache or double vision. She denies chest pain, sore throat, cough, difficulty breathing, abdominal pain, nausea, vomiting, diarrhea, or constipation. She denies rashes, enlarged lymph nodes, fevers, or changes in weight. PHYSICAL EXAMINATION VITAL SIGNS: Blood pressure 117/76, heart rate is 100, respiratory rate 16, temperature 97.3 degrees Fahrenheit. HEENT: Head is normocephalic, atraumatic. NECK: Supple. CHEST: Clear to auscultation bilaterally. CARDIAC: Exam reveals normal heart sounds. ABDOMEN: Soft and nontender. NEUROLOGICAL: She is grossly intact with no focal deficits. SKIN: Warm and dry with some fresh lacerations to her left medial thigh, which are bandaged and clean. LABORATORY DATA: CBC is within normal limits as is her complete metabolic panel. Hemoglobin A1c is 4.4%. Triglycerides 123, cholesterol 135, LDL cholesterol 67, HDL cholesterol 43.7. Urinalysis is within normal limits. Urine drug screen is negative for all substances tested. DIAGNOSES: [place] I: Unspecified mood disorder. [place] II: Borderline personality disorder. IMPRESSION: The patient is a 39-year-old homosexual white female with a history of extreme self-injurious behaviors and multiple admissions to this hospital for self-harm, who was brought to the emergency room via ambulance from the [facility] on legal status following an episode in which she came to the clinic with a razor and cut herself significantly in the leg in the bathroom. The patient had been evaluated in our emergency room over the weekend and it appears that her urges to self-harm have continued. She reports not being safe to return home at this time and we know that she has acted on thoughts of self-harm in the past. PLAN: The patient is readmitted to the adult behavioral health unit where she is placed on q.15-minute checks for her own safety. Because of self-harming behaviors on the unit in the past, we will reinstitute her behavioral contract. We will resume all medications as currently prescribed in the outpatient setting and we will be in touch with [facility] to make sure that followup is available shortly after discharge. Typically, the patient benefits from short hospitalizations and we hope to see her stable before the end of this week. [id number]/[facility] #: [id number] CHRISTOPHER
[2019-02-05 17:15] LABS: Acetaminophen < 15 mcg/mL; Alcohol < 10 mg/dL (<10); Salicylate < 2.50 mg/dL (<30)
[2019-02-05 17:29] LABS: TSH (Thyroid Stimulating Horm) 5.75 mcIU/mL (0.34-5.60)
[2019-02-05] MEDS: Cetirizine* 10 MG TAB PO SCH (20:29)
[2019-02-05] MEDS: CMCS: Lithium Carbonate ER (NF) 300 MG TAB.ER PO SCH (20:31)
[2019-02-06] MEDS: Cholecalciferol TAB* 1000 UNITS PO SCH (09:21)
[2019-02-06] MEDS: Lurasidone(*) 120 MG TAB PO SCH (09:21)
[2019-02-06] MEDS: Lurasidone(*) 40 MG TAB PO SCH (09:21)
[2019-02-06] MEDS: Lactobacillus Acidophilus* 1 TAB PO SCH (09:21)
[2019-02-06] MEDS: Sertraline* 100 MG TAB PO SCH (09:21)
[2019-02-06] MEDS: Gabapentin CAP(*) 300 MG PO SCH (09:21)
[2019-02-06] MEDS: Fluticasone NASAL SPRAY 50MCG* 16 gm SPRAY BTL BOTH NARES SCH (09:22)
[2019-02-06 09:34] VITALS: BP 112/78
--- NOTE | 2019-02-06 12:19 | DS ---
DISCHARGE SUMMARY: DATE OF ADMISSION: 02/04/19 DATE OF DISCHARGE: 02/06/19 CONDITION AT THE TIME OF DISCHARGE: Improved. The patient is no longer endorsing thoughts of self-h arm. She states that she would like to go home and spend time with her spouse. She states that the "high" that she got from cutting herself has now worn off and she feels back to her baseline. Her me dications have not been changed from that which she takes on an outpatient basis and she continues to tolerate these well. She does have a supply of medications at home and is not in need of further pr escriptions at this time. The patient is safe today and her plan is to ride home with her spouse, Roberto devine, who is in agreement with the discharge plan. She has followup on Monday at the [facility], where she is an active participant in the [facility] program. It should be noted chio t the patient has chronic self-harm behaviors and her long-term prognosis is limited given her severe personality pathology, however, acute stressors have been modified through this hospitalization and she is no longer endorsing the need to stay in a locked supervised unit. I see no barriers to her re ceiving successful treatment in the outpatient setting and it is well known that those with borderlin e personality disorder have difficulties that are not amenable to inpatient treatment, therefore, we feel that it is warranted to discharge her home at this time. MENTAL STATUS EXAM: At the time of discharge, the patient is a middle-aged white female with short b londe hair and eye glasses, is somewhat overweight, she is dressed in a blue T-shirt and sweat pants. Her appearance appears to be fairly well groomed. She is calm, cooperative, easy to establish a ra pport with. She is making good eye contact. Speech has a normal rate, tone, and volume. Mood appea rs to be euthymic with full affect. She is smiling brightly. Thought process is linear and goal dir ected. Thought content is significant for her desire to be discharged from the hospital. She denies suicidal or homicidal ideations. She denies auditory or visual hallucinations. Insight and judgmen t appear to be fair given her willingness to follow up in the outpatient setting. Cognitively, she i s awake and alert with what would appear to be a high average intellect by virtue of her educational background. LABORATORY DATA: The patient's metabolic studies were performed on 02/05/19 revealing a hemoglobin A 1c of 4.4%, triglycerides 123, cholesterol 135, LDL cholesterol 67, HDL cholesterol 43.7. DISCHARGE INSTRUCTIONS TO THE PATIENT: Are as follows: Part A: Medications: 1. The patient is on [place] extended release 1200 mg p.o. q. nightly. 2. She is on Latuda 160 mg p.o. daily. 3. Zoloft 300 mg p.o. daily. 4. Xyzal 5 mg p.o. q.h.s. 5. Acidophilus/lactobacillus 1 tablet p.o. b.i.d. 6. Gabapentin 600 mg t.i.d. 7. Nasalide 1 spray to both nares daily. 8. Azelastine 0.1 spray to both nares b.i.d. Part B: Diet is regular. Part C: Activities as tolerated. The patient is a nonsmoker. There are no laboratory or diagnostic studies pending at the time of discharge. Part D: Followup care: The patient has an appointment with her primary therapist, Senait wagner 02/08/19 at 12:30 p.m. at [facility]. Part E: Substance abuse followup is nonapplicable. Part F: Disposition. The patient is going to the home that she owns with her spouse. HOSPITAL COURSE: Part A: Reason for admission: The patient is a 39-year-old homosexual whi te female with a history of extreme self-injurious behaviors and multiple admissions to this hospital for self-harm, who is brought to the emergency room via ambulance on a 9.45 legal status from the [facility], where she had arrived for a scheduled appointment earlier in the day and promptly went into a bathroom with razor and cut herself on the leg. The laceration required sutures and thereafter she received psychiatric evaluation. Originally, she had come to our emergenc y department on 02/02/19 and was there held overnight for further observation. At that deanna e, she felt like she was safe to go home and was discharged on Monday. Thereafter, she spent the ent annia day with her partner and was able to quell the urge to self-injure. On the day of admission, she got up when her partner went to work and felt alone. She immediately walked to a local pharmacy, [facility] and brought these to the mental health clinic and cut herself there. The patient is wel l known to this observer having just been most recently discharged from my care in December 2018. She d enies suicidal ideations, but has incredibly strong urges to cut herself. She could not contract for safety at this time and it was determined that she would benefit from inpatient hospitalization. Sy mptomatically, she is denying any thoughts harming anyone other than herself. She denies depression or anxiety. Part B: Psychiatric treatment rendered: [facility] and placed on q.15 minute checks for her own safety. As is her custom during her frequent hospital izations, we placed her on a behavioral modification contract, which she signed and adhered to. She went to groups and complied with all milieu expectations. The patient's thoughts of self-harm rapidl y resolved on our unit as they typically do. On the day of discharge, she is stating that she feels ready to go home. She has a follow up appointment in 2 days at the [facility] with her primary therapist and she is also an active participant in [facility] group programming there. We spoke with her spouse, Mouna, who is in agreement with the discharge plan. The patient denied s uicidal ideations throughout her hospitalization and denied thoughts of harming others. At this time , she is back at her baseline and ready to resume treatment in the definitive outpatient setting. [id number]/[facility] #: [id number]
== END 2019-02-06 12:30 | disposition home or self-care (01) | DRG 885 ==
LOC: ED 11:14 → BSU 12:29
PROVIDERS: ADMIT Psychiatry & Neurology Psychiatry; ATTEND Psychiatry & Neurology Psychiatry
PROC: 0HQJXZZ Repair Left Upper Leg Skin, External Approach (ICD-10-PCS; principal; 2019-02-04)
DX: F39 Unspecified mood [affective] disorder (principal); R45.851 Suicidal ideations; F60.3 Borderline personality disorder; S71.112A Laceration without foreign body, left thigh, initial encounter; X78.1XXA Intentional self-harm by knife, initial encounter; J45.909 Unspecified asthma, uncomplicated; M19.90 Unspecified osteoarthritis, unspecified site; K58.9 Irritable bowel syndrome, unspecified; E66.9 Obesity, unspecified; Y92.89 Other specified places as the place of occurrence of the external cause; Z68.35 Body mass index [BMI] 35.0-35.9, adult; Z79.899 Other long term (current) drug therapy; Z88.8 Allergy status to other drugs, medicaments and biological substances; Z82.49 Family history of ischemic heart disease and other diseases of the circulatory system; Z81.8 Family history of other mental and behavioral disorders
CPT/HCPCS: 36415; 80053; 80061; 80307; 80320; 80329; 81003; 83036; 84443; 85025; 99222; 99284; A9270-GY; G0480

== ENCOUNTER 2019-09-06 16:11 | Emergency (ER) | payer MEDICARE, MEDICAID ==
--- NOTE | 2019-09-06 16:16 | ED ---
Psychiatric Complaint - HPI Summary HPI Summary: 39-year-old female with a significant past medical history of psychiatric disorders presents to the emergency department today with chief complaint of interest and gestures of self-harm. Patient states "I just want her myself". Patient denies suicidal ideation and expresses full interest and gestures of self-harm such as cutting. Patient states she is the pen to vick all the areas on her body where she wants to cut herself. Patient saw her therapist this afternoon who suggested she come to the emergency department for evaluation. Patient states seeing her counselor helpful her symptoms and she doesn't weekly. Patient denies homicidal ideation. Patient denies recent alcohol use and recreational drug use. Patient otherwise feels well and has no chest pain, shortness of breath, abdominal pain, rash, pain with urination. - History Of Current Complaint Chief Complaint: EDMentalHealth Time Seen by Provider: 09/06/19 16:16 Hx Obtained From: Patient Onset/Duration: Gradual Onset Timing: Constant Severity Initially: Moderate Severity Currently: Severe Character: Depressed, Anxious Alleviating Factor(s): Counseling Associated Signs And Symptoms: Positive: Paranoid Behavior, Social Withdrawal Related History: Positive For: Prior Psychiatric Issues Has Suicidal: Reports: With A Plan, Demonstrates Gesture, Has Prior Attempt(s). Denies: Thoughts Has Homicidal: Denies: Thoughts, With A Plan - Allergies/Home Medications Allergies/Adverse Reactions: Allergies Allergy/AdvReac Type Severity Reaction Status Date / Time ketamine Allergy Hallucinati Verified 02/02/19 10:23 ons casein AdvReac Nausea And Verified 02/02/19 10:23 Vomiting Milk Containing Products AdvReac Nausea And Verified 02/02/19 10:23 Vomiting Home Medications: Home Medications Azelastine 0.1% Nasal (NF) [Astepro 0.1% Nasal (NF)] 1 spray ALT NARE BID [History Confirmed 09/06/19] LevoCETirizine TAB (NF) [Xyzal TAB (NF)] 5 mg PO DAILY 09/06/19 [History Confirmed 09/06/19] Sertraline* [Zoloft*] 300 mg PO DAILY 09/06/19 [History Confirmed 09/06/19] PMH/Surg Hx/FS Hx/Imm Hx Endocrine/Hematology History: Denies: Hx Blood Disorders, Hx Diabetes, Hx Anemia, Hx Unexplained Bleeding Cardiovascular History: Denies: Hx Auto Implanted Cardiovert Defib, Hx Cardiac Arrest, Hx Embolism, Hx Hypotension, Hx Hypertension Respiratory History: Reports: Hx Asthma - Bronchial asthma Denies: Hx Chronic Bronchitis, Hx Chronic Obstructive Pulmonary Disease (COPD ), Hx Pneumonia, Hx Pulmonary Embolism, Hx Sleep Apnea GI History: Reports: Hx Gastroesophageal Reflux Disease, Hx Irritable Bowel, Other GI Disorders - reports she has had diarrhea/loose stool "off and on" for 5 yrs. Denies: Hx Crohn's Disease, Hx Diverticulosis History: Denies: Hx Acute Renal Failure, Hx Kidney Stones, Other Problems/Disorders Musculoskeletal History: Reports: Other Musculoskeletal History - osteoarthritis Denies: Hx Arthritis, Hx Osteoporosis, Hx Scoliosis Sensory History: Reports: Hx Contacts or Glasses Denies: Hx Cataracts, Hx Eye Injury, Hx Hearing Aid, Hx Hearing Problem, Other Sensory Impairments Opthamlomology History: Reports: Hx Contacts or Glasses Denies: Hx Cataracts, Hx Eye Injury, Other Sensory Impairments Neurological History: Denies: Hx Migraine, Hx Nerve Disease, Hx Seizures Comment Only: Hx Headaches - Relieved with use of OTCs Psychiatric History: Reports: Hx Anxiety, Hx Depression, Hx Inpatient Treatment , Hx Community Mental Health Tx, Hx Bipolar Disorder, Hx Suicide Attempt, Hx of Violent Episodes Against Others, Hx Substance Abuse - hx of alcoholism/ no etoh intake for the past 10 years, Other Psychiatric Issues/Disorders - Hx SIB Denies: Hx Eating Disorder - Surgical History Surgery Procedure, Year, and Place: n/a Infectious Disease History: No Infectious Disease History: Denies: Traveled Outside the [place] in Last 30 Days - Family History Known Family History: Positive: Hypertension, Other - mood disorder, anxiety, depression, alcohol abuse - Social History Alcohol Use: None Hx Substance Use: No Substance Use Type: Reports: None Hx Tobacco Use: No Smoking Status (MU): Never Smoked Tobacco Amount Used/How Often: states that she tried a cigarette once, over a year ago Length of Time of Smoking/Using Tobacco: n/a Have You Smoked in the Last Year: No Review of Systems Constitutional: Negative Eyes: Negative ENT: Negative Cardiovascular: Negative Respiratory: Negative Gastrointestinal: Negative Genitourinary: Negative Musculoskeletal: Negative Skin: Negative Neurological: Negative Positive: Anxious, Depressed All Other Systems Reviewed And Are Negative: Yes Physical Exam Triage Information Reviewed: Yes Vital Signs On Initial Exam: Initial Vitals Temp Pulse Resp BP Pulse Ox 99.1 F 90 16 109/79 98 09/06/19 16:13 09/06/19 16:13 09/06/19 16:13 09/06/19 16:13 09/06/19 16:13 Vital Signs Reviewed: Yes Appearance: Positive: Well-Appearing, No Pain Distress, Well-Nourished Skin: Positive: Warm, Skin Color Reflects Adequate Perfusion Eyes: Positive: EOMI, SHELLY ENT: Positive: Hearing grossly normal Respiratory/Lung Sounds: Positive: Clear to Auscultation, Breath Sounds Present Cardiovascular: Positive: RRR, S1, S2 Abdomen Description: Positive: Nontender, Soft Bowel Sounds: Positive: Present Musculoskeletal: Positive: Strength/ROM Intact Neurological: Positive: Sensory/Motor Intact, Alert, Oriented to Person Place, Time, Normal Gait, Facial Symmetry, Speech Normal Psychiatric: Positive: Affect/Mood Appropriate, Anxious, Depressed AVPU Assessment: Alert Procedures - Sedation Patient Received Moderate/Deep Sedation with Procedure: No Diagnostics - Vital Signs Vital Signs Temp Pulse Resp BP Pulse Ox 09/06/19 16:13 99.1 F 90 16 109/79 98 - Laboratory Lab Statement: Any lab studies that have been ordered have been reviewed, and results considered in the medical decision making process. Course/Dx - Course Course Of Treatment: Patient was evaluated in the emergency department today for suicidal ideation. Patient was seen and examined their vital signs are stable and they were afebrile. Upon arrival to emergency department the patient was placed in a safe room, placed under observation and changed into hospital scrubs. Their belongings were collected and placed in a locked box. Urinalysis including toxicology was done for mental health clearance. Blood draw was deferred for medical clearance given patient's physical exam, lack of physical complaints and patient's history with noncompliance with blood draws and mental health history. Patient was cleared for mental health evaluation and disposition by psychiatric services. Patient was signed out to DANIEL Sanchez at 1749 on 09/06/2019. - Differential Dx/Clinical Impression Differential Diagnosis/HQI/PQRI: Positive: Acute Psychosis, Anxiety, Bipolar Disorder, Depression, Suicidal Ideation, Suicidal Gesture Provider Diagnosis: Intentional self-harm Discharge ED - Sign-Out/Discharge Documenting (check all that apply): Sign-Out Patient Signing out patient TO: Jl Lema Receiving patient FROM: Laz Guerin - Discharge Plan Referrals: Vania Lopez MD [Primary Care Provider] - - Attestation Statements Provider Attestation: I was available for consult. This patient was seen by the ANTONIO. The patient was not presented to, seen by, or examined by me. Pascual Ring MD
--- NOTE | 2019-09-06 18:05 | PN ---
Progress Note - Progress Note Date of Service: 09/06/19 Note: Patient signed out to me by Laz SANCHEZ, pending mental health evaluation and disposition. Vital signs within normal limits. Patient has history of self- harm, under constant observation pending mental health evaluation. Patient swallowed staple pulled from wall at 1830 before being stopped. Patient requested Benadryl, stating that it helps her calm down. Patient started to scratch herself, states she cannot control herself. nurse states she knows this pt well and patient often calms down with B-52 and then feels like going home. Mental health evaluation recommends discharge. Patient and patient's prefer discharge, as patient has extensive outpatient follow-up. Patient denied x-ray after swallowing staple, states she will return if she has any symptoms. Patient calm and cooperative and coherent.
[2019-09-06] MEDS ORDERED: diPHENhydraMINE PO* 50 MG PO ONE (18:30)
[2019-09-06 19:09] LABS: Urine Appearance Clear; Urine Bilirubin Negative (Negative); Urine Blood Negative (Negative); Urine Color Yellow; Urine Glucose Negative (Negative); Urine Ketones Negative (Negative); Urine Nitrite Negative (Negative); Urine Protein Negative (Negative); Urine Specific Gravity 1.013 (1.010-1.030); Urine Urobilinogen Negative (Negative)
[2019-09-06] MEDS ORDERED: LORazepam INJ* 2 MG/ML 1 ML VIAL IM ONE (19:25)
[2019-09-06] MEDS ORDERED: Lorazepam PYXIS KEY PRN (19:25)
[2019-09-06] MEDS ORDERED: Haloperidol INJ IV/IM* 5 MG/ML AMP IM ONE (19:26)
[2019-09-06] MEDS ORDERED: Lorazepam PYXIS KEY ONE (19:29)
[2019-09-06 19:42] LABS: Urine Benzodiazepine Screen None Detected (None Detect); Urine Opiates Screen None Detected (None Detect)
[2019-09-06 21:01] VITALS: BP 108/75
== END 2019-09-06 20:55 | disposition home or self-care (01) ==
LOC: ED 16:11
DX: T18.9XXA Foreign body of alimentary tract, part unspecified, initial encounter (principal); X58.XXXA Exposure to other specified factors, initial encounter; Y92.230 Patient room in hospital as the place of occurrence of the external cause; Z91.5 Personal history of self-harm; F41.9 Anxiety disorder, unspecified; F32.9 Major depressive disorder, single episode, unspecified; Z88.8 Allergy status to other drugs, medicaments and biological substances; Z91.011 Allergy to milk products
CPT/HCPCS: 80307; 81003; 96372; 99285; A9270-GY; J1630; J2060

== ENCOUNTER 2019-09-10 16:07 | Emergency (ER) | payer MEDICARE, MEDICAID ==
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
[2019-09-10 16:42] LABS: ABS Basophils 0.1 10^3/ul (0-0.2); ABS Eosinophils 0.1 10^3/ul (0-0.6); ABS Lymphocytes 1.2 10^3/ul (1.0-4.8); ABS Monocytes 0.4 10^3/ul (0-0.8); ABS Neutrophils 2.9 10^3/ul (1.5-7.7); Eosinophil % 2.9 %; Hematocrit 45 % (35-47); Hemoglobin 15.4 g/dL (12.0-16.0); Lymphocyte % 25.8 %; Mean Corpuscular HGB Conc 34 g/dL (31-36); Mean Corpuscular Hemoglobin 32 pg (27-31); Mean Corpuscular Volume 93 fL (80-97); Mean Platelet Volume 7.6 fL (7.4-10.4); Platelet Count 242 10^3/uL (150-450); Red Blood Count 4.85 10^6 /uL (3.70-4.87); Red Cell Distribution Width 13 % (10-15); White Blood Count 4.7 10^3/uL (3.5-10.8)
[2019-09-10 16:51] LABS: ALT 13 U/L (7-52); AST 15 U/L (13-39); Albumin 4.4 g/dL (3.2-5.2); Albumin/Globulin Ratio 2.2 (1-3); Alkaline Phosphatase 51 U/L (34-104); Anion Gap 5 mmol/L (2-11); BUN/Creatinine Ratio 12.8 (8-20); Blood Urea Nitrogen 12 mg/dL (6-24); CO2 Carbon Dioxide 25 mmol/L (22-32); Calcium 9.9 mg/dL (8.6-10.3); Chloride 107 mmol/L (101-111); EGFR African American 79.8 (>60); Glucose 91 mg/dL (70-100); Potassium 4.2 mmol/L (3.5-5.0); Sodium 137 mmol/L (135-145); Total Protein 6.4 g/dL (6.4-8.9)
[2019-09-10] MEDS ORDERED: LORazepam TAB(*) 1 MG PO ONE (16:58)
[2019-09-10 17:07] LABS: Urine Appearance Cloudy; Urine Bilirubin Negative (Negative); Urine Blood Negative (Negative); Urine Color Yellow; Urine Glucose Negative (Negative); Urine Ketones Negative (Negative); Urine Nitrite Negative (Negative); Urine Protein Negative (Negative); Urine Specific Gravity 1.016 (1.010-1.030); Urine Urobilinogen Negative (Negative)
[2019-09-10 17:37] LABS: Acetaminophen < 15 mcg/mL; Alcohol < 10 mg/dL (<10); Salicylate < 2.50 mg/dL (<30)
[2019-09-10 17:38] LABS: Urine Benzodiazepine Screen None Detected (None Detect); Urine Opiates Screen None Detected (None Detect)
[2019-09-10] MEDS ORDERED: diPHENhydraMINE IV* 50 MG/ML 1 ml VIAL (BENADRYL) IM ONE (17:38)
--- NOTE | 2019-09-10 22:17 | ED ---
Progress - Progress Note Progress Note: Patient is received as a sign-out from Dr. Ring at 219909/10/19 shift change pending disposition of this mental health patient. 2199 - Patient's case had been reviewed by Dr. Alfonso. Patient to be discharged to home with Dx of mood disorder. Re-Evaluation - Re-Evaluation First Eval Re-Evaluation Time: 16:45 Comment: Patient medically cleared for MHE following laceration repair. Second Eval Re-Evaluation Time: 17:25 Comment: Patient was given magazine. She removed staple, and when asked, she said that she doesn't know what happened to the staple, and she is unsure if she ate it. Third Eval Re-Evaluation Time: 17:39 Comment: Patient became agitated. We will give 50mg Benadryl IM since she states this has helped in the past. Course/Dx - Course Course Of Treatment: Patient is received as a sign-out from Dr. Ring at 219909/10/19 shift change pending disposition of this mental health patient. 2199 - Patient's case had been reviewed by Dr. Alfonso. Patient to be discharged to home with Dx of mood disorder. - Diagnoses Provider Diagnoses: Mood disorder - Provider Notifications Discussed Care Of Patient With: Dany Alfonso Time Discussed With Above Provider: 22:00 Instructed by Provider To: Other - 2199 - Patient's case had been reviewed by Dr. Alfonso. Patient to be discharged to home with Dx of mood disorder. Discharge ED - Sign-Out/Discharge Documenting (check all that apply): Patient Departure - dc - Discharge Plan Condition: Stable Disposition: HOME Referrals: Vania Lopez MD [Primary Care Provider] - Additional Instructions: Pt wanted to cut self alot and did today. Pt cut self on arms with a razor blade. Patient states she has been cutting herself since she was 11 years old. Patient states that she cuts during holiday season because she finds it a stressful time. Patient to be discharged with a diagnosis of Mood Disorder NOS. Patient to follow up with [facility] at [facility] IMP[facility]ANT PHONE NUMBERS: [facility] Behavioral Services Unit: [facility] Emergency Room Behavioral Pod: Suicide Prevention and Crisis Services: The Chat: Text (free and confidential online crisis service sponsored by [facility] Suicide Prevention, available Monday-Monday 6pm 9pm) National Suicide Prevention Lifeline: (791) 382-DRXO (6575) National Crisis Text Line: Text HERBERT to 226664 [facility] Mental Health Clinic: [facility] Outreach for Older Adults: [facility] Mental Health Association: [facility]: [facility] Police: [facility] Sheriff: [place] Police Department: Alcoholics Anonymous: Narcotics Anonymous: [facility] [place] [facility]: [facility] ([facility]) Outpatient Services: [place] [facility]: (217) 596-1210274-6288 Alcohol & Drug Crisis: [facility]: Department of Dietary Tech: [place] Rescue [place]: [facility] Action: [place] Housing Authority: [facility]: Neighborhood Housing Services: [facility] Independent Center: [facility] ACT Team: [employer] Charities: Food Bank of [facility]: Loaves and Fishes (free daily meals): [facility] Action Food Pantry: Advocacy Center: or Youth Advocacy Center (YAP): [facility] Activities Center (GIAC): Open Doors: [facility] Russell: - Billing Disposition and Condition Condition: STABLE Disposition: Home - Attestation Statements Document Initiated by Jorge: Yes Documenting Scribe: Steven Mckeon Provider For Whom Jorge is Documenting (Include Credential): Thony Shanks MD Scribe Attestation: ISteven, scribed for Thony Shanks MD on at 1839. Scribe Documentation Reviewed: Yes Provider Attestation: The documentation as recorded by the jorge, Steven Mckeon accurately reflects the service I personally performed and the decisions made by me, Thony Shanks MD Status of Scribe Document: Viewed
[2019-09-10 23:05] VITALS: BP 00/00
== END 2019-09-10 23:04 | disposition home or self-care (01) ==
LOC: ED 16:07
DX: F39 Unspecified mood [affective] disorder (principal); S51.812A Laceration without foreign body of left forearm, initial encounter; S61.012A Laceration without foreign body of left thumb without damage to nail, initial encounter; F41.9 Anxiety disorder, unspecified; Z87.891 Personal history of nicotine dependence; X78.9XXA Intentional self-harm by unspecified sharp object, initial encounter; Y92.9 Unspecified place or not applicable
CPT/HCPCS: 36415; 80053; 80307; 80320; 80329; 81003; 85025; 96372; 99285; A9270-GY; G0480; J1200

== ENCOUNTER 2019-11-18 13:27 | Emergency (ER) | payer MEDICARE, MEDICAID ==
--- OUTSIDE RECORDS SUMMARY | 2019-11-18 15:49 | XMS REPORT | Continuity of Care Document ---
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 Aliciadean Barrientos, 03/09/2007 More M.D. Injection Allergy Injection Two Or Aliciadean Barrientos, 01/31/2007 More M.D. Injection Allergy Injection Two Or Aliciadean Barrientos, 01/17/2007 More M.D. Injection Allergy Injection Two Or Obdulia Mueller NP 01/02/2007 More Injection Allergy Injection Two Or Aliciadean saunders Feltrivera, 12/06/2006 More M.D. Injection Allergy Injection Two Or Aliciadean Barrientos, 11/22/2006 More M.D. Injection Allergy Injection Two Or Aliciadean Barrientos, 11/08/2006 More M.D. Injection Allergy Injection Two Or Aliciadean saunders Felten, 10/25/2006 More M.D. Injection Allergy Injection Two Or Aliciadean Barrientos, 10/04/2006 More M.D. Injection Allergy Injection Two Or Aliciadean Barrientos, 09/20/2006 More M.D. Injection Allergy Injection Two Or Alicia von Felten, 09/05/2006 More M.D. Injection Allergy Injection Two Or Alicia von Felten, 08/22/2006 More M.D. Injection Allergy Injection Two Or Alicia von Felten, 08/10/2006 More M.D. Injection Allergy Injection Two Or Alicia nicky Felten, 07/25/2006 More M.D. Injection Allergy Injection Two Or Alicia nicky Felten, 07/19/2006 More M.D. Injection Allergy Injection Two Or Alicia von Felten, 07/12/2006 More M.D. Injection Allergy Injection Two Or Alicia von Felten, 06/29/2006 More M.D. Injection Allergy Injection Two Or Alicia nicky Felten, 06/20/2006 More M.D. Injection Allergy Injection Two Or Alicia nicky Felten, 06/08/2006 More M.D. Injection Allergy Injection Two Or Alicia nicky Felten, 06/01/2006 More M.D. Injection Allergy Injection Two Or Alicia von Felten, 05/25/2006 More M.D. Injection Allergy Injection Two Or Alicia nicky Felten, 05/25/2006 More M.D. Injection Allergy Injection Two Or Alicia nicky Felten, 05/18/2006 More M.D. Injection Allergy Injection Two Or Alicia nicky Felten, 05/12/2006 More M.D. Injection Allergy Injection Two Or Alicia nicky Felten, 05/04/2006 More M.D. Injection Allergy Injection Two Or Alicia nicky Felten, 04/26/2006 More M.D. Injection Allergy Injection Two Or Alicia nicky Felten, 04/19/2006 More M.D. Injection Allergy Injection Two Or Alicia nicky Felten, 04/11/2006 More M.D. Injection Allergy Injection Two Or Alicia nicky Felten, 03/29/2006 More M.D. Injection Allergy Injection Two Or Alicia nicky Felten, 03/22/2006 More M.D. Injection Allergy Injection Two Or Alicia nicky Felten, 03/15/2006 More M.D. Injection Allergy Injection Two Or Alicia nicky Felten, 03/08/2006 More M.D. Injection Allergy Injection Two Or Alicia Barrientos, 03/01/2006 More M.D. Injection Allergy Injection Two Or Alicia Barrientos, 02/22/2006 More M.D. Injection Allergy Injection Two Or Alicia Barrientos, 02/14/2006 More M.D. Injection Injection Subcutaneous Or [facility] 02/07/2002 [facility] Injection Injection Subcutaneous Or [facility] 02/06/2002 [facility] Injection Immunizations CPT Code Status Date Vaccine Reaction Lot # [id number] Given 07/26/2019 Influenza Vac, Quadrivalent, Sl[place] [id number] [address] Given 05/25/2018 Influenza Vac, Quadrivalent, Sl[place] [id number] [address] Given 06/15/2017 Influenza Vac, Quadrivalent, Slit [id number] [place] [address] Given 06/27/2016 Influenza Vac, Quadrivalent, Slit [id number] [place] [address] Given 05/22/2015 Tdap Tetanus, W Pertussis [id number] 19015 Given 05/22/2015 Influenza Vac, Quadrivalent, Slit [id number] Virus, Im Q2038 Given 06/25/2013 Split Influenza Medicare: Fluzone 70355 Given 06/25/2013 DO Not Use Split Influenza Virus [id number] Vaccine Q2038 Given 07/25/2012 Split Influenza Medicare: [place] 77997 Given 07/25/2012 DO Not Use Split Influenza Virus [id number] Vaccine Q2038 Given 05/19/2011 Split Influenza Medicare: [place] [id number] 34878 Given 06/15/2010 DO Not Use Split Influenza Virus [id number] Vaccine 84655 Given 09/14/2009 H1N1 Virus Vaccine [id number] 62386 Given 12/25/2007 MMR Virus Immunization [id number] 87333 Given 07/13/2007 DO Not Use Split Influenza Virus [id number] Vaccine 43087 Given 08/08/2005 DO Not Use Split Influenza Virus Vaccine 96685 Given 02/06/2002 Tetanus And Diptheria Adult Preservative Free >7Yrs 56517 Given 01/30/2002 IPV Inactive Poliovirus Vaccine 08193 Given 09/01/1997 Meningococcal Conjugate Vaccine,Serogroups For Intramuscular Use 39449 Given 12/31/1996 Hepatitis B Immunization, [place]-19 Years 25230 Given 07/22/1996 Hepatitis B Immunization, [place]-19 Years 87568 Given 06/10/1996 Hepatitis B Immunization, [place]-19 Years 48777 Given 10/18/1995 Measles Immunization 57399 Given 04/24/1995 Tetanus And Diptheria Adult Preservative Free >7Yrs 49283 Given 12/04/1983 MMR Virus Immunization 16609 Given 12/04/1983 DTP Immunization 72165 Given 07/05/1980 IPV Inactive Poliovirus Vaccine OPV 25225 Given 07/05/1980 DTP Immunization 57694 Given 1979 IPV Inactive Poliovirus Vaccine OPV 07920 Given 1979 DTP Immunization Vital Signs Date Vital Result Comment 10/30/2019 10:08am BP Systolic 108 mmHg BP Diastolic 58 mmHg Heart Rate 82 /min Body Temperature 98.1 F Respiratory Rate 15 /min Weight 228.00 lb 08/02/2019 9:49am BP Systolic 106 mmHg BP Diastolic 66 mmHg Heart Rate 76 /min Body Temperature 97.7 F Respiratory Rate 16 /min Results Test Acquired Date Facility Test Result H/L Range Note CBC Auto Diff 09/10/2019 [facility] White Blood 4.7 10^3/uL Normal 3.5-10.8 Count Red Blood Count 4.85 10^6/uL Normal 3.70-4.87 Hemoglobin 15.4 g/dL Normal 12.0-16.0 Hematocrit 45 % Normal 35-47 Mean Corpuscular Volume 93 fL Normal 80-97 Mean Corpuscular Hemoglobin 32 pg High 27-31 Mean Corpuscular HGB Conc 34 g/dL Normal 31-36 Red Cell Distribution Width 13 % Normal 10-15 Platelet Count 242 10^3/uL Normal 150-450 Mean Platelet Volume 7.6 fL Normal 7.4-10.4 Abs Neutrophils 2.9 10^3/uL Normal 1.5-7.7 Abs Lymphocytes 1.2 10^3/uL Normal 1.0-4.8 Abs Monocytes 0.4 10^3/uL Normal 0-0.8 Abs Eosinophils 0.1 10^3/uL Normal 0-0.6 Abs Basophils 0.1 10^3/uL Normal 0-0.2 Abs Nucleated RBC 0.0 10^3/uL Granulocyte % 61.2 % Lymphocyte % 25.8 % Monocyte % 8.3 % Eosinophil % 2.9 % Basophil % 1.8 % Nucleated Red Blood Cells % 0.0 Urinalysis Profile 09/10/2019 [facility] Urine Color Yellow Urine Appearance Cloudy Urine Specific [place] 1.016 Normal 1.010-1.030 Urine pH 5.0 Normal 5-9 Urine Urobilinogen Negative Negative Urine Ketones Negative Negative Urine Protein Negative Negative Urine Leukocytes Negative Negative Urine Blood Negative Negative Urine Nitrite Negative Negative Urine Bilirubin Negative Negative Urine Glucose Negative Negative Urine Drug SCR ED 09/10/2019 [facility] Urine Amphetamine None Detected None Detect & Pain Clinic Screen Urine Barbiturates Screen None Detected None Detect Urine Benzodiazepine Screen None Detected None Detect Urine Cannabinoids Screen None Detected None Detect Urine Cocaine Screen None Detected None Detect Urine Opiates Screen None Detected None Detect Urine Phencyclidine Screen None Detected None Detect 1 Comp Metabolic Panel 09/10/2019 [facility] Sodium 137 mmol/L Normal 135-145 Potassium 4.2 mmol/L Normal 3.5-5.0 Chloride 107 mmol/L Normal 101-111 Co2 Carbon Dioxide 25 mmol/L Normal 22-32 Anion Gap 5 mmol/L Normal 2-11 Glucose 91 mg/dL Normal 70-100 Blood Urea Nitrogen 12 mg/dL Normal 6-24 Creatinine 0.94 mg/dL Normal 0.51-0.95 BUN/Creatinine Ratio 12.8 Normal 8-20 Calcium 9.9 mg/dL Normal 8.6-10.3 Total Protein 6.4 g/dL Normal 6.4-8.9 Albumin 4.4 g/dL Normal 3.2-5.2 Globulin 2.0 g/dL Normal 2-4 Albumin/Globulin Ratio 2.2 Normal 1-3 Total Bilirubin 0.70 mg/dL Normal 0.2-1.0 Alkaline Phosphatase 51 U/L Normal 34-104 Alt 13 U/L Normal 7-52 Ast 15 U/L Normal 13-39 Egfr Non- 66.0 >60 Egfr 79.8 >60 2 Laboratory test finding 09/10/2019 [facility] Acetaminophen < 15 g/mL 3 Alcohol < 10 mg/dL Normal <10 Salicylate < 2.50 mg/dL <30 Urinalysis Profile 09/06/2019 [facility] Urine Color Yellow Urine Appearance Clear Urine Specific [place] 1.013 Normal 1.010-1.030 Urine pH 6.0 Normal 5-9 Urine Urobilinogen Negative Negative Urine Ketones Negative Negative Urine Protein Negative Negative Urine Leukocytes Negative Negative Urine Blood Negative Negative Urine Nitrite Negative Negative Urine Bilirubin Negative Negative Urine Glucose Negative Negative Urine Drug SCR ED 09/06/2019 [facility] Urine Amphetamine None Detected None Detect & Pain Clinic Screen Urine Barbiturates Screen None Detected None Detect Urine Benzodiazepine Screen None Detected None Detect Urine Cannabinoids Screen None Detected None Detect Urine Cocaine Screen None Detected None Detect Urine Opiates Screen None Detected None Detect Urine Phencyclidine Screen None Detected None Detect 4 Laboratory test finding 05/01/2019 [facility] [place] 0.93 mmol/L Normal 0.6- 1.2 Thyroxine 6.34 g/dL Normal 6.09-12.23 TSH (Thyroid Stim Horm) 2.62 mcIU/mL Normal 0.34-5.60 1 The urine specimen was tested at the listed cutoffs: Drug class test level (ng/mL) Amphetamines 500 Barbiturates 200 Benzodiazepine metabolites 200 Cocaine metabolites 150 Cannabinoids 50 Opiates 300 Pcp 25 Specimen was received without chain of custody. Results should be used for medical purposes only. 2 Because ethnic data is not always readily available, this report includes an eGFR for both -Americans and non- Americans. The National Kidney Disease Education Program (NKDEP) does not endorse the use of the MDRD equation for patients that are not between the ages of 18 and 70, are , have extremes of body size, muscle mass, or nutritional status, or are non- or non-. According to the National Kidney Foundation, irrespective of diagnosis, the stage of the disease is based on the level of kidney function: Stage Description GFR(mL/min/1.73 m(2)) 1 Kidney damage with normal or decreased GFR 90 2 Kidney damage with mild decrease in GFR 60-89 3 Moderate decrease in GFR 30-59 4 Severe decrease in GFR 15-29 5 Kidney failure <15 (or dialysis) 3 Therapeutic concentration: <50 ug/mL Toxic concentration: >120 ug/mL 4 The urine specimen was tested at the listed cutoffs: Drug class test level (ng/mL) Amphetamines 500 Barbiturates 200 Benzodiazepine metabolites 200 Cocaine metabolites 150 Cannabinoids 50 Opiates 300 Pcp 25 Specimen was received without chain of custody. Results should be used for medical purposes only. Procedures Date Code Description Status 10/30/2019 18801 Allergy Injection Two Or More Completed 10/16/2019 69036 Allergy Injection Two Or More Completed 09/30/2019 43854 Allergy Injection Two Or More Completed 09/13/2019 67899 Allergy Injection Two Or More Completed 08/23/2019 47246 Allergy Injection Two Or More Completed 08/09/2019 02524 Allergy Injection Two Or More Completed 07/26/2019 57958 Allergy Injection Two Or More Completed 07/10/2019 20700 Allergy Injection Two Or More Completed 06/26/2019 81104 Allergy Injection Two Or More Completed 06/12/2019 21929 Allergy Injection Two Or More Completed 05/08/2019 27353 Allergy Injection Two Or More Completed 02/25/2010 68175779 Colonoscopy Completed Medical Devices Description No Information Available Encounters Type Date Location Provider Dx Diagnosis Office Visit 08/02/2019 Main Office LOREAN Ramirez L03.818 Cellulitis of other 9:45a sites Office Visit 07/19/2019 Main Office LORENA Ramirez L03.818 Cellulitis of other 10:00a sites Assessments Date Code Description Provider 10/30/2019 Z00.01 Encounter for general adult medical Vania Lopez M.D. examination with abnormal findings 10/30/2019 J30.1 Allergic rhinitis due to pollen Vania Lopez M.D. 10/30/2019 J30.81 Allergic rhinitis due to animal (cat) Vania Lopez M.D. (dog) hair and dander 10/30/2019 F42.8 Other obsessive-compulsive disorder Vania Lopez M.D. 10/30/2019 L73.2 Hidradenitis suppurativa Vania Lopez M.D. 10/30/2019 E55.9 Vitamin D deficiency, unspecified Vania Lopez M.D. 10/30/2019 M25.572 Pain in left ankle and joints of left foot Vania Lopez M.D. 10/16/2019 J30.1 Allergic rhinitis due to pollen Vania Lopez M.D. 09/30/2019 J30.1 Allergic rhinitis due to pollen Vania Lopez M.D. 09/13/2019 J30.81 Allergic rhinitis due to animal (cat) Vania Lopez M.D. (dog) hair and dander 08/23/2019 J30.81 Allergic rhinitis due to animal (cat) Vnaia Lopez M.D. (dog) hair and dander 08/09/2019 J30.81 Allergic rhinitis due to animal (cat) Vania Lopez M.D. (dog) hair and dander 08/02/2019 L03.818 Cellulitis of other sites Hilary Martínez [facility] 07/26/2019 J30.1 Allergic rhinitis due to pollen Vania Lopez M.D. 07/26/2019 Z23 Encounter for immunization Vania Lopez M.D. 07/19/2019 L03.818 Cellulitis of other sites Hilary Martínez [facility] 07/10/2019 J30.81 Allergic rhinitis due to animal (cat) Vania Lopez M.D. (dog) hair and dander 06/26/2019 J30.1 Allergic rhinitis due to pollen Vania Lopez M.D. 06/12/2019 J30.1 Allergic rhinitis due to pollen Vania Lopez M.D. 05/08/2019 J30.1 Allergic rhinitis due to pollen Vania Lopez M.D. Plan of Treatment 10/30/2019 - Vania Lopez M.D.Z00.01 Encounter for general adult medical examination with abnormal findingsNew Labs:CBC Electronic ([facility]), Ordered: Comp Metabolic-ALL [facility], Ordered: 10/30/19Lipid Panel-[facility], Ordered: 10/30/19TSH ([facility]), Ordered: 10/30/19Free T4 ([facility] /[facility]), Ordered: 10/30/19Lithium ([facility]), Ordered: 10/30/19Comments :You are in good general health. I recommend regular physical exams with attention to good nutritionand exercise, eye exams every other year, and dental exams twice yearly. Goals:2 fresh fruits [id number] of fresh green and multicolored vegetablesEat from the whole color spectrum. 40-60 [place] dailyMOVE YOUR BODY. Bodies were made to be moved. exercise 30 minutes at least 4-5 times hmbbqjH55.81 Allergic rhinitis due to animal (cat) (dog) hair and danderComments:Stable. Continue present meds.F42.8 Other obsessive- compulsive disorderComments:Stable. Continue present meds. continue with psychiatry.L73.2 Hidradenitis suppurativaComments:refer to dermatology. There are different kinds of treatments available. [email or web address] Vitamin D deficiency, unspecifiedNew Labs:Vitamin D, 25Hydroxy(Fma/LC, Ordered: 10/30/19M25.572 Pain in left ankle and joints of left footNew Medication:Physical Therapy - evaluate and treat chronic left ankle pain due to remote injuryComments:refer to physical therapy.consider prolotherapy in the future if PT doesn't help.AllComments:Medication Management Patient Understands medications she 's taking? Yes No Are there Barriers to Adherence? Yes No Has the patient been asked about herbal supplements and therapies, and OTC meds? Yes No Care Plan1. Patient has been queried about patient's goals/ preferences and functional/lifestyle goals at relevant visits. If relevant, describe: na2. Treatment goals as explained to the patient: above3. Are there barriers to meeting treatment goals? Yes No If Yes, please describe:4. Self-Management goals as described to the patient: Yes No Functional Status Description No Information Available Mental Status Description No Information Available Referrals Refer to Reason for Referral Status Appt Date Nina Molina MD hidradenitis suppurativa Created [address] [place] [address] [phone]
[2019-11-18 15:53] VITALS: BP 122/87
--- NOTE | 2019-11-18 16:00 | UC ---
Skin Complaint HPI - HPI Summary HPI Summary: 39 y/o female presents to the urgent care c/o rash under her breast spreading to the mid chest since 11/11/2019. Pt reports She was seen about 5 days by her PCP and Rx Clydamycin PO. She reports rash is resolving in the left breast, But this morning she noticed the one in the RT breast is worsening and the central blister burst. Rash become like pimples and then developed a small blister that pops at times. She has had this in the past, but now is persistent. Pt states pain at touch is 2/10. Pt denies fever, Hx of MRSA, PARISI, dizziness, SOB, cough, Hx of travel, abdominal pain, N/V/d. - History of Current Complaint Chief Complaint: UCSkin Time Seen by Provider: 11/18/19 15:58 Stated Complaint: WORSENING SKIN INFECTIONS Hx Obtained From: Patient Hx Last Menstrual Period: Onset/Duration: Gradual Onset, Lasting Days - 1.5 weeks, Still Present, Worse Since - on the RT breast Skin Exposure Onset/Duration: Weeks Ago - 1.5 weeks Timing: Constant Onset Severity: Mild Current Severity: Mild Pain Intensity: 1 - RT breast rash Pain Scale Used: 0-10 Numeric Character: Pain - mild at touch, Redness Aggravating Factor(s): Touch Alleviating Factor(s): Other - Rx Clindamycin PO and has taken 5 days of treatment Associated Signs & Symptoms: Positive: Rash - B/L breast rash, Left breast rash is resolving , RT breast had a blister that burst this morning - Allergy/Home Medications Allergies/Adverse Reactions: Allergies Allergy/AdvReac Type Severity Reaction Status Date / Time ketamine Allergy Hallucinati Verified 11/18/19 15:53 ons casein AdvReac Nausea And Verified 11/18/19 15:53 Vomiting Milk Containing Products AdvReac Nausea And Verified 11/18/19 15:53 Vomiting Home Medications: Home Medications [facility] Carbonate ER (NF) 1,200 mg PO BEDTIME 06/19/15 [History Confirmed ] Lurasidone(*) [Latuda] 160 mg PO DAILY 06/21/16 [History Confirmed 11/18/19] Flunisolide NASAL (NF) [Nasalide NASAL (NF)] 2 spray BOTH NARES BID 04/05/18 [ History Confirmed 11/18/19] Azelastine 0.1% Nasal (NF) [Astepro 0.1% Nasal (NF)] 2 spray ALT NARE DAILY 11/21 [History Confirmed 11/18/19] LevoCETirizine TAB (NF) [Xyzal TAB (NF)] 5 mg PO DAILY 09/06/19 [History Confirmed 11/18/19] Sertraline* [Zoloft*] 300 mg PO DAILY 09/06/19 [History Confirmed 11/18/19] Gabapentin CAP(*) [Neurontin 300 CAP(*)] 300 mg PO BID 11/18/19 [History Confirmed 11/18/19] Mupirocin 2% OINT* [Bactroban 2 % Oint*] 1 applic TOPICAL BID #1 tube 11/18/19 [ Rx] clindamycin HCL [Clindamycin HCl] 300 mg PO TID 11/18/19 [History Confirmed ] PMH/Surg Hx/FS Hx/Imm Hx Previously Healthy: Yes Psychological History: Anxiety, Depression, Bipolar Disorder - Surgical History Surgical History: None Surgery Procedure, Year, and Place: n/a - Family History Known Family History: Positive: Hypertension, Diabetes, Other - mood disorder, anxiety, depression, alcohol abuse - Social History Occupation: Unemployed Lives: With Family Alcohol Use: None Alcohol Amount: sober since 2004 Substance Use Type: None Substance Use Comment - Amount & Last Used: 14 years ago Smoking Status (MU): Former Smoker Amount Used/How Often: states that she tried a cigarette once, over a year ago Length of Time of Smoking/Using Tobacco: n/a Have You Smoked in the Last Year: No When Did the Patient Quit Smoking/Using Tobacco: n/a - Immunization History Most Recent Influenza Vaccination: Jun 2018 Most Recent Tetanus Shot: unknown Most Recent Pneumonia Vaccination: has not received Review of Systems All Other Systems Reviewed And Are Negative: Yes Constitutional: Positive: Negative Skin: Positive: Rash - red rash under B/L breast, which resolved in left breast , but not in the RT. mild pain Eyes: Positive: Negative ENT: Positive: Negative Respiratory: Positive: Negative Cardiovascular: Positive: Negative Gastrointestinal: Positive: Negative Genitourinary: Positive: Negative Motor: Positive: Negative Neurovascular: Positive: Negative Musculoskeletal: Positive: Negative Neurological/Mental Status: Positive: Negative Psychological: Positive: Negative Is Patient Immunocompromised?: No Physical Exam - Summary Physical Exam Summary: Vital Signs Reviewed: Yes General: well appearing, well nourished female in no acute apparent pain distress, sitting comfortably on examining table Eye Exam: Normal Eyes: Positive: Conjunctiva Clear - PERRLA< EOMI, fundi grossly normal ENT: Positive: Normal ENT inspection, Hearing grossly normal, Pharynx normal, TMs normal Neck: Positive: Supple, Nontender, No Lymphadenopathy Respiratory: Positive: Chest non-tender, Lungs clear, Normal breath sounds, No respiratory distress Cardiovascular: Positive: RRR, No Murmur, Pulses Normal, Brisk Capillary Refill Abdomen Description: Positive: Nontender, No Organomegaly, Soft. Negative: CVA Tenderness (R), CVA Tenderness (L) Bowel Sounds: Positive: Present Musculoskeletal: Positive: Strength Intact, ROM Intact, No Edema Neurological: Positive: Alert, Muscle Tone Normal Psychological Exam: Normal Skin: Positive: Medial aspect of RT breast Positive erythematous patch w/ indistinct borders, warm and tender to palpation, about 1cm x 1.0 cm in size w/ a burst central blister, surrounding crusting yellowish drainage. Also under left breast w/ similar papules which re now resolving. pulses WNL, capillary refill brisk, sensation WNL. Triage Information Reviewed: Yes Vital Signs: Initial Vital Signs Temp 98.3 F 11/18/19 15:47 Pulse 77 11/18/19 15:47 Resp 16 11/18/19 15:47 BP 122/87 11/18/19 15:47 Pulse Ox 100 11/18/19 15:47 Course/Dx - Course Course Of Treatment: 39 y/o female presents to the urgent care c/o rash under her breast spreading to the mid chest since 11/11/2019. Pt reports She was seen about 5 days by her PCP and Rx Clydamycin PO. She reports rash is resolving in the left breast, But this morning she noticed the one in the RT breast is worsening and the central blister burst. Rash become like pimples and then developed a small blister that pops at times. She has had this in the past, but now is persistent. Pt states pain at touch is 2/10. Pt denies fever, Hx of MRSA, PARISI, dizziness, SOB, cough, Hx of travel, abdominal pain, N/V/d. Hx obtained. Pt is hemodynamically stable. PT w/ Medial aspect of RT breast Positive erythematous patch w/ indistinct borders, warm and tender to palpation around 3 o'clock, about 1cm x 1.0 cm in size w/ a burst central blister, surrounding crusting yellowish drainage. Also under left breast w/ similar papules which are now resolving on examination. Wound sample taken and sent to the lab for culture to r/o MRSA. Wound irrigated with saline water. bacitracin applied and covered with a sterile dressing. Pt advised to continue taking Clyndamicin PO since she has only taking 4-5 days of treatment. Pt Rx Bactroban topical cream. Pt advised if not improvement of symptoms to return to the urgent care or f/u with her PCP in 3 days . If redness doubles in size or fever develops despite taking ABX to go immediately to the ER. Pt understood and agreed w/ plan of care. - Differential Diagnoses - Skin Complaint Differential Diagnoses: Abscess, Cellulitis, Contact Dermatitis, Local Allergic Reaction, MRSA, Urticaria - Diagnoses Provider Diagnosis: Cellulitis of right breast Discharge ED - Sign-Out/Discharge Documenting (check all that apply): Patient Departure - D/c home All imaging exams completed and their final reports reviewed: No Studies - Discharge Plan Condition: Stable Disposition: HOME Prescriptions: Mupirocin 2% OINT* [Bactroban 2 % Oint*] 1 applic TOPICAL BID #1 tube Patient Education Materials: Cellulitis (ED) Referrals: Vania Lopez MD [Primary Care Provider] - 3 Days Additional Instructions: 1-Please continue taking clindamycin PO and take full course of Antibiotic since the rash on left breast is resolving 2-Please apply Bactroban as directed to alleviate rash. 3- If redness and swelling doubles in size and fever develops please return to the Urgent care or w/ your PCP for further management 4-Wound culture was sent to the lab to r/o MRSA and check if antibiotic is sensitive. Yopu will be notified of any abnormality - Billing Disposition and Condition Condition: STABLE Disposition: Home
== END 2019-11-18 16:30 | disposition home or self-care (01) ==
LOC: UCEAST 13:27
DX: N61.0 Mastitis without abscess (principal); F31.9 Bipolar disorder, unspecified; Z79.899 Other long term (current) drug therapy; Z87.891 Personal history of nicotine dependence; Z91.011 Allergy to milk products; Z88.4 Allergy status to anesthetic agent
CPT/HCPCS: 87070; 87077; 87186; 87205; 87640; 87641; 99212; G0463

== ENCOUNTER 2020-01-20 14:37 | Inpatient (IN) ==
[2020-01-20] MEDS ORDERED: Al Hydrox/Mg Hydrox/Simet LIQ 30 ML UDC PO PRN (15:27)
[2020-01-20] MEDS ORDERED: diPHENhydraMINE 25 mg TAB PO ONE (15:37)
[2020-01-20 16:25] LABS: Hematocrit 44 % (35-47); Hemoglobin 15.2 g/dL (12.0-16.0); Mean Corpuscular HGB Conc 35 g/dL (31-36); Mean Corpuscular Hemoglobin 33 pg (27-31); Mean Corpuscular Volume 94 fL (80-97); Red Blood Count 4.68 10^6 /uL (3.70-4.87); Red Cell Distribution Width 13 % (10-15); White Blood Count 6.2 10^3/uL (3.5-10.8)
[2020-01-20 16:51] LABS: ABS Eosinophils 0.2 10^3/ul (0-0.6); ABS Lymphocytes 1.4 10^3/ul (1.0-4.8); ABS Monocytes 0.7 10^3/ul (0-0.8); Eosinophil % 2.7 %; Mean Platelet Volume 8.1 fL (7.4-10.4); Nucleated Red Blood Cells % 0.1; Platelet Count 222 10^3/uL (150-450)
[2020-01-20 16:52] LABS: Acetaminophen < 15 mcg/mL; Alcohol, S < 10 mg/dL (<10); Salicylate < 2.50 mg/dL (<30)
[2020-01-20 16:58] LABS: ALT 13 U/L (7-52); Albumin 4.2 g/dL (3.2-5.2); Alkaline Phosphatase 49 U/L (34-104); BUN/Creatinine Ratio 12.5 (8-20); Blood Urea Nitrogen 11 mg/dL (6-24); CO2 Carbon Dioxide 20 mmol/L (22-32); Calcium 10.1 mg/dL (8.6-10.3); Chloride 109 mmol/L (101-111); EGFR African American 85.7 (>60); EGFR Non-African American 70.8 (>60); Glucose 95 mg/dL (70-100); HCG Pregnancy < 0.60 mIU/mL; Sodium 135 mmol/L (135-145)
[2020-01-20 17:03] LABS: TSH (Thyroid Stimulating Horm) 1.78 mcIU/mL (0.34-5.60)
[2020-01-20 17:18] LABS: Albumin/Globulin Ratio 1.8 (1-3); Anion Gap 6 mmol/L (2-11); Globulin 2.4 g/dL (2-4); Total Protein 6.6 g/dL (6.4-8.9)
[2020-01-20] MEDS: Lithium Carb ER 300 mg TAB(NF) PO SCH (20:47)
[2020-01-20] MEDS: Lurasidone 80 mg TAB (*) PO SCH ×2 (20:50→22:16)
[2020-01-20 21:33] LABS: Urine Appearance Cloudy; Urine Bilirubin Negative (Negative); Urine Blood Negative (Negative); Urine Color Yellow; Urine Glucose Negative (Negative); Urine Ketones Negative (Negative); Urine Nitrite Negative (Negative); Urine Protein Negative (Negative); Urine Specific Gravity 1.005 (1.010-1.030); Urine Urobilinogen Negative (Negative)
[2020-01-20 21:44] LABS: Urine Benzodiazepine Screen None Detected (None Detect); Urine Opiates Screen None Detected (None Detect)
[2020-01-21 08:07] LABS: HDL Cholesterol 52.2 mg/dL
[2020-01-21] MEDS: AZELASTINE 0.1% INTRANASAL SCH (09:19)
[2020-01-21] MEDS: LORazepam 1 mg TAB (*) PO PRN ×2 (14:58→22:06)
[2020-01-21] MEDS: Lithium Carb ER 300 mg TAB(NF) PO SCH (20:18)
[2020-01-21] MEDS: Lurasidone 80 mg TAB (*) PO SCH (20:18)
[2020-01-22] MEDS: AZELASTINE 0.1% INTRANASAL SCH (07:04)
[2020-01-22] MEDS: Lithium Carb ER 300 mg TAB(NF) PO SCH (20:19)
[2020-01-22] MEDS: Lurasidone 80 mg TAB (*) PO SCH (20:20)
[2020-01-22] MEDS: FLUNISOLIDE BOTH NARES SCH (20:21)
[2020-01-23] MEDS: FLUNISOLIDE BOTH NARES SCH ×2 (09:10→20:47)
[2020-01-23] MEDS: AZELASTINE 0.1% INTRANASAL SCH (09:10)
[2020-01-23] MEDS: Lurasidone 80 mg TAB (*) PO SCH (20:41)
[2020-01-23] MEDS: Lithium Carb ER 300 mg TAB(NF) PO SCH (20:43)
[2020-01-24] MEDS: FLUNISOLIDE BOTH NARES SCH (08:34)
[2020-01-24] MEDS: AZELASTINE 0.1% INTRANASAL SCH (08:39)
[2020-01-24 09:13] VITALS: BP 118/67
== END 2020-01-24 14:49 | disposition home or self-care (01) | DRG 885 ==
LOC: ED 14:37 → BSU 15:27
PROVIDERS: ADMIT Psychiatry & Neurology Psychiatry; ATTEND Psychiatry & Neurology Psychiatry

== ENCOUNTER 2021-03-08 19:07 | Inpatient (IN) ==
[2021-03-08 20:14] LABS: Urine Appearance Clear; Urine Bilirubin Negative (Negative); Urine Blood 2+ (Negative); Urine Color Straw; Urine Glucose Negative (Negative); Urine Ketones Negative (Negative); Urine Nitrite Negative (Negative); Urine Protein Negative (Negative); Urine Specific Gravity 1.005 (1.002-1.030); Urine Urobilinogen Negative (Negative)
[2021-03-08 20:17] LABS: Urine Bacteria 1+ (Absent); Urine Red Blood Cell Trace(0-2/hpf) (Absent); Urine Squamous Epithelial Cell Present (Absent); Urine White Blood Cell Absent (Absent)
[2021-03-08 20:42] LABS: Urine Benzodiazepine Screen None Detected (None Detect); Urine Cannabinoids Screen None Detected (None Detect); Urine Opiates Screen None Detected (None Detect)
[2021-03-08 21:25] LABS: ABS Basophils 0.1 10^3/ul (0-0.2); ABS Eosinophils 0.2 10^3/ul (0-0.6); ABS Lymphocytes 2.1 10^3/ul (1.0-4.8); ABS Monocytes 0.6 10^3/ul (0-0.8); ABS Neutrophils 3.3 10^3/ul (1.5-7.7); Eosinophil % 2.8 %; Hematocrit 44 % (35-47); Lymphocyte % 33.7 %; Mean Corpuscular HGB Conc 34 g/dL (31-36); Mean Corpuscular Hemoglobin 32 pg (27-31); Mean Corpuscular Volume 94 fL (80-97); Mean Platelet Volume 7.5 fL (7.4-10.4); Platelet Count 237 10^3/uL (150-450); Red Blood Count 4.65 10^6 /uL (3.70-4.87); Red Cell Distribution Width 13 % (10-15); White Blood Count 6.2 10^3/uL (3.5-10.8)
[2021-03-08 21:40] LABS: ALT 15 U/L (7-52); AST 17 U/L (13-39); Albumin 4.4 g/dL (3.2-5.2); Albumin/Globulin Ratio 2.1 (1-3); Alkaline Phosphatase 58 U/L (35-149); Anion Gap 3 mmol/L (2-11); Blood Urea Nitrogen 10 mg/dL (6-24); CO2 Carbon Dioxide 27 mmol/L (22-32); Calcium 9.7 mg/dL (8.6-10.3); Chloride 105 mmol/L (101-111); EGFR African American 74.4 (>60); EGFR Non-African American 61.5 (>60); Globulin 2.1 g/dL (2-4); Glucose 98 mg/dL (70-100); Potassium 4.1 mmol/L (3.5-5.0); Sodium 135 mmol/L (135-145); Total Protein 6.5 g/dL (6.4-8.9)
[2021-03-08 21:41] LABS: Acetaminophen < 15 mcg/mL; Alcohol, S < 10 mg/dL (<10); Lithium 0.58 mmol/L (0.6-1.2); Salicylate < 2.50 mg/dL (<30)
[2021-03-08] MEDS ORDERED: Lithium Carb ER 300 mg TAB(NF) PO ONE (23:45)
[2021-03-09] MEDS ORDERED: Al Hydrox/Mg Hydrox/Simet LIQ 30 ML UDC PO PRN (10:21)
[2021-03-09] MEDS ORDERED: Albuterol HFA INHALER 8 gm MDI INH PRN ×2 (10:23→17:39)
[2021-03-09] MEDS ORDERED: Clindamycin 1% TOPICAL(NF) TOPICAL SCH (11:00)
[2021-03-09] MEDS: Cholecalciferol (VIT D3) 1,000 unit TAB PO SCH (13:51)
[2021-03-09] MEDS ORDERED: Flunisolide NASAL (NF) 1 SPRAY NASAL.SPR BOTH NARES SCH ×2 (21:00)
[2021-03-09] MEDS ORDERED: Lithium Carb ER 300 mg TAB(NF) PO SCH (21:00)
[2021-03-09] MEDS: Clindamycin 1% TOPICAL(NF) TOPICAL SCH (21:09)
[2021-03-09] MEDS: CMC:Lithium Carb ER 300 mg TAB(NF) PO SCH (21:10)
[2021-03-10] MEDS: Cholecalciferol (VIT D3) 1,000 unit TAB PO SCH (08:50)
[2021-03-10] MEDS: Fluticasone NASAL SPRAY 50MCG 16 gm SPRAY BTL BOTH NARES SCH (08:55)
[2021-03-10] MEDS: Clindamycin 1% TOPICAL(NF) TOPICAL SCH ×2 (08:58→22:37)
[2021-03-10] MEDS ORDERED: ADALIMUMAB 40 MG/0.8 ML SUBCUT ONE (14:00)
[2021-03-10] MEDS: CMC:Lithium Carb ER 300 mg TAB(NF) PO SCH (21:46)
[2021-03-11] MEDS: Cholecalciferol (VIT D3) 1,000 unit TAB PO SCH (08:52)
[2021-03-11] MEDS: Fluticasone NASAL SPRAY 50MCG 16 gm SPRAY BTL BOTH NARES SCH (08:55)
[2021-03-11] MEDS ORDERED: Pneumococcal Vac 23-Polyvalent IM ONE (09:00)
[2021-03-11] MEDS: Clindamycin 1% TOPICAL(NF) TOPICAL SCH (10:39)
[2021-03-11 11:26] VITALS: BP 114/82
== END 2021-03-11 13:00 | disposition home or self-care (01) | DRG 885 ==
LOC: ED 19:07 → BSU 03-09 17:38
PROVIDERS: ADMIT Psychiatry & Neurology Psychiatry; ATTEND Psychiatry & Neurology Psychiatry

== ENCOUNTER 2022-04-09 16:53 | Inpatient (IN) ==
[2022-04-09 21:37] LABS: ABS Basophils 0.1 10^3/ul (0-0.2); ABS Eosinophils 0.2 10^3/ul (0-0.6); ABS Lymphocytes 1.9 10^3/ul (1.0-4.8); ABS Monocytes 0.5 10^3/ul (0-0.8); ABS Neutrophils 3.2 10^3/ul (1.5-7.7); Eosinophil % 2.7 %; Hematocrit 43 % (35-47); Hemoglobin 14.8 g/dL (12.0-16.0); Lymphocyte % 32.4 %; Mean Corpuscular HGB Conc 34 g/dL (31-36); Mean Corpuscular Hemoglobin 33 pg (27-31); Mean Corpuscular Volume 95 fL (80-97); Mean Platelet Volume 8.3 fL (7.4-10.4); Nucleated Red Blood Cells % 0.1; Platelet Count 227 10^3/uL (150-450); Red Blood Count 4.54 10^6 /uL (3.70-4.87); Red Cell Distribution Width 14 % (10-15); White Blood Count 5.8 10^3/uL (3.5-10.8)
[2022-04-09] MEDS ORDERED: Al Hydrox/Mg Hydrox/Simet LIQ 30 ML UDC PO PRN (21:39)
[2022-04-09 21:42] LABS: Urine Appearance Clear; Urine Color Yellow
[2022-04-09 21:43] LABS: Urine Bilirubin Negative (Negative); Urine Blood Negative (Negative); Urine Glucose Negative (Negative); Urine Ketones Negative (Negative); Urine Nitrite Negative (Negative); Urine Protein Negative (Negative); Urine Urobilinogen 0.2 (Negative) (Negative)
[2022-04-09 21:47] LABS: ALT 15 U/L (7-52); AST 17 U/L (13-39); Acetaminophen < 15 mcg/mL; Albumin 4.5 g/dL (3.2-5.2); Albumin/Globulin Ratio 2.5 (1-3); Alcohol, S < 13 mg/dL (<13); Alkaline Phosphatase 59 U/L (35-149); Anion Gap 7 mmol/L (2-11); Blood Urea Nitrogen 13 mg/dL (6-24); CO2 Carbon Dioxide 23 mmol/L (22-32); Calcium 9.6 mg/dL (8.6-10.3); Chloride 107 mmol/L (101-111); Globulin 1.8 g/dL (2-4); Glucose 98 mg/dL (70-100); Potassium 3.8 mmol/L (3.5-5.0); Salicylate < 2.50 mg/dL (<30); Sodium 137 mmol/L (135-145); Total Protein 6.3 g/dL (6.4-8.9); eGFR CKD-EPI 78.2 (>60)
[2022-04-09 21:55] LABS: Lithium 0.61 mmol/L (0.6-1.2)
[2022-04-09 22:00] LABS: Urine Benzodiazepine Screen None Detected (None Detect); Urine Cannabinoids Screen None Detected (None Detect); Urine Opiates Screen None Detected (None Detect)
[2022-04-09 22:01] LABS: TSH Ultra Thyroid Stim Horm 2.97 mcIU/mL (0.34-5.60)
[2022-04-09] MEDS ORDERED: Albuterol HFA INHALER 8 gm MDI INH PRN (22:13)
[2022-04-10] MEDS: Vitamin THERAPEUTIC TAB PO SCH (08:44)
[2022-04-10] MEDS: Cholecalciferol (VIT D3) 1,000 unit TAB PO SCH (08:44)
[2022-04-10] MEDS: NF: Azelastine 0.15% NASAL(NF) 30 ML BTL BOTH NARES SCH ×2 (08:46→22:38)
[2022-04-10] MEDS: FLUNISOLIDE BOTH NARES SCH ×2 (08:46→22:39)
[2022-04-10] MEDS: CLINDAMYCIN PHOSPHATE 1% TOPICAL SCH ×2 (08:47→22:39)
[2022-04-10] MEDS: [UNRECOGNIZED DRUG - OTHER] TOPICAL SCH (08:47)
[2022-04-10] MEDS ORDERED: CMCS: Lithium Carb ER 300 mg TAB(NF) PO SCH (21:00)
[2022-04-11 07:48] VITALS: BP 108/81
[2022-04-11] MEDS: NF: Azelastine 0.15% NASAL(NF) 30 ML BTL BOTH NARES SCH (08:45)
[2022-04-11] MEDS: FLUNISOLIDE BOTH NARES SCH (08:45)
[2022-04-11] MEDS: [UNRECOGNIZED DRUG - OTHER] TOPICAL SCH (08:46)
[2022-04-11] MEDS: CLINDAMYCIN PHOSPHATE 1% TOPICAL SCH (08:46)
[2022-04-11] MEDS ORDERED: ADALIMUMAB 40 MG/0.8 ML SUBCUT SCH (09:00)
[2022-04-11] MEDS: Cholecalciferol (VIT D3) 1,000 unit TAB PO SCH (10:18)
[2022-04-11] MEDS: Vitamin THERAPEUTIC TAB PO SCH (10:18)
[2022-04-12] MEDS ORDERED: Fluticasone NASAL SPRAY 50MCG 16 gm SPRAY BTL BOTH NARES SCH (09:00)
== END 2022-04-11 14:10 | disposition home or self-care (01) | DRG 885 ==
LOC: ED 16:53 → EDHOLD 20:11 → BSU 22:43
PROVIDERS: ADMIT Psychiatry & Neurology Psychiatry; ATTEND Psychiatry & Neurology Psychiatry

== ENCOUNTER 2023-07-20 11:53 | Inpatient (IN) ==
[2023-07-20 12:40] LABS: ABS Eosinophils 0.1 10^3/uL (0.0-0.5); ABS Lymphocytes 1.6 10^3/uL (1.0-4.8); ABS Monocytes 0.4 10^3/uL (0.0-0.9); ABS Neutrophils 2.3 10^3/uL (1.5-7.6); Eosinophil % 3.3 %; Hematocrit 43.4 % (35-45); Hemoglobin 14.9 g/dL (11.5-14.3); Lymphocyte % 36.2 %; Mean Corpuscular Hemoglobin 32.4 pg (27-33); Mean Corpuscular Hgb Conc 34.3 g/dL (31-36); Mean Corpuscular Volume 94.4 fL (80-97); Mean Platelet Volume 7.3 fL (7.5-11.2); Nucleated Red Blood Cells % 0.1 %/100WBC (0.0-0.8); Platelet Count 247 10^3/uL (150-450); Red Cell Distribution Width 13.4 % (12-17); White Blood Count 4.5 10^3/uL (3.8-11.8)
[2023-07-20 12:53] LABS: ALT 20 U/L (7-52); AST 20 U/L (13-39); Albumin 4.5 g/dL (3.2-5.2); Albumin/Globulin Ratio 2.3 (1-3); Alkaline Phosphatase 51 U/L (35-149); Anion Gap 7 mmol/L (2-16); Blood Urea Nitrogen 12 mg/dL (6-24); CO2 Carbon Dioxide 24 mmol/L (22-32); Calcium 9.6 mg/dL (8.6-10.3); Chloride 107 mmol/L (101-111); Creatinine, Serum 1.01 mg/dL (0.51-0.95); Glucose 90 mg/dL (70-100); Sodium 138 mmol/L (135-145); Total Bilirubin 0.7 mg/dL (0.2-1.0); Total Protein 6.5 g/dL (6.4-8.9); eGFR CKD-EPI 70.4 (>60)
[2023-07-20 13:19] LABS: Acetaminophen < 15 mcg/mL; Alcohol, S < 13 mg/dL (<13); Lithium 0.88 mmol/L (0.6-1.2); Salicylate < 2.50 mg/dL (<30)
[2023-07-20 13:35] LABS: TSH Ultra Thyroid Stim Horm 2.51 mcIU/mL (0.34-5.60)
[2023-07-20] MEDS ORDERED: Al Hydrox/Mg Hydrox/Simet LIQ 30 ML UDC PO PRN (14:18)
[2023-07-20] MEDS ORDERED: Albuterol HFA INHALER 8 gm MDI INH PRN (14:20)
[2023-07-20] MEDS: Lithium Carb ER 300 mg TAB(NF) PO SCH (20:17)
[2023-07-20] MEDS: Lurasidone 120 mg TAB PO SCH (21:05)
[2023-07-21 08:21] LABS: HDL Cholesterol 59.4 mg/dL
[2023-07-21] MEDS: Multivitamins/Minerals TAB PO SCH (09:09)
[2023-07-21] MEDS: Cholecalciferol (VIT D3) 1,000 unit TAB PO SCH (09:09)
[2023-07-21] MEDS: Fluticasone NASAL SPRAY 50MCG 16 gm SPRAY BTL BOTH NARES SCH (09:12)
[2023-07-21] MEDS: MINOCYCLINE 50 MG PO SCH (09:12)
[2023-07-21] MEDS: Lurasidone 120 mg TAB PO SCH (21:06)
[2023-07-21] MEDS: Lithium Carb ER 300 mg TAB(NF) PO SCH (21:06)
[2023-07-22] MEDS: Cholecalciferol (VIT D3) 1,000 unit TAB PO SCH (09:02)
[2023-07-22] MEDS: MINOCYCLINE 50 MG PO SCH (09:02)
[2023-07-22] MEDS: Multivitamins/Minerals TAB PO SCH (09:02)
[2023-07-22] MEDS: Fluticasone NASAL SPRAY 50MCG 16 gm SPRAY BTL BOTH NARES SCH (09:30)
[2023-07-22] MEDS: Lurasidone 120 mg TAB PO SCH (20:54)
[2023-07-22] MEDS: Lithium Carb ER 300 mg TAB(NF) PO SCH (20:55)
[2023-07-23] MEDS: MINOCYCLINE 50 MG PO SCH (08:35)
[2023-07-23] MEDS: Multivitamins/Minerals TAB PO SCH (08:35)
[2023-07-23] MEDS: Cholecalciferol (VIT D3) 1,000 unit TAB PO SCH (08:36)
[2023-07-23] MEDS: Fluticasone NASAL SPRAY 50MCG 16 gm SPRAY BTL BOTH NARES SCH (08:44)
[2023-07-23 09:18] VITALS: BP 112/73
[2023-07-23] MEDS: Lithium Carb ER 300 mg TAB(NF) PO SCH (20:59)
[2023-07-23] MEDS: Lurasidone 120 mg TAB PO SCH (21:00)
[2023-07-24] MEDS: MINOCYCLINE 50 MG PO SCH (08:21)
[2023-07-24] MEDS: Cholecalciferol (VIT D3) 1,000 unit TAB PO SCH (08:21)
[2023-07-24] MEDS: Multivitamins/Minerals TAB PO SCH (08:21)
[2023-07-24] MEDS: Fluticasone NASAL SPRAY 50MCG 16 gm SPRAY BTL BOTH NARES SCH (09:57)
== END 2023-07-24 09:57 | disposition home or self-care (01) | DRG 883 ==
LOC: ED 11:53 → EDHOLD 14:18 → BSU 16:48
PROVIDERS: ADMIT Psychiatry & Neurology Psychiatry; ATTEND Psychiatry & Neurology Psychiatry

== ENCOUNTER 2023-11-04 18:28 | Inpatient (IN) ==
[2023-11-04 19:20] LABS: ABS Basophils 0.1 10^3/uL (0.0-0.1); ABS Eosinophils 0.1 10^3/uL (0.0-0.5); ABS Lymphocytes 1.8 10^3/uL (1.0-4.8); ABS Monocytes 0.5 10^3/uL (0.0-0.9); ABS Neutrophils 4.1 10^3/uL (1.5-7.6); Eosinophil % 1.8 %; Hematocrit 41.7 % (35-45); Hemoglobin 14.4 g/dL (11.5-14.3); Lymphocyte % 26.9 %; Mean Corpuscular Hemoglobin 32.6 pg (27-33); Mean Corpuscular Hgb Conc 34.5 g/dL (31-36); Mean Corpuscular Volume 94.4 fL (80-97); Mean Platelet Volume 7.5 fL (7.5-11.2); Nucleated Red Blood Cells % 0.1 %/100WBC (0.0-0.8); Platelet Count 215 10^3/uL (150-450); Red Blood Count 4.41 10^6/uL (3.63-4.92); Red Cell Distribution Width 13.2 % (12-17); White Blood Count 6.5 10^3/uL (3.8-11.8)
[2023-11-04 19:27] LABS: Urine Appearance Clear; Urine Bilirubin Negative (Negative); Urine Blood Negative (Negative); Urine Color Light-Yellow; Urine Glucose Negative (Negative); Urine Ketones Negative (Negative); Urine Nitrite Negative (Negative); Urine Protein Negative (Negative); Urine Urobilinogen Negative (Negative); Urine pH 5.5 (5.0-8.0)
[2023-11-04 19:47] LABS: Urine Benzodiazepine Screen None Detected (None Detect); Urine Cannabinoids Screen None Detected (None Detect); Urine Opiates Screen None Detected (None Detect)
[2023-11-04 20:04] LABS: ALT 15 U/L (7-52); AST 15 U/L (13-39); Albumin 4.3 g/dL (3.2-5.2); Albumin/Globulin Ratio 2.5 (1-3); Alkaline Phosphatase 58 U/L (35-149); Anion Gap 7 mmol/L (2-16); Blood Urea Nitrogen 10 mg/dL (6-24); CO2 Carbon Dioxide 22 mmol/L (22-32); Calcium 9.4 mg/dL (8.6-10.3); Chloride 107 mmol/L (101-111); Creatinine, Serum 0.93 mg/dL (0.51-0.95); Globulin 1.7 g/dL (2-4); Glucose 110 mg/dL (70-100); Potassium 3.7 mmol/L (3.5-5.0); Sodium 136 mmol/L (135-145); Total Bilirubin 0.5 mg/dL (0.2-1.0); eGFR CKD-EPI 77.7 (>60)
[2023-11-04 20:12] LABS: HCG Pregnancy < 0.60 mIU/mL
[2023-11-05] MEDS ORDERED: Al Hydrox/Mg Hydrox/Simet LIQ 30 ML UDC PO PRN (02:00)
[2023-11-05] MEDS: Vitamin THERAPEUTIC TAB PO SCH (09:49)
[2023-11-05] MEDS ORDERED: Albuterol HFA INHALER 8 gm MDI INH PRN (13:26)
[2023-11-05] MEDS: CMC:Lithium Carb ER 300 mg TAB(NF) PO SCH (20:35)
[2023-11-06] MEDS: Cholecalciferol (VIT D3) 1,000 unit TAB PO SCH (11:08)
[2023-11-06] MEDS: Fluticasone NASAL SPRAY 50MCG 16 gm SPRAY BTL BOTH NARES SCH (11:10)
[2023-11-07 09:19] VITALS: BP 131/75
== END 2023-11-07 09:40 | disposition home or self-care (01) | DRG 883 ==
LOC: ED 18:28 → EDHOLD 11-05 00:55 → BSU 11-05 03:25
PROVIDERS: ADMIT Student in an Organized Health Care Education/Training Program; ATTEND Psychiatry & Neurology Psychiatry